=== PATIENT | female | born 1940 | race Caucasian/White ===

== ENCOUNTER 2016-07-06 11:21 | Inpatient (IN) | payer MEDICARE, OTHER, MEDICAID ==
[~2016-07-06] VITALS: Ht 157.5 cm; Wt 90.9 kg
[2016-07-06] VITALS (10 sets, daily range): BP systolic 89–149; BP diastolic 36–99; PULSE 77–96; RESP 13–23; O2SAT 87–100
[~2016-07-06 11:21] MED LIST: ALBU2.5V4 NEB; ALBU8.5H2 INH; AMLO5TAB2 PO; ARFO15VI2 NEB; ASPI-1148 PO; ATOR20TA PO; ATOR20TA65 PO; BUDE0.5A NEB; CHOL40003 PO; FISH400C PO; GABA-502 PO; IPRA0.2S51 NEB; LEVO100T6 PO; LISI-567 PO; OMEG300C3 PO; OMEP20CA11 PO; ONDA4TAB6 PO; OXYC1TAB24 PO; POLY17PO6 PO; PROP40TA5 PO; SUCR1TAB PO; ZOLP5TAB6 PO
--- NOTE | 2016-07-06 11:41 | ED.REPORT ---
HPI-Abd Pain F 40 and Over Date of Service Jul 06, 2016 ED Provider: Rodriguez Wills MD This is a 75 year old female brought to the ED by EMS with a history of COPD and HTN presenting with diarrhea that began 22 hours ago. This is associated with lower abdominal pain with radiation to the back, malaise, chills, nausea, and vomiting. Pt reports 20-30 episodes of persistent diarrhea since onset. Denies fever, headache, hematemesis, or hematochezia. Pt states that this is her 4th presentation with similar symptoms, she visited [facility] with last episode 4 months ago. Nursing Notes Stated Complaint: FEVER Chief Complaint: Female Abdominal Pain Nursing Notes Reviewed: Yes Allergies: Coded Allergies: Penicillins (Verified Allergy, Severe, rash, 04/27/16) ciprofloxacin (Verified Allergy, Severe, Nausea, 04/27/16) sulfamethoxazole (Verified Allergy, Severe, SYSTEMS REQUIREMENTS PLANNER toxicity, 04/28/16) trimethoprim (Verified Allergy, Severe, SYSTEMS REQUIREMENTS PLANNER toxicity, 04/28/16) dexamethasone (Verified Allergy, Intermediate, 04/27/16) insomnia, nightmares, nasuea and visual changes hydrochlorothiazide (Verified Allergy, Intermediate, Rash,Itching,, ) Uncoded Allergies: sulfamethoxazole-trimethoprim (Allergy, Intermediate, Hallucinations, ) Scheduled Amlodipine (Amlodipine) 5 Mg Tablet 5 MG PO DAILY Arformoterol Tartrate (Brovana) 15 Mcg/2 Ml Vial.neb 15 MCG IH BID Aspirin/Acetaminophen/Caffeine (Yxafmwh-Ijvbtnfqhglhl-Pxbk Tab) 250 Mg-250 Mg- 65 Mg Tablet 2 EACH PO Q6H Atorvastatin (Lipitor) 20 Mg Tablet 20 MG PO DAILY Atorvastatin Calcium (Atorvastatin Calcium) 20 Mg Tablet 20 MG PO DAILY Budesonide (Pulmicort) 0.5 Mg/2 Ml Ampul.neb. 0.5 MG HHN BID Cholecalciferol (Vitamin D3) (Vitamin D3) 4,000 Unit Capsule 4,000 UNIT PO DAILY Fish Oil/Borage/Flax/Om3,6,9#1 (Emzbrjpc-Gsvf-Dfgqev Oil Sftgl) 400 Mg Capsule 400 MG PO DAILY Gabapentin (Gabapentin) 300 Mg Capsule 300 MG PO TID Ipratropium [place] (Ipratropium [place] Inhalant Solution) 0.2 Mg/1 Ml Solution 0.2 MG IH QID Levothyroxine (Levothyroxine) 100 Mcg Tablet 100 MCG PO DAILY Lisinopril (Lisinopril) 20 Mg Tablet 20 MG PO DAILY [place]-3 Fatty Acids (Fish Oil) 300 Mg Capsule 300 MG PO DAILY Omeprazole (Omeprazole) 20 Mg Capsule.dr 20 MG PO BID Polyethylene Glycol 3350 (Miralax) 17 Gm Powd.pack 17 GM PO DAILY Propranolol HCl (Propranolol HCl) 40 Mg Tablet 20 MG PO TID Sucralfate (Sucralfate) 1 Gm Tablet 1-4 GM PO TIDWM & HS Scheduled PRN Albuterol HFA (Proair HFA) 8.5 Gm Hfa.aer.ad 1-2 PUFFS INH Q4H PRN PRN For Shortness of Breath Albuterol Neb Soln (Albuterol Neb Soln) 2.5 Mg/3 Ml Vial.neb 2.5 MG INHALATION Q2H PRN PRN For Shortness of Breath Ondansetron (Zofran) 4 Mg Tablet 4 MG PO Q0rkxdk PRN PRN For Nausea Zolpidem (Zolpidem) 5 Mg Tablet 5-10 MG PO HS PRN PRN For Insomnia oxyCODONE-Acetaminophen 5-325 mg (oxyCODONE-Acetaminophen 5-325 mg) 1 Each Tablet 1-2 TAB PO V3pspnd PRN PRN For Pain General Time Seen by MD: 11:29 Chief Complaint Diarrhea moderate Hx Obtained From: Patient Arrived By: Walk-in Sudden in Onset?: Yes Onset Occurred: 21 - 23 hours ago Symptom Duration: Since onset Location: : Abdomen lower Severity: Current: Mild Pertinent Negative: Pt denies other symptoms Recent Healthcare: No recent doctor visit, No recent hospitalization Similar Sx Previous: No Past Medical History Past Medical History Notes: Code Status: Full Code Medication List per Discharge Note dated 04/20/16 from [facility]: Amlodipine 5mg daily Albuterol 2 puffs q 4 hours prn SOB Gabapentin 300mg 2 tabs tid Brovana 1 vial nebulized bid Atorvastatin 20mg q PM Pulmicort nebs bid Vitamin D 4000 international units daily Duloxetine 30mg q PM Fish Oil 1 tab daily Flaxseed Oil 1 tab daily Ipratropium neb solution qid daily Levothyroxine 100mcg daily Omeprazole 20mg bid Zofran 4mg tablet q 8 hours prn nausea, vomiting Oxycodone 5/325, 1 to 2 tablets every 4 hours prn pain Miralax 17 grams in 8oz water daily Propranolol 20mg tid Zolpidem 5 to 10mg nightly prn insomnia Past Medical History Chronic back pain Atrial septal anuerysm 2006 Reports: COPD, Hypertension Past Surgical History back surgeries Smoking History Unknown if Ever Smoker Social History Other Social History: Good social support Ambulatory Status Independent Review of Systems Constitutional: Denies: Chills, Fever Respiratory: Denies: Non-productive cough, Shortness of breath Cardiovascular: Denies: Chest pain GI: Reports: Abdominal pain, Diarrhea, Nausea, Vomiting, Denies: Hematemesis, Hematochezia Female: Denies: Dysuria Complete sys rev & neg: except as marked. Physical Exam Vital Signs Vital Signs (First) Date Time Temp Pulse Resp B/P Pulse Ox O2 Delivery O2 Flow Rate FiO2 07/06/16 11:39 36.6 77 16 89/36 94 Nasal Cannula 07/06/16 12:31 3 - Initial VS: Reviewed Head / Eyes: Atraumatic, Normocephalic, PERRL Neck: Supple, Non-tender, Full range of motion Extremities: Vascular intact, Neuro intact, No swelling, No tenderness Skin: Warm, Dry, No cyanosis Neurologic: Alert, Oriented, Nonfocal Psychiatric: Mood/affect normal, Behavior normal, Normal thought content General/Constitutional: Awake, Alert Respiratory / Chest: Breath sounds NL, Breath sounds = bilat, No respiratory distress, No rales, No rhonchi, No wheezing, No stridor Cardiovascular: Heart rate NL, Regular rhythm, Heart sounds NL, Peripheral circulation NL Abdomen: Soft, No guarding, No rebound Tenderness/Guarding/Rebound: Positive: Tender diffuse Back: Full range of motion, Non-tender, No midline vertebral tend, No paraspinal tenderness ENT: Pharynx NL Mouth: Positive: Mucous membranes dry Interpretation & Diagnostics CT ABD PELVIS IMPRESSION: 1. Right basilar atelectasis associated with convex leftward scoliosis and reduced inspiratory volume. No pneumonia found. 2. Note is made of a dilated renal calyx at the left mid kidney, containing a 7 mm calcification. Episodic calyceal obstruction by this calcification could explain the appearance. An alternative potential cause is the presence of a cyst immediately adjacent to this calcification which therefore would be located either within a non-dilated calyx or the cortex itself.. Dictated by: Jens Guzman M.D. on 07/06/2016 at 14:49 Approved by: Jens Guzman M.D. on 07/06/2016 at 14:49 Lab Results Interpretation Result Diagram: 07/06/16 1257 07/06/16 1257 Test 07/06/16 12:05 07/06/16 12:57 Urine Color Dark yellow (YELLOW) Urine Appearance Hazy (CLEAR,HAZY) Urine pH 5.0 (5.0-8.0) Urine Specific [place] 1.025 (1.003-1.035) Urine Protein Negativemg/dL (NEG,TRACE) Urine Glucose (UA) Negativemg/dL (NEGATIVE) Urine Ketones Tracemg/dL (NEGATIVE) Urine Occult Blood Negative (NEGATIVE) Urine Nitrite Negative (NEGATIVE) Urine Bilirubin Negative (NEGATIVE) Urine Urobilinogen Normalmg/dL (NORMAL) Urine Leukocyte Esterase Negative (NEGATIVE) Urine RBC 0-2/hpf (0-2) Urine WBC 11-50/hpf (0-5) Urine Epithelial Cells Occasional/hpf (NONE-MOD) Urine Crystals Oxalic acid crystals (NONE Urine Bacteria Many/hpf (NONE-FEW) Urine Hyaline Casts None/lpf (NONE) Urine Granular Casts None seen (NONE SEEN) Urine Waxy Casts None seen (NONE SEEN) Urine Red Blood Cell Casts None seen (NONE SEEN) Urine White Blood Cell Casts None seen (NONE SEEN) Urine Mucus None seen (None Seen) Urine Trichomonas None seen (NONE SEEN) Urine Yeast None (NONE SEEN) Urinalysis Comment None Urine Culture Reflexed Indicated Hold Urine Received (Received) White Blood Count 7.3th/mm3 (3.8-10.1) Red Blood Count 3.56mil/mm3 (3.90-5.20) Hemoglobin 10.9g/dL (12.0-15.6) Hematocrit 34.9% (35.0-46.0) Mean Corpuscular Volume 98.0fL (81-100) Mean Corpuscular Hemoglobin 30.6pg (27.0-35.0) Mean Corpuscular Hemoglobin Concent 31.2% (32.0-37.0) Red Cell Distribution Width 13.8% (12.3-15.4) Platelet Count 273bil/L (150-400) Neutrophils (%) (Auto) 73.5% (40-74) Lymphocytes (%) (Auto) 16.3% (14-46) Monocytes (%) (Auto) 8.7% (4-12) Eosinophils (%) (Auto) 0.8% (0-5) Basophils (%) (Auto) 0.6% (0-3) Sodium Level 141mEq/L (134-144) Potassium Level 4.0mEq/L (3.5-5.2) Chloride Level 101mEq/L (97-108) Carbon Dioxide Level 28mmol/L (18-29) Blood Urea Nitrogen 30mg/dL (8-27) Creatinine 1.85mg/dL (0.57-1.00) Estimat Glomerular Filtration Rate 38mL/min (>59) Glucose Level 109mg/dL (60-99) Lactic Acid Level 1.2mmol/L (0.4-2.0) Calcium Level 8.6mg/dL (8.5-10.1) Magnesium Level 2.4mg/dL (1.6-2.6) Total Bilirubin 0.3mg/dL (0.0-1.2) Aspartate Amino Transf (AST/SGOT) 19U/L (0-50) Alanine Aminotransferase (ALT/SGPT) 10U/L (0-32) Alkaline Phosphatase 75U/L (25-165) Total Protein 5.9g/dL (6.4-8.4) Albumin 3.5g/dL (3.4-5.0) Lipase 10U/L (13-60) Hold [place] Top Tube Received (Received) Re-Eval/Medical Decision Med Decision/Clinical Course 75-year-old female history of hypertension, COPD positioning with 20-30 episodes watery diarrhea 1 day. Her maps were in the 40s to 50s on arrival. She was given 2 L normal saline and her maps improved to high 60s. Urine suggestive UTI. Acute kidney injury with creatinine of 1.8 greater than [address] no acute pathology. Patient will be admitted for acute kidney injury, UTI, dehydration. Full code. Re-Evaluation/Progress : Time of Eval: 14:44 Re-Evaluation/Progress Note: Discussed lab results and need for admission. Pt understands and agrees with plan, all questions addressed. Consultation : Referral / Consult Name: Sanchez Tellez MD Consulted With: Hospitalist Call Returned at: 15:41 Traffic Safety Administrator: Accepts admit Counseled Regarding: Diagnosis, Lab results, Need for follow-up, Need for admission Discharge & Departure Primary Impression: UTI (urinary tract infection) Urinary tract infection type: acute cystitis Hematuria presence: without hematuria Qualified Code: N30.00 - Acute cystitis without hematuria Additional Impressions: FARHAT (acute kidney injury) Dehydration Disposition: ADMITTED TO HOSPITAL Discharge Condition All VS Reviewed: Yes Condition: Stable Referrals: Fabian Meek MD (PCP) Scribe Attestation Portions of this note were transcribed by Starr Harris. I, Dr. Wills personally performed the history, physical exam and medical decision-making; I reviewed and confirmed the accuracy of the information in the transcribed note. Signed by: Starr Harris. 07/06/2015, 11:30. Rodriguez Wills MD Jul 06, 2016 11:41 STARR HARRIS Jul 06, 2016 11:43
[2016-07-06] MEDS ORDERED: 0.9% Sodium Chloride 1,000 ML IV ONE (12:34)
[2016-07-06] MEDS ORDERED: Ondansetron 2 mg/mL 2 mL Inj IVPUSH PRN (12:35)
[2016-07-06 12:51] LABS: APPEARANCE,URINE HAZY (CLEAR,HAZY); COLOR,URINE DARK YELLOW (YELLOW); OCCULT BLOOD,URINE NEGATIVE (NEGATIVE)
[2016-07-06 12:52] LABS: UROBILINOGEN,URINE NORMAL (NORMAL)
[2016-07-06 13:10] LABS: BASOPHILS % (AUTO) 0.6 % (0-3); EOSINOPHILS % (AUTO) 0.8 % (0-5); MONOCYTES % (AUTO) 8.7 % (4-12); Mean Corpuscular Hemoglobin 30.6 pg (27.0-35.0); NEUTROPHILS % (AUTO) 73.5 % (40-74); Platelet Count 273 bil/L (150-400)
[2016-07-06 13:42] LABS: Magnesium 2.4 mg/dL (1.6-2.6)
--- NOTE | 2016-07-06 14:51 | DRSVH ---
PROCEDURE: CT ABDOMEN AND PELVIS WITHOUT CONTRAST ([id number]) INDICATIONS: abd pain TECHNIQUE: Noncontrast 5 mm thick sections acquired from the diaphragms to the symphysis. 5 mm coronal and sagi ttal reformats were then performed. For radiation dose reduction, the following was used: automated exposure control, adjustment of mA and/or kV according to patient size. COMPARISON: None. FINDINGS: Image quality: Mildly compromised by absence of oral and intravenous contrast. The patient's renal f unction tests are elevated and intravenous contrast could not be safely administered. ABDOMEN: Lung bases: Lung bases are clear except for mild atelectasis associated with scoliosis and reduced i nspiratory volume, right greater than left. There appears to be a moderately large hiatal hernia beh ind the heart. Heart size is normal. Solid organs: Liver and spleen are normal in size. Gallbladder appears normal. Pancreas is normal in contours. No adrenal nodules. Kidneys are normal in size, without hydronephrosis or nephrolithia sis on the right but there is what appears to be a calculus within a dilated calyx of the left mid ki dney (series 2 image 45 in this calcification measures up to 7 mm in diameter. Peritoneum and bowel: Unenhanced bowel loops demonstrate normal wall thickness and caliber. No free fluid or air. Nodes and vessels: No retroperitoneal or mesenteric adenopathy by size criteria. Aorta and inferior vena cava are normal in caliber except for an infrarenal abdominal aortic aneurysm measuring up to 3 .1 x 3.2 cm in maximal axial dimension. Miscellaneous: No ventral hernias. PELVIS: Genitourinary: Bladder wall thickness is normal. Miscellaneous: No inguinal hernias or adenopathy. Bones: No suspicious bony lesions. No vertebral body compression fractures. IMPRESSION: 1. Right basilar atelectasis associated with convex leftward scoliosis and reduced inspiratory volum e. No pneumonia found. 2. Note is made of a dilated renal calyx at the left mid kidney, containing a 7 mm calcification. E pisodic calyceal obstruction by this calcification could explain the appearance. An alternative pote ntial cause is the presence of a cyst immediately adjacent to this calcification which therefore woul d be located either within a non-dilated calyx or the cortex itself.. Dictated by: Jens Guzman M.D. on 07/06/2016 at 14:49 Approved by: Jens Guzman M.D. on 07/06/2016 at 14:49
[2016-07-06] MEDS ORDERED: cefTRIAXone Inj 1,000 MG in IV Premix 1 EACH IV ONE (15:05)
[2016-07-06] MEDS ORDERED: 0.9% Sodium Chloride 250 ML ONE (15:27)
[2016-07-06] MEDS ORDERED: Alum-Mag Hydrox-Simeth 30 mL Suspension PO PRN (15:45)
--- NOTE | 2016-07-06 16:08 | PCM.HPMED ---
Subjective Date of Service Jul 06, 2016 Primary Provider: Admitting Physician: Primary Care Physician: Fabian Meek MD Attending Physician: Chief Complaint: Diarrhea HISTORY was OBTAINED FROM PATIENT / [facility] NOTES History of present illness 75-year-old female presents with one-day history of recurrent diarrhea 20, associated lower abdominal cramping, preceding retching without vomitus of dinner the night before. This is the 4th since 2016. Associated low blood pressure, dehydration, and decreased mentation/ lightheaded. Pending colonoscopy 07/27/2016, unremarkable colonoscopy 10 years ago. did not take her miralax for baseline chronic constipation. did not take her BP/diuretics. dinner and breakfast were typical, no sick contacts, lives alone. No dysuria. decreased voiding today. She can't see - unknown if blood in stool or blood in urine. sore throat. ongoing acid reflux despite meds. In the ER, 3 L O2, baseline, 2 L saline, blood pressure 88/36, UA negative for leukocyte esterase/nitrate/yeast. rocephine administered, diarrhea w/ abdominal pains and retching have resolved, thirsty ongoing back pain, paresthesia of right hand and foot are new today Review of Systems - none of the following - F/C/sick contact / wt change/ MANCINI / sob / cough / cp / // bleeding/bruising / leg swelling / yeast infections / rash falling hx. FAMILY HX no colon cancer SOCIAL HX former smoker MEDICATIONS Scheduled Amlodipine (Amlodipine) 5 Mg Tablet 5 MG PO DAILY --- off per PCP per patient Arformoterol Tartrate (Brovana) 15 Mcg/2 Ml Vial.neb 15 MCG IH BID Aspirin/Acetaminophen/Caffeine (Rxlkjfq-Jcytrrgunoelu-Doke Tab) 250 Mg-250 Mg- 65 Mg Tablet 2 EACH PO Q6H Atorvastatin (Lipitor) 20 Mg Tablet 20 MG PO DAILY Budesonide (Pulmicort) 0.5 Mg/2 Ml Ampul.neb. 0.5 MG HHN BID Cholecalciferol (Vitamin D3) (Vitamin D3) 4,000 Unit Capsule 4,000 UNIT PO DAILY Fish Oil/Borage/Flax/Om3,6,9#1 (Rqjdwjqe-Wihr-Tvcayh Oil Sftgl) 400 Mg Capsule 400 MG PO DAILY Gabapentin (Gabapentin) 300 Mg Capsule 300 MG PO TID Ipratropium [place] (Ipratropium [place] Inhalant Solution) 0.2 Mg/1 Ml Solution 0.2 MG IH QID Levothyroxine (Levothyroxine) 100 Mcg Tablet 100 MCG PO DAILY Lisinopril (Lisinopril) 20 Mg Tablet 20 MG PO DAILY [place]-3 Fatty Acids (Fish Oil) 300 Mg Capsule 300 MG PO DAILY Omeprazole (Omeprazole) 20 Mg Capsule.dr 20 MG PO BID Polyethylene Glycol 3350 (Miralax) 17 Gm Powd.pack 17 GM PO DAILY Propranolol HCl (Propranolol HCl) 40 Mg Tablet 20 MG PO TID Sucralfate (Sucralfate) 1 Gm Tablet 1-4 GM PO TIDWM & HS Scheduled PRN Albuterol HFA (Proair HFA) 8.5 Gm Hfa.aer.ad 1-2 PUFFS INH Q4H PRN PRN For Shortness of Breath Albuterol Neb Soln (Albuterol Neb Soln) 2.5 Mg/3 Ml Vial.neb 2.5 MG INHALATION Q2H PRN PRN For Shortness of Breath Zolpidem (Zolpidem) 5 Mg Tablet 5-10 MG PO HS PRN PRN For Insomnia oxyCODONE-Acetaminophen 5-325 mg (oxyCODONE-Acetaminophen 5-325 mg) 1 Each Tablet 1-2 TAB PO E4nazvl PRN PRN For Pain lasix 20 / potassium 20 PRN leg swelling/SOB PMHx Left ventricular grade II diastolic dysfunction / Hypertension / DLP / Atrial septal aneurysm 2006, COPD 3L O2 dependent Hypothyroidism chronic back pain/DDD//Arthritis/shoulder operations right hand surgery Cataracts / diminished vision Dysphagia/Hiatal hernia/GERD Recurrent UTI - 04/2016 admission enterobacter Skin and cervical cancer Hysterectomy tremors. Allergies Coded Allergies: Penicillins (Verified Allergy, Severe, rash, 04/27/16) ciprofloxacin (Verified Allergy, Severe, Nausea, 04/27/16) sulfamethoxazole (Verified Allergy, Severe, BASTING MARKER toxicity, 04/28/16) trimethoprim (Verified Allergy, Severe, BASTING MARKER toxicity, 04/28/16) dexamethasone (Verified Allergy, Intermediate, 04/27/16) insomnia, nightmares, nasuea and visual changes hydrochlorothiazide (Verified Allergy, Intermediate, Rash,Itching,, ) Uncoded Allergies: sulfamethoxazole-trimethoprim (Allergy, Intermediate, Hallucinations, ) H Social History Hx Alcohol Use: No Hx Substance Use: No Smoking Status: Former Smoker Exam Vital Signs Vital Sign - Last Date Time Temp Pulse Resp B/P Pulse Ox O2 Delivery O2 Flow Rate FiO2 07/06/16 14:44 89 23 101/44 94 Nasal Cannula 3 07/06/16 11:39 36.6 Lab and Diagnostics Labs Exam on admission 3L O2 NAD A and O x 3 mood affect WNL NC/AT no icterus no injected eyes EOMI PERRL /no oral lesions / hearing intact / / white small plaque on pharynx Supple neck CTAB equal chest rise / no accessory muscle use / speaks in full sentences / no rrw RRR S1 S2 / no mrg / 2+ radial pulses Soft nt nd + BS no hepatosplenomegaly trace bilateral lester edema no cyanosis no ecchymosis of lower extremities knee erythema / no jaundice MAY UA neg for infection markers, epithelials/bacteria present, no yeast Ucx pending, LFT WNL, lipase WNL lactic acid WNL stool cx/c diff pending IMPRESSION: 1. Right basilar atelectasis associated with convex leftward scoliosis and reduced inspiratory volume. No pneumonia found. 2. Note is made of a dilated renal calyx at the left mid kidney, containing a 7 mm calcification. Episodic calyceal obstruction by this calcification could explain the appearance. An alternative potential cause is the presence of a cyst immediately adjacent to this calcification which therefore would be located either within a non-dilated calyx or the cortex itself.. Cardiac Echo05/25/16 Interpretation Summary Left ventricular wall thickness is mildly increased. Left ventricular systolic function is normal. The ejection fraction is estimated to be 60-65%. There are no focal wall motion abnormalities. Assessment of diastolic parameters suggests a pseudonormalization pattern, consistent with elevated filling pressures ( LV grade II diastolic dysfunction). The right ventricle is normal in size and function. The right ventricular systolic pressure is estimated at 36 mmHg assuming a right atrial pressure of 3 mm Hg. The left atrium is moderately dilated. Right atrial size is normal. There is no significant valvular heart disease. The aortic root is normal size. Result Diagram: 07/06/16 1257 07/06/16 1257 Assessment & Plan Active issues and reason for admission 75-year-old female with recurrent diarrhea, causing hypotension due to dehydration and history of present illness new-onset. --unlikely gastroenteritis given recurrence, unlikely SBO w/o CT evidence, contributory narcotics for chronic constipation, continue to hold home miralax -- stool culture pending, C. difficile pending, hx of PPI -- planned colonoscopy 07/27/2016 -- Status post Rocephin in ER - hold on abx until stool culture Hypotension due to fluid loss/diarrhea, no other sources of infection -- IVF AK I, likely prerenal -- IV fluid, monitor for known diastolic dysfunction right hand and foot paresthesia, new --hx of spinal stenosis Thrush, mild --nystatin, low threshold to d/c Chronic issues known prior to admission, present on admission GERD/gastric ulcers. ongoing intermittent symptoms. continue PPI/ Sucralfate. f/ u w/GI COPD 3L O2 dependent, held home medsbrovana, budesonide atrovent. duonebs here. Hypothyroidism, levothyroxine Hypertension/DLP/Left ventricular II diastolic dysfunction. continue statin, hold lisinopril/lasix Tremors, propanolol w/ holding parameter history of chronic back pain/spinal stenosis. morphine if retches, home gabapentin, percocet, insomnia. ambien Diet clear DVT prophylaxis heparin scd ambulate Code full Disposition inpatient Assessment and plan were discussed with patient . Sanchez Tellez MD Jul 06, 2016 16:08
[2016-07-06] MEDS: 0.9% Sodium Chloride 1,000 ML IV SCH (17:00)
[2016-07-06] MEDS ORDERED: Sucralfate 1,000 mg Tablet PO PRN (17:00)
--- NOTE | 2016-07-06 17:20 | NUR ---
Admission Patient arrived on unit via gurney. Patient alert and oriented on arrival. Patient reporting nausea, vomiting, diarrhea, and generalized weakness for a "day or two". Patient has an essential tremor and requires 1:1 feeding. Patient uses 2-3 ltr O2 at home. Patient urine positive for culture. Patient currently on 3 ltr O2. Patient has had diarrhea x 2 since arriving on unit. Patient reporting her legs "give out when she tries to stand up currently" and that at home "she walks around by holding onto furniture and things". Sample sent for C-diff culture.
[2016-07-06] MEDS ORDERED: FUR20 PO (18:07)
[2016-07-06] MEDS ORDERED: POTA20TA16 PO (18:07)
--- NOTE | 2016-07-06 18:30 | NUR ---
med rec completed/ home meds sent to pharmacy Med rec updated with pt's med containers and pt interview. All home meds placed in 2 pharmacy bags and sealed in front of patient, #[id number] and #[id number], home meds sent to pharmacy to hold until family can come take them. Primary RN Estelita Bailey
[2016-07-06] MEDS: Nystatin 100,000 Unit/mL 5 mL Suspension PO SCH ×2 (18:48→20:43)
--- NOTE | 2016-07-06 19:53 | NUR ---
Case Management: IMM explained to patient at 1940--pt unable to sign form stating "I can't see". I noted this on IMM and placed it in the chart, copy given to patient. Michelle Durham RN
[2016-07-06] MEDS: Arformoterol 15 mCg/2 mL Inhalation Solution INHALATION SCH (20:13)
[2016-07-06] MEDS: Albuterol-Ipratropium 3 mL Inhalation Solution NEB SCH (20:13)
[2016-07-06] MEDS: Budesonide 0.5 mg/2 mL Inhalation Solution INHALATION SCH (20:14)
[2016-07-07] VITALS (18 sets, daily range): BP systolic 80–119; BP diastolic 40–71; PULSE 64–87; RESP 12–20; O2SAT 87–96
[2016-07-07] MEDS ORDERED: 0.9% Sodium Chloride 1,000 ML IV ONE ×2 (01:30→05:10)
--- NOTE | 2016-07-07 01:45 | NUR ---
Blood pressure. Patient remains hypotensive at 80/40 taken manually. Provider Gail informed and orders for an additional 500ml bolus was received and start stat.
--- NOTE | 2016-07-07 02:18 | NUR ---
Blood pressure. Notified by [facility] that the patients blood pressure was in the 70 systolic. Auscultated blood pressure was in the 90's. Patient denies complaints, besides feeling weak. Provider Gail notified and orders for 1000ml bolus to be given over 2 hours was received. Addendum: 07/07/16 at 0535 by BLAIR GARCIA RN Patient blood pressure has started to trend into the upper 90's. Patient reports feeling cold and slightly short of breath. lung sounds are clear. IV fluids running at 500ml per hour for 2 hours. Doctors are aware of the patients status and no new order at this time.
[2016-07-07] MEDS ORDERED: 0.9% Sodium Chloride 500 ML IV ONE (02:39)
[2016-07-07] MEDS: 0.9% Sodium Chloride 1,000 ML IV SCH ×2 (03:00→18:17)
[2016-07-07] MEDS: Arformoterol 15 mCg/2 mL Inhalation Solution INHALATION SCH ×2 (05:21→20:10)
[2016-07-07] MEDS: Budesonide 0.5 mg/2 mL Inhalation Solution INHALATION SCH ×2 (05:21→20:11)
[2016-07-07] MEDS: Albuterol-Ipratropium 3 mL Inhalation Solution NEB SCH ×4 (05:21→20:10)
[2016-07-07 05:52] LABS: Mean Corpuscular Hemoglobin 30.2 pg (27.0-35.0); Mean Corpuscular Volume 98.8 fL (81-100)
[2016-07-07 06:23] LABS: Phosphorus 3.4 mg/dL (2.5-4.9)
[2016-07-07] MEDS ORDERED: cefTRIAXone Inj 1,000 MG in IV Premix 1 EACH IV SCH (08:30)
[2016-07-07] MEDS ORDERED: Ciprofloxacin Inj 400 MG in IV Premix 1 EACH IV SCH (08:30)
[2016-07-07] MEDS: Nystatin 100,000 Unit/mL 5 mL Suspension PO SCH ×4 (08:41→20:20)
[2016-07-07] MEDS: Pantoprazole 4 mg/mL 10 mL Inj IVPUSH SCH ×2 (08:41→16:50)
[2016-07-07] MEDS: Heparin 5,000 Unit/mL Inj SUBQ SCH ×2 (08:42→16:52)
[2016-07-07] MEDS: cefTRIAXone Inj 2,000 MG in IV Premix 1 EACH IV SCH (12:07)
[2016-07-07] MEDS: oxyCODONE-Acetamin 5-325 mg Tablet PO PRN ×2 (13:08→19:46)
--- NOTE | 2016-07-07 13:22 | NUR ---
Evaluation completed. Please go to "Notes" then click on "Assessments and Notes" (bottom left corner of screen). Then select appropriate discipline tab on top of screen.
--- NOTE | 2016-07-07 17:24 | NUR ---
Social Work: Initial Assessment D: Per EMR review, pt is a 75 year old female admitted for UTI, FARHAT, Dehydration. Pt is Medicare with [facility] Blue Shield Supplement. PCP is Fabian Meek MD. NOK and DPOA is Sandra Montes, Dtr, . DPOA ppw on file, advanced directives ppw is not. [employer] MAKER requested this from pt, who states her daughter can provide copy. Readmit score is moderate, 4/8. CANVAS [employer] MAKER met with pt at bedside. Sw role explained. See initial assessment. Pt lives in [place], alone. Her daughter lives nearby. Pt uses a FWW at baseline, and owns an electric scooter which she uses when going out into the community. Pt uses 3L 02 at baseline. Pt states she lives in a single story home with 4 steps to enter. CANVAS [employer] MAKER reviewed current PT recommendation for SNF and provided SNF/HH choice list. Pt currently declining SNF recommendation stating "I will not go to one of those places. Absolutely not." Pt states she was previously open with [email or web address] and would like to have a new order placed for PT/OT. CAN[employer] MAKER reviewed risks of going home against recommendation including risk to readmit. She states she understands and does not feel she is a fall risk. Pt states her daughter or granddaughter will transport her home at time of discharge. F2F in folder for MD signature. Referral and access provided to [facility]. A: Pt who is currently declining Home Health recommendation P: Anticipate pt to discharge home via POV and [facility] HH: PT/OT pending acceptance. CAN[employer] MAKER to continue to follow and assist with discharge planning. CLINTON Aguilar Addendum: 07/07/16 at 1732 by LYNETTE CASTELLANO Amended: Links added.
--- NOTE | 2016-07-07 18:34 | NUR ---
Nausea/vomiting/diarrhea Patient reporting an absence of previous symptoms. Patient denies any nausea or diarrhea this shift. Reporting a return of appetite and reporting she is "ravenous". Patient has not had a stool to quiac this shift.
[2016-07-07] MEDS: Ondansetron 2 mg/mL 2 mL Inj IVPUSH PRN ×2 (19:47→20:26)
--- NOTE | 2016-07-07 22:22 | PCM.PNMED ---
Subjective Date of Service Jul 07, 2016 Subjective She is beginning to feel better and would like to tries to have something to eat. She has not had anything the all day. Her nausea has improved and her diarrhea has improved. Exam Vital Signs Vital Sign - Last Date Time Temp Pulse Resp B/P Pulse Ox O2 Delivery O2 Flow Rate FiO2 07/07/16 20:20 Supplement Oxygen 07/07/16 20:11 64 20 95 3.00 07/07/16 19:45 36.8 118/65 Intake and Output 07/06/16 07/06/16 07/07/16 Cumulative From/Thru 15:00 23:00 07:00 07/06/16 11:39 - 07/07/16 06:14 Intake Total 1000 ml 550 ml 2825 ml 4375 ml Output Total 400 ml 400 ml Balance 1000 ml 150 ml 2825 ml 3975 ml Intake Oral 300 ml 300 ml IV Total 1000 ml 250 ml 2825 ml 4075 ml Output Urine Total 400 ml 400 ml # Bowel Movements 2 2 Exam General: The patient appears comfortable and is in no apparent distress. HEENT: Head is atraumatic normocephalic. Eyes: Pupils are equally round and reactive to light and accommodation. Extraocular muscles are intact. Sclera are white anicteric. Subconjunctival mucosa is pink. Ears and nose are unremarkable. Oropharynx: There are no mucosal lesions, there is no thrush, there is no pharyngitis. Neck: Is supple, there are no nodes, or masses, or tenderness. Chest: Is clear to auscultation and percussion. There are no rales, rhonchi, wheezes or rubs. Heart: Rate, rhythm is regular. There is no murmur, rub or gallop. Abdomen: Good bowel sounds are present. Abdomen is soft, nontender, no organomegaly or masses were appreciated. Extremities: Are symmetrical and well perfused. There is no edema, there is no cellulitis, no rash. Neurologic: There are no focal neurological deficits. Cranial nerves II through XII are intact. There are no sensory or motor deficits. Psychiatric: Patients mood is calm and shows no sign of agitation. Genital: Deferred Rectal: Deferred Lab and Diagnostics Result Diagram: 07/07/16 0537 07/07/16 0537 Microbiology ECOLI PCR ENTEROPATHOGENIC Final 07/06/16 Organism 1 ECOLI ENTEROPATHOGENIC EPEC ECOLI EPEC PCR DETECTED TIME CALLED: 1932 DATE CALLED: 07/06/16 FLOOR/DOCTOR: YOAN Raza CALLED BY: MIKAEL ECOLI PCR ENTEROTOXIGENIC Final 07/06/16 Not Detected X-Rays, CTs and MRIs PROCEDURE: CT ABDOMEN AND PELVIS WITHOUT CONTRAST ([id number]) INDICATIONS: abd pain TECHNIQUE: Noncontrast 5 mm thick sections acquired from the diaphragms to the symphysis. 5 mm coronal and sagittal reformats were then performed. For radiation dose reduction, the following was used: automated exposure control, adjustment of mA and/or kV according to patient size. COMPARISON: None. FINDINGS: Image quality: Mildly compromised by absence of oral and intravenous contrast. The patient's renal function tests are elevated and intravenous contrast could not be safely administered. ABDOMEN: Lung bases: Lung bases are clear except for mild atelectasis associated with scoliosis and reduced inspiratory volume, right greater than left. There appears to be a moderately large hiatal hernia behind the heart. Heart size is normal. Solid organs: Liver and spleen are normal in size. Gallbladder appears normal. Pancreas is normal in contours. No adrenal nodules. Kidneys are normal in size, without hydronephrosis or nephrolithiasis on the right but there is what appears to be a calculus within a dilated calyx of the left mid kidney (series 2 image 45 in this calcification measures up to 7 mm in diameter. Peritoneum and bowel: Unenhanced bowel loops demonstrate normal wall thickness and caliber. No free fluid or air. Nodes and vessels: No retroperitoneal or mesenteric adenopathy by size criteria. Aorta and inferior vena cava are normal in caliber except for an infrarenal abdominal aortic aneurysm measuring up to 3.1 x 3.2 cm in maximal axial dimension. Miscellaneous: No ventral hernias. PELVIS: Genitourinary: Bladder wall thickness is normal. Miscellaneous: No inguinal hernias or adenopathy. Bones: No suspicious bony lesions. No vertebral body compression fractures. IMPRESSION: 1. Right basilar atelectasis associated with convex leftward scoliosis and reduced inspiratory volume. No pneumonia found. 2. Note is made of a dilated renal calyx at the left mid kidney, containing a 7 mm calcification. Episodic calyceal obstruction by this calcification could explain the appearance. An alternative potential cause is the presence of a cyst immediately adjacent to this calcification which therefore would be located either within a non-dilated calyx or the cortex itself.. Dictated by: Jens Guzman M.D. on 07/06/2016 at 14:49 Approved by: Jens Guzman M.D. on 07/06/2016 at 14:49 Cardiac Echo Impressions Echocardiogram Report Name: LLUVIA PERKINS LStudy Date: 04/28/2016 Hei ght: 64 in Hospital Exam Location: [facility] ght: 193 lb Gender: Female BSA : 1.9 m2 : 1940 Age: 75 yrs BP: 125/72 mmHg Reason For Study: NEAR SYNCOPE, SYMPTOMAATIC BRADYCARDIA Ordering Physician: HOSPITALIST [facility] Performed By: Lazara Rashid Referring Physician: DR. GARCIA, DR. Cinthya CERNA Interpretation Summary Left ventricular wall thickness is mildly increased. Left ventricular systolic function is normal. The ejection fraction is estimated to be 60-65%. There are no focal wall motion abnormalities. Assessment of diastolic parameters suggests a pseudonormalization pattern, consistent with elevated filling pressures ( LV grade II diastolic dysfunction). The right ventricle is normal in size and function. The right ventricular systolic pressure is estimated at 36 mmHg assuming a right atrial pressure of 3 mm Hg. The left atrium is moderately dilated. Right atrial size is normal. There is no significant valvular heart disease. The aortic root is normal size. Assessment & Plan The patient is a 75-year-old female presents with one-day history of recurrent diarrhea 20 episodes, associated lower abdominal cramping, preceding retching without vomitus of dinner the night before. This is the 4th set of episodes since 2016. Associated low blood pressure, dehydration, and decreased mentation /lightheaded. Patient has a colonoscopy due to old 07/27/[address] Castro at [facility]. The patient had an unremarkable colonoscopy 10 years ago. did not take her miralax for baseline chronic constipation. did not take her BP/diuretics. dinner and breakfast were typical, no sick contacts, lives alone. No dysuria. decreased voiding today. She can't see - unknown if blood in stool or blood in urine. sore throat. ongoing acid reflux despite meds. In the ER, 3 L O2, baseline, 2 L saline, blood pressure 88/36, UA negative for leukocyte esterase/nitrate/yeast. Rocephin administered, diarrhea w/ abdominal pains and retching have resolved, thirsty with ongoing back pain, paresthesia of right hand and foot are new today. Was admitted to the hospital service for further evaluation and treatment. Active issues and reason for admission 75-year-old female with recurrent diarrhea, causing hypotension due to dehydration and history of present illness new-onset. -- Apparent infectious gastroenteritis with enteropathogenic Escherichia coli found on gastrointestinal DNA PCR panel -- Planned colonoscopy 07/27/2016 -- Status post Rocephin in ER - then Cipro ordered possibly for UTI. However, patient is allergic to quinolones. Therefore patient was placed on Rocephin for UTI today and will continue. Hypotension due to fluid loss/diarrhea, no other sources of infection -- IVF AK I, likely prerenal -- IV fluid, monitor for known diastolic dysfunction Right hand and foot paresthesia, new --hx of spinal stenosis -- No complaints of this type today Thrush, mild --nystatin, low threshold to d/c Chronic issues known prior to admission, present on admission -GERD/gastric ulcers. ongoing intermittent symptoms. continue PPI/ Sucralfate. f /u w/GI as scheduled on 07/27/2016 -COPD 3L O2 dependent, held home medsbrovana, budesonide atrovent. duonebs here. Will restart when patient is feeling better or the time of discharge. -Hypothyroidism, continue levothyroxine -Hypertension/DLP/Left ventricular II diastolic dysfunction. continue statin, hold lisinopril/lasix -Tremors, continue propanolol w/ holding parameter -History of chronic back pain/spinal stenosis. morphine if retches, home gabapentin, percocet, -Insomnia. Continue ambien Diet : Advance as tolerated. DVT prophylaxis heparin scd ambulate Code full Disposition: Will depend on patient's recovery. Pain Evaluation: Adequate Pain Control GI Prophylaxis: Proton Pump Inhibitor VTE Prophylaxis: Sub-Q Heparin (Unfractionated) VTE Mechanical Devices: Intermittant Pneumatic CD Resuscitation Status: CPR: Attempt Resuscitation ToddElder MD Jul 07, 2016 22:22
[2016-07-08] VITALS (9 sets, daily range): BP systolic 132–146; BP diastolic 59–79; PULSE 52–70; RESP 16–22; O2SAT 93–99
[2016-07-08] MEDS: Heparin 5,000 Unit/mL Inj SUBQ SCH ×3 (00:14→16:30)
[2016-07-08] MEDS: 0.9% Sodium Chloride 1,000 ML IV SCH ×2 (03:07→09:00)
[2016-07-08] MEDS: oxyCODONE-Acetamin 5-325 mg Tablet PO PRN ×2 (04:30→13:37)
[2016-07-08] MEDS: Ondansetron 2 mg/mL 2 mL Inj IVPUSH PRN (05:31)
[2016-07-08] MEDS: Arformoterol 15 mCg/2 mL Inhalation Solution INHALATION SCH (07:06)
[2016-07-08] MEDS: Albuterol-Ipratropium 3 mL Inhalation Solution NEB SCH ×3 (07:06→15:33)
[2016-07-08] MEDS: Budesonide 0.5 mg/2 mL Inhalation Solution INHALATION SCH (07:06)
[2016-07-08 07:07] LABS: BASOPHILS % (AUTO) 0.7 % (0-3); MONOCYTES % (AUTO) 10.1 % (4-12); Mean Corpuscular Hemoglobin 30.5 pg (27.0-35.0); Mean Corpuscular Volume 100.3 fL (81-100); NEUTROPHILS % (AUTO) 52.2 % (40-74); Platelet Count 195 bil/L (150-400)
[2016-07-08 07:43] LABS: Magnesium 2.1 mg/dL (1.6-2.6); Phosphorus 2.3 mg/dL (2.5-4.9)
[2016-07-08] MEDS: Nystatin 100,000 Unit/mL 5 mL Suspension PO SCH ×2 (08:04→13:37)
[2016-07-08] MEDS: Pantoprazole 4 mg/mL 10 mL Inj IVPUSH SCH ×2 (08:04→16:33)
[2016-07-08] MEDS: cefTRIAXone Inj 2,000 MG in IV Premix 1 EACH IV SCH (08:05)
--- NOTE | 2016-07-08 08:10 | PCM.PNMED ---
Subjective Date of Service Jul 08, 2016 Exam Vital Signs Vital Sign - Last Date Time Temp Pulse Resp B/P Pulse Ox O2 Delivery O2 Flow Rate FiO2 07/08/16 07:06 52 20 98 Nasal Cannula 3.00 07/08/16 04:37 36.6 144/73 Intake and Output 07/07/16 07/07/16 07/08/16 Cumulative From/Thru 15:00 23:00 07:00 07/06/16 11:39 - 07/08/16 06:25 Intake Total 400 ml 438 ml 1200 ml 6413 ml Output Total 750 ml 475 ml 1625 ml Balance -350 ml -37 ml 1200 ml 4788 ml Intake Oral 400 ml 438 ml 1138 ml IV Total 1200 ml 5275 ml Output Urine Total 750 ml 475 ml 1625 ml # Bowel Movements 0 0 2 Lab and Diagnostics Result Diagram: 07/08/16 0655 07/08/16 0655 Microbiology ECOLI PCR ENTEROPATHOGENIC Final 07/06/16-1934 Organism 1 ECOLI ENTEROPATHOGENIC EPEC ECOLI EPEC PCR DETECTED TIME CALLED: 1932 DATE CALLED: 07/06/16 FLOOR/DOCTOR: YOAN Raza CALLED BY: MIKAEL ECOLI PCR ENTEROTOXIGENIC Final 07/06/16-1934 Not Detected X-Rays, CTs and MRIs PROCEDURE: CT ABDOMEN AND PELVIS WITHOUT CONTRAST ([id number]) INDICATIONS: abd pain TECHNIQUE: Noncontrast 5 mm thick sections acquired from the diaphragms to the symphysis. 5 mm coronal and sagittal reformats were then performed. For radiation dose reduction, the following was used: automated exposure control, adjustment of mA and/or kV according to patient size. COMPARISON: None. FINDINGS: Image quality: Mildly compromised by absence of oral and intravenous contrast. The patient's renal function tests are elevated and intravenous contrast could not be safely administered. ABDOMEN: Lung bases: Lung bases are clear except for mild atelectasis associated with scoliosis and reduced inspiratory volume, right greater than left. There appears to be a moderately large hiatal hernia behind the heart. Heart size is normal. Solid organs: Liver and spleen are normal in size. Gallbladder appears normal. Pancreas is normal in contours. No adrenal nodules. Kidneys are normal in size, without hydronephrosis or nephrolithiasis on the right but there is what appears to be a calculus within a dilated calyx of the left mid kidney (series 2 image 45 in this calcification measures up to 7 mm in diameter. Peritoneum and bowel: Unenhanced bowel loops demonstrate normal wall thickness and caliber. No free fluid or air. Nodes and vessels: No retroperitoneal or mesenteric adenopathy by size criteria. Aorta and inferior vena cava are normal in caliber except for an infrarenal abdominal aortic aneurysm measuring up to 3.1 x 3.2 cm in maximal axial dimension. Miscellaneous: No ventral hernias. PELVIS: Genitourinary: Bladder wall thickness is normal. Miscellaneous: No inguinal hernias or adenopathy. Bones: No suspicious bony lesions. No vertebral body compression fractures. IMPRESSION: 1. Right basilar atelectasis associated with convex leftward scoliosis and reduced inspiratory volume. No pneumonia found. 2. Note is made of a dilated renal calyx at the left mid kidney, containing a 7 mm calcification. Episodic calyceal obstruction by this calcification could explain the appearance. An alternative potential cause is the presence of a cyst immediately adjacent to this calcification which therefore would be located either within a non-dilated calyx or the cortex itself.. Dictated by: Jens Guzman M.D. on 07/06/2016 at 14:49 Approved by: Jens Guzman M.D. on 07/06/2016 at 14:49 Cardiac Echo Impressions Echocardiogram Report Name: LLUVIA PERKINS LStudy Date: 04/28/[address] [facility] ght: 64 in Hospital Exam Location: [facility] ght: 193 lb Gender: Female BSA : 1.9 m2 : 1940 Age: 75 yrs BP: 125/72 mmHg Reason For Study: NEAR SYNCOPE, SYMPTOMAATIC BRADYCARDIA Ordering Physician: [facility]PITALIST [facility] Performed By: Lazara Rashid Referring Physician: DR. GARCIA, DR. Cinthya CERNA Interpretation Summary Left ventricular wall thickness is mildly increased. Left ventricular systolic function is normal. The ejection fraction is estimated to be 60-65%. There are no focal wall motion abnormalities. Assessment of diastolic parameters suggests a pseudonormalization pattern, consistent with elevated filling pressures ( LV grade II diastolic dysfunction). The right ventricle is normal in size and function. The right ventricular systolic pressure is estimated at 36 mmHg assuming a right atrial pressure of 3 mm Hg. The left atrium is moderately dilated. Right atrial size is normal. There is no significant valvular heart disease. The aortic root is normal size. Assessment & Plan The patient is a 75-year-old female presents with one-day history of recurrent diarrhea 20 episodes, associated lower abdominal cramping, preceding retching without vomitus of dinner the night before. This is the 4th set of episodes since 2016. Associated low blood pressure, dehydration, and decreased mentation /lightheaded. Patient has a colonoscopy due to old 07/27/[address] Castro at [facility]. The patient had an unremarkable colonoscopy 10 years ago. did not take her miralax for baseline chronic constipation. did not take her BP/diuretics. dinner and breakfast were typical, no sick contacts, lives alone. No dysuria. decreased voiding today. She can't see - unknown if blood in stool or blood in urine. sore throat. ongoing acid reflux despite meds. In the ER, 3 L O2, baseline, 2 L saline, blood pressure 88/36, UA negative for leukocyte esterase/nitrate/yeast. Rocephin administered, diarrhea w/ abdominal pains and retching have resolved, thirsty with ongoing back pain, paresthesia of right hand and foot are new today. Was admitted to the hospital service for further evaluation and treatment. Active issues and reason for admission 75-year-old female with recurrent diarrhea, causing hypotension due to dehydration and history of present illness new-onset. -- Apparent infectious gastroenteritis with enteropathogenic Escherichia coli found on gastrointestinal DNA PCR panel -- Planned colonoscopy 07/27/2016 -- Status post Rocephin in ER - then Cipro ordered possibly for UTI. However, patient is allergic to quinolones. Therefore patient was placed on Rocephin for UTI today and will continue. Hypotension due to fluid loss/diarrhea, no other sources of infection -- IVF AK I, likely prerenal, resolved -- IV fluid, monitor for known diastolic dysfunction Right hand and foot paresthesia, new --hx of spinal stenosis -- No complaints of this type today Thrush, mild --nystatin, low threshold to d/c Chronic issues known prior to admission, present on admission -GERD/gastric ulcers. ongoing intermittent symptoms. continue PPI/ Sucralfate. f /u w/GI as scheduled on 07/27/2016 -COPD 3L O2 dependent, held home medsbrovana, budesonide atrovent. duonebs here. Will restart when patient is feeling better or the time of discharge. -Hypothyroidism, continue levothyroxine -Hypertension/DLP/Left ventricular II diastolic dysfunction. continue statin, hold lisinopril/lasix -Tremors, continue propanolol w/ holding parameter -History of chronic back pain/spinal stenosis. morphine if retches, home gabapentin, percocet, -Insomnia. Continue ambien Diet : Advance as tolerated. DVT prophylaxis heparin scd ambulate Code full Disposition: Will d/c with oral abx if she can eat and diarrhea stop. GI Prophylaxis: Proton Pump Inhibitor VTE Prophylaxis: Sub-Q Heparin (Unfractionated) VTE Mechanical Devices: Intermittant Pneumatic CD Resuscitation Status: CPR: Attempt Resuscitation Jordan Beckett DO Jul 08, 2016 08:10 Ramiro Jung MD Jul 09, 2016 10:41
--- NOTE | 2016-07-08 10:46 | NUR ---
Tele discontinued per resident/hospitalist.
[2016-07-08] MEDS ORDERED: CEFD300C3 PO (14:14)
--- NOTE | 2016-07-08 15:21 | NUR ---
Discharge Patient departed unit via wheelchair accompanied by staff and family. Patient alert and oriented at time of discharge. Patient on 3 ltr 2, nasal canula-per baseline. Patient denied chest discomfort, cough, pain, nausea, and diarrhea prior to discharge. Patient reporting continued back pain and generalized pain-also at baseline. Patient reporting continued shortness of breath with exertion-at baseline. Discharge instructions/medications reviewed with patient/family and IV access removed prior to discharge. All questions addressed. Discharge instructions, patient belongings and prescription in hand. Home medications returned to patient.
--- NOTE | 2016-07-08 16:52 | NUR ---
Social Work: Discharge Data: Pt is on day 2 of hospitalization. EMR reviewed, states he is putting d/c orders in. F2F signed by MS LINOW notified [facility] CHRISTINE. No further d/c planning needs identified at this time. Assessment: Pt who is independent at baseline. Plan: Pt will d/c home via POV today with [facility] CHRISTINE, PT/OT/COMMUNITY SERVICE WORKER.No further d/c planning needs identified at this time. CLINTON Myaers
[2016-07-08] MEDS ORDERED: PROP40TA5 PO (17:14)
[2016-07-08] MEDS ORDERED: PROP20TA5 PO (17:15)
--- NOTE | 2016-07-08 17:27 | PCM.DIMED ---
Kira Beckettuc H DO 07/08/16 1727: Discharge Instructions Date of Service Jul 08, 2016 Dates of Hospitalization Jul 06, 2016 at 16:36 Discharge Diagnosis Discharge Diagnosis Urinary tract infection U have a urinary tract infection It is caused by the bacteria call Escherichia coli An antibiotic call Ceftinir has been prescribed Please take the antibiotics twice a day for 4 days. Cranberry juice helps prevent urinary tract infection He will need to be follow-up for your urinary tract infection. Please call your doctor to make a "hospital follow-up" appointment within 1 week Gastroenteritis, resolved Your diarrhea, cramps, nausea, vomiting was likely caused by an infection within the stomach and intestines A protocol to Escherichia coli enteropathogenic Epec has been identify as the culprit You do not need antibiotics for this however To prevent future gastroenteritis, you can take probiotics This medication can be found [id number] at any pharmacy. Please ask your pharmacy for recommendation of probiotics Vision change Blue color vision likely due to the macular degeneration Please make an appointment and see mercury recoverer urgently for an evaluation. Hypotension, resolved This was likely caused by dehydration because he had diarrhea Because her heart rate is low on this admission. Acute kidney injury, resolved Your kidney was dehydrated. We have given you fluid for this Your kidney function has normalized Right hand and foot paresthesia, stable You are taking gabapentin for this, please discuss with your doctor should your hand and foot worsen. Thrush, mild, resolved Diet Heart Healthy, Diabetic Activity No restrictions Call your provider Fever or Chills, Shortness of breath, Excessive diarrhea Patient Instructions Seek care immediately if: * You are urinating very little or not at all. * You are vomiting. * You have a high fever with shaking chills. * You have side or back pain that gets worse Contact your healthcare provider if: * You have a fever. * You have white or yellow discharge from your vagina. * You do not feel better after 2 days of taking antibiotics. * You have questions or concerns about your condition or care. Self-care: * Urinate when you feel the urge. Do not hold your urine. Urinate as soon as you feel you have to. * Drink liquids as directed. Ask how much liquid to drink each day and which liquids are best for you. You may need to drink more liquids than usual to help flush out the bacteria. Do not drink alcohol, caffeine, and citrus juices. These can irritate your bladder and increase your symptoms. * Apply heat on your abdomen for 20 to 30 minutes every 2 hours for as many days as directed. Heat helps decrease discomfort and pressure in your bladder. Have been provided with a new antibiotics, Cefdinir As with any new medications and there is always a risk of adverse reaction. He spent attention to the instructions below. Steps to take for signs or symptoms of anaphylaxis: * Immediately give 1 shot of epinephrine only into the outer thigh muscle. * Leave the shot in place as directed. Your healthcare provider may recommend you leave it in place for up to 10 seconds before you remove it. This helps make sure all of the epinephrine is delivered. * Call 911 and go to the emergency department, even if the shot improved symptoms. Do not drive yourself. Bring the used epinephrine shot with you Call 911 for any of the following: * You have a skin rash, hives, swelling, or itching. * You have trouble breathing, shortness of breath, wheezing, or coughing. * Your throat tightens or your lips or tongue swell. * You have difficulty swallowing or speaking. * You are dizzy, lightheaded, confused, or feel like you are going to faint. * You have nausea, diarrhea, or abdominal cramps, or you are vomiting. Follow-up Provider: Fabian Meek MD Follow-up with PCP in: 1 week Ramiro Jung MD 07/09/16 1035: Jordan Beckett DO Jul 08, 2016 17:27 Ramiro Jung MD Jul 09, 2016 10:35
[2016-07-08] MEDS ORDERED: NYST1000 PO (17:36)
--- NOTE | 2016-07-09 01:23 | PCM.DC.MED ---
Discharge Summary Date of Service Jul 09, 2016 Dates of Hospitalization Date of Hospital Admission Jul 06, 2016 at 16:36 Date of Discharge: Jul 08, 2016 Providers: Admitting Physician: Sanchez Tellez MD Primary Care Physician: Fabian Garcia MD Attending Physician: Sanchez Tellez MD Diagnosis at Time of Discharge Diagnosis at Time of Discharge Urinary tract infection U have a urinary tract infection It is caused by the bacteria call Escherichia coli An antibiotic call Ceftinir has been prescribed Please take the antibiotics twice a day for 4 days. Cranberry juice helps prevent urinary tract infection He will need to be follow-up for your urinary tract infection. Please call your doctor to make a "hospital follow-up" appointment within 1 week Gastroenteritis, resolved Your diarrhea, cramps, nausea, vomiting was likely caused by an infection within the stomach and intestines A protocol to Escherichia coli enteropathogenic Epec has been identify as the culprit You do not need antibiotics for this however To prevent future gastroenteritis, you can take probiotics This medication can be found [id number] at any pharmacy. Please ask your pharmacy for recommendation of probiotics Vision change Blue color vision likely due to the macular degeneration Please make an appointment and see cargo and container inspector urgently for an evaluation. Hypotension, resolved This was likely caused by dehydration because he had diarrhea Because her heart rate is low on this admission. Acute kidney injury, resolved Your kidney was dehydrated. We have given you fluid for this Your kidney function has normalized Right hand and foot paresthesia, stable You are taking gabapentin for this, please discuss with your doctor should your hand and foot worsen. Thrush, mild, resolved Procedures XRay, CTs & MRIs PROCEDURE: CT ABDOMEN AND PELVIS WITHOUT CONTRAST ([id number]) INDICATIONS: abd pain TECHNIQUE: Noncontrast 5 mm thick sections acquired from the diaphragms to the symphysis. 5 mm coronal and sagittal reformats were then performed. For radiation dose reduction, the following was used: automated exposure control, adjustment of mA and/or kV according to patient size. COMPARISON: None. FINDINGS: Image quality: Mildly compromised by absence of oral and intravenous contrast. The patient's renal function tests are elevated and intravenous contrast could not be safely administered. ABDOMEN: Lung bases: Lung bases are clear except for mild atelectasis associated with scoliosis and reduced inspiratory volume, right greater than left. There appears to be a moderately large hiatal hernia behind the heart. Heart size is normal. Solid organs: Liver and spleen are normal in size. Gallbladder appears normal. Pancreas is normal in contours. No adrenal nodules. Kidneys are normal in size, without hydronephrosis or nephrolithiasis on the right but there is what appears to be a calculus within a dilated calyx of the left mid kidney (series 2 image 45 in this calcification measures up to 7 mm in diameter. Peritoneum and bowel: Unenhanced bowel loops demonstrate normal wall thickness and caliber. No free fluid or air. Nodes and vessels: No retroperitoneal or mesenteric adenopathy by size criteria. Aorta and inferior vena cava are normal in caliber except for an infrarenal abdominal aortic aneurysm measuring up to 3.1 x 3.2 cm in maximal axial dimension. Miscellaneous: No ventral hernias. PELVIS: Genitourinary: Bladder wall thickness is normal. Miscellaneous: No inguinal hernias or adenopathy. Bones: No suspicious bony lesions. No vertebral body compression fractures. IMPRESSION: 1. Right basilar atelectasis associated with convex leftward scoliosis and reduced inspiratory volume. No pneumonia found. 2. Note is made of a dilated renal calyx at the left mid kidney, containing a 7 mm calcification. Episodic calyceal obstruction by this calcification could explain the appearance. An alternative potential cause is the presence of a cyst immediately adjacent to this calcification which therefore would be located either within a non-dilated calyx or the cortex itself.. Dictated by: Jens Guzman M.D. on 07/06/2016 at 14:49 Approved by: Jens Guzman M.D. on 07/06/2016 at 14:49 Cardiac Echo Impression Echocardiogram Report Name: LLUVIA PERKINS LStudy Date: 04/28/2016 [facility] ght: 64 in [place] [facility] [place] 193 [place] Gender: Female BSA : 1.9 m2 : 1940 Age: 75 yrs BP: 125/72 mmHg Reason For Study: NEAR SYNCOPE, SYMPTOMAATIC BRADYCARDIA Ordering Physician: [facility]PITALIST [facility] Performed By: Lazara Rashid Referring Physician: DR. GARCIA, DR. Cinthya CERNA Interpretation Summary Left ventricular wall thickness is mildly increased. Left ventricular systolic function is normal. The ejection fraction is estimated to be 60-65%. There are no focal wall motion abnormalities. Assessment of diastolic parameters suggests a pseudonormalization pattern, consistent with elevated filling pressures ( LV grade II diastolic dysfunction). The right ventricle is normal in size and function. The right ventricular systolic pressure is estimated at 36 mmHg assuming a right atrial pressure of 3 mm Hg. The left atrium is moderately dilated. Right atrial size is normal. There is no significant valvular heart disease. The aortic root is normal size. Hospital Course The patient is a 75-year-old female presents with one-day history of recurrent diarrhea 20 episodes, associated lower abdominal cramping, preceding retching without vomitus of dinner the night before. This is the 4th set of episodes since 2016. Associated low blood pressure, dehydration, and decreased mentation /lightheaded. Patient has a colonoscopy due to old 07/27/[address] Castro at [facility]. The patient had an unremarkable colonoscopy 10 years ago. did not take her miralax for baseline chronic constipation. did not take her BP/diuretics. dinner and breakfast were typical, no sick contacts, lives alone. No dysuria. decreased voiding today. She can't see - unknown if blood in stool or blood in urine. sore throat. ongoing acid reflux despite meds. In the ER, 3 L O2, baseline, 2 L saline, blood pressure 88/36, UA negative for leukocyte esterase/nitrate/yeast. Rocephin administered, diarrhea w/ abdominal pains and retching have resolved. However, patient was positive for urine culture Escherichia coli, thus Rocephin was continued. She was discharged on Ceftinir for 4 days. Urinary tract infection, present on admission, active -- Urine culture grew Escherichia coli -- Discharged with Cefdinir 4 days, pt has allergies to quinolone and penicillin Gastroenteritis, present on admission, resolved -- Apparent infectious gastroenteritis with enteropathogenic Escherichia coli found on gastrointestinal DNA PCR panel -- Planned colonoscopy 07/27/2016 at [facility], mild -- Continue nystatin Vision change, not present on admission, active -- Possible related to history of retinal detachment -- Recommend that patient be seen by cargo and container inspector within the next 3-5 days per evaluation Resolve/chronic problems Hypotension due to fluid loss/diarrhea, no other sources of infection -- Resolved with IVF Acute kidney injury, likely prerenal, resolved -- IV fluid, monitor for known diastolic dysfunction Right hand and foot paresthesia, new --hx of spinal stenosis -- No complaints of this type today -GERD/gastric ulcers. ongoing intermittent symptoms. continue PPI/ Sucralfate. f /u w/GI as scheduled on 07/27/2016 -COPD 3L O2 dependent, held home medsbrovana, budesonide atrovent. duonebs here. Will restart when patient is feeling better or the time of discharge. -Hypothyroidism, continue levothyroxine -Hypertension/DLP/Left ventricular II diastolic dysfunction. continue statin, hold lisinopril/lasix -Tremors, continue propanolol w/ holding parameter -History of chronic back pain/spinal stenosis. morphine if retches, home gabapentin, percocet, -Insomnia. Continue ambien Exam Vital Signs (Last) Date Time Temp Pulse Resp B/P Pulse Ox O2 Delivery O2 Flow Rate FiO2 07/08/16 15:33 62 16 96 Nasal Cannula 3.00 07/08/16 14:51 36.6 146/79 Test 07/06/16 12:05 07/06/16 12:57 07/07/16 05:37 07/08/16 06:55 Urine Color Dark yellow (YELLOW) Urine Appearance Hazy (CLEAR,HAZY) Urine pH 5.0 (5.0-8.0) Urine Specific Dunlap 1.025 (1.003-1.035) Urine Protein Negativemg/dL (NEG,TRACE) Urine Glucose (UA) Negativemg/dL (NEGATIVE) Urine Ketones Tracemg/dL (NEGATIVE) Urine Occult Blood Negative (NEGATIVE) Urine Nitrite Negative (NEGATIVE) Urine Bilirubin Negative (NEGATIVE) Urine Urobilinogen Normalmg/dL (NORMAL) Urine Leukocyte Esterase Negative (NEGATIVE) Urine RBC 0-2/hpf (0-2) Urine WBC 11-50/hpf (0-5) Urine Epithelial Cells Occasional/hpf (NONE-MOD) Urine Crystals Oxalic acid crystals (NONE Urine Bacteria Many/hpf (NONE-FEW) Urine Hyaline Casts None/lpf (NONE) Urine Granular Casts None seen (NONE SEEN) Urine Waxy Casts None seen (NONE SEEN) Urine Red Blood Cell Casts None seen (NONE SEEN) Urine White Blood Cell Casts None seen (NONE SEEN) Urine Mucus None seen (None Seen) Urine Trichomonas None seen (NONE SEEN) Urine Yeast None (NONE SEEN) Urinalysis Comment None Urine Culture Reflexed Indicated Hold Urine Received (Received) Lipase 10U/L (13-60) Hold Hendrickson Top Tube Received (Received) Lactic Acid Level 0.6mmol/L (0.4-2.0) White Blood Count 2.7th/mm3 (3.8-10.1) Red Blood Count 3.02mil/mm3 (3.90-5.20) Hemoglobin 9.2g/dL (12.0-15.6) Hematocrit 30.3% (35.0-46.0) Mean Corpuscular Volume 100.3fL (81-100) Mean Corpuscular Hemoglobin 30.5pg (27.0-35.0) Mean Corpuscular Hemoglobin Concent 30.4% (32.0-37.0) Red Cell Distribution Width 13.4% (12.3-15.4) Platelet Count 195bil/L (150-400) Neutrophils (%) (Auto) 52.2% (40-74) Lymphocytes (%) (Auto) 31.0% (14-46) Monocytes (%) (Auto) 10.1% (4-12) Eosinophils (%) (Auto) 6.0% (0-5) Basophils (%) (Auto) 0.7% (0-3) Sodium Level 141mEq/L (134-144) Potassium Level 3.7mEq/L (3.5-5.2) Chloride Level 107mEq/L (97-108) Carbon Dioxide Level 26mmol/L (18-29) Blood Urea Nitrogen 9mg/dL (8-27) Creatinine 0.70mg/dL (0.57-1.00) Estimat Glomerular Filtration Rate 117mL/min (>59) Glucose Level 94mg/dL (60-99) Calcium Level 8.5mg/dL (8.5-10.1) Phosphorus Level 2.3mg/dL (2.5-4.9) Magnesium Level 2.1mg/dL (1.6-2.6) Total Bilirubin 0.3mg/dL (0.0-1.2) Aspartate Amino Transf (AST/SGOT) 13U/L (0-50) Alanine Aminotransferase (ALT/SGPT) 9U/L (0-32) Alkaline Phosphatase 62U/L (25-165) Total Protein 5.4g/dL (6.4-8.4) Albumin 3.1g/dL (3.4-5.0) Microbiology Results ECOLI PCR ENTEROPATHOGENIC Final 07/06/16-1934 Organism 1 ECOLI ENTEROPATHOGENIC EPEC ECOLI EPEC PCR DETECTED TIME CALLED: 1932 DATE CALLED: 07/06/16 FLOOR/DOCTOR: YOAN Raza CALLED BY: MIKAEL ECOLI PCR ENTEROTOXIGENIC Final 07/06/16-1934 Not Detected Discharge Medications Discharge Medications Albuterol Neb Soln (Albuterol Neb Soln) 2.5 Mg/3 Ml Vial.neb 1 VIAL NEB BID ( Reported) Arformoterol Tartrate (Brovana) 15 Mcg/2 Ml Vial.neb 1 VIAL NEB BID (Reported) Aspirin/Acetaminophen/Caffeine (Ykvlfzk-Oyibhgccxbrcq-Jszd Tab) 250 Mg-250 Mg- 65 Mg Tablet 2 EACH PO BID (Reported) Atorvastatin Calcium (Atorvastatin Calcium) 20 Mg Tablet 20 MG PO DAILY ( Reported) Budesonide (Pulmicort) 0.5 Mg/2 Ml Ampul.neb. 1 VIAL NEB BID (Reported) Cefdinir (Cefdinir) 300 Mg Capsule 300 MG PO BID Prescribed by: TRAVIS BECKETT DO Cholecalciferol (Vitamin D3) (Vitamin D3) 4,000 Unit Capsule 4,000 UNIT PO DAILY (Reported) Gabapentin (Gabapentin) 300 Mg Capsule 900 MG PO TID (Reported) Ipratropium Arley (Ipratropium Arley Inhalant Solution) 0.2 Mg/1 Ml Solution 1 VIAL NEB BID (Reported) Levothyroxine (Levothyroxine) 100 Mcg Tablet 100 MCG PO DAILY (Reported) Lisinopril (Lisinopril) 20 Mg Tablet 20 MG PO DAILY (Reported) Nystatin (Nystatin) 100,000 Unit/1 Ml Oral.susp 500,000 UNIT PO PCHS Prescribed by: TRAVIS BECKETT DO Omeprazole (Omeprazole) 20 Mg Capsule.dr 20 MG PO BID (Reported) Polyethylene Glycol 3350 (Miralax) 17 Gm Powd.pack 17 GM PO DAILY (Reported) Propranolol HCl (Propranolol HCl) 20 Mg Tablet 20 MG PO TID Prescribed by: TRAVIS BECKETT DO Sucralfate (Sucralfate) 1 Gm Tablet 1 GM PO TIDWM (Reported) As needed Albuterol HFA (Proair HFA) 8.5 Gm Hfa.aer.ad 1-2 PUFFS INH Q4H PRN PRN For Shortness of Breath (Reported) Furosemide (Furosemide) 20 Mg Tab 20 MG PO DAILY PRN PRN edema (Reported) Ondansetron (Zofran) 4 Mg Tablet 4 MG PO N5lttov PRN PRN For Nausea (Reported) Potassium Chloride (Potassium Chloride) 20 Meq Tab.er.prt 20 MEQ PO DAILY PRN PRN with lasix (Reported) oxyCODONE-Acetaminophen 5-325 mg (oxyCODONE-Acetaminophen 5-325 mg) 1 Each Tablet 1-2 TAB PO A8xaeas PRN PRN For Pain (Reported) Followup Plan Discharge Diet: Heart Healthy, Diabetic Discharge Activity: No restrictions Patient Instructions Seek care immediately if: * You are urinating very little or not at all. * You are vomiting. * You have a high fever with shaking chills. * You have side or back pain that gets worse Contact your healthcare provider if: * You have a fever. * You have white or yellow discharge from your vagina. * You do not feel better after 2 days of taking antibiotics. * You have questions or concerns about your condition or care. Self-care: * Urinate when you feel the urge. Do not hold your urine. Urinate as soon as you feel you have to. * Drink liquids as directed. Ask how much liquid to drink each day and which liquids are best for you. You may need to drink more liquids than usual to help flush out the bacteria. Do not drink alcohol, caffeine, and citrus juices. These can irritate your bladder and increase your symptoms. * Apply heat on your abdomen for 20 to 30 minutes every 2 hours for as many days as directed. Heat helps decrease discomfort and pressure in your bladder. Have been provided with a new antibiotics, Cefdinir As with any new medications and there is always a risk of adverse reaction. He spent attention to the instructions below. Steps to take for signs or symptoms of anaphylaxis: * Immediately give 1 shot of epinephrine only into the outer thigh muscle. * Leave the shot in place as directed. Your healthcare provider may recommend you leave it in place for up to 10 seconds before you remove it. This helps make sure all of the epinephrine is delivered. * Call 911 and go to the emergency department, even if the shot improved symptoms. Do not drive yourself. Bring the used epinephrine shot with you Call 911 for any of the following: * You have a skin rash, hives, swelling, or itching. * You have trouble breathing, shortness of breath, wheezing, or coughing. * Your throat tightens or your lips or tongue swell. * You have difficulty swallowing or speaking. * You are dizzy, lightheaded, confused, or feel like you are going to faint. * You have nausea, diarrhea, or abdominal cramps, or you are vomiting. Follow-up Provider: Fabian Garcia MD Follow-up with PCP in: 1 week Time spent 40 minutes Attending Statement The patient was seen and examined together with Dr. Travis Beckett on 07/08/2016 and I agree with the history, exam and plan as outlined in the note above. copies to: Fabian Garcia MD, Phuc H DO Jul 09, 2016 01:23 Ramiro Jung MD Jul 09, 2016 10:36
== END 2016-07-08 18:07 | disposition home health service (06) | DRG 372 ==
LOC: EDBD 11:21 → SED 11:21 → OBSVTOIN 16:36 → MPC 16:36
PROVIDERS: ADMIT Urology; ATTEND Urology
DX: A04.4 Other intestinal Escherichia coli infections (principal); N17.8 Other acute kidney failure; N39.0 Urinary tract infection, site not specified; B37.0 Candidal stomatitis; B96.20 Unspecified Escherichia coli [E. coli] as the cause of diseases classified elsewhere; E86.0 Dehydration; G47.00 Insomnia, unspecified; K21.9 Gastro-esophageal reflux disease without esophagitis; J44.9 Chronic obstructive pulmonary disease, unspecified; E03.9 Hypothyroidism, unspecified; I10 Essential (primary) hypertension; R25.1 Tremor, unspecified; R53.1 Weakness; Z79.82 Long term (current) use of aspirin; Z87.891 Personal history of nicotine dependence

== ENCOUNTER 2016-08-07 11:38 | Inpatient (IN) | payer MEDICARE, OTHER, MEDICAID ==
[~2016-08-07] VITALS: Ht 163.8 cm; Wt 90.6 kg
[2016-08-07] VITALS (11 sets, daily range): BP systolic 107–171; BP diastolic 54–75; PULSE 69–114; RESP 16–25; O2SAT 91–100
[~2016-08-07 11:38] MED LIST changes: -AMLO5TAB2 PO; -ATOR20TA PO; +CEFD300C3 PO; -FISH400C PO; +FUR20 PO; +NYST1000 PO; -OMEG300C3 PO; +POTA20TA16 PO; +PROP20TA5 PO; -PROP40TA5 PO; -ZOLP5TAB6 PO
--- NOTE | 2016-08-07 12:29 | ED.REPORT ---
HPI-General Illness Date of Service Aug 07, 2016 ED Provider: Rodriguez Wills MD A 75 year old female with a history of COPD, hypertension, and atrial septal aneurysm in 2006 is brought to the ED via EMS due to difficulty breathing. The pt's family noticed this the night before last when her oxygen line kinked. This was fixed, but her breathing worsened. Per family, she also became confused last night. Her blood pressure was 78/48 at that time, and she was particularly short of breath this morning. The pt admits to congestion, abdominal pain, and chest pain but denies cough or vomiting. The chest pain resolved yesterday. The pt is on 3L of oxygen at all times at home and is a former smoker. She only took her albuterol treatment today without her other medications. Nursing Notes Stated Complaint: WEAKNESS/SHORTNESS OF BREATH Chief Complaint: General Complaint Nursing Notes Reviewed: Yes Allergies: Coded Allergies: Penicillins (Verified Allergy, Severe, rash, 07/06/16) ciprofloxacin (Verified Allergy, Severe, Nausea, 07/06/16) sulfamethoxazole (Verified Allergy, Severe, [employer] PROGRAMMER toxicity, 07/06/16) trimethoprim (Verified Allergy, Severe, [employer] PROGRAMMER toxicity, 07/06/16) dexamethasone (Verified Allergy, Intermediate, 07/06/16) insomnia, nightmares, nasuea and visual changes hydrochlorothiazide (Verified Allergy, Intermediate, Rash,Itching,, ) Uncoded Allergies: sulfamethoxazole-trimethoprim (Allergy, Intermediate, Hallucinations, ) Scheduled Albuterol Neb Soln (Albuterol Neb Soln) 2.5 Mg/3 Ml Vial.neb 1 VIAL NEB BID Arformoterol Tartrate (Brovana) 15 Mcg/2 Ml Vial.neb 1 VIAL NEB BID Aspirin/Acetaminophen/Caffeine (Nccveff-Xglogdmwgptfs-Fgon Tab) 250 Mg-250 Mg- 65 Mg Tablet 2 EACH PO BID Atorvastatin Calcium (Atorvastatin Calcium) 20 Mg Tablet 20 MG PO DAILY Budesonide (Pulmicort) 0.5 Mg/2 Ml Ampul.neb. 1 VIAL NEB BID Cefdinir (Cefdinir) 300 Mg Capsule 300 MG PO BID Gabapentin (Gabapentin) 300 Mg Capsule 900 MG PO TID Ipratropium Irvona (Ipratropium Irvona Inhalant Solution) 0.2 Mg/1 Ml Solution 1 VIAL NEB BID Levothyroxine (Levothyroxine) 100 Mcg Tablet 100 MCG PO DAILY Lisinopril (Lisinopril) 20 Mg Tablet 20 MG PO DAILY Nystatin (Nystatin) 100,000 Unit/1 Ml Oral.susp 500,000 UNIT PO PCHS Omeprazole (Omeprazole) 20 Mg Capsule.dr 20 MG PO BID Polyethylene Glycol 3350 (Miralax) 17 Gm Powd.pack 17 GM PO DAILY Propranolol HCl (Propranolol HCl) 20 Mg Tablet 20 MG PO TID Sucralfate (Sucralfate) 1 Gm Tablet 1 GM PO TIDWM Scheduled PRN Albuterol HFA (Proair HFA) 8.5 Gm Hfa.aer.ad 1-2 PUFFS INH Q4H PRN PRN For Shortness of Breath Furosemide (Furosemide) 20 Mg Tab 20 MG PO DAILY PRN PRN edema Ondansetron (Zofran) 4 Mg Tablet 4 MG PO [id number] PRN PRN For Nausea Potassium Chloride (Potassium Chloride) 20 Meq Tab.er.prt 20 MEQ PO DAILY PRN PRN with lasix oxyCODONE-Acetaminophen 5-325 mg (oxyCODONE-Acetaminophen 5-325 mg) 1 Each Tablet 1-2 TAB PO [id number] PRN PRN For Pain General Time Seen by MD: 12:27 Chief Complaint Other (Shortness of breath) Hx Obtained From: Patient, Daughter, EMS Arrived By: Ambulance Sudden in Onset?: No Onset Occurred: 5 - 8 hours ago Symptom Duration: Since onset Recent Healthcare: Recent doctor visit, Recent hospitalization Similar Sx Previous: Yes Past Medical History Past Medical History Notes: Code Status: Full Code Medication List per Discharge Note dated 04/20/16 from [facility]: Amlodipine 5mg daily Albuterol 2 puffs q 4 hours prn SOB Gabapentin 300mg 2 tabs tid Brovana 1 vial nebulized bid Atorvastatin 20mg q PM Pulmicort nebs bid Vitamin D 4000 international units daily Duloxetine 30mg q PM Fish Oil 1 tab daily Flaxseed Oil 1 tab daily Ipratropium neb solution qid daily Levothyroxine 100mcg daily Omeprazole 20mg bid Zofran 4mg tablet q 8 hours prn nausea, vomiting Oxycodone 5/325, 1 to 2 tablets every 4 hours prn pain Miralax 17 grams in 8oz water daily Propranolol 20mg tid Zolpidem 5 to 10mg nightly prn insomnia Past Medical History Chronic back pain Atrial septal anuerysm 2007 Reports: COPD, Hypertension Past Surgical History back surgeries Smoking History Former Smoker Social History Other Social History: Good social support Ambulatory Status Independent Review of Systems Full Review of Systems Constitutional: Denies: Fever Ears / Nose / Throat: Reports: Nasal congestion Respiratory: Reports: Shortness of breath, Denies: Non-productive cough, Prod cough, clear Cardiovascular: Reports: Chest pain GI: Reports: Abdominal pain, Denies: Nausea, Vomiting Musculoskeletal: Denies: Back pain Skin: Denies Rash Psychiatric: Reports: Confusion Complete sys rev & neg: except as marked. Physical Exam Vital Signs Vital Signs Date Time Temp Pulse Resp B/P Pulse Ox O2 Delivery O2 Flow Rate FiO2 08/07/16 12:51 112 98 Nasal Cannula 3 08/07/16 12:44 112 25 171/66 100 Nasal Cannula 2 08/07/16 12:18 39.4 114 23 154/75 Initial VS: Reviewed General/Constitutional: Awake, Alert Head / Eyes: Atraumatic, Normocephalic, PERRL, EOMI ENT: Atraumatic, Airway patent, Mucous membranes moist Neck: Atraumatic, Supple, Full range of motion Respiratory / Chest: Atraumatic, Breath sounds NL, Breath sounds = bilat, No respiratory distress Cardiovascular: Regular rhythm, Heart sounds NL, No murmurs Heart Rate / Rhythm: Positive: Tachycardia Abdomen: Atraumatic, Soft, Non-tender, No guarding, No rebound Back: Atraumatic, Full range of motion Upper Extremities Upper Extremity / MS: Atraumatic, Full range of motion Lower Extremity / Pelvis / MS: Atraumatic, Full range of motion, No edema Skin: Atraumatic, Color NL, No rash, Warm, Dry Neurologic: Oriented X3, Speech NL, No motor deficits, No sensory deficits Psychiatric: Affect NL, Mood NL Interpretation & Diagnostics Interpretation & Diagnostics: Angiography CT: IMPRESSION: No pulmonary embolism. Right basilar ill-defined consolidation, suggesting pneumonia versus aspiration/atelectasis. Recommend continued short interval CT or radiographic followup to document resolution, and exclude soft tissue mass/neoplasm. Large hiatal hernia as before. Right hilar mildly enlarged lymph nodes which could be reactive although technically nonspecific. Dictated by: Dilip John M.D. on 08/07/2016 at 14:33 Approved by: Dilip John M.D. on 08/07/2016 at 14:40 Lab Results Interpretation Result Diagram: 08/07/16 1200 08/07/16 1200 Test 08/07/16 12:00 08/07/16 12:10 White Blood Count 12.9th/mm3 (3.8-10.1) Red Blood Count 3.45mil/mm3 (3.90-5.20) Hemoglobin 10.8g/dL (12.0-15.6) Hematocrit 33.6% (35.0-46.0) Mean Corpuscular Volume 97.4fL (81-100) Mean Corpuscular Hemoglobin 31.3pg (27.0-35.0) Mean Corpuscular Hemoglobin Concent 32.1% (32.0-37.0) Red Cell Distribution Width 14.0% (12.3-15.4) Platelet Count 263bil/L (150-400) Neutrophils (%) (Auto) 87.5% (40-74) Lymphocytes (%) (Auto) 5.4% (14-46) Monocytes (%) (Auto) 5.9% (4-12) Eosinophils (%) (Auto) 0.8% (0-5) Basophils (%) (Auto) 0.2% (0-3) D-Dimer 1.3mg/L (<0.50) Sodium Level 137mEq/L (134-144) Potassium Level 4.3mEq/L (3.5-5.2) Chloride Level 97mEq/L (97-108) Carbon Dioxide Level 27mmol/L (18-29) Blood Urea Nitrogen 17mg/dL (8-27) Creatinine 0.86mg/dL (0.57-1.00) Estimat Glomerular Filtration Rate 92mL/min (>59) Glucose Level 133mg/dL (60-99) Calcium Level 8.9mg/dL (8.5-10.1) Total Bilirubin 0.5mg/dL (0.0-1.2) Aspartate Amino Transf (AST/SGOT) 17U/L (0-50) Alanine Aminotransferase (ALT/SGPT) 11U/L (0-32) Alkaline Phosphatase 106U/L (25-165) Total Protein 6.4g/dL (6.4-8.4) Albumin 3.8g/dL (3.4-5.0) Urine Color Yellow (YELLOW) Urine Appearance Clear (CLEAR,HAZY) Urine pH 6.0 (5.0-8.0) Urine Specific [place] 1.021 (1.003-1.035) Urine Protein 30mg/dL (NEG,TRACE) Urine Glucose (UA) Negativemg/dL (NEGATIVE) Urine Ketones Negativemg/dL (NEGATIVE) Urine Occult Blood Trace (NEGATIVE) Urine Nitrite Negative (NEGATIVE) Urine Bilirubin Negative (NEGATIVE) Urine Urobilinogen Normalmg/dL (NORMAL) Urine Leukocyte Esterase Negative (NEGATIVE) Urine RBC 0-2/hpf (0-2) Urine WBC 0-5/hpf (0-5) Urine Epithelial Cells Few/hpf (NONE-MOD) Urine Crystals None seen (NONE SEEN) Urine Bacteria None/hpf (NONE-FEW) Urine Hyaline Casts None/lpf (NONE) Urine Granular Casts Occasional (NONE SEEN) Urine Waxy Casts None seen (NONE SEEN) Urine Red Blood Cell Casts None seen (NONE SEEN) Urine White Blood Cell Casts None seen (NONE SEEN) Urine Mucus None seen (None Seen) Urine Trichomonas None seen (NONE SEEN) Urine Yeast None (NONE SEEN) Urinalysis Comment None Urine Culture Reflexed Not indicated ECG Interpretation ECG Interpretation: sinus rhythm with a rate of 90 T wave inversions in V1 flat T waves in V2 and V3 no previous for comparison Time: 16:35 Interpreted by: ED physician X-Ray Chest Interpretation Chest Xray Interpretation: IMPRESSION: Right basilar patchy atelectasis/aspiration otherwise no interval change or acute disease Dictated by: Dilip John M.D. on 08/07/2016 at 13:13 Approved by: Dilip John M.D. on 08/07/2016 at 13:14 Interpretation / Wet Read by: Interpret - Radiologist Re-Eval/Medical Decision Med Decision/Clinical Course 75-year-old female history of COPD, hypertension presenting complaining of cough and shortness of breath for 2 days. Recurring 3 L oxygen which she is on oxygen at home. On arrival she was in moderate respiratory distress which improved with one albuterol treatment. Tachycardic to 90 EKG normal sinus rhythm. D-dimer is 1.3. White blood cell count elevated. Chest x-ray and CT [place] chest show right basilar pneumonia. Suspect aspiration. No PE. Patient be admitted on vancomycin and cefepime to cover aspiration pneumonia in addition to Flagyl. Cultures sent. Patient admitted to telemetry. Source of Hx: Old records Time of Eval: 14:59 Patient Status: Condition improved Re-Evaluation/Progress Note: Pt rechecked, who is stable. She is informed of her radiology results, diagnosis, and the plan for admission. The pt understands and agrees with the plan. All questions are addressed at this time. Consultation : Referral / Consult Name: Octavia Harris MD Consulted With: Hospitalist Call Returned at: 14:53 Biofuels Manager: Agrees with eval, Agrees with plan, Accepts admit Note: Spoke with Dr. Harris, hospitalist, regarding pt's case. Dr. Harris agrees with the evaluation and agrees to admit the pt. Counseled Regarding: Diagnosis, Lab results, Need for admission Discharge & Departure Primary Impression: Aspiration pneumonia Aspiration pneumonia type: unspecified Laterality: unspecified laterality Lung location: unspecified part of lung Qualified Code: J69.0 - Pneumonitis due to inhalation of food and vomit Additional Impression: Healthcare-associated pneumonia Disposition: ADMITTED TO HOSPITAL Discharge Condition All VS Reviewed: Yes Condition: Stable Referrals: Fabian Meek MD (PCP) Fabienne Attestation Portions of this note were transcribed by Luci Szymanski I, Dr. Wills personally performed the history, physical exam and medical decision-making; I reviewed and confirmed the accuracy of the information in the transcribed note. Signed by: Fabienne Odom, 08/07/16 and 14:15 copies to: Fabian Meek MD, Ben M MD Aug 07, 2016 12:29 LUCI SZYMANSKI Aug 07, 2016 13:00 Re-Eval/Medical Decision Source of Hx: Old records Time of Eval: 14:59 Patient Status: Condition improved Re-Evaluation/Progress Note: Pt rechecked, who is stable. She is informed of her radiology results, diagnosis, and the plan for admission. The pt understands and agrees with the plan. All questions are addressed at this time. Consultation : Referral / Consult Name: Octavia Harris MD Consulted With: Hospitalist Call Returned at: 14:53 Biofuels Manager: Agrees with eval, Agrees with plan, Accepts admit Note: Spoke with Dr. Harris, hospitalist, regarding pt's case. Dr. Harris agrees with the evaluation and agrees to admit the pt. Counseled Regarding: Diagnosis, Lab results, Need for admission Discharge & Departure Primary Impression: Aspiration pneumonia Aspiration pneumonia type: unspecified Laterality: unspecified laterality Lung location: unspecified part of lung Qualified Code: J69.0 - Pneumonitis due to inhalation of food and vomit Additional Impression: Healthcare-associated pneumonia Disposition: ADMITTED TO HOSPITAL Discharge Condition All VS Reviewed: Yes Condition: Stable Referrals: Fabian Meek MD (PCP) Fabienne Attestation Portions of this note were transcribed by Luci Szymanski I, Dr. Wills personally performed the history, physical exam and medical decision-making; I reviewed and confirmed the accuracy of the information in the transcribed note. Signed by: Fabienne Odom, 08/07/16 and 14:15 copies to: Fabian Meek MD, Ben M MD Aug 07, 2016 12:29 LUCI SZYMANSKI Aug 07, 2016 13:00
[2016-08-07] MEDS ORDERED: Albuterol-Ipratropium 3 mL Inhalation Solution NEB ONE (12:30)
[2016-08-07 12:34] LABS: APPEARANCE,URINE CLEAR (CLEAR,HAZY); COLOR,URINE YELLOW (YELLOW); OCCULT BLOOD,URINE TRACE (NEGATIVE); UROBILINOGEN,URINE NORMAL (NORMAL)
[2016-08-07] MEDS ORDERED: MethylprednisoLONE Sodium Succinate 62.5 mg/mL 2 mL Inj IVPUSH ONE (12:40)
[2016-08-07 13:05] LABS: BASOPHILS % (AUTO) 0.2 % (0-3); EOSINOPHILS % (AUTO) 0.8 % (0-5); MONOCYTES % (AUTO) 5.9 % (4-12); Mean Corpuscular Hemoglobin 31.3 pg (27.0-35.0); Mean Corpuscular Volume 97.4 fL (81-100); NEUTROPHILS % (AUTO) 87.5 % (40-74); Platelet Count 263 bil/L (150-400)
--- NOTE | 2016-08-07 13:14 | DRSVH ---
PROCEDURE: X-RAY CHEST ONE VIEW, PORTABLE ([id number]) INDICATIONS: FEVER TECHNIQUE: One view of the chest was acquired. COMPARISON: [facility], CR, XR CHEST 1VW (PORTABLE), 04/26/2016, 20:25. FINDINGS: Surgical changes and devices: None. Lungs and pleura: No pleural effusions or pneumothorax. Lungs are clear. Right basilar patchy atel ectasis/aspiration Mediastinum: Mediastinal contours appear normal. Heart size is normal. Bones and chest wall: No suspicious bony lesions. Overlying soft tissues appear unremarkable. IMPRESSION: Right basilar patchy atelectasis/aspiration otherwise no interval change or acute disease Dictated by: Dilip John M.D. on 08/07/2016 at 13:13 Approved by: Dilip John M.D. on 08/07/2016 at 13:14
[2016-08-07] MEDS ORDERED: metroNIDAZOLE Inj 500 MG in IV Premix 1 EACH IV ONE (13:30)
[2016-08-07] MEDS ORDERED: Vancomycin Dose per Pharmacist XX ONE ×2 (13:30→16:05)
[2016-08-07] MEDS ORDERED: Cefepime Inj 2 GM in IV Premix 1 EACH IV ONE (13:30)
[2016-08-07] MEDS ORDERED: Vancomycin Inj 1,750 MG in 0.9% Sodium Chloride 500 ML IV ONE (14:00)
--- NOTE | 2016-08-07 14:42 | DRSVH ---
PROCEDURE: CT ANGIO CHEST PULMONARY EMBOLISM ([id number]) INDICATIONS: dyspnea, elevated ddimer TECHNIQUE: After the administration of intravenous contrast, 2 mm thick sections acquired from the pulmonary api nic to the posterior costophrenic angles. 3-dimensional maximum intensity projection (MIP) coronal a nd sagittal reformats were then acquired through the thorax. For radiation dose reduction, the follo wing was used: automated exposure control, adjustment of mA and/or kV according to patient size. COMPARISON: [facility], CR, XR CHEST 1VW (PORTABLE), 08/07/2016, 12:30. [facility], CT, CT ANGIO CHEST PE, 04/28/2016, 9:54. FINDINGS: Image quality: Excellent. Pulmonary arteries: Pulmonary arteries are normal in size, and demonstrate no intraluminal filling d efects to suggest central pulmonary embolism. Lungs and pleura: Marked elevation of the liver, and right basilar consolidation. Large hiatal hernia is present as before. No pneumothorax. Bilateral upper lobe predominant centrilobular emphysema. Lef t basilar presumed scarring/atelectasis. Mediastinum: Heart size is normal, without pericardial effusion. Possible right hilar lymphadenopath y. Thoracic aorta is normal in caliber and enhancement. Bones and chest wall: No suspicious bony lesions. Ribs and thoracic spine appear intact throughout. No axillary or supraclavicular adenopathy. Abdomen: Partially visualized large left renal cyst. Additional right renal cyst also not entirely vi sualized. IMPRESSION: No pulmonary embolism. Right basilar ill-defined consolidation, suggesting pneumonia versus aspiration/atelectasis. Recommen d continued short interval CT or radiographic followup to document resolution, and exclude soft tissu e mass/neoplasm. Large hiatal hernia as before. Right hilar mildly enlarged lymph nodes which could be reactive although technically nonspecific. Dictated by: Dilip John M.D. on 08/07/2016 at 14:33 Approved by: Dilip John M.D. on 08/07/2016 at 14:40
[2016-08-07] MEDS ORDERED: Alum-Mag Hydrox-Simeth 30 mL Suspension PO PRN (15:00)
[2016-08-07] MEDS ORDERED: Ondansetron 2 mg/mL 2 mL Inj IVPUSH PRN (15:00)
[2016-08-07] MEDS ORDERED: 0.9% Sodium Chloride 1,000 ML IV SCH (16:03)
[2016-08-07] MEDS: predniSONE 20 mg Tablet PO SCH (16:05)
--- NOTE | 2016-08-07 16:33 | PCM.HPMED ---
Subjective Date of Service Aug 07, 2016 Primary Provider: Admitting Physician: Octavia Harris MD Primary Care Physician: Fabian Meek MD Attending Physician: Octavia Harris MD Admit Status: From the Emergency Department, Full Admit, [facility] Telemetry Chief Complaint: Increasing shortness of breath and mild confusion History of Present Illness: This is a 75-year-old female who presents with approximately 1-2 days of increasing head congestion postnasal drainage. Also cough increased and more short of breath. Son notes that she is a little bit slower and more confused since yesterday. Hence they brought her into the emergency room. She was found to have a fever up to 39.4 here she was also found to be tachycardic at 114 brought to be sinus per ER M.D. also respiratory rate was elevated at blood pressure was 154/75. She does use 3 L of nasal cannula at home and her oxygen saturation here was 98%. She did have an elevated d-dimer of 1.3 hence CTA of chest PE protocol was obtained revealed no pulmonary emboli but right basilar ill-defined consolidation suggesting pneumonia versus aspiration/ atelectasis. She also was found to have a large hiatal hernia as noted before. Right hilar mildly enlarged lymph nodes which could be reactive though technically nonspecific. Urinalysis was negative for urinary tract infection. She denies any nausea or vomiting or abdominal pain. Notes alteration in bowel movements. Review of Systems: All other review of systems are reviewed and are negative except for as in history of present illness. Patient denies any chest pain. Allergies Coded Allergies: Penicillins (Verified Allergy, Severe, rash, 07/06/16) ciprofloxacin (Verified Allergy, Severe, Nausea, 07/06/16) sulfamethoxazole (Verified Allergy, Severe, [employer] toxicity, 07/06/16) trimethoprim (Verified Allergy, Severe, [employer]ER toxicity, 07/06/16) dexamethasone (Verified Allergy, Intermediate, 07/06/16) insomnia, nightmares, nasuea and visual changes hydrochlorothiazide (Verified Allergy, Intermediate, Rash,Itching,, ) Uncoded Allergies: sulfamethoxazole-trimethoprim (Allergy, Intermediate, Hallucinations, ) Home Medications Scheduled Albuterol Neb Soln (Albuterol Neb Soln) 2.5 Mg/3 Ml Vial.neb 1 VIAL NEB BID Arformoterol Tartrate (Brovana) 15 Mcg/2 Ml Vial.neb 1 VIAL NEB BID Aspirin/Acetaminophen/Caffeine (Qlecire-Rvrvtxxzhywgr-Erll Tab) 250 Mg-250 Mg- 65 Mg Tablet 2 EACH PO BID Atorvastatin Calcium (Atorvastatin Calcium) 20 Mg Tablet 20 MG PO DAILY Budesonide (Pulmicort) 0.5 Mg/2 Ml Ampul.neb. 1 VIAL NEB BID Cefdinir (Cefdinir) 300 Mg Capsule 300 MG PO BID Cholecalciferol (Vitamin D3) (Vitamin D3) 4,000 Unit Capsule 4,000 UNIT PO DAILY Gabapentin (Gabapentin) 300 Mg Capsule 900 MG PO TID Ipratropium [place] (Ipratropium [place] Inhalant Solution) 0.2 Mg/1 Ml Solution 1 VIAL NEB BID Levothyroxine (Levothyroxine) 100 Mcg Tablet 100 MCG PO DAILY Lisinopril (Lisinopril) 20 Mg Tablet 20 MG PO DAILY Nystatin (Nystatin) 100,000 Unit/1 Ml Oral.susp 500,000 UNIT PO PCHS Omeprazole (Omeprazole) 20 Mg Capsule.dr 20 MG PO BID Polyethylene Glycol 3350 (Miralax) 17 Gm Powd.pack 17 GM PO DAILY Propranolol HCl (Propranolol HCl) 20 Mg Tablet 20 MG PO TID Sucralfate (Sucralfate) 1 Gm Tablet 1 GM PO TIDWM Scheduled PRN Albuterol HFA (Proair HFA) 8.5 Gm Hfa.aer.ad 1-2 PUFFS INH Q4H PRN PRN For Shortness of Breath Furosemide (Furosemide) 20 Mg Tab 20 MG PO DAILY PRN PRN edema Ondansetron (Zofran) 4 Mg Tablet 4 MG PO C9vhnpi PRN PRN For Nausea Potassium Chloride (Potassium Chloride) 20 Meq Tab.er.prt 20 MEQ PO DAILY PRN PRN with lasix oxyCODONE-Acetaminophen 5-325 mg (oxyCODONE-Acetaminophen 5-325 mg) 1 Each Tablet 1-2 TAB PO E2mjjwh PRN PRN For Pain PMH Past Medical History Notes: Code Status: Full Code Past Medical History Chronic back pain Atrial septal anuerysm 2006 Reports: COPD, Hypertension Recent admission for Escherichia coli gastroenteritis in July 06 to the 2016 Past Surgical History back surgeries Family History Patient denies any family history of coronary artery disease pulmonary disease Social History Hx Alcohol Use: No Hx Substance Use: No Smoking Status: Former Smoker Living Arrangement: Alone (family nearby) Exam Vital Signs Vital Sign - Last Date Time Temp Pulse Resp B/P Pulse Ox O2 Delivery O2 Flow Rate FiO2 08/07/16 16:14 37.8 98 16 135/54 91 Simple Mask 3 Exam Constitutional: Elderly woman in mild respiratory distress Head: Normocephalic atraumatic Mouth: Dry mucosa Neck: No bruits auscultated over the carotids bilaterally no adenopathy noted Chest reveals diffuse rales at her right base greater than left base Cor: Tachycardic S1-S2 without murmur Abdomen: Soft nontender bowel sounds present Extremities: Trace bilateral pedal edema Skin: No rashes Psych: Mood and affect are appropriate Neuro alert and oriented 3, motor strength is intact bilaterally Lab and Diagnostics Labs Laboratory Tests 72 Hours Test 08/07/16 12:00 08/07/16 12:10 08/07/16 14:40 White Blood Count 12.9th/mm3 (3.8-10.1) Red Blood Count 3.45mil/mm3 (3.90-5.20) Hemoglobin 10.8g/dL (12.0-15.6) Hematocrit 33.6% (35.0-46.0) Mean Corpuscular Volume 97.4fL (81-100) Mean Corpuscular Hemoglobin 31.3pg (27.0-35.0) Mean Corpuscular Hemoglobin Concent 32.1% (32.0-37.0) Red Cell Distribution Width 14.0% (12.3-15.4) Platelet Count 263bil/L (150-400) Neutrophils (%) (Auto) 87.5% (40-74) Lymphocytes (%) (Auto) 5.4% (14-46) Monocytes (%) (Auto) 5.9% (4-12) Eosinophils (%) (Auto) 0.8% (0-5) Basophils (%) (Auto) 0.2% (0-3) D-Dimer 1.3mg/L (<0.50) Sodium Level 137mEq/L (134-144) Potassium Level 4.3mEq/L (3.5-5.2) Chloride Level 97mEq/L (97-108) Carbon Dioxide Level 27mmol/L (18-29) Blood Urea Nitrogen 17mg/dL (8-27) Creatinine 0.86mg/dL (0.57-1.00) Estimat Glomerular Filtration Rate 92mL/min (>59) Glucose Level 133mg/dL (60-99) Calcium Level 8.9mg/dL (8.5-10.1) Total Bilirubin 0.5mg/dL (0.0-1.2) Aspartate Amino Transf (AST/SGOT) 17U/L (0-50) Alanine Aminotransferase (ALT/SGPT) 11U/L (0-32) Alkaline Phosphatase 106U/L (25-165) Total Protein 6.4g/dL (6.4-8.4) Albumin 3.8g/dL (3.4-5.0) Urine Color Yellow (YELLOW) Urine Appearance Clear (CLEAR,HAZY) Urine pH 6.0 (5.0-8.0) Urine Specific [place] 1.021 (1.003-1.035) Urine Protein 30mg/dL (NEG,TRACE) Urine Glucose (UA) Negativemg/dL (NEGATIVE) Urine Ketones Negativemg/dL (NEGATIVE) Urine Occult Blood Trace (NEGATIVE) Urine Nitrite Negative (NEGATIVE) Urine Bilirubin Negative (NEGATIVE) Urine Urobilinogen Normalmg/dL (NORMAL) Urine Leukocyte Esterase Negative (NEGATIVE) Urine RBC 0-2/hpf (0-2) Urine WBC 0-5/hpf (0-5) Urine Epithelial Cells Few/hpf (NONE-MOD) Urine Crystals None seen (NONE SEEN) Urine Bacteria None/hpf (NONE-FEW) Urine Hyaline Casts None/lpf (NONE) Urine Granular Casts Occasional (NONE SEEN) Urine Waxy Casts None seen (NONE SEEN) Urine Red Blood Cell Casts None seen (NONE SEEN) Urine White Blood Cell Casts None seen (NONE SEEN) Urine Mucus None seen (None Seen) Urine Trichomonas None seen (NONE SEEN) Urine Yeast None (NONE SEEN) Urinalysis Comment None Urine Culture Reflexed Not indicated Lactic Acid Level 1.2mmol/L (0.4-2.0) Result Diagram: 08/07/16 1200 08/07/16 1200 X-Rays, CTs and MRIs PROCEDURE: CT ANGIO CHEST PULMONARY EMBOLISM ([id number]) INDICATIONS: dyspnea, elevated ddimer TECHNIQUE: After the administration of intravenous contrast, 2 mm thick sections acquired from the pulmonary apices to the posterior costophrenic angles. 3-dimensional maximum intensity projection (MIP) coronal and sagittal reformats were then acquired through the thorax. For radiation dose reduction, the following was used: automated exposure control, adjustment of mA and/or kV according to patient size. COMPARISON: [facility], CR, XR CHEST 1VW (PORTABLE), 08/07/2016, 12: 30. [facility], CT, CT ANGIO CHEST PE, 04/28/2016, 9:54. FINDINGS: Image quality: Excellent. Pulmonary arteries: Pulmonary arteries are normal in size, and demonstrate no intraluminal filling defects to suggest central pulmonary embolism. Lungs and pleura: Marked elevation of the liver, and right basilar consolidation. Large hiatal hernia is present as before. No pneumothorax. Bilateral upper lobe predominant centrilobular emphysema. Left basilar presumed scarring/atelectasis. Mediastinum: Heart size is normal, without pericardial effusion. Possible right hilar lymphadenopathy. Thoracic aorta is normal in caliber and enhancement. Bones and chest wall: No suspicious bony lesions. Ribs and thoracic spine appear intact throughout. No axillary or supraclavicular adenopathy. Abdomen: Partially visualized large left renal cyst. Additional right renal cyst also not entirely visualized. IMPRESSION: No pulmonary embolism. Right basilar ill-defined consolidation, suggesting pneumonia versus aspiration/ atelectasis. Recommend continued short interval CT or radiographic followup to document resolution, and exclude soft tissue mass/neoplasm. Large hiatal hernia as before. Right hilar mildly enlarged lymph nodes which could be reactive although technically nonspecific. Dictated by: Dilip John M.D. on 08/07/2016 at 14:33 Approved by: Dilip John M.D. on 08/07/2016 at 14:40 12-lead ECG EKG is pending at the time this dictation Assessment & Plan # Right basilar pneumonia, possible aspiration, acute, present on admission Given recent hospitalization here she technically is healthcare associated pneumonia and will treat with IV cefepime (she does have penicillin allergy), IV vancomycin, IV metronidazole Check pro calcitonin levels Check sputum studies along with PCR viral screen, pneumococcal antigen, Legionella antigen, mycoplasma and chlamydia PCR # COPD exacerbation, acute, present on admission Prednisone 40 mg by mouth daily DuoNeb's 4 times a day Albuterol nebs when necessary O2 supplementation as needed She is chronically on 3 L nasal cannula at home #DVT prophylaxis Placed on subcutaneous Lovenox # CODE STATUS Discussed with patient wishes full code. Resuscitation Status: CPR: Attempt Resuscitation Time spent 60 minutes Octavia Harris MD Aug 07, 2016 16:33
--- NOTE | 2016-08-07 16:48 | PCM.PHAPRO ---
Progress Increasing shortness of breath and mild confusion Patient is an 75 y.o. [place] receiving vancomycin for pneumonia. Concurrent abx include: cefepime and flagyl. WBC count is 12.9 and the patient is febrile. Patient is 86 kg, 61inches tall with a SCr of 0.86 mg/dL-- estimated CrCl of 76mL/min. Based on patient parameters vancomycin will be dosed at 1250mg q12h with a target trough of 15-20 /mL. Trough will be drawn prior to the 4th dose on 08/09 @ 0500. Pharmacy will follow daily and adjust as appropriate. Thank you for the consult in the care of this patient. RTM PharmD Higinio Abraham Aug 07, 2016 16:48
[2016-08-07] MEDS ORDERED: Vancomycin Inj 1,500 MG in 0.9% Sodium Chloride 500 ML IV ONE (18:00)
[2016-08-07] MEDS: Albuterol 2.5 mg/3 mL Inhalation Solution NEB PRN (18:18)
[2016-08-07] MEDS: Sodium Chloride LOK Flush 10 mL Syringe IVFLUSH SCH (18:25)
[2016-08-07] MEDS: 0.9% Sodium Chloride 1,000 ML IV SCH (18:31)
[2016-08-07] MEDS: metroNIDAZOLE Inj 500 MG in IV Premix 1 EACH IV SCH (20:24)
[2016-08-07] MEDS ORDERED: Cefepime Inj 2 GM in IV Premix 1 EACH IV SCH (20:30)
[2016-08-07] MEDS ORDERED: ONDANSETRON 4 MG PO PRN (20:45)
[2016-08-07] MEDS: Albuterol-Ipratropium 3 mL Inhalation Solution NEB SCH (21:09)
[2016-08-07] MEDS: Cefepime 2,000 mg/100 mL D5W Minibag Plus IV SCH ×2 (21:49)
[2016-08-07] MEDS: Nystatin 100,000 Unit/mL 5 mL Suspension PO SCH (21:50)
[2016-08-07] MEDS: oxyCODONE-Acetamin 5-325 mg Tablet PO PRN (21:51)
[2016-08-08] VITALS (10 sets, daily range): BP systolic 102–117; BP diastolic 63–66; PULSE 51–77; RESP 16–20; O2SAT 92–99
[2016-08-08] MEDS: 0.9% Sodium Chloride 1,000 ML IV SCH ×3 (00:03→20:44)
[2016-08-08] MEDS: Sodium Chloride LOK Flush 10 mL Syringe IVFLUSH SCH ×3 (00:30→16:30)
[2016-08-08] MEDS: metroNIDAZOLE Inj 500 MG in IV Premix 1 EACH IV SCH ×4 (02:24→20:34)
[2016-08-08] MEDS: Albuterol-Ipratropium 3 mL Inhalation Solution NEB SCH ×4 (02:42→20:52)
[2016-08-08] MEDS: oxyCODONE-Acetamin 5-325 mg Tablet PO PRN ×5 (02:57→21:59)
[2016-08-08 03:58] LABS: BASOPHILS % (AUTO) 0 % (0-3); EOSINOPHILS % (AUTO) 0 % (0-5); MONOCYTES % (AUTO) 3.9 % (4-12); Mean Corpuscular Hemoglobin 30.4 pg (27.0-35.0); Mean Corpuscular Volume 96.5 fL (81-100); NEUTROPHILS % (AUTO) 91.2 % (40-74); Platelet Count 212 bil/L (150-400)
[2016-08-08] MEDS: Vancomycin Inj 1,250 MG in 0.9% Sodium Chloride 250 ML IV SCH ×2 (06:06→17:45)
--- NOTE | 2016-08-08 06:45 | NUR ---
Pain Pt complains of chest pain due to heavy breathing and whenever coughing. PRN percocet administered. HS meds and IV ABx administered as scheduled. Pt denies n/v or abd discomfort. VSS, and has been afebrile overnight. Hourly rounding done and pt has slept most of the night.
[2016-08-08] MEDS: Sucralfate 1,000 mg Tablet PO SCH ×3 (09:48→17:44)
[2016-08-08] MEDS: Cefepime 2,000 mg/100 mL D5W Minibag Plus IV SCH ×4 (09:49→21:42)
[2016-08-08] MEDS: predniSONE 20 mg Tablet PO SCH (09:50)
[2016-08-08] MEDS: Nystatin 100,000 Unit/mL 5 mL Suspension PO SCH ×4 (09:51→20:34)
[2016-08-08] MEDS: Polyethylene Glycol (PEG) 17 Gm Powder PO SCH (09:51)
[2016-08-08] MEDS: Pantoprazole 20 mg ER24 Tablet PO SCH ×2 (09:53→20:34)
[2016-08-08] MEDS: Albuterol 2.5 mg/3 mL Inhalation Solution NEB PRN (13:14)
[2016-08-08] MEDS ORDERED: Vancomycin Dose per Pharmacist XX SCH (14:55)
[2016-08-08] MEDS ORDERED: Albuterol-Ipratropium 3 mL Inhalation Solution NEB SCH (16:00)
--- NOTE | 2016-08-08 16:27 | NUR ---
Patient current with [facility] per rep Fuentes. Access provided. SW to follow for initial assessment Yue ALONZO
--- NOTE | 2016-08-08 17:16 | PCM.PNMED ---
Subjective Date of Service Aug 08, 2016 Subjective 75-year-old female who presents with approximately 1-2 days of increasing head congestion postnasal drainage. Also cough increased and more short of breath. Overnight patient had no acute events This morning patient is doing better but still feeling short of breath. She is on 3 L home O2 and maintaining oxygen saturation between 92 and 98% on 3 L. She continues to feel short of breath and right-sided rib cage pain from coughing. She has no abdominal pain, headache, dizziness, or swelling in her legs this morning. Exam Vital Signs Vital Sign - Last Date Time Temp Pulse Resp B/P Pulse Ox O2 Delivery O2 Flow Rate FiO2 08/08/16 05:55 36.5 62 16 106/66 92 Nasal Cannula 3.00 Intake and Output 08/07/16 08/07/16 08/08/16 Cumulative From/Thru 15:00 23:00 07:00 08/07/16 12:18 - 08/08/16 06:07 Intake Total 250 ml 995 ml 1245 ml Output Total 500 ml 500 ml Balance -250 ml 995 ml 745 ml Intake Oral 250 ml 250 ml IV Total 995 ml 995 ml Output Urine Total 500 ml 500 ml # Bowel Movements 0 0 Exam General: No acute distress, well-developed, well-nourished, appropriately interactive HEENT: Normocephalic, atraumatic. External ears without defect. Anicteric sclerae, moist conjunctivae, and no lid lag. Oropharynx free of erythema with moist mucosa. Neck: Supple with full range of motion. No jugular venous distension. No lymphadenopathy or thyromegaly. Cardiovascular: Regular rate and rhythm with no murmurs, rubs, or gallops appreciated Pulmonary: Mild diffuse wheezes. Increased respiratory effort with no use of accessory muscles. Abdomen: Bowel tones present. Soft, nontender, nondistended. No hepatosplenomegaly or masses appreciated. Extremities: No clubbing, cyanosis, edema, or lymphadenopathy appreciated. Skin: Normal temperature, turgor, and texture; no rash, ulcers, or subcutaneous nodules appreciated. Neurological: Cranial nerves grossly intact. Normal muscle strength, tone, and bulk. No known gait impairment. Psychiatric: Normal mood and affect. Alert and oriented to person, place, and time. Lab and Diagnostics Result Diagram: 08/08/16 0347 08/08/16346 X-Rays, CTs and MRIs PROCEDURE: CT ANGIO CHEST PULMONARY EMBOLISM ([id number]) INDICATIONS: dyspnea, elevated ddimer TECHNIQUE: After the administration of intravenous contrast, 2 mm thick sections acquired from the pulmonary apices to the posterior costophrenic angles. 3-dimensional maximum intensity projection (MIP) coronal and sagittal reformats were then acquired through the thorax. For radiation dose reduction, the following was used: automated exposure control, adjustment of mA and/or kV according to patient size. COMPARISON: [facility], CR, XR CHEST 1VW (PORTABLE), 08/07/2016, 12: 30. [facility], CT, CT ANGIO CHEST PE, 04/28/2016, 9:54. FINDINGS: Image quality: Excellent. Pulmonary arteries: Pulmonary arteries are normal in size, and demonstrate no intraluminal filling defects to suggest central pulmonary embolism. Lungs and pleura: Marked elevation of the liver, and right basilar consolidation. Large hiatal hernia is present as before. No pneumothorax. Bilateral upper lobe predominant centrilobular emphysema. Left basilar presumed scarring/atelectasis. Mediastinum: Heart size is normal, without pericardial effusion. Possible right hilar lymphadenopathy. Thoracic aorta is normal in caliber and enhancement. Bones and chest wall: No suspicious bony lesions. Ribs and thoracic spine appear intact throughout. No axillary or supraclavicular adenopathy. Abdomen: Partially visualized large left renal cyst. Additional right renal cyst also not entirely visualized. IMPRESSION: No pulmonary embolism. Right basilar ill-defined consolidation, suggesting pneumonia versus aspiration/ atelectasis. Recommend continued short interval CT or radiographic followup to document resolution, and exclude soft tissue mass/neoplasm. Large hiatal hernia as before. Right hilar mildly enlarged lymph nodes which could be reactive although technically nonspecific. Dictated by: Dilip John M.D. on 08/07/2016 at 14:33 Approved by: Dilip John M.D. on 08/07/2016 at 14:40 12-lead ECG Normal sinus rhythm at a rate of 90, no acute ST changes, low voltage Assessment & Plan 75-year-old female with history of COPD, hypertension, and recent hospital admission for Escherichia coli gastroenteritis in June 2016 who presents with approximately 1-2 days of increasing head congestion postnasal drainage. Also increase in cough and shortness of breath. 1. Right basilar pneumonia, possible aspiration, acute, present on admission Given recent hospitalization this is healthcare associated pneumonia IV cefepime (she does have penicillin allergy), IV vancomycin, IV metronidazole procalcitonin levels trending up 0.50 on day of admission, 0.70 the following morning. Pro-calcitonin in the morning sputum culture awaiting sample acquisition PCR viral screen, pneumococcal antigen, Legionella antigen, mycoplasma and chlamydia PCR all negative 2. Possible COPD exacerbation, acute, present on admission Prednisone 40 mg by mouth daily DuoNeb's 4 times a day Albuterol nebs when necessary Home budesonide and arformoterol nebulizers twice a day O2 supplementation as needed 3 L nasal cannula at home chronically 3. Right-sided rib pain, acute, present on admission K pad for heat Home pain medication Oxycodone/acetaminophen when necessary DVT prophylaxis Placed on subcutaneous Lovenox CODE STATUS patient wishes full code. GI Prophylaxis: H2 luz VTE Prophylaxis: Sub-Q Enoxaparin VTE Mechanical Devices: Intermittant Pneumatic CD Resuscitation Status: CPR: Attempt Resuscitation Attending Statement The patient was seen and examined together with Dr. Dunn on 08/08/2016 and I agree with the history, exam and plan as outlined in the note above. Virgen Dunn DO Aug 08, 2016 08:19 Ramiro Jung MD Aug 09, 2016 14:16
[2016-08-08] MEDS ORDERED: Ondansetron 2 mg/mL 2 mL Inj IVPUSH ONE (20:35)
[2016-08-08] MEDS: GABAPENTIN PO SCH ×2 (20:44)
[2016-08-08] MEDS: Arformoterol 15 mCg/2 mL Inhalation Solution NEB SCH (20:52)
[2016-08-08] MEDS: Budesonide 0.5 mg/2 mL Inhalation Solution NEB SCH (20:55)
[2016-08-09] VITALS (9 sets, daily range): BP systolic 100–142; BP diastolic 53–84; PULSE 50–95; RESP 18–21; O2SAT 93–97
[2016-08-09] MEDS: 0.9% Sodium Chloride 1,000 ML IV SCH ×2 (00:03→08:03)
[2016-08-09] MEDS: Sodium Chloride LOK Flush 10 mL Syringe IVFLUSH SCH ×3 (00:30→16:30)
[2016-08-09] MEDS: Albuterol 2.5 mg/3 mL Inhalation Solution NEB PRN ×2 (01:15→05:54)
[2016-08-09] MEDS: oxyCODONE-Acetamin 5-325 mg Tablet PO PRN ×5 (02:16→23:58)
[2016-08-09] MEDS: metroNIDAZOLE Inj 500 MG in IV Premix 1 EACH IV SCH ×3 (02:17→14:35)
[2016-08-09] MEDS ORDERED: Vancomycin Serum Trough XX ONE (05:00)
--- NOTE | 2016-08-09 05:14 | NUR ---
SOB/Congestion Pt complains of feeling unwell. Noted Crackles/Rales upon auscultation, Held pt's IVF and notified MD. No further orders yet. Will continue to monitor.
[2016-08-09] MEDS: Vancomycin Inj 1,250 MG in 0.9% Sodium Chloride 250 ML IV SCH (06:16)
[2016-08-09 07:00] LABS: BASOPHILS % (AUTO) 0 % (0-3); EOSINOPHILS % (AUTO) 0.1 % (0-5); MONOCYTES % (AUTO) 3.8 % (4-12); Mean Corpuscular Volume 97.9 fL (81-100); NEUTROPHILS % (AUTO) 90.9 % (40-74); Platelet Count 256 bil/L (150-400)
[2016-08-09] MEDS: Polyethylene Glycol (PEG) 17 Gm Powder PO SCH (08:30)
[2016-08-09] MEDS: GABAPENTIN PO SCH ×4 (08:33→14:01)
[2016-08-09] MEDS: Nystatin 100,000 Unit/mL 5 mL Suspension PO SCH ×4 (08:34→19:53)
[2016-08-09] MEDS: predniSONE 20 mg Tablet PO SCH (08:34)
[2016-08-09] MEDS: Sucralfate 1,000 mg Tablet PO SCH ×3 (08:34→17:50)
[2016-08-09] MEDS: Pantoprazole 20 mg ER24 Tablet PO SCH ×2 (08:34→19:52)
--- NOTE | 2016-08-09 08:52 | NUR ---
Social Work Initial Assessment: SW met with patient at bedside to discuss discharge plan. Patient is a 75 year old female admitted on 08/07/16 for aspiration pneumonia. Patient payer as Medicare and [facility]. Patient has no residential disability nor [place] benefits. Patient PCP as MD Meek. Patient states living in [place]. Patient states daughter lives within vicinity. Patient states pharmacy of choice as [facility]. [facility] at [facility]. Choice list offered and declined. Patient has no previous SNF history. Patient has a walker, cane, and wheelchair for home use. Patient states being current with [facility]. partnership marketing manager name unknown. SW to follow up with [facility] to determine how many hours patient obtains. Patient states plan as home with continued HHC services, pending clinical course. SW to follow. PLAN: Home with resumption of HHC services via [facility], pending clinical course. Yue ALONZO Addendum: 08/09/16 at 0856 by FADI CASTELLANO Amended: Links added.
[2016-08-09] MEDS: Albuterol-Ipratropium 3 mL Inhalation Solution NEB SCH ×4 (08:54→20:33)
[2016-08-09] MEDS: Budesonide 0.5 mg/2 mL Inhalation Solution NEB SCH ×2 (08:54→20:34)
[2016-08-09] MEDS: Arformoterol 15 mCg/2 mL Inhalation Solution NEB SCH ×2 (08:54→20:33)
[2016-08-09] MEDS: Cefepime 2,000 mg/100 mL D5W Minibag Plus IV SCH ×2 (09:50)
[2016-08-09] MEDS: CAFFEINE PO PRN ×2 (09:55→16:33)
[2016-08-09] MEDS: ASPIRIN PO PRN ×2 (09:55→16:33)
[2016-08-09] MEDS: ACETAMINOPHEN PO PRN ×2 (09:55→16:33)
--- NOTE | 2016-08-09 13:36 | NUR ---
JC completed with patient at bedside
--- NOTE | 2016-08-09 14:11 | PCM.PHAPRO ---
Progress Date of Service: Aug 09, 2016 vancomycin dosing Patient is an 75y.o. Female receiving vancomycin for pneumonia. Concurrent abx include: cefepime and flagyl. WBC count is 10.4 and the patient is afebrile. Patient is 86 kg, 61inches tall with a SCr of 0.84 mg/dL-- estimated CrCl of 74 mL/min. Current dose of 1250 mg q12h produced a trough of 23.3 which is higher than our target range of 15-20. Will lower her subsequent doses to 1000 mg q12h. Trough will be drawn prior to the 4th dose on 08/11 @ 0530. Pharmacy will follow daily and adjust as appropriate. Thank you for the consult in the care of this patient. Carolyn Snow PharmD Aug 09, 2016 14:11
--- NOTE | 2016-08-09 17:42 | PCM.PNMED ---
Subjective Date of Service Aug 09, 2016 Subjective 75-year-old female who presents with approximately 1-2 days of increasing head congestion postnasal drainage. Also cough increased and more short of breath. Overnight patient had no acute events though patient reports having bad dreams. Patient receiving breathing treatment. She feels like she has bronchitis with continued difficulty breathing. Later in the day she is resting comfortably without headache, chest pain, or abdominal pain. Exam Vital Signs Vital Sign - Last Date Time Temp Pulse Resp B/P Pulse Ox O2 Delivery O2 Flow Rate FiO2 08/09/16 05:57 56 18 96 Nasal Cannula 3.00 08/09/16 04:26 36.4 100/53 Intake and Output 08/08/16 08/08/16 08/09/16 Cumulative From/Thru 14:59 22:59 06:59 08/07/16 12:18 - 08/09/16 06:47 Intake Total 200 ml 1996 ml 1443 ml 4884 ml Output Total 900 ml 600 ml 1100 ml 3100 ml Balance -700 ml 1396 ml 343 ml 1784 ml Intake Oral 200 ml 756 ml 418 ml 1624 ml IV Total 1240 ml 1025 ml 3260 ml Output Urine Total 900 ml 600 ml 1100 ml 3100 ml # Bowel Movements 2 0 2 Exam General: No acute distress, well-developed, well-nourished, appropriately interactive receiving breathing treatment HEENT: Normocephalic, atraumatic. External ears without defect. Anicteric sclerae, moist conjunctivae, and no lid lag. Oropharynx free of erythema with moist mucosa. Neck: Supple with full range of motion. No jugular venous distension. No lymphadenopathy or thyromegaly. Cardiovascular: Regular rate and rhythm with no murmurs, rubs, or gallops appreciated Pulmonary: Mild diffuse wheezes and crackles. Decreased lung sounds at bases. Increased respiratory effort with no use of accessory muscles. Abdomen: Bowel tones present. Soft, nontender, nondistended. No hepatosplenomegaly or masses appreciated. Extremities: No clubbing, cyanosis, edema, or lymphadenopathy appreciated. Skin: Normal temperature, turgor, and texture; no rash, ulcers, or subcutaneous nodules appreciated. Neurological: Cranial nerves grossly intact. Normal muscle strength, tone, and bulk. No gait impairment. Psychiatric: Normal mood and affect. Alert and oriented to person, place, and time. Lab and Diagnostics Result Diagram: 08/09/1663808/09/16638 X-Rays, CTs and MRIs PROCEDURE: CT ANGIO CHEST PULMONARY EMBOLISM ([id number]) INDICATIONS: dyspnea, elevated ddimer TECHNIQUE: After the administration of intravenous contrast, 2 mm thick sections acquired from the pulmonary apices to the posterior costophrenic angles. 3-dimensional maximum intensity projection (MIP) coronal and sagittal reformats were then acquired through the thorax. For radiation dose reduction, the following was used: automated exposure control, adjustment of mA and/or kV according to patient size. COMPARISON: [facility], CR, XR CHEST 1VW (PORTABLE), 08/07/2016, 12: 30. [facility], CT, CT ANGIO CHEST PE, 04/28/2016, 9:54. FINDINGS: Image quality: Excellent. Pulmonary arteries: Pulmonary arteries are normal in size, and demonstrate no intraluminal filling defects to suggest central pulmonary embolism. Lungs and pleura: Marked elevation of the liver, and right basilar consolidation. Large hiatal hernia is present as before. No pneumothorax. Bilateral upper lobe predominant centrilobular emphysema. Left basilar presumed scarring/atelectasis. Mediastinum: Heart size is normal, without pericardial effusion. Possible right hilar lymphadenopathy. Thoracic aorta is normal in caliber and enhancement. Bones and chest wall: No suspicious bony lesions. Ribs and thoracic spine appear intact throughout. No axillary or supraclavicular adenopathy. Abdomen: Partially visualized large left renal cyst. Additional right renal cyst also not entirely visualized. IMPRESSION: No pulmonary embolism. Right basilar ill-defined consolidation, suggesting pneumonia versus aspiration/ atelectasis. Recommend continued short interval CT or radiographic followup to document resolution, and exclude soft tissue mass/neoplasm. Large hiatal hernia as before. Right hilar mildly enlarged lymph nodes which could be reactive although technically nonspecific. Dictated by: Dilip John M.D. on 08/07/2016 at 14:33 Approved by: Dilip John M.D. on 08/07/2016 at 14:40 12-lead ECG Normal sinus rhythm at a rate of 90, no acute ST changes, low voltage Assessment & Plan 75-year-old female with history of COPD, hypertension, and recent hospital admission for Escherichia coli gastroenteritis in June 2016 who presents with approximately 1-2 days of increasing head congestion postnasal drainage. Also increase in cough and shortness of breath. 1. Right basilar pneumonia, possible aspiration, acute, present on admission Given recent hospitalization this is healthcare associated pneumonia IV cefepime (she does have penicillin allergy), IV vancomycin, IV metronidazole discontinued Converted to oral Ceftin 500 mg twice a day for a minimum of 5 days and Flagyl 500 mg every 6 hours for 4-7 days procalcitonin 0.52 sputum culture pending PCR viral screen, pneumococcal antigen, Legionella antigen, mycoplasma and chlamydia PCR all negative 2. Possible COPD exacerbation, acute, present on admission Prednisone 40 mg by mouth daily discontinued due to patient having hallucinations of people standing in her room DuoNeb's 4 times a day Albuterol nebs when necessary Home budesonide and arformoterol nebulizers twice a day O2 supplementation as needed 3 L nasal cannula at home chronically 3. Sepsis, present on admission, resolved In the emergency department patient had a white blood cell count of 12.9, a temperature of 39.4, and tachycardia up to 114 beats per minute. Source of infection is likely right basilar pneumonia Blood cultures show no growth after 24 hours Patient treated with IV fluid until it was discontinued this morning. 4. Right-sided rib pain, acute, present on admission K pad for heat Home pain medication Oxycodone/acetaminophen when necessary DVT prophylaxis Placed on subcutaneous Lovenox CODE STATUS patient wishes full code. Pain Evaluation: Adequate Pain Control GI Prophylaxis: H2 luz VTE Prophylaxis: Sub-Q Enoxaparin VTE Mechanical Devices: Intermittant Pneumatic CD Resuscitation Status: CPR: Attempt Resuscitation Attending Statement The patient was seen and examined together with Dr. Dunn on 08/09/2016 and I agree with the history, exam and plan as outlined in the note above. Virgen Dunn DO Aug 09, 2016 08:35 Ramiro Jung MD Aug 10, 2016 12:51
[2016-08-09] MEDS ORDERED: Vancomycin Inj 1,000 MG in IV Premix 1 EACH IV SCH (18:00)
[2016-08-10 00:19] VITALS: PULSE 53; RESP 20; O2SAT 97
[2016-08-10] MEDS: Albuterol 2.5 mg/3 mL Inhalation Solution NEB PRN ×2 (00:19→06:14)
[2016-08-10] MEDS: Sodium Chloride LOK Flush 10 mL Syringe IVFLUSH SCH ×2 (00:30→08:33)
[2016-08-10 05:26] VITALS: BP 100/61; PULSE 66; RESP 20; O2SAT 97
[2016-08-10] MEDS: oxyCODONE-Acetamin 5-325 mg Tablet PO PRN ×3 (05:47→15:10)
[2016-08-10] MEDS: ASPIRIN PO PRN (06:12)
[2016-08-10] MEDS: CAFFEINE PO PRN (06:12)
[2016-08-10] MEDS: ACETAMINOPHEN PO PRN (06:12)
[2016-08-10 06:14] VITALS: PULSE 60; RESP 20; O2SAT 97
--- NOTE | 2016-08-10 06:39 | NUR ---
Confusion Pt woke up 0500 and has been confused. "I'm looking for my " Tried re-orienting the pt to present situation, loc, time. Pt seems to realize that she's still confused. Provide calm re-assurance and re-orientation, Pt verbalized understanding. Denies chest pain, complains of SOB from time to time and would request breathing tx PRN. Denies n/v or abd discomfort.
[2016-08-10 08:30] VITALS: PULSE 50; RESP 20; O2SAT 99
[2016-08-10] MEDS: Albuterol-Ipratropium 3 mL Inhalation Solution NEB SCH ×2 (08:30→13:06)
[2016-08-10] MEDS: Budesonide 0.5 mg/2 mL Inhalation Solution NEB SCH (08:30)
[2016-08-10] MEDS: Polyethylene Glycol (PEG) 17 Gm Powder PO SCH (08:30)
[2016-08-10] MEDS: Arformoterol 15 mCg/2 mL Inhalation Solution NEB SCH (08:30)
[2016-08-10] MEDS: Sucralfate 1,000 mg Tablet PO SCH ×2 (08:46→12:39)
[2016-08-10] MEDS: Nystatin 100,000 Unit/mL 5 mL Suspension PO SCH ×2 (08:50→12:40)
[2016-08-10] MEDS: Pantoprazole 20 mg ER24 Tablet PO SCH (08:51)
[2016-08-10 08:59] VITALS: BP 134/80; PULSE 54
[2016-08-10 09:47] LABS: BASOPHILS % (AUTO) 0.1 % (0-3); EOSINOPHILS % (AUTO) 0.1 % (0-5); Mean Corpuscular Hemoglobin 30.2 pg (27.0-35.0); Mean Corpuscular Volume 99.1 fL (81-100); NEUTROPHILS % (AUTO) 80.3 % (40-74); Platelet Count 341 bil/L (150-400)
[2016-08-10 13:08] VITALS: PULSE 57; RESP 20; O2SAT 96
[2016-08-10] MEDS ORDERED: METR500T PO (13:38)
[2016-08-10] MEDS ORDERED: CEFU250T82 PO (13:38)
--- NOTE | 2016-08-10 13:42 | PCM.DIMED ---
Virgen Dunn DO 08/10/16 1341: Discharge Instructions Date of Service Aug 10, 2016 Dates of Hospitalization Aug 07, 2016 at 15:53 Discharge Diagnosis Discharge Diagnosis 1. Right basilar pneumonia 2. Possible COPD exacerbation 3. Sepsis Medication Instructions Taking her antibiotics both cefuroxime and metronidazole for the next 4 days. Do not consume alcohol while taking the metronidazole as you could become very ill. Take previously prescribed medications as directed Activity Home Health Phyical Therapy ([facility]) Call your provider Fever or Chills, Shortness of breath, Chest pain, Vomitting, Excessive diarrhea , Weakness (unilateral) Patient Instructions Take it easy for the next few days as you are continuing to recover from this pneumonia. Remember to take deep breath often and advance activity as tolerated. Follow-up plan Follow-up with your primary care provider at your scheduled appointment in the next 2 weeks. Follow-up Provider: Fabian Meek MD Follow-up with PCP in: 2 weeks Ramiro Jung MD 08/18/16 1412: Virgen Dunn DO Aug 10, 2016 13:41 Ramiro Jung MD Aug 18, 2016 14:12
--- NOTE | 2016-08-10 14:03 | NUR ---
Social Work: Discharge Data: Pt is on day 3 of hospitalization. EMR reviewed, d/c orders are in. RADIOGRAPHY TECHNICIAN called [facility], spoke with Alfredo Burton [phone], who has access, no need for F2F. No further d/c planning needs at this time. RADIOGRAPHY TECHNICIAN will continue to follow if needs arise. Assessment: Pt who is independent at baseline. Plan: Pt will d/c home via POV today with resume [facility] CHRISTINE. No further d/c planning needs at this time. RADIOGRAPHY TECHNICIAN will continue to follow if needs arise. CLINTON Mayers
--- NOTE | 2016-08-10 15:42 | NUR ---
Discharge Reviewed d/c instructions with pt including care notes and new prescriptions, pt signed and given originals, copies to chart. IV d/c intact, no tele. Pt VS stable at time of d/c. All belongings packed by pt in room. Pt waiting for family member to olive picker. Care continues until pt leaves unit. Addendum: 08/10/16 at 1625 by CATE COOLEY RN pt taken off unit via WC by Student nurse, all belongings including home meds from drawer taken with them. Pt hooked up to portable home O2 device for travel home.
--- NOTE | 2016-08-10 16:15 | NUR ---
SN - Discharge 1615 - Pt grand daughter arrived and pt brought in w/c to vehicle. Pt had all belongings, including a bottle of medications from home. Pt was on home oxygen when transported to vehicle. Pt was provided discharge material, including all teaching and reference material. IV removed and intact. Vital signs were within normal limits.
--- NOTE | 2016-08-10 22:37 | PCM.DC.MED ---
Discharge Summary Date of Service Aug 10, 2016 Dates of Hospitalization Date of Hospital Admission Aug 07, 2016 at 15:53 Date of Discharge: Aug 10, 2016 Providers: Admitting Physician: Octavia Harris MD Primary Care Physician: Fabian Meek MD Attending Physician: Octavia Harris MD Diagnosis at Time of Discharge Diagnosis at Time of Discharge 1. Right basilar pneumonia 2. Possible COPD exacerbation 3. Sepsis Consultations Pharmacy for Vancomycin dosing Procedures XRay, CTs & MRIs PROCEDURE: CT ANGIO CHEST PULMONARY EMBOLISM ([id number]) INDICATIONS: dyspnea, elevated ddimer TECHNIQUE: After the administration of intravenous contrast, 2 mm thick sections acquired from the pulmonary apices to the posterior costophrenic angles. 3-dimensional maximum intensity projection (MIP) coronal and sagittal reformats were then acquired through the thorax. For radiation dose reduction, the following was used: automated exposure control, adjustment of mA and/or kV according to patient size. COMPARISON: [facility], CR, XR CHEST 1VW (PORTABLE), 08/07/2016, 12: 30. [facility], CT, CT ANGIO CHEST PE, 04/28/2016, 9:54. FINDINGS: Image quality: Excellent. Pulmonary arteries: Pulmonary arteries are normal in size, and demonstrate no intraluminal filling defects to suggest central pulmonary embolism. Lungs and pleura: Marked elevation of the liver, and right basilar consolidation. Large hiatal hernia is present as before. No pneumothorax. Bilateral upper lobe predominant centrilobular emphysema. Left basilar presumed scarring/atelectasis. Mediastinum: Heart size is normal, without pericardial effusion. Possible right hilar lymphadenopathy. Thoracic aorta is normal in caliber and enhancement. Bones and chest wall: No suspicious bony lesions. Ribs and thoracic spine appear intact throughout. No axillary or supraclavicular adenopathy. Abdomen: Partially visualized large left renal cyst. Additional right renal cyst also not entirely visualized. IMPRESSION: No pulmonary embolism. Right basilar ill-defined consolidation, suggesting pneumonia versus aspiration/ atelectasis. Recommend continued short interval CT or radiographic followup to document resolution, and exclude soft tissue mass/neoplasm. Large hiatal hernia as before. Right hilar mildly enlarged lymph nodes which could be reactive although technically nonspecific. Dictated by: Dilip John M.D. on 08/07/2016 at 14:33 Approved by: Dilip John M.D. on 08/07/2016 at 14:40 ECG 12 Lead Normal sinus rhythm at a rate of 90, no acute ST changes, low voltage Brief History History of present illness at time of admission by Dr. Harris: This is a 75-year-old female who presents with approximately 1-2 days of increasing head congestion postnasal drainage. Also cough increased and more short of breath. Son notes that she is a little bit slower and more confused since yesterday. Hence they brought her into the emergency room. She was found to have a fever up to 39.4 here she was also found to be tachycardic at 114 brought to be sinus per ER M.D. also respiratory rate was elevated at blood pressure was 154/75. She does use 3 L of nasal cannula at home and her oxygen saturation here was 98%. She did have an elevated d-dimer of 1.3 hence CTA of chest PE protocol was obtained revealed no pulmonary emboli but right basilar ill-defined consolidation suggesting pneumonia versus aspiration/ atelectasis. She also was found to have a large hiatal hernia as noted before. Right hilar mildly enlarged lymph nodes which could be reactive though technically nonspecific. Urinalysis was negative for urinary tract infection. She denies any nausea or vomiting or abdominal pain. Notes alteration in bowel movements. Hospital Course 75-year-old female with history of COPD, hypertension, and recent hospital admission for Escherichia coli gastroenteritis in June 2016 who presents with approximately 1-2 days of increasing head congestion postnasal drainage. Also increase in cough and shortness of breath. 1. Right basilar pneumonia, possible aspiration, acute, present on admission Given recent hospitalization this is healthcare associated pneumonia IV cefepime (she does have penicillin allergy), IV vancomycin, IV metronidazole discontinued after 3 days Converted to oral Ceftin 500 mg twice a day for a minimum of 5 days and Flagyl 500 mg every 6 hours for 7 days though this is not standard treatment the patient is allergic to penicillins and ciprofloxacin. This regimen was discussed with infectious disease expert physician Dr. Ayers. procalcitonin 0.52 scant normal irving on sputum culture PCR viral screen, pneumococcal antigen, Legionella antigen, mycoplasma and chlamydia PCR all negative Swallow evaluation completed without concern for aspiration. Recommendation is for least restrictive diet. 2. Possible COPD exacerbation, acute, present on admission Prednisone 40 mg by mouth daily discontinued due to patient having hallucinations of people standing in her room DuoNeb's 4 times a day Albuterol nebs when necessary Home budesonide and arformoterol nebulizers twice a day O2 supplementation as needed 3 L nasal cannula at home chronically 3. Sepsis, present on admission, resolved In the emergency department patient had a white blood cell count of 12.9, a temperature of 39.4, and tachycardia up to 114 beats per minute. Source of infection is likely right basilar pneumonia Blood cultures show no growth after 24 hours Patient treated with IV fluid for a period of time and then discontinued to prevent fluid overload 4. Right-sided rib pain, acute, present on admission K pad for heat Home pain medication Oxycodone/acetaminophen when necessary DVT prophylaxis Placed on subcutaneous Lovenox Exam Vital Signs (Last) Date Time Temp Pulse Resp B/P Pulse Ox O2 Delivery O2 Flow Rate FiO2 08/10/16 13:08 57 20 96 Nasal Cannula 3.00 08/10/16 08:59 134/80 08/10/16 05:26 36.5 Exam General: No acute distress, well-developed, well-nourished, appropriately interactive receiving breathing treatment HEENT: Normocephalic, atraumatic. External ears without defect. Anicteric sclerae, moist conjunctivae, and no lid lag. Oropharynx free of erythema with moist mucosa. Neck: Supple with full range of motion. No jugular venous distension. No lymphadenopathy or thyromegaly. Cardiovascular: Regular rate and rhythm with no murmurs, rubs, or gallops appreciated Pulmonary: Mild diffuse wheezes and crackles. Decreased lung sounds at bases. Increased respiratory effort with no use of accessory muscles. Abdomen: Bowel tones present. Soft, nontender, nondistended. No hepatosplenomegaly or masses appreciated. Extremities: No clubbing, cyanosis, edema, or lymphadenopathy appreciated. Skin: Normal temperature, turgor, and texture; no rash, ulcers, or subcutaneous nodules appreciated. Neurological: Cranial nerves grossly intact. Normal muscle strength, tone, and bulk. No gait impairment. Psychiatric: Normal mood and affect. Alert and oriented to person, place, and time. Test 08/07/16 12:00 08/07/16 12:10 08/07/16 16:50 08/07/16 20:50 D-Dimer 1.3mg/L (<0.50) Hemoglobin A1c 5.9% (4.8-5.6) Urine Color Yellow (YELLOW) Urine Appearance Clear (CLEAR,HAZY) Urine pH 6.0 (5.0-8.0) Urine Specific [place] 1.021 (1.003-1.035) Urine Protein 30mg/dL (NEG,TRACE) Urine Glucose (UA) Negativemg/dL (NEGATIVE) Urine Ketones Negativemg/dL (NEGATIVE) Urine Occult Blood Trace (NEGATIVE) Urine Nitrite Negative (NEGATIVE) Urine Bilirubin Negative (NEGATIVE) Urine Urobilinogen Normalmg/dL (NORMAL) Urine Leukocyte Esterase Negative (NEGATIVE) Urine RBC 0-2/hpf (0-2) Urine WBC 0-5/hpf (0-5) Urine Epithelial Cells Few/hpf (NONE-MOD) Urine Crystals None seen (NONE SEEN) Urine Bacteria None/hpf (NONE-FEW) Urine Hyaline Casts None/lpf (NONE) Urine Granular Casts Occasional (NONE SEEN) Urine Waxy Casts None seen (NONE SEEN) Urine Red Blood Cell Casts None seen (NONE SEEN) Urine White Blood Cell Casts None seen (NONE SEEN) Urine Mucus None seen (None Seen) Urine Trichomonas None seen (NONE SEEN) Urine Yeast None (NONE SEEN) Urinalysis Comment None Urine Culture Reflexed Not indicated Lactic Acid Level 0.8mmol/L (0.4-2.0) Urine Legionella pneumophilia Ag Negative (Negative) Test 08/08/16 03:47 08/09/16 06:39 08/09/16 17:32 08/09/16 18:25 Troponin T 0.010ug/L (0.0-0.011) Procalcitonin 0.52ng/mL (0.00-0.08) Vancomycin Level Trough 23.3mcg/mL Hold Red Top Tube Received (Received) Hold Urine Received (Received) Test 08/10/16 09:05 White Blood Count 7.8th/mm3 (3.8-10.1) Red Blood Count 3.25mil/mm3 (3.90-5.20) Hemoglobin 9.8g/dL (12.0-15.6) Hematocrit 32.2% (35.0-46.0) Mean Corpuscular Volume 99.1fL (81-100) Mean Corpuscular Hemoglobin 30.2pg (27.0-35.0) Mean Corpuscular Hemoglobin Concent 30.4% (32.0-37.0) Red Cell Distribution Width 13.9% (12.3-15.4) Platelet Count 341bil/L (150-400) Neutrophils (%) (Auto) 80.3% (40-74) Lymphocytes (%) (Auto) 12.0% (14-46) Monocytes (%) (Auto) 7.0% (4-12) Eosinophils (%) (Auto) 0.1% (0-5) Basophils (%) (Auto) 0.1% (0-3) Sodium Level 144mEq/L (134-144) Potassium Level 3.9mEq/L (3.5-5.2) Chloride Level 105mEq/L (97-108) Carbon Dioxide Level 26mmol/L (18-29) Blood Urea Nitrogen 21mg/dL (8-27) Creatinine 0.95mg/dL (0.57-1.00) Estimat Glomerular Filtration Rate 82mL/min (>59) Glucose Level 91mg/dL (60-99) Calcium Level 8.9mg/dL (8.5-10.1) Total Bilirubin 0.2mg/dL (0.0-1.2) Aspartate Amino Transf (AST/SGOT) 14U/L (0-50) Alanine Aminotransferase (ALT/SGPT) 16U/L (0-32) Alkaline Phosphatase 80U/L (25-165) Total Protein 6.1g/dL (6.4-8.4) Albumin 3.4g/dL (3.4-5.0) Discharge Medications Discharge Medications Albuterol Neb Soln (Albuterol Neb Soln) 2.5 Mg/3 Ml Vial.neb 1 VIAL NEB BID ( Reported) Arformoterol Tartrate (Brovana) 15 Mcg/2 Ml Vial.neb 1 VIAL NEB BID (Reported) Aspirin/Acetaminophen/Caffeine (Iygpspd-Xvcwahyurxxij-Djcw Tab) 250 Mg-250 Mg- 65 Mg Tablet 2 EACH PO BID (Reported) Atorvastatin Calcium (Atorvastatin Calcium) 20 Mg Tablet 20 MG PO DAILY ( Reported) Budesonide (Pulmicort) 0.5 Mg/2 Ml Ampul.neb. 1 VIAL NEB BID (Reported) Cefuroxime Axetil (Cefuroxime) 250 Mg Tablet 500 MG PO BID Prescribed by: LISETH MALIK DO Gabapentin (Gabapentin) 300 Mg Capsule 900 MG PO TID (Reported) Ipratropium [place] (Ipratropium [place] Inhalant Solution) 0.2 Mg/1 Ml Solution 1 VIAL NEB BID (Reported) Levothyroxine (Levothyroxine) 100 Mcg Tablet 100 MCG PO DAILY (Reported) Lisinopril (Lisinopril) 20 Mg Tablet 20 MG PO DAILY (Reported) Metronidazole (Flagyl) 500 Mg Tablet 500 MG PO Q6H Prescribed by: LISETH MALIK DO Nystatin (Nystatin) 100,000 Unit/1 Ml Oral.susp 500,000 UNIT PO PCHS Prescribed by: TRAVIS KHANNA DO Omeprazole (Omeprazole) 20 Mg Capsule.dr 20 MG PO BID (Reported) Polyethylene Glycol 3350 (Miralax) 17 Gm Powd.pack 17 GM PO DAILY (Reported) Propranolol HCl (Propranolol HCl) 20 Mg Tablet 20 MG PO TID Prescribed by: TRAVIS KHANNA DO Sucralfate (Sucralfate) 1 Gm Tablet 1 GM PO TIDWM (Reported) As needed Albuterol HFA (Proair HFA) 8.5 Gm Hfa.aer.ad 1-2 PUFFS INH Q4H PRN PRN For Shortness of Breath (Reported) Furosemide (Furosemide) 20 Mg Tab 20 MG PO DAILY PRN PRN edema (Reported) Ondansetron (Zofran) 4 Mg Tablet 4 MG PO [id number] PRN PRN For Nausea (Reported) Potassium Chloride (Potassium Chloride) 20 Meq Tab.er.prt 20 MEQ PO DAILY PRN PRN with lasix (Reported) oxyCODONE-Acetaminophen 5-325 mg (oxyCODONE-Acetaminophen 5-325 mg) 1 Each Tablet 1-2 TAB PO H2vyckt PRN PRN For Pain (Reported) Additional med instructions Taking her antibiotics both cefuroxime and metronidazole for the next 4 days. Do not consume alcohol while taking the metronidazole as you could become very ill. Take previously prescribed medications as directed Followup Plan Disposition: Discharge home, [facility] Follow-up plan Follow-up with your primary care provider at your scheduled appointment in the next 2 weeks. Discharge Diet: Heart Healthy Discharge Activity: Home Health Phyical Therapy ([facility]) Patient Instructions Take it easy for the next few days as you are continuing to recover from this pneumonia. Remember to take deep breath often and advance activity as tolerated. Follow-up Provider: Fabian Meek MD Follow-up with PCP in: 2 weeks Time spent 38 minutes Attending Statement The patient was seen and examined together with Dr. Malik on 08/10/2016 and I agree with the history, exam and plan as outlined in the note above. copies to: Fabian Meek MD, Erika R DO Aug 10, 2016 22:37 Ramiro Jung MD Aug 18, 2016 14:13
[2016-08-11] MEDS ORDERED: Vancomycin Serum Trough XX ONE (05:30)
== END 2016-08-10 16:14 | disposition home health service (06) | DRG 871 ==
LOC: EDUNIT# 11:38 → EDBD 11:38 → SED 11:38 → MPC 15:53
PROVIDERS: ADMIT Specialist; ATTEND Specialist
DX: A41.9 Sepsis, unspecified organism (principal); J69.0 Pneumonitis due to inhalation of food and vomit; J96.21 Acute and chronic respiratory failure with hypoxia; J44.1 Chronic obstructive pulmonary disease with (acute) exacerbation; I10 Essential (primary) hypertension; Z87.891 Personal history of nicotine dependence; Z99.81 Dependence on supplemental oxygen

== ENCOUNTER 2016-09-15 20:15 | Inpatient (IN) | payer MEDICARE, OTHER, MEDICAID ==
[~2016-09-15] VITALS: Ht 163.8 cm; Wt 94.9 kg
[~2016-09-15 20:15] MED LIST changes: -CEFD300C3 PO; +CEFU250T82 PO; -CHOL40003 PO; +METR500T PO
[2016-09-15 20:26] VITALS: BP 96/63; PULSE 89; RESP 16; O2SAT 93
[2016-09-15] MEDS ORDERED: 0.9% Sodium Chloride 0 ML ONE (21:19)
[2016-09-15] MEDS ORDERED: 0.9% Sodium Chloride 1,000 ML IV ONE (22:55)
--- NOTE | 2016-09-15 22:59 | ED.REPORT ---
HPI-General Illness Date of Service Sep 15, 2016 ED Provider: Doc,Ed MD Jeanne Roberts is a 75 year old woman with a PMH of COPD, HTN, chronic waxing waning diarrhea, admit for E.coli gastroenteritis in Jun, then admitted for aspiration pneumonia discharged Jul. She relates that earlier today around 8 am she felt an irresistible urge to defecate such that she did not make it to her bathroom in a 40' trailer, she states that since that time she has had very frequent explosive uncontrollable large volume diarrhea with associated weakness , and abdominal pain. She states that she is currently unable to stand or walk due to her weakness and pain. She states that prior to this episode she was in her usual state of health, and denies fevers/chills, night sweats, n/v, chest pain, or SOB. She was discharged from her last hospitalization 36 days ago with a 7 day script for Cefuroxime and Flagyl. Nursing Notes Stated Complaint: VOMITING,DIARRHEA Chief Complaint: General Complaint Nursing Notes Reviewed: Yes Allergies: Coded Allergies: Penicillins (Verified Allergy, Severe, rash, 07/06/16) ciprofloxacin (Verified Allergy, Severe, Nausea, 07/06/16) sulfamethoxazole (Verified Allergy, Severe, DOUBLE ENDING MACHINE OPERATOR toxicity, 07/06/16) trimethoprim (Verified Allergy, Severe, DOUBLE ENDING MACHINE OPERATOR toxicity, 07/06/16) dexamethasone (Verified Allergy, Intermediate, 07/06/16) insomnia, nightmares, nasuea and visual changes hydrochlorothiazide (Verified Allergy, Intermediate, Rash,Itching,, ) Uncoded Allergies: sulfamethoxazole-trimethoprim (Allergy, Intermediate, Hallucinations, ) Scheduled Albuterol Neb Soln (Albuterol Neb Soln) 2.5 Mg/3 Ml Vial.neb 1 VIAL NEB BID Arformoterol Tartrate (Brovana) 15 Mcg/2 Ml Vial.neb 1 VIAL NEB BID Aspirin/Acetaminophen/Caffeine (Gkznhhf-Vxbcskekrspuy-Zmqb Tab) 250 Mg-250 Mg- 65 Mg Tablet 2 EACH PO BID Atorvastatin Calcium (Atorvastatin Calcium) 20 Mg Tablet 20 MG PO DAILY Budesonide (Pulmicort) 0.5 Mg/2 Ml Ampul.neb. 1 VIAL NEB BID Cefuroxime Axetil (Cefuroxime) 250 Mg Tablet 500 MG PO BID Gabapentin (Gabapentin) 300 Mg Capsule 900 MG PO TID Ipratropium [place] (Ipratropium [place] Inhalant Solution) 0.2 Mg/1 Ml Solution 1 VIAL NEB BID Levothyroxine (Levothyroxine) 100 Mcg Tablet 100 MCG PO DAILY Lisinopril (Lisinopril) 20 Mg Tablet 20 MG PO DAILY Metronidazole (Flagyl) 500 Mg Tablet 500 MG PO Q6H Nystatin (Nystatin) 100,000 Unit/1 Ml Oral.susp 500,000 UNIT PO PCHS Omeprazole (Omeprazole) 20 Mg Capsule.dr 20 MG PO BID Polyethylene Glycol 3350 (Miralax) 17 Gm Powd.pack 17 GM PO DAILY Propranolol HCl (Propranolol HCl) 20 Mg Tablet 20 MG PO TID Sucralfate (Sucralfate) 1 Gm Tablet 1 GM PO TIDWM Scheduled PRN Albuterol HFA (Proair HFA) 8.5 Gm Hfa.aer.ad 1-2 PUFFS INH Q4H PRN PRN For Shortness of Breath Furosemide (Furosemide) 20 Mg Tab 20 MG PO DAILY PRN PRN edema Ondansetron (Zofran) 4 Mg Tablet 4 MG PO [id number] PRN PRN For Nausea Potassium Chloride (Potassium Chloride) 20 Meq Tab.er.prt 20 MEQ PO DAILY PRN PRN with lasix oxyCODONE-Acetaminophen 5-325 mg (oxyCODONE-Acetaminophen 5-325 mg) 1 Each Tablet 1-2 TAB PO [id number] PRN PRN For Pain General Time Seen by MD: 21:30 Chief Complaint Diarrhea Hx Obtained From: Patient Sudden in Onset?: Yes Onset Occurred: 5 - 8 hours ago Location: : Abdomen Severity: Current: Moderate Severity: Maximum: Moderate Recent Healthcare: Recent hospitalization Similar Sx Previous: Yes Past Medical History Past Medical History Notes: Code Status: Full Code Medication List per Discharge Note dated 04/20/16 from [facility]: Amlodipine 5mg daily Albuterol 2 puffs q 4 hours prn SOB Gabapentin 300mg 2 tabs tid Brovana 1 vial nebulized bid Atorvastatin 20mg q PM Pulmicort nebs bid Vitamin D 4000 international units daily Duloxetine 30mg q PM Fish Oil 1 tab daily Flaxseed Oil 1 tab daily Ipratropium neb solution qid daily Levothyroxine 100mcg daily Omeprazole 20mg bid Zofran 4mg tablet q 8 hours prn nausea, vomiting Oxycodone 5/325, 1 to 2 tablets every 4 hours prn pain Miralax 17 grams in 8oz water daily Propranolol 20mg tid Zolpidem 5 to 10mg nightly prn insomnia Past Medical History Chronic back pain Atrial septal anuerysm 2006 COPD HTN Reports: COPD, Hypertension Past Surgical History back surgeries Smoking History Former Smoker Social History Other Social History: Good social support Ambulatory Status Independent Review of Systems Full Review of Systems Constitutional: Reports: Weakness - generalized GI: Reports: Abdominal pain, Diarrhea Complete sys rev & neg: except as marked. Physical Exam Gen: A/O x3 pleasant cooperative woman in moderate acute distress secondary to abdominal pain and diarrhea Neck: Supple, non tender, no thyromegally HEENT: PERRL, EOMI, no scleral icterus, no conjunctival pallor CV: RRR, slight 2/6 systolic ejection murmur Resp: Lungs CTA BL, no wheezing rales or rhonchi Abdomen: soft, acutely tender to palpation in LUQ and LLQ, BS herpactive throughout, no organomegally Extr: No cyanosis clubbing or edema Neuro: CN 2-12 grossly intact, no focal neurologic deficit. Vital Signs Vital Signs Date Time Temp Pulse Resp B/P Pulse Ox O2 Delivery O2 Flow Rate FiO2 09/15/16 23:57 36.3 90 20 95/64 97 Nasal Cannula 2 09/15/16 20:26 36.5 89 16 96/63 93 Room Air Initial VS: Reviewed, Vital signs abnormal (mild hypotension) Interpretation & Diagnostics Lab Results Interpretation Result Diagram: 09/15/164 09/15/164 Test 09/15/16 23:04 White Blood Count 15.5th/mm3 (3.8-10.1) Red Blood Count 3.77mil/mm3 (3.90-5.20) Hemoglobin 11.3g/dL (12.0-15.6) Hematocrit 37.3% (35.0-46.0) Mean Corpuscular Volume 98.9fL (81-100) Mean Corpuscular Hemoglobin 30.0pg (27.0-35.0) Mean Corpuscular Hemoglobin Concent 30.3% (32.0-37.0) Red Cell Distribution Width 13.6% (12.3-15.4) Platelet Count 337bil/L (150-400) Neutrophils (%) (Auto) 86.9% (40-74) Lymphocytes (%) (Auto) 5.2% (14-46) Monocytes (%) (Auto) 7.0% (4-12) Eosinophils (%) (Auto) 0.3% (0-5) Basophils (%) (Auto) 0.3% (0-3) Sodium Level 140mEq/L (134-144) Potassium Level 4.9mEq/L (3.5-5.2) Chloride Level 103mEq/L (97-108) Carbon Dioxide Level 26mmol/L (18-29) Blood Urea Nitrogen 23mg/dL (8-27) Creatinine 1.10mg/dL (0.57-1.00) Estimat Glomerular Filtration Rate 70mL/min (>59) Glucose Level 118mg/dL (60-99) Lactic Acid Level 1.0mmol/L (0.4-2.0) Calcium Level 9.4mg/dL (8.5-10.1) Magnesium Level 2.5mg/dL (1.6-2.6) Total Bilirubin 0.4mg/dL (0.0-1.2) Aspartate Amino Transf (AST/SGOT) 29U/L (0-50) Alanine Aminotransferase (ALT/SGPT) 16U/L (0-32) Alkaline Phosphatase 82U/L (25-165) Total Protein 6.1g/dL (6.4-8.4) Albumin 3.6g/dL (3.4-5.0) Lipase 21U/L (13-60) Lab Results Interpretation: Leukocytosis with neutrophil predominance, elevated Cr at 1.1 with baseline approx 0.8, mild elevation of Blood glucose. X-Ray Abdominal Interpretation Interpretation / Wet Read by: Interpret - Radiologist NL X-Ray Abdomen Findings: No acute disease, Normal gas bowel pattern (mild increased stool), No organomegaly, Normal Psoas shadow, No apppendicolith, Normal soft tissues Re-Eval/Medical Decision Med Decision/Clinical Course Patient with recurrent episodes of chronic diarrhea. She is roughly 30 days removed from prior antibiotic use with Cefuroxime and Flagyl. Leukocytosis with neutrophilic predominance coupled with copious foul smelling diarrhea concerning for C.diff. Full spectrum Stool PCR ordered given history of non C.diff diarrheal illness. abdominal XR not indicative of profound constipation or fecal impaction. Patient given 3 L NS and home dosage of Propranolol and Percocet. Given voluminous diarrhea with concurrent weakness and inability to stand or walk this patient may benefit from admission for further IV hydration and appropriate therapy once stool PCR reveals offending organism. Counseled Regarding: Diagnosis, Need for follow-up, Need for admission Discharge & Departure Primary Impression: Diarrhea Disposition: ADMITTED TO HOSPITAL Discharge Condition All VS Reviewed: Yes Condition: Stable Referrals: Fabian Meek MD (PCP) Attending Statement Seen with Dr. Goode on September 15. Agree with the above copies to: Fabian Meek MD, David E DO Sep 15, 2016 22:59 Renzo Joyner MD Sep 16, 2016 03:42 Waqas Goode DO Sep 15, 2016 22:59
[2016-09-15 23:12] LABS: BASOPHILS % (AUTO) 0.3 % (0-3); EOSINOPHILS % (AUTO) 0.3 % (0-5); Mean Corpuscular Volume 98.9 fL (81-100); NEUTROPHILS % (AUTO) 86.9 % (40-74); Platelet Count 337 bil/L (150-400)
[2016-09-15] MEDS ORDERED: oxyCODONE-Acetamin 5-325 mg Tablet PO ONE (23:20)
[2016-09-15 23:33] LABS: Magnesium 2.5 mg/dL (1.6-2.6)
[2016-09-15 23:57] VITALS: BP 95/64; PULSE 90; RESP 20; O2SAT 97
[2016-09-16] VITALS (16 sets, daily range): BP systolic 76–110; BP diastolic 48–66; PULSE 64–82; RESP 20–24; O2SAT 92–98
[2016-09-16] MEDS ORDERED: 0.9% Sodium Chloride 1,000 ML IV ONE ×3 (00:30→05:50)
[2016-09-16] MEDS ORDERED: HYDROcodone-APAP 5-325 mg Tablet PO PRN (01:30)
[2016-09-16] MEDS ORDERED: Polyethylene Glycol (PEG) 17 Gm Powder PO PRN (01:30)
[2016-09-16] MEDS ORDERED: Alum-Mag Hydrox-Simeth 30 mL Suspension PO PRN (01:30)
--- NOTE | 2016-09-16 02:28 | PCM.HPMED ---
Subjective Date of Service Sep 16, 2016 Primary Provider: Admitting Physician: Brett Casillas MD Primary Care Physician: Fabian Meek MD Attending Physician: Brett Casillas MD Chief Complaint: Diarrhea Vomiting History of Present Illness: Patient is a 75 y.o F with past medical history of COPD, HTN, chronic diarrhea, last admit for related complaints June 2016 ofr E.coli gastroenteritis, July 2016 for aspiration pneumonia discharged on cefuroxime and flagyl which she completed. Patient stated that diarrhea began suddenly earlier today in the morning, and was unable to make it to the bathroom initially, once she did patient stated "I went so much I could not get off of the toilet." Patient described bowel movements as watery, explosive, large quantities, no blood noted in stool, no mucus in stool. Bowel movements associated with diffuse abdominal pain made worse with initial BM but decreased once defecation ceases, vomiting x 4 today without blood, weakness, fatigue, shortness of breath. 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 Patient denies fever, chills, syncope, night sweats, chest pain. In ED patient had several explosive bowel movements and required aggressive fluid hydration 3 L NS. Review of Systems: A comprehensive review of systems was conducted with the patient and found to be negative except as above in the History of Present Illness. Allergies Coded Allergies: Penicillins (Verified Allergy, Severe, rash, 07/06/16) ciprofloxacin (Verified Allergy, Severe, Nausea, 07/06/16) sulfamethoxazole (Verified Allergy, Severe, PAPER COLORER toxicity, 07/06/16) trimethoprim (Verified Allergy, Severe, PAPER COLORER toxicity, 07/06/16) dexamethasone (Verified Allergy, Intermediate, 07/06/16) insomnia, nightmares, nasuea and visual changes hydrochlorothiazide (Verified Allergy, Intermediate, Rash,Itching,, ) Uncoded Allergies: sulfamethoxazole-trimethoprim (Allergy, Intermediate, Hallucinations, ) Home Medications Albuterol Neb Soln (Albuterol Neb Soln) 2.5 Mg/3 Ml Vial.neb 1 VIAL NEB BID Arformoterol Tartrate (Brovana) 15 Mcg/2 Ml Vial.neb 1 VIAL NEB BID Aspirin/Acetaminophen/Caffeine (Zmezhzf-Gaavyonttrtta-Adae Tab) 250 Mg-250 Mg- 65 Mg Tablet 2 EACH PO BID Atorvastatin Calcium (Atorvastatin Calcium) 20 Mg Tablet 20 MG PO DAILY Budesonide (Pulmicort) 0.5 Mg/2 Ml Ampul.neb. 1 VIAL NEB BID Cefuroxime Axetil (Cefuroxime) 250 Mg Tablet 500 MG PO BID Gabapentin (Gabapentin) 300 Mg Capsule 900 MG PO TID Ipratropium [place] (Ipratropium [place] Inhalant Solution) 0.2 Mg/1 Ml Solution 1 VIAL NEB BID Levothyroxine (Levothyroxine) 100 Mcg Tablet 100 MCG PO DAILY Lisinopril (Lisinopril) 20 Mg Tablet 20 MG PO DAILY Metronidazole (Flagyl) 500 Mg Tablet 500 MG PO Q6H Nystatin (Nystatin) 100,000 Unit/1 Ml Oral.susp 500,000 UNIT PO PCHS Omeprazole (Omeprazole) 20 Mg Capsule.dr 20 MG PO BID Polyethylene Glycol 3350 (Miralax) 17 Gm Powd.pack 17 GM PO DAILY Propranolol HCl (Propranolol HCl) 20 Mg Tablet 20 MG PO TID Sucralfate (Sucralfate) 1 Gm Tablet 1 GM PO TIDWM Albuterol HFA (Proair HFA) 8.5 Gm Hfa.aer.ad 1-2 PUFFS INH Q4H PRN PRN For Shortness of Breath Furosemide (Furosemide) 20 Mg Tab 20 MG PO DAILY PRN PRN edema Ondansetron (Zofran) 4 Mg Tablet 4 MG PO H8idphm PRN PRN For Nausea Potassium Chloride (Potassium Chloride) 20 Meq Tab.er.prt 20 MEQ PO DAILY PRN PRN with lasix oxyCODONE-Acetaminophen 5-325 mg (oxyCODONE-Acetaminophen 5-325 mg) 1 Each Tablet 1-2 TAB PO A4wurux PRN PRN For Pain PMH Chronic back pain Atrial septal aneurysm 2006 COPD Hypertension Recent admission for Escherichia coli gastroenteritis in July 06 to the 2016, and July 2016 for aspiration pneumonia Surgical History Back surgery Family History Patient denies any family history of coronary artery disease pulmonary disease Social History Hx Alcohol Use: No Hx Substance Use: No Smoking Status: Former Smoker Exam Vital Signs Vital Sign - Last Date Time Temp Pulse Resp B/P Pulse Ox O2 Delivery O2 Flow Rate FiO2 09/15/16 23:57 36.3 90 20 95/64 97 Nasal Cannula 2 Exam General: No acute distress, well-developed, well-nourished, appropriately interactive HEENT: Normocephalic, atraumatic. External ears without defect. Pupils equal, round, and reactive to light and accommodation. Anicteric sclerae, oral mucosa dry/pink Neck: Supple with full range of motion. No jugular venous distension. No bruits. No lymphadenopathy or thyromegaly. Cardiovascular: Regular rate and rhythm, grade II/IV systolic ejection murmur RSB, No rubs, or gallops appreciated Pulmonary: Clear to auscultation bilaterally with no crackles, wheezes, or rhonchi. Normal respiratory effort with no use of accessory muscles. Abdomen: Bowel tones present. Soft, nontender, nondistended. No hepatosplenomegaly or masses appreciated. Foul smell diarrhea noted on exam Extremities: No clubbing, cyanosis, edema, or lymphadenopathy appreciated. Skin: Normal temperature, poor turgor, and texture; no rash, ulcers, good capillary refill Neurological: Cranial nerves grossly intact. Normal muscle strength, tone, and bulk. Psychiatric: Normal mood and affect. Alert and oriented to person, place, and time. Lab and Diagnostics Result Diagram: 09/15/16230309/15/162303 X-Rays, CTs and MRIs X-Ray Abdominal Interpretation Interpretation / Wet Read by: Interpret - Radiologist NL X-Ray Abdomen Findings: No acute disease, Normal gas bowel pattern (mild increased stool), No organomegaly, Normal Psoas shadow, No apppendicolith, Normal soft tissues CHEST X-RAY IMPRESSION: Right basilar patchy atelectasis/aspiration otherwise no interval change or acute disease Dictated by: Dilip John M.D. on 08/07/2016 at 13:13 Approved by: Dilip John M.D. on 08/07/2016 at 13:14 CTA Chest IMPRESSION: No pulmonary embolism. Right basilar ill-defined consolidation, suggesting pneumonia versus aspiration/ atelectasis. Recommend continued short interval CT or radiographic followup to document resolution, and exclude soft tissue mass/neoplasm. Large hiatal hernia as before. Right hilar mildly enlarged lymph nodes which could be reactive although technically nonspecific. Dictated by: Dilip John M.D. on 08/07/2016 at 14:33 Approved by: Dilip John M.D. on 08/07/2016 at 14:40 Assessment & Plan Patient is a 75 y.o F with past medical history of COPD, HTN, chronic diarrhea, last admit for related complaints June 2016 ofr E.coli gastroenteritis, July 2016 for aspiration pneumonia discharged on cefuroxime and flagyl which she completed. Admitted for treatment of gastroenteritis, severe diarrhea , possible C.Difficile colitis, FARHAT 1. Gastroenteritis, acute - Sever diarrhea present - Recent antibiotic use within 30 days places patient at high risk for C.Diff colitis, also consider other infectious agents bacterial vs viral, - Patient hypotensive on admit to ED Patient required aggressive fluid resuscitation in ED 3 L, WCT 15, LA 1.0 - Continue IVF NS @ 150 L, bolus as needed to maintain BP with map >64 - Place fecal containment system - Start oral Vancomycin 125 mg QID - Stool PCR ordered, pending - Blood cultures ordered, pending - UA ordered, pending - Goal BM less than 6 in 24 hours period - Repeat CBC, CMP in AM 2. Acute Kidney Injury. Present on admission - Baseline Creatine 0.7-.09 - Creatine at admission 1.07 - Continue with fluid resuscitation as above - Continue to monitor - repeat CMP in AM 3. Dehydration - secondary to sever diarrhea - Continue fluids as above #1 - reassess volume status, consider decreasing rate with resolution of diarrhea and improved PO intake Chronic Conditions COPD - PRN DUOneb HTN Hold home mediations until BP stabilized Back pain continue home medications CODE STATUS FULL CODE GI prophylaxis: hold PPI due to potential for worsening C.Diff colitis DVT prophylaxis: Sub Q heparin Patient is admitted under inpatient status with expected length of stay greater than 2 midnights due to severity of presenting symptoms, risk of adverse event, and complexity of treatment plan. Pain Evaluation: Adequate Pain Control VTE Prophylaxis: Sub-Q Heparin (Unfractionated) Resuscitation Status: CPR: Attempt Resuscitation Attending Statement The patient was seen and examined together with Dr. Leslie on 09/16 and I agree with the history, exam and plan as outlined in the note above. NEO LESLIE DO Sep 16, 2016 02:28 Brett Casillas MD Sep 16, 2016 02:49
[2016-09-16] MEDS: 0.9% Sodium Chloride 1,000 ML IV SCH ×4 (02:49→18:04)
[2016-09-16] MEDS: Vancomycin 125 mg Oral Capsule PO SCH ×2 (02:49→08:10)
[2016-09-16] MEDS ORDERED: Potassium Chloride 20 mEq SR Tablet PO PRN (02:50)
[2016-09-16 05:15] LABS: BASOPHILS % (AUTO) 0.2 % (0-3); EOSINOPHILS % (AUTO) 0.2 % (0-5); MONOCYTES % (AUTO) 5.7 % (4-12); Mean Corpuscular Hemoglobin 30.5 pg (27.0-35.0); NEUTROPHILS % (AUTO) 88.5 % (40-74); Platelet Count 298 bil/L (150-400)
--- NOTE | 2016-09-16 05:23 | NUR ---
Admit Pt arrived to [facility] at 0245. Pt stating came to ER due to diarrhea. Pt is alert and oriented X3. Home meds sent to pharmacy. IV fluids infusing. Pt's BP 86/50 upon arrival, notified. Orders for 1L NS bolus. Pt's BP 76/48 after bolus. MD in to see pt. MD awoke pt, pt's BP 86/51. orders for 500mL NS bolus then recheck BP. Bolus infusing. Call light within reach, frequent rounding.
[2016-09-16 08:07] LABS: APPEARANCE,URINE HAZY (CLEAR,HAZY); COLOR,URINE YELLOW (YELLOW)
[2016-09-16 08:08] LABS: OCCULT BLOOD,URINE MODERATE (NEGATIVE); UROBILINOGEN,URINE NORMAL (NORMAL)
[2016-09-16] MEDS: Sucralfate 1,000 mg Tablet PO SCH ×3 (08:09→17:33)
[2016-09-16] MEDS: Nystatin 100,000 Unit/mL 5 mL Suspension PO SCH ×5 (08:09→21:31)
[2016-09-16] MEDS: Heparin 5,000 Unit/mL Inj SUBQ SCH ×2 (08:10→17:33)
--- NOTE | 2016-09-16 08:53 | DRSVH ---
PROCEDURE: X-RAY ABDOMEN, ONE VIEW ([id number]) INDICATIONS: diarrhea eval for constipation TECHNIQUE: One view of the abdomen acquired. COMPARISON: None. FINDINGS: Surgical changes and devices: None. Bowel: Bowel gas pattern is normal. Short air-fluid levels seen on the upright examination and no d ifferential air fluid levels are present. Bowel gas pattern otherwise is normal. Large hiatal herni a is noted. Soft tissues: No suspicious abdominal calcifications. Visualized solid organ contours appear normal in size. Moderate S-shaped scoliosis. Bones: No suspicious bony lesions. IMPRESSION: Nonspecific bowel gas pattern. If patient's symptoms persist, recommend repeat imaging or CT. Dictated by: Frank ZAVALA Interpreted: Amelia Kay MD on 09/16/2016 at 8:51 Transcribed by: SARAH on 09/16/2016 at 8:52 Approved by: Amelia Kay MD, PhD on 09/16/2016 at 17:02
[2016-09-16] MEDS: oxyCODONE-Acetamin 5-325 mg Tablet PO PRN ×2 (10:41→16:21)
--- NOTE | 2016-09-16 11:53 | PCM.PNMED ---
Subjective Date of Service Sep 16, 2016 Subjective Jeanne continues to have rigors and chills this morning. She reports her diarrhea did improve in frequency, but feels like it is picking back up now. She endorses some lightheadedness, especially with exertion. Also endorses abdominal pain. Denies any rashes, MANCINI, increased SOB, or stiff neck. Of note, patient reports she lives in [place] and uses well water for cooking. This well water has not been inspected recently. Exam Vital Signs Vital Sign - Last Date Time Temp Pulse Resp B/P Pulse Ox O2 Delivery O2 Flow Rate FiO2 09/16/16 10:35 37.1 74 20 110/66 95 Nasal Cannula 2.00 Intake and Output 09/15/16 09/15/16 09/16/16 Cumulative From/Thru 15:00 23:00 07:00 09/16/16 02:39 - 09/16/16 03:11 Intake Total 2000 ml 2000 ml Balance 2000 ml 2000 ml Intake IV Total 2000 ml 2000 ml Exam General: Well developed elderly female who appears in moderate pain Cardiovascular: RRR with soft systolic murmur Pulmonary: Clear to auscultation bilaterally with no crackles, wheezes, or rhonchi. Normal respiratory effort with no use of accessory muscles. Abdomen: Tender to palp generally, but mostly at epigastric and LLQ. No guarding , no rand, normoactive BS noted. Extremities: No clubbing, cyanosis, edema, or lymphadenopathy appreciated. Skin: Normal temperature, poor turgor, and texture; no rash Neurological: Cranial nerves grossly intact. Normal muscle strength, tone, and bulk. Psychiatric: Normal mood and affect. Alert and oriented to person, place, and time. IVs and Medications IV Fluids IV NS 200mls/hr Medications Reviewed: Medications were reviewed in detail Lab and Diagnostics Result Diagram: 09/16/162 09/16/162 X-Rays, CTs and MRIs X-Ray Abdominal Interpretation Interpretation / Wet Read by: Interpret - Radiologist NL X-Ray Abdomen Findings: No acute disease, Normal gas bowel pattern (mild increased stool), No organomegaly, Normal Psoas shadow, No apppendicolith, Normal soft tissues CHEST X-RAY IMPRESSION: Right basilar patchy atelectasis/aspiration otherwise no interval change or acute disease Dictated by: Dilip John M.D. on 08/07/2016 at 13:13 Approved by: Dilip John M.D. on 08/07/2016 at 13:14 CTA Chest IMPRESSION: No pulmonary embolism. Right basilar ill-defined consolidation, suggesting pneumonia versus aspiration/ atelectasis. Recommend continued short interval CT or radiographic followup to document resolution, and exclude soft tissue mass/neoplasm. Large hiatal hernia as before. Right hilar mildly enlarged lymph nodes which could be reactive although technically nonspecific. Dictated by: Dilip John M.D. on 08/07/2016 at 14:33 Approved by: Dilip John M.D. on 08/07/2016 at 14:40 Assessment & Plan Patient is a 75 y.o F with past medical history of COPD, HTN, chronic diarrhea who presents for worsening diarrhea and rigors. Hospital day #1 1. ETEC Gastroenteritis, acute - Recent antibiotic use within 30 days places patient at high risk for C.Diff colitis, also consider other infectious agents bacterial vs viral, - Patient hypotensive on admit to ED Patient required aggressive fluid resuscitation in ED 3 L, WCT 15, LA 1.0 - Continue IVF NS @ 200mls/hr - Place fecal containment system prn - Stool PCR returned ETEC , oral Vanco was discontinued - Blood cultures ordered, pending - UA ordered, pending - Will start Rifaximin 200mg TID PO x 3 days to treat since patient is hemodynamically unstable and has numerous abx allergies and recurrent C. diff history. 2. Acute Kidney Injury. Present on admission - Baseline Creatine 0.7-.09 - Creatine at admission 1.07 - Continue with fluid resuscitation as above - Continue to monitor 3. Dehydration, POA Patient's hypotension and dizziness likely due to dehydrated state Tx as #1, continue to monitor. Chronic Conditions COPD -SOB has been stable - PRN DUOneb -Plan to keep sats between 88-92% HTN Has been hypotensive on admission, likely due to dehydration Hold home mediations until BP stabilized Back pain continue home medications CODE STATUS FULL CODE DVT prophylaxis: Sub Q heparin Patient is admitted under inpatient status with expected length of stay greater than 2 midnights due to severity of presenting symptoms, risk of adverse event, and complexity of treatment plan. Pain Evaluation: Adequate Pain Control VTE Prophylaxis: Sub-Q Heparin (Unfractionated) Resuscitation Status: CPR: Attempt Resuscitation Attending Statement The patient was seen and examined together with Dr. Rodriguez on 09/16/2016 and I agree with the history, exam and plan as outlined in the note above. Mode Rodriguez DO Sep 16, 2016 11:53 Ramiro Jung MD Sep 17, 2016 11:20
[2016-09-16] MEDS: Budesonide 0.5 mg/2 mL Inhalation Solution NEB SCH ×2 (12:52→21:26)
[2016-09-16] MEDS: Albuterol-Ipratropium 3 mL Inhalation Solution NEB PRN (12:52)
--- NOTE | 2016-09-16 14:08 | NUR ---
Social Work-initial assessment: Data & Assessment: See initial assessment. EMR Reviewed. Pt is a 75 y/o female who was admitted on 09/16/16 for Severe Diarrhea per H&P. Pt's insurance is [employer] and PCP is Fabian Meek MD. Pt's readmission score is not in yet. SW met with pt to discuss discharge planning, SW role explained and initial assessment complete. Pt is alert and oriented x3. Pt resides at home alone in a mobile where pt remains independent with basic ADLs. Pt uses a 4ww at baseline and does not drive. Pt has had [facility], but no SNF history. Pt has not completed DPOA/ advanced directive and is not interested in information. Pt has no termite technician care or VA benefits. SW attempted to discuss HH services and termite technician care planning, but pt not interested at this time and stated that she is planning to move to [facility] soon. SW will continue to follow patient for discharge planning needs. Pt's family to provide transport home at discharge. SW provided phone number and plan on white board in room. Plan:SW will continue to follow patient for discharge planning needs. Indy Fontanez LMSW, [place] Addendum: 09/16/16 at 1418 by INDY FONTANEZ Amended: Links added.
--- NOTE | 2016-09-16 18:48 | NUR ---
Pain: Patient complained of back pain 7/10 on pain scale. Percocet administered. On reassessment, back pain 5/10 on pain scale.
[2016-09-17] VITALS (8 sets, daily range): BP systolic 101–138; BP diastolic 52–74; PULSE 62–90; RESP 18–20; O2SAT 93–97
[2016-09-17] MEDS: 0.9% Sodium Chloride 1,000 ML IV SCH ×6 (00:14→21:43)
[2016-09-17] MEDS: Heparin 5,000 Unit/mL Inj SUBQ SCH ×3 (00:14→09:13)
[2016-09-17] MEDS: oxyCODONE-Acetamin 5-325 mg Tablet PO PRN ×6 (00:20→21:52)
--- NOTE | 2016-09-17 05:40 | NUR ---
Loose stools Patient has had no loose stools overnight. denies abdominal pain/discomfort. IVF infusing. will continue to monitor.
[2016-09-17] MEDS: Albuterol-Ipratropium 3 mL Inhalation Solution NEB PRN ×4 (06:08→20:37)
[2016-09-17 07:37] LABS: BASOPHILS % (AUTO) 2.3 % (0-3); MONOCYTES % (AUTO) 10.1 % (4-12); Mean Corpuscular Hemoglobin 30.4 pg (27.0-35.0); Mean Corpuscular Volume 98.9 fL (81-100); NEUTROPHILS % (AUTO) 53.3 % (40-74); Platelet Count 192 bil/L (150-400)
[2016-09-17] MEDS: Nystatin 100,000 Unit/mL 5 mL Suspension PO SCH ×5 (08:30→19:13)
[2016-09-17] MEDS: Sucralfate 1,000 mg Tablet PO SCH ×3 (09:09→17:47)
[2016-09-17] MEDS: Budesonide 0.5 mg/2 mL Inhalation Solution NEB SCH ×2 (09:25→20:37)
--- NOTE | 2016-09-17 11:21 | PCM.PNMED ---
Subjective Date of Service Sep 17, 2016 Subjective Overnight, she did not have any fevers. This morning, Jeanne reports that her diarrhea has greatly improved. She is still having some mild nausea and moderate epigastric abdominal pain. She denies any fevers, chest pain, or shortness of breath, although she is still on 2 L of oxygen. She denies any dizziness or lightheadedness this morning Exam Vital Signs Vital Sign - Last Date Time Temp Pulse Resp B/P Pulse Ox O2 Delivery O2 Flow Rate FiO2 09/17/16 09:10 70 20 94 Nasal Cannula 3.00 09/17/16 06:32 36.8 102/52 Intake and Output 09/16/16 09/16/16 09/17/16 Cumulative From/Thru 15:00 23:00 07:00 09/16/16 02:39 - 09/17/16 06:54 Intake Total 2159 ml 1100 ml 3162 ml 8421 ml Output Total 1104 ml 1650 ml 2754 ml Balance 2159 ml -4 ml 1512 ml 5667 ml Intake Oral 1100 ml 400 ml 1500 ml IV Total 2159 ml 2762 ml 6921 ml Output Urine Total 1100 ml 1650 ml 2750 ml Stool Total 4 ml 4 ml # Voids 2 2 Exam General: Well developed elderly female who appears in moderate pain Cardiovascular: RRR with soft systolic murmur Pulmonary: Clear to auscultation bilaterally with no crackles, wheezes, or rhonchi. Normal respiratory effort with no use of accessory muscles. Abdomen: Tender to palp at epigastrium. No guarding, no rand, normoactive BS noted. Extremities: No clubbing, cyanosis, edema, or lymphadenopathy appreciated. Skin: Normal temperature, poor turgor, and texture; no rash Neurological: Cranial nerves grossly intact. Normal muscle strength, tone, and bulk. Psychiatric: Normal mood and affect. Alert and oriented to person, place, and time. IVs and Medications Medications Reviewed: Medications were reviewed in detail Lab and Diagnostics Result Diagram: 09/17/1672309/17/16723 X-Rays, CTs and MRIs X-Ray Abdominal Interpretation Interpretation / Wet Read by: Interpret - Radiologist NL X-Ray Abdomen Findings: No acute disease, Normal gas bowel pattern (mild increased stool), No organomegaly, Normal Psoas shadow, No apppendicolith, Normal soft tissues CHEST X-RAY IMPRESSION: Right basilar patchy atelectasis/aspiration otherwise no interval change or acute disease Dictated by: Dilip John M.D. on 08/07/2016 at 13:13 Approved by: Dilip John M.D. on 08/07/2016 at 13:14 CTA Chest IMPRESSION: No pulmonary embolism. Right basilar ill-defined consolidation, suggesting pneumonia versus aspiration/ atelectasis. Recommend continued short interval CT or radiographic followup to document resolution, and exclude soft tissue mass/neoplasm. Large hiatal hernia as before. Right hilar mildly enlarged lymph nodes which could be reactive although technically nonspecific. Dictated by: Dilip John M.D. on 08/07/2016 at 14:33 Approved by: Dilip John M.D. on 08/07/2016 at 14:40 Assessment & Plan Patient is a 75 y.o F with past medical history of COPD, HTN, chronic diarrhea who presents for worsening diarrhea and rigors. Hospital day #1 1. ETEC Gastroenteritis, acute - Recent antibiotic use within 30 days places patient at high risk for C.Diff colitis, also consider other infectious agents bacterial vs viral, - Patient hypotensive on admit to ED Patient required aggressive fluid resuscitation in ED 3 L, WCT 15, LA 1.0 - Continue IVF NS @ 150mls/hr for today. - Stool PCR returned ETEC , oral Vanco was discontinued - Blood cultures neg x 24hrs - UA grew out MUG - Will start Rifaximin 200mg TID PO x 3 days (09/16) to treat since patient is hemodynamically unstable and has numerous abx allergies and recurrent C. diff history. 2. Acute Kidney Injury. Present on admission - resolved - Creatine at admission 1.07 - Resolved, Cr. 0.76 3. Dehydration, POA Patient's hypotension and dizziness likely due to dehydrated state Tx as #1, continue to monitor. -Continues to be mildly hypotensive. Will encourage increased by mouth intake and continue with IV fluids. His blood pressure improved , will discharge tomorrow Chronic Conditions COPD -SOB has been stable -PRN DUOneb -Plan to keep sats between 88-92% -Continue patient's home nystatin swish and swallow, HTN Has been hypotensive on admission, likely due to dehydration Hold home mediations until BP stabilized Back pain continue home medications CODE STATUS FULL CODE DVT prophylaxis: Sub Q heparin Disposition: Likely discharge tomorrow if clinically improving with stable blood pressure Pain Evaluation: Adequate Pain Control VTE Prophylaxis: Sub-Q Heparin (Unfractionated) Resuscitation Status: CPR: Attempt Resuscitation Attending Statement The patient was seen and examined together with Dr. Rodriguez on 09/17/2016 and I agree with the history, exam and plan as outlined in the note above. Mode Rodriguez DO Sep 17, 2016 11:21 Ramiro Jung MD Sep 18, 2016 11:08
--- NOTE | 2016-09-17 15:42 | NUR ---
Social Work-readiness for discharge: Data:EMR reviewed. Pt is on day 1 of hospitalization for severe diarrhea per H&P. Per MD, pt will likely be ready to discharge home today. SW followed up with pt at bedside to discuss discharge planning, SW role explained. Pt informed SW during her hospitalization pt's son Zaheer has moved pt up to his home in [place] to stay with him and his family. SW had discussed HH with pt, pt has history with [facility]. SW explained that HH does not go past [place], so the area she lives in will not be serviced. Pt is agreeable and states her family will assist at home. [facility] and will call [employer] to update her new information. Per RN notes, pt has been up independent in her room. Pt confirms that her family will provide transport home at discharge. No anticipated discharge needs. SW will continue to follow if needs arise. Assessment:Pt who is independent at baseline. Plan:Pt to discharge home with family when medically stable via POV. No anticipated discharge needs. SW will continue to follow if needs arise. CLINTON Bang
[2016-09-17 18:04] LABS: Unsaturated Iron Binding 223.2 ug/dL
--- NOTE | 2016-09-17 18:13 | NUR ---
Pain Pt reports chronic back pain, takes Percocet at home. 1 tab Percocet Q 4 hrs has kept pain at tolerable level. Pt encouraged to continue to change positions often, such as eating meal up in chair. Call light with in reach, will continue to monitor.
[2016-09-18] VITALS (8 sets, daily range): BP systolic 128–166; BP diastolic 72–91; PULSE 72–89; RESP 20; O2SAT 92–96
[2016-09-18] MEDS: oxyCODONE-Acetamin 5-325 mg Tablet PO PRN ×5 (03:11→20:29)
[2016-09-18] MEDS: 0.9% Sodium Chloride 1,000 ML IV SCH ×3 (03:12→21:20)
[2016-09-18] MEDS: Albuterol-Ipratropium 3 mL Inhalation Solution NEB PRN ×4 (03:43→23:24)
--- NOTE | 2016-09-18 06:43 | NUR ---
Anxiety Patient awoke at 0300 claiming that her arm was cold to touch and "I am swelling everywhere". My legs are swollen, my arm is swollen. assessed patient. no swelling noted. hand was slightly cooler than other hand. but the cooler hand was hanging off the bed and not under her blankets. provided patient with a pillow to prop up the cooler hand. reassured patient that she has no swelling in her arms or legs that was any different from the first time I assessed her at bed time. educated patient that if she was becoming fluid over loaded her lungs would sound crackly. Lungs auscultated clear throughout. 1 hour later checked back in with patient. patient reports improvement overall. will continue to monitor.
[2016-09-18 06:56] LABS: EOSINOPHILS % (AUTO) 4.1 % (0-5); MONOCYTES % (AUTO) 8.2 % (4-12); Mean Corpuscular Hemoglobin 30.3 pg (27.0-35.0); NEUTROPHILS % (AUTO) 59.1 % (40-74); Platelet Count 185 bil/L (150-400)
[2016-09-18] MEDS: Nystatin 100,000 Unit/mL 5 mL Suspension PO SCH ×4 (07:56→20:32)
[2016-09-18] MEDS: Sucralfate 1,000 mg Tablet PO SCH ×3 (08:05→17:01)
--- NOTE | 2016-09-18 08:57 | NUR ---
Verbal consent to sign JC with pt, precautions. CLINTON Bang
[2016-09-18] MEDS: Budesonide 0.5 mg/2 mL Inhalation Solution NEB SCH ×2 (09:31→20:23)
--- NOTE | 2016-09-18 11:11 | PCM.PNMED ---
Subjective Date of Service Sep 18, 2016 Subjective Pt states she is feeling well, but does report feeling somewhat weak. She denies any further diarrhea and states she has not had any bowel movements in the last day. She further denies any abdominal pain, nausea, vomiting, and fever. No other concerns at this time. Exam Vital Signs Vital Sign - Last Date Time Temp Pulse Resp B/P Pulse Ox O2 Delivery O2 Flow Rate FiO2 09/18/16 09:32 72 20 95 Nasal Cannula 3.00 09/18/16 05:34 36.3 128/72 Intake and Output 09/17/16 09/17/16 09/18/16 Cumulative From/Thru 15:00 23:00 07:00 09/16/16 02:39 - 09/18/16 05:35 Intake Total 2970 ml 1852 ml 79115 ml Output Total 1000 ml 1000 ml 4754 ml Balance 1970 ml 852 ml 8489 ml Intake Oral 1436 ml 600 ml 3536 ml IV Total 1534 ml 1252 ml 9707 ml Output Urine Total 1000 ml 1000 ml 4750 ml Stool Total 4 ml # Voids 2 Exam GENERAL: NAD, Pt laying in bed comfortably HEENT: AT/NC, PERRLA, EOMI, Mucus Membranes are moist CARDIAC: RRR; No M/R/G PULM: CTAB; No wheezes or rhonchi bilaterally ABD: Soft, Nontender, Nondistended, Positive bowel sounds in all quadrants, No Hepatosplenomegaly appreciated EXT: No C/C/E; No calf tenderness bilaterally SKIN: Warm, Dry, [place], and Intact NEURO: Alert and oriented x3; Following all commands PSYCH: Normal mood and affect IVs and Medications Medications Reviewed: Medications were reviewed in detail Lab and Diagnostics Result Diagram: 09/18/16 0905 09/18/16 0525 X-Rays, CTs and MRIs X-Ray Abdominal Interpretation Interpretation / Wet Read by: Interpret - Radiologist NL X-Ray Abdomen Findings: No acute disease, Normal gas bowel pattern (mild increased stool), No organomegaly, Normal Psoas shadow, No apppendicolith, Normal soft tissues CHEST X-RAY IMPRESSION: Right basilar patchy atelectasis/aspiration otherwise no interval change or acute disease Dictated by: Dilip John M.D. on 08/07/2016 at 13:13 Approved by: Dilip John M.D. on 08/07/2016 at 13:14 CTA Chest IMPRESSION: No pulmonary embolism. Right basilar ill-defined consolidation, suggesting pneumonia versus aspiration/ atelectasis. Recommend continued short interval CT or radiographic followup to document resolution, and exclude soft tissue mass/neoplasm. Large hiatal hernia as before. Right hilar mildly enlarged lymph nodes which could be reactive although technically nonspecific. Dictated by: Dilip John M.D. on 08/07/2016 at 14:33 Approved by: Dilip John M.D. on 08/07/2016 at 14:40 Assessment & Plan Patient is a 75 y.o F with past medical history of COPD, HTN, chronic diarrhea who presents for worsening diarrhea and rigors. Hospital day #1 1. ETEC Gastroenteritis, acute - Recent antibiotic use within 30 days places patient at high risk for C.Diff colitis, also consider other infectious agents bacterial vs viral, - Patient hypotensive on admit to ED Patient required aggressive fluid resuscitation in ED 3 L, WCT 15, LA 1.0 - Continue IVF NS @ 150mls/hr for today. - Stool PCR returned ETEC , oral Vanco was discontinued - Blood cultures neg x 24hrs - UA grew out MUG - Will start Rifaximin 200mg TID PO x 3 days (09/16) to treat since patient is hemodynamically unstable and has numerous abx allergies and recurrent C. diff history. 2. Acute Blood Loss Anemia - H/H has drifted down since admission - Check H/H q 6 hours x4 - FOBT positive, concern for possible GI bleed 3. GI Bleed - FOBT positive - Pt now is significantly anemic - Continue IV fluids for now - Consult Gastroenterology now 4. Acute Kidney Injury. Present on admission - resolved - Creatine at admission 1.07 - Resolved, Cr. 0.76 5. Dehydration, POA Patient's hypotension and dizziness likely due to dehydrated state Tx as #1, continue to monitor. -Continues to be mildly hypotensive. Will encourage increased by mouth intake and continue with IV fluids. His blood pressure improved , will discharge tomorrow Chronic Conditions COPD -SOB has been stable -PRN DUOneb -Plan to keep sats between 88-92% -Continue patient's home nystatin swish and swallow, HTN Has been hypotensive on admission, likely due to dehydration Hold home mediations until BP stabilized Back pain continue home medications CODE STATUS FULL CODE DVT prophylaxis: Sub Q heparin VTE Prophylaxis: Sub-Q Heparin (Unfractionated) Resuscitation Status: CPR: Attempt Resuscitation Ramiro Jung MD Sep 18, 2016 11:11
--- NOTE | 2016-09-18 13:12 | DRSVH ---
PROCEDURE: CT ABDOMEN AND PELVIS WITH CONTRAST ([id number]) INDICATIONS: r/o diverticulitis. llq pain TECHNIQUE: After the administration of oral and intravenous contrast, 5 mm thick sections acquired from the diap hragms to the symphysis. 5 mm thick coronal and sagittal reformats were performed. For radiation do se reduction, the following was used: automated exposure control, adjustment of mA and/or kV accordi ng to patient size. COMPARISON: [facility], CT, CT ABD PELVIS WO CON, 07/06/2016, 14:21. FINDINGS: Image quality: Excellent. ABDOMEN: Lung bases: Small bilateral pleural effusions are present. Mild right greater than left bibasilar ate lectasis versus pneumonia is present. Heart size is normal. Solid organs: Liver and spleen are normal in size and enhancement. Gallbladder is within normal jiménez its. Biliary system is non-dilated. Pancreas enhances normally. No adrenal nodules. Bilateral stewart al cysts are present. Nonobstructing 5 mm diameter calculus within the left interpolar kidney posteri onesimo. Kidneys are otherwise normal in size and enhancement, without hydronephrosis. Peritoneum and bowel: There is a large hiatal hernia containing the stomach. Stomach and small bowel are within normal limits. Moderate stool within the ascending and transverse colon. A few scattered d escending and sigmoid colonic diverticula are present. There is moderate thickening of the descending and proximal sigmoid colon. Pericolonic fat stranding involves the descending colon. No free fluid o r air. Nodes and vessels: No retroperitoneal or mesenteric adenopathy. Mild aneurysmal dilatation of the in frarenal aorta measuring 32 mm. IVC is within normal limits. Miscellaneous: No ventral hernias. PELVIS: Genitourinary: Bladder wall thickness is normal. Miscellaneous: No inguinal hernias or adenopathy. Bones: No suspicious bony lesions. No vertebral body compression fractures. IMPRESSION: 1. Nonspecific descending colon thickening and surrounding fat stranding, consistent with inflammatio n versus infection versus ischemia. No pericolonic abscess. 2. Large hiatal hernia. 3. Nonobstructing left interpolar renal calculus. 4. Mild aneurysmal dilatation of the infrarenal abdominal aorta. Annual sono surveillance is recommen ded. 5. Small bilateral pleural effusions with bibasilar atelectasis versus pneumonia. 6. Findings discussed with Dr. Butterfield on 09.18.16 at 1310 hrs. Dictated by: Anat Craft M.D. on 09/18/2016 at 13:03 Approved by: Anat Craft M.D. on 09/18/2016 at 13:10
[2016-09-18] MEDS ORDERED: cefTRIAXone Inj 1,000 MG in Dextrose 5% Minibag Plus 50 ML IV SCH (15:40)
[2016-09-18] MEDS ORDERED: PEG/Electrolytes 4,000 mL Solution PO ONE (16:00)
--- NOTE | 2016-09-18 16:34 | NUR ---
Hypertension B/P = 166/91, HR = 82. paged with request regarding resuming Home B/P medications. Pt asymptomatic at this time.Awaiting recommendation from . Addendum: 09/18/16 at 1721 by AZRA LYNN RN Call back from MD, will review home meds and restart if appropriate. Advised pt would like to speak to regarding POC. will come see pt as soon as able.
--- NOTE | 2016-09-18 19:37 | CONS ---
[address] [address] CONSULTATION REPORT PATIENT: LLUVIA PERKINS : 1940 MR#: [id number] ADMIT: 09/16/2016 JOB ID: [id number] DATE OF SERVICE: 09/18/2016 REASON FOR CONSULTATION: Anemia, guaiac positive stools. HISTORY OF PRESENT ILLNESS: A 75-year-old, female, history of COPD, hypertension, chronic back pain, atrial septal aneurysm 2006 presents for consultation for anemia and guaiac positive stools. The patient had been complaining of diarrhea x1 day prior to admission. The patient states that it was explosive, multiple times per day. The patient states that since she has been here at the hospital she has only had one episode of diarrhea and it has improved. The patient during that hospital admission was found to have a hemoglobin on admission of 10.0 which has drifted down to 8.5-7.7, and now repeat was 8.5. The patient has guaiac positive stools. The patient had an EGD and colonoscopy in the past in which she says her colonoscopy was 10 years ago which was normal. I have no records. The patient denies family history of colon cancer, inflammatory bowel disease, or celiac disease. The patient denies rectal bleeding, nausea, vomiting, hematemesis, abdominal pain, unintentional weight loss. PAST MEDICAL HISTORY: As stated above. PAST SURGERIES: As stated above. MEDICATIONS AT HOME: 1. Albuterol. 2. Brovana. 3. Aspirin. 4. Acetaminophen. 5. Atorvastatin. 6. Pulmicort. 7. Cefuroxime. 8. Gabapentin. 9. . 10. Synthroid. 11. Lisinopril. 12. Flagyl. 13. Nystatin. 14. Omeprazole. 15. MiraLAX. 16. Propranolol. 17. Sucralfate. 18. ProAir. 19. Lasix. 20. Zofran. 21. Potassium chloride. 22. Oxycodone/acetaminophen. ALLERGIES: 1. PENICILLIN. 2. CIPRO. 3. SULFAMETHOXAZOLE. 4. TRIAMTERENE. 5. DEXAMETHASONE. 6. HYDROCHLOROTHIAZIDE. SOCIAL HISTORY: No alcohol. No IV drug use. Former smoker. FAMILY HISTORY: Negative for colon cancer, inflammatory bowel disease, or celiac disease. REVIEW OF SYSTEMS: The patient denies headache, blurred vision, nausea, vomiting, chest pain, shortness of breath, abdominal pain, skin rash, joint pain. PHYSICAL EXAMINATION: Vital signs upon presentation: Temperature is 36.3, pulse 72, respiratory rate 20, blood pressure 128/72, satting 95% on 3 L nasal cannula. General: no scars. Eyes anicteric. Neck supple. Lungs: Clear to auscultation bilaterally. Cardiovascular: Regular rhythm and rate. Abdomen: Soft, nondistended, nontender. Normal bowel sounds. Extremities: No cyanosis, clubbing or edema. LABORATORIES: White count of 2.9, hemoglobin 8.5, hematocrit 27, platelet count 185. Sodium 144, potassium 3.9, chloride 112, bicarb 23, BUN 6, creatinine 0.6, glucose 96, calcium 8.7, iron 16, TIBC 239, percent iron saturation 7%. ASSESSMENT/PLAN: This is a 75-year-old, female, with history of chronic obstructive pulmonary disease, hypertension and chronic diarrhea who is admitted here for diarrhea which was positive for Enterotoxigenic Escherichia coli (ETEC) currently on Xifaxan. The patient was found also to have iron-deficiency anemia and a drop of her hemoglobin to 8.5 from admission with guaiac positive stools. We will do an EGD and colonoscopy to rule out possible sources of her anemia, but the patient does not have any overt signs of bleeding. RECOMMENDATIONS: 1. EGD and colonoscopy with anesthesia scheduled for tomorrow on Monday if ct scan abdomen neg for diverticulitis 2. GoLYTELY prep tonight. 3. Clear liquid diet today until when the patient starts her prep and then n.p.o. except for medications. MTDD
[2016-09-18] MEDS: metroNIDAZOLE Inj 500 MG in IV Premix 1 EACH IV SCH (20:30)
[2016-09-18] MEDS ORDERED: Ciprofloxacin Inj 400 MG in IV Premix 1 EACH IV SCH (20:30)
[2016-09-19] MEDS: oxyCODONE-Acetamin 5-325 mg Tablet PO PRN ×3 (02:44→13:16)
[2016-09-19] MEDS: 0.9% Sodium Chloride 1,000 ML IV SCH (04:22)
[2016-09-19 04:54] VITALS: BP 171/89; PULSE 88; RESP 20; O2SAT 94
[2016-09-19] MEDS: Albuterol-Ipratropium 3 mL Inhalation Solution NEB PRN ×2 (05:55→12:12)
[2016-09-19 05:57] VITALS: PULSE 80; RESP 20; O2SAT 97
--- NOTE | 2016-09-19 06:23 | NUR ---
Blood pressure/headache 0500 patient reports headache that is non-stop. BP elevated at 170's-180's systolic MD notified. home blood pressure medications ordered and administered. will continue to monitor.
[2016-09-19 07:48] LABS: BASOPHILS % (AUTO) 1.7 % (0-3); EOSINOPHILS % (AUTO) 4.8 % (0-5); MONOCYTES % (AUTO) 10.3 % (4-12); Mean Corpuscular Hemoglobin 30.3 pg (27.0-35.0); Mean Corpuscular Volume 102.2 fL (81-100); NEUTROPHILS % (AUTO) 65.8 % (40-74); Platelet Count 200 bil/L (150-400)
[2016-09-19] MEDS: Nystatin 100,000 Unit/mL 5 mL Suspension PO SCH ×2 (08:30→12:01)
[2016-09-19 08:42] VITALS: PULSE 91; RESP 20; O2SAT 95
[2016-09-19] MEDS: Budesonide 0.5 mg/2 mL Inhalation Solution NEB SCH (08:42)
--- NOTE | 2016-09-19 08:48 | PCM.PNSURG ---
Subjective Date of Service: Sep 19, 2016 Date of Service: Sep 19, 2016 Visit Information: Subjective: hb stable 8.3. no overt signs gi bleed. CT scan concerning for diverticulitis. on cipro/flagyl. LLQ pain improved. Postop General: No Complaints Objective Vital Sign- Last 8 Hours Date Time Temp Pulse Resp B/P Pulse Ox O2 Delivery O2 Flow Rate FiO2 09/19/16 08:42 91 20 95 Nasal Cannula 2.50 09/19/16 05:57 80 20 97 Nasal Cannula 3.00 09/19/16 04:54 37.2 88 20 171/89 94 Nasal Cannula 2.00 Intake and Output- Last 8 Hour 09/19/16 Cumulative From/Thru 06:59 09/16/16 02:39 - 09/19/16 05:20 Intake Total 1598 ml 24334 ml Output Total 1300 ml 6654 ml Balance 298 ml 18330 ml Intake Oral 600 ml 4636 ml IV Total 998 ml 34013 ml Output Urine Total 1300 ml 6650 ml Stool Total 4 ml # Voids 2 General: Oriented X3 Neck: Supple Lungs: Clear to Auscultation Heart: Exam Unremarkable Abdomen: Benign, Soft, Appropriately tender, Non-distended, Normoactive bowel tones Extremities: Distal Pulses Palpable Result Diagram: 09/19/16 0235 09/19/16 0235 Assessment & Plan Impression This is a 75-year-old, female, with history of chronic obstructive pulmonary disease, hypertension and chronic diarrhea who is admitted here for diarrhea which was positive for Enterotoxigenic Escherichia coli (ETEC) currently on Xifaxan. The patient was found also to have iron-deficiency anemia and a drop of her hemoglobin to 8.5 from admission with guaiac positive stools. ct abdomen pelvis contrast 09/18/16- IMPRESSION: 1. Nonspecific descending colon thickening and surrounding fat stranding, consistent with inflammation versus infection versus ischemia. No pericolonic abscess. 2. Large hiatal hernia. 3. Nonobstructing left interpolar renal calculus. 4. Mild aneurysmal dilatation of the infrarenal abdominal aorta. Annual sono surveillance is recommended. 5. Small bilateral pleural effusions with bibasilar atelectasis versus pneumonia. 6. Findings discussed with Dr. Butterfield on 09.18.16 at 1310 hrs. RECOMMENDATIONS: 1. cont cipro/flagyl x 14 days 2. hold off egd/colon till at least 2months after finishing abx given concern for diverticulitis 3. ok to d/c home today from gi perspective will sign off Problems: VTE Prophylaxis: Sub-Q Heparin (Unfractionated) Resuscitation Status: CPR: Attempt Resuscitation Waqas Butterfield MD Sep 19, 2016 08:48
[2016-09-19] MEDS: metroNIDAZOLE Inj 500 MG in IV Premix 1 EACH IV SCH (09:13)
[2016-09-19] MEDS: Sucralfate 1,000 mg Tablet PO SCH ×2 (09:15→11:53)
[2016-09-19] MEDS: Ondansetron 2 mg/mL 2 mL Inj IVPUSH PRN ×2 (09:16→11:59)
[2016-09-19] MEDS ORDERED: Furosemide 10 mg/mL 2 mL Inj IVPUSH ONE (10:40)
[2016-09-19 12:12] VITALS: PULSE 69; RESP 20; O2SAT 84
--- NOTE | 2016-09-19 13:43 | PCM.DIMED ---
Mode Rodriguez DO 09/19/16 1343: Discharge Instructions Date of Service Sep 19, 2016 Dates of Hospitalization Sep 16, 2016 at 01:50 Discharge Diagnosis Discharge Diagnosis ETEC Gastroenteritis, acute Acute Blood Loss Anemia - stable GI Bleed - stable Diverticulitis- stable Acute Kidney Injury- resolved Dehydration - resolved Chronic Conditions COPD- stable HTN Chronic Back pain Medication Instructions You are being discharged home today. You will still need to continue taking antibiotics for your diverticulitis. Please take the Ciprofloxacin and Flagyl as instructed and finish them all. Please drink at least 2 liters of water daily. Please take the probiotic 1-2 hours after taking the antibiotics. Continue eating small soft meals as tolerated. Use the Zofran as necessary for nausea. Diet Heart Healthy Activity No restrictions Call your provider Fever or Chills, Chest pain, Excessive diarrhea, Weakness (unilateral) Patient Instructions Please follow up with your primary care doctor within 1 week Please follow up with [facility] in 1 month. Follow-up Provider: Fabian Meek MD Follow-up with PCP in: 1 week Provider: Waqas Butterfield MD Follow-up in: 4 weeks Castillo Britt MD 09/19/16 1347: Discharge Instructions Attending's Statement The patient was seen and examined independently and discussed with Dr. Rodriguez on and I agree with the discharge instructions and plan as outlined in the note above. Mode Rodriguez DO Sep 19, 2016 13:43 Castillo Britt MD Sep 19, 2016 13:47
[2016-09-19] MEDS ORDERED: CIPR-231 PO (13:51)
[2016-09-19] MEDS ORDERED: SACC250C PO (13:51)
[2016-09-19] MEDS ORDERED: METR500T PO (13:51)
[2016-09-19] MEDS ORDERED: ONDA4TAB6 PO (13:52)
[2016-09-19 14:00] VITALS: BP 152/83; PULSE 75; RESP 20; O2SAT 94
--- NOTE | 2016-09-19 16:02 | NUR ---
Social Work - Discharge Data: EMR reviewed. Pt is on day 3 of hospitalization for severe diarrhea. Pt is medically stable to discharge today. Per nursing notes pt has been up independent in room. SW met with pt at bedside who confirms she is returning home with family. No needs. Pt's family to provide transport home today. All updated and agreeable to plan. Assessment: Pt who is independent at baseline. Plan: Pt to discharge home via family with no needs. CLINTON Arellano
--- NOTE | 2016-09-19 17:21 | NUR ---
Discharge Pt discharged at 1545. She was given discharge instructions and instructions for follow up care. She confirmed understanding of these instructions. An appointment was made for her with her primary care doctor for follow up. Her prescriptions were electronically faxed to the patient's home pharmacy. She confirmed understanding of these instructions. She was given an oxygen tank to take home with her. She left in possession of all of her belongings. She was brought to the exit by unit staff where her granddaughter would be driving her home.
--- NOTE | 2016-09-19 17:44 | PCM.DC.MED ---
Discharge Summary Date of Service Sep 19, 2016 Dates of Hospitalization Date of Hospital Admission Sep 16, 2016 at 01:50 Date of Discharge: Sep 19, 2016 Providers: Admitting Physician: Brett Casillas MD Primary Care Physician: Fabian Meek MD Attending Physician: Brett Casillas MD Diagnosis at Time of Discharge Diagnosis at Time of Discharge ETEC Gastroenteritis, acute Acute Blood Loss Anemia - stable GI Bleed - stable Diverticulitis- stable Acute Kidney Injury- resolved Dehydration - resolved Chronic Conditions COPD- stable HTN Chronic Back pain Right Hilar Lymph Node and Consolidation - follow up outpatient Consultations GI RECOMMENDATIONS: 1. cont cipro/flagyl x 14 days 2. hold off egd/colon till at least 2months after finishing abx given concern for diverticulitis 3. ok to d/c home today from gi perspective Procedures XRay, CTs & MRIs X-Ray Abdominal Interpretation Interpretation / Wet Read by: Interpret - Radiologist NL X-Ray Abdomen Findings: No acute disease, Normal gas bowel pattern (mild increased stool), No organomegaly, Normal Psoas shadow, No apppendicolith, Normal soft tissues CHEST X-RAY IMPRESSION: Right basilar patchy atelectasis/aspiration otherwise no interval change or acute disease Dictated by: Dilip John M.D. on 08/07/2016 at 13:13 Approved by: Dilip John M.D. on 08/07/2016 at 13:14 CTA Chest IMPRESSION: No pulmonary embolism. Right basilar ill-defined consolidation, suggesting pneumonia versus aspiration/ atelectasis. Recommend continued short interval CT or radiographic followup to document resolution, and exclude soft tissue mass/neoplasm. Large hiatal hernia as before. Right hilar mildly enlarged lymph nodes which could be reactive although technically nonspecific. Dictated by: Dilip John M.D. on 08/07/2016 at 14:33 Approved by: Dilip John M.D. on 08/07/2016 at 14:40 CT abd/pelvis IMPRESSION: 1. Nonspecific descending colon thickening and surrounding fat stranding, consistent with inflammation versus infection versus ischemia. No pericolonic abscess. 2. Large hiatal hernia. 3. Nonobstructing left interpolar renal calculus. 4. Mild aneurysmal dilatation of the infrarenal abdominal aorta. Annual sono surveillance is recommended. 5. Small bilateral pleural effusions with bibasilar atelectasis versus pneumonia. 6. Findings discussed with Dr. Butterfield on 09.18.16 at 1310 hrs. Brief History per H&P Patient is a 75 y.o F with past medical history of COPD, HTN, chronic diarrhea, last admit for related complaints June 2016 ofr E.coli gastroenteritis, July 2016 for aspiration pneumonia discharged on cefuroxime and flagyl which she completed. Patient stated that diarrhea began suddenly earlier today in the morning, and was unable to make it to the bathroom initially, once she did patient stated "I went so much I could not get off of the toilet." Patient described bowel movements as watery, explosive, large quantities, no blood noted in stool, no mucus in stool. Bowel movements associated with diffuse abdominal pain made worse with initial BM but decreased once defecation ceases, vomiting x 4 today without blood, weakness, fatigue, shortness of breath. 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 Patient denies fever, chills, syncope, night sweats, chest pain. In ED patient had several explosive bowel movements and required aggressive fluid hydration 3 L NS. Hospital Course Patient is a 75 y.o F with past medical history of COPD, HTN, chronic diarrhea who presents for worsening diarrhea and rigors. Hospital day #1 1.Acute diverticulitis, acute -CT abd consistent with diverticulitis - Patient was hypotensive on admit to ED Patient required aggressive fluid resuscitation in ED 3 L, WCT 15, LA 1.0 - Continued IVF NS @ 150mls/hr while having diarrhea and poor PO intake - Stool PCR returned ETEC , oral Vanco was discontinued - Blood cultures neg x 24hrs - UA grew out MUG - Treated patient on Rifaximin 200mg TID PO x 3 days (09/16) -discharge on cipro and flagyl for 2 weeks .cipro listed as allegy but tolerated inpatient.remove from allergy list -colonoscopy after 2 months outpatient 2. Acute Blood Loss Anemia with GI Bleed - H/H has drifted down since admission - FOBT positive, concern for possible GI bleed - Likely due to Diverticulitis, H&H trended stable on discharge 3 Acute Kidney Injury. Present on admission - resolved - Creatine at admission 1.07 - Resolved, Cr. 0.76 4. Dehydration, POA Patient's hypotension and dizziness likely due to dehydrated state Tx as #1, continue to monitor. Resolved 5 Right basilar lung consolidation noted on CT chest on admit -Recommend outpatient monitoring. Chronic Conditions COPD -SOB has been stable -PRN DUOneb -Plan to keep sats between 88-92% -Continue patient's home nystatin swish and swallow, HTN Has been hypotensive on admission, likely due to dehydration Resumed home meds on last day Back pain continue home medications Exam Vital Signs (Last) Date Time Temp Pulse Resp B/P Pulse Ox O2 Delivery O2 Flow Rate FiO2 09/19/16 14:00 36.7 75 20 152/83 94 Nasal Cannula 2.00 Exam General: Well developed elderly female who appears in moderate pain Cardiovascular: RRR with soft systolic murmur Pulmonary: Clear to auscultation bilaterally with no crackles, wheezes, or rhonchi. Normal respiratory effort with no use of accessory muscles. Abdomen: Tender to palp at epigastrium. No guarding, no rand, normoactive BS noted. Extremities: No clubbing, cyanosis, edema, or lymphadenopathy appreciated. Skin: Normal temperature, poor turgor, and texture; no rash Neurological: Cranial nerves grossly intact. Normal muscle strength, tone, and bulk. Psychiatric: Normal mood and affect. Alert and oriented to person, place, and time. Test 09/15/16 23:04 09/16/16 03:27 09/16/16 07:33 09/17/16 17:00 Lactic Acid Level 1.0mmol/L (0.4-2.0) Magnesium Level 2.5mg/dL (1.6-2.6) Lipase 21U/L (13-60) Hold Hendrickson Top Tube Received (Received) Urine Color Yellow (YELLOW) Urine Appearance Hazy (CLEAR,HAZY) Urine pH 5.0 (5.0-8.0) Urine Specific [place] 1.010 (1.003-1.035) Urine Protein Negativemg/dL (NEG,TRACE) Urine Glucose (UA) Negativemg/dL (NEGATIVE) Urine Ketones Negativemg/dL (NEGATIVE) Urine Occult Blood Moderate (NEGATIVE) Urine Nitrite Negative (NEGATIVE) Urine Bilirubin Negative (NEGATIVE) Urine Urobilinogen Normalmg/dL (NORMAL) Urine Leukocyte Esterase Small (NEGATIVE) Urine RBC 3-10/hpf (0-2) Urine WBC 11-50/hpf (0-5) Urine Epithelial Cells Occasional/hpf (NONE-MOD) Urine Crystals None seen (NONE SEEN) Urine Bacteria Moderate/hpf (NONE-FEW) Urine Hyaline Casts None/lpf (NONE) Urine Granular Casts None seen (NONE SEEN) Urine Waxy Casts None seen (NONE SEEN) Urine Red Blood Cell Casts None seen (NONE SEEN) Urine White Blood Cell Casts None seen (NONE SEEN) Urine Mucus None seen (None Seen) Urine Trichomonas None seen (NONE SEEN) Urine Yeast None (NONE SEEN) Urinalysis Comment None Urine Culture Reflexed Indicated Reticulocyte Count,Calculated 1.2% (0.6-2.6) Iron Level 16ug/dL (35-150) Total Iron Binding Capacity 239ug/dL (250-450) Percent Iron Saturation 7%sat (15-50) Unsaturated Iron Binding 223.2ug/dL Ferritin 39ng/mL (13-150) Test 09/19/16 02:35 White Blood Count 2.9th/mm3 (3.8-10.1) Red Blood Count 2.74mil/mm3 (3.90-5.20) Hemoglobin 8.3g/dL (12.0-15.6) Hematocrit 28.0% (35.0-46.0) Mean Corpuscular Volume 102.2fL (81-100) Mean Corpuscular Hemoglobin 30.3pg (27.0-35.0) Mean Corpuscular Hemoglobin Concent 29.6% (32.0-37.0) Red Cell Distribution Width 13.7% (12.3-15.4) Platelet Count 200bil/L (150-400) Neutrophils (%) (Auto) 65.8% (40-74) Lymphocytes (%) (Auto) 17.1% (14-46) Monocytes (%) (Auto) 10.3% (4-12) Eosinophils (%) (Auto) 4.8% (0-5) Basophils (%) (Auto) 1.7% (0-3) Sodium Level 142mEq/L (134-144) Potassium Level 4.2mEq/L (3.5-5.2) Chloride Level 109mEq/L (97-108) Carbon Dioxide Level 20mmol/L (18-29) Blood Urea Nitrogen 3mg/dL (8-27) Creatinine 0.58mg/dL (0.57-1.00) Estimat Glomerular Filtration Rate 146mL/min (>59) Glucose Level 91mg/dL (60-99) Calcium Level 8.9mg/dL (8.5-10.1) Total Bilirubin < 0.2mg/dL (0.0-1.2) Aspartate Amino Transf (AST/SGOT) 20U/L (0-50) Alanine Aminotransferase (ALT/SGPT) 9U/L (0-32) Alkaline Phosphatase 60U/L (25-165) Total Protein 5.4g/dL (6.4-8.4) Albumin 2.7g/dL (3.4-5.0) Thyroid Stimulating Hormone (TSH) 4.100uIU/mL (0.450-4.500) Discharge Medications Discharge Medications Albuterol Neb Soln (Albuterol Neb Soln) 2.5 Mg/3 Ml Vial.neb 1 VIAL NEB QID ( Reported) Arformoterol Tartrate (Brovana) 15 Mcg/2 Ml Vial.neb 1 VIAL NEB BID (Reported) Aspirin/Acetaminophen/Caffeine (Vnlgslg-Gcteztdlezpnx-Tbku Tab) 250 Mg-250 Mg- 65 Mg Tablet 2 EACH PO BID (Reported) Atorvastatin Calcium (Atorvastatin Calcium) 20 Mg Tablet 20 MG PO DAILY ( Reported) Budesonide (Pulmicort) 0.5 Mg/2 Ml Ampul.neb. 1 VIAL NEB BID (Reported) Ciprofloxacin (Cipro) 500 Mg Tablet 500 MG PO BID Prescribed by: FLORI RODRIGUEZ DO Gabapentin (Gabapentin) 300 Mg Capsule 900 MG PO TID (Reported) Ipratropium [place] (Ipratropium [place] Inhalant Solution) 0.2 Mg/1 Ml Solution 1 VIAL NEB BID (Reported) Levothyroxine (Levothyroxine) 100 Mcg Tablet 100 MCG PO DAILY (Reported) Lisinopril (Lisinopril) 20 Mg Tablet 20 MG PO DAILY (Reported) Metronidazole (Flagyl) 500 Mg Tablet 500 MG PO BID Prescribed by: FLORI RODRIGUEZ DO Omeprazole (Omeprazole) 20 Mg Capsule.dr 20 MG PO BID (Reported) Polyethylene Glycol 3350 (Miralax) 17 Gm Powd.pack 17 GM PO DAILY (Reported) Propranolol HCl (Propranolol HCl) 20 Mg Tablet 20 MG PO TID Prescribed by: TRAVIS KHANNA DO Saccharomyces Boulardii (Florastor) 250 Mg Capsule 250 MG PO BID Prescribed by: FLORI RODRIGUEZ DO Sucralfate (Sucralfate) 1 Gm Tablet 1 GM PO QID (Reported) As needed Albuterol HFA (Proair HFA) 8.5 Gm Hfa.aer.ad 1-2 PUFFS INH Q4H PRN PRN For Shortness of Breath (Reported) Furosemide (Furosemide) 20 Mg Tab 20 MG PO DAILY PRN PRN edema (Reported) Ondansetron (Zofran) 4 Mg Tablet 4 MG PO Q4H PRN PRN For Nausea Prescribed by: FLORI RODRIGUEZ DO Potassium Chloride (Potassium Chloride) 20 Meq Tab.er.prt 20 MEQ PO DAILY PRN PRN with lasix (Reported) oxyCODONE-Acetaminophen 5-325 mg (oxyCODONE-Acetaminophen 5-325 mg) 1 Each Tablet 1-2 TAB PO [id number] PRN PRN For Pain (Reported) Additional med instructions You are being discharged home today. You will still need to continue taking antibiotics for your diverticulitis. Please take the Ciprofloxacin and Flagyl as instructed and finish them all. Please drink at least 2 liters of water daily. Please take the probiotic 1-2 hours after taking the antibiotics. Continue eating small soft meals as tolerated. Use the Zofran as necessary for nausea. Followup Plan Disposition: Home Discharge Diet: Heart Healthy Discharge Activity: No restrictions Patient Instructions Please follow up with your primary care doctor within 1 week Please follow up with [facility] in 1 month. Follow-up Provider: Fabian Meek MD Follow-up with PCP in: 1 week Provider: Waqas Butterfield MD Follow-up in: 4 weeks Time spent 35 minutes coordinating discharge Attending Statement The patient was seen and examined independently on 09/19/2016and case discussed with Dr. Rodriguez , I agree with the discharge summary as outlined in the note above. copies to: Fabian Meek MD, Hong D DO Sep 19, 2016 17:44 Castillo Britt MD Sep 19, 2016 18:59
== END 2016-09-19 15:45 | disposition home or self-care (01) | DRG 372 ==
LOC: SED 20:15 → MPC 09-16 01:50
PROVIDERS: ADMIT Hospitalist; ATTEND Hospitalist
DX: A04.4 Other intestinal Escherichia coli infections (principal); N17.9 Acute kidney failure, unspecified; K92.2 Gastrointestinal hemorrhage, unspecified; D62 Acute posthemorrhagic anemia; E86.0 Dehydration; J44.9 Chronic obstructive pulmonary disease, unspecified; I10 Essential (primary) hypertension; G89.29 Other chronic pain; K44.9 Diaphragmatic hernia without obstruction or gangrene; Z79.82 Long term (current) use of aspirin; Z79.51 Long term (current) use of inhaled steroids; Z88.0 Allergy status to penicillin

== ENCOUNTER 2016-09-28 19:45 | Inpatient (IN) | payer MEDICARE, OTHER, MEDICAID ==
[~2016-09-28] VITALS: Ht 162.6 cm; Wt 86.8 kg
[~2016-09-28 19:45] MED LIST changes: -CEFU250T82 PO; +CIPR-231 PO; -NYST1000 PO; +SACC250C PO
[2016-09-28 19:49] VITALS: BP 136/70; PULSE 56; RESP 24; O2SAT 94
[2016-09-28 21:05] LABS: BASOPHILS % (AUTO) 1.3 % (0-3); EOSINOPHILS % (AUTO) 2.1 % (0-5); MONOCYTES % (AUTO) 11.1 % (4-12); Mean Corpuscular Hemoglobin 30.3 pg (27.0-35.0); Mean Corpuscular Volume 98.7 fL (81-100); NEUTROPHILS % (AUTO) 46.2 % (40-74); Platelet Count 214 bil/L (150-400)
[2016-09-28] MEDS ORDERED: Ondansetron 2 mg/mL 2 mL Inj IVPUSH ONE (21:15)
[2016-09-28] MEDS ORDERED: 0.9% Sodium Chloride 1,000 ML IV ONE (21:15)
[2016-09-28 21:26] LABS: Magnesium 1.8 mg/dL (1.6-2.6)
[2016-09-28] MEDS ORDERED: KCl 40 mEq/D5W 500 mL 40 MEQ in IV Premix 1 EACH IV ONE (22:00)
--- NOTE | 2016-09-28 22:02 | ED.REPORT ---
HPI-General Illness Date of Service Sep 28, 2016 ED Provider: Sincere Dias MD A 75 year old female with a medical history including COPD and hypertension presents to the ED with multiple medical complaints. Her symptoms include generalized weakness, shortness of breath, productive cough, nausea, vomiting, and diarrhea. The patient denies other symptoms. She was discharged from the hospital on 09/19/16 after a three night stay with multiple conditions including ETEC Gastroenteritis. The patient was given prescriptions for Cipro and Flagyl, which she has been taking with no relief. The patient drinks water frequently. The patient is on 3L home O2. Nursing Notes Stated Complaint: VOMITING, DIARRHEA, TROUBLE BREATHING Chief Complaint: General Complaint Nursing Notes Reviewed: Yes Allergies: Coded Allergies: Penicillins (Verified Allergy, Severe, rash, 07/06/16) sulfamethoxazole (Verified Allergy, Severe, STRAIGHTENER toxicity, 07/06/16) trimethoprim (Verified Allergy, Severe, STRAIGHTENER toxicity, 07/06/16) dexamethasone (Verified Allergy, Intermediate, 07/06/16) insomnia, nightmares, nasuea and visual changes hydrochlorothiazide (Verified Allergy, Intermediate, Rash,Itching,, ) Uncoded Allergies: sulfamethoxazole-trimethoprim (Allergy, Intermediate, Hallucinations, ) Scheduled Albuterol Neb Soln (Albuterol Neb Soln) 2.5 Mg/3 Ml Vial.neb 3 ML NEB QID Arformoterol Tartrate (Brovana) 15 Mcg/2 Ml Vial.neb 15 MCG NEB BID Ascorbic Acid (Vitamin C) 250 Mg Tab.chew 500 MG PO QAM Aspirin/Acetaminophen/Caffeine (Qjyvcoj-Dfergbdzuiqnd-Jxbu Tab) 250 Mg-250 Mg- 65 Mg Tablet 2 EACH PO BID Atorvastatin Calcium (Atorvastatin Calcium) 20 Mg Tablet 20 MG PO HS Budesonide (Pulmicort) 0.5 Mg/2 Ml Ampul.neb. 0.5 MG NEB BID Ciprofloxacin (Cipro) 500 Mg Tablet 500 MG PO BID Ferrous Sulfate (Ferrous Sulfate) 325 Mg Tablet 325 MG PO DAILY Furosemide (Furosemide) 20 Mg Tab 20 MG PO QAM Gabapentin (Gabapentin) 300 Mg Capsule 1,200 MG PO TID Ipratropium [place] (Ipratropium [place] Inhalant Solution) 0.2 Mg/1 Ml Solution 1 VIAL NEB BID Levothyroxine (Levothyroxine) 100 Mcg Tablet 100 MCG PO QAM Lisinopril (Lisinopril) 20 Mg Tablet 20 MG PO QAM Metronidazole (Flagyl) 500 Mg Tablet 500 MG PO BID Omeprazole (Omeprazole) 20 Mg Capsule.dr 20 MG PO BIDWM Polyethylene Glycol 3350 (Miralax) 17 Gm Powd.pack 17 GM PO QAM Potassium Chloride (Potassium Chloride) 20 Meq Tab.er.prt 20 MEQ PO QAM Propranolol HCl (Propranolol HCl) 20 Mg Tablet 20 MG PO TID Saccharomyces Boulardii (Florastor) 250 Mg Capsule 250 MG PO BID Sucralfate (Sucralfate) 1 Gm Tablet 1 GM PO QID Scheduled PRN Albuterol HFA (Proair HFA) 8.5 Gm Hfa.aer.ad 1-2 PUFFS INH Q4H PRN PRN For Shortness of Breath Ondansetron (Zofran) 4 Mg Tablet 4 MG PO Q4H PRN PRN For Nausea oxyCODONE-Acetaminophen 5-325 mg (oxyCODONE-Acetaminophen 5-325 mg) 1 Each Tablet 1-2 TAB PO [id number] PRN PRN For Pain General Time Seen by MD: 20:18 Chief Complaint Multip medical complaints Hx Obtained From: Patient Arrived By: Walk-in Onset Occurred: Onset unknown Symptom Duration: Since onset Severity: Current: No pain currently Severity: Maximum: No pain Pertinent Negative: Relieved by nothing Context Related History: Reports COPD Recent Healthcare: Recent doctor visit, Recent hospitalization Similar Sx Previous: Yes Past Medical History Past Medical History Notes: Code Status: Full Code Medication List per Discharge Note dated 04/20/16 from [facility]: Amlodipine 5mg daily Albuterol 2 puffs q 4 hours prn SOB Gabapentin 300mg 2 tabs tid Brovana 1 vial nebulized bid Atorvastatin 20mg q PM Pulmicort nebs bid Vitamin D 4000 international units daily Duloxetine 30mg q PM Fish Oil 1 tab daily Flaxseed Oil 1 tab daily Ipratropium neb solution qid daily Levothyroxine 100mcg daily Omeprazole 20mg bid Zofran 4mg tablet q 8 hours prn nausea, vomiting Oxycodone 5/325, 1 to 2 tablets every 4 hours prn pain Miralax 17 grams in 8oz water daily Propranolol 20mg tid Zolpidem 5 to 10mg nightly prn insomnia Past Medical History Chronic back pain Atrial septal anuerysm 2006 COPD HTN Reports: COPD, Hypertension Past Surgical History back surgeries Smoking History Former Smoker Social History Other Social History: Good social support Ambulatory Status Independent Review of Systems + productive cough Full Review of Systems Constitutional: Reports: Weakness - generalized, Denies: Fever Respiratory: Reports: Shortness of breath Cardiovascular: Denies: Chest pain GI: Reports: Diarrhea, Nausea, Vomiting Complete sys rev & neg: except as marked. Physical Exam Vital Signs Vital Signs Date Time Temp Pulse Resp B/P Pulse Ox O2 Delivery O2 Flow Rate FiO2 09/28/16 19:49 36.2 56 24 136/70 94 Nasal Cannula 3 Initial VS: Reviewed Skin: Warm, Dry, No cyanosis Neurologic: Alert, Oriented, Nonfocal Psychiatric: Mood/affect normal, Behavior normal, Normal thought content General/Constitutional: Awake, Alert Head / Eyes: Atraumatic, Normocephalic ENT: Airway patent Mouth: Positive: Mucous membranes dry Respiratory / Chest: No respiratory distress Wheezing / Retractions: Positive: Prolonged exp phase, Wheezing moderate Coarse, wet cough Cardiovascular: Heart rate NL, Regular rhythm, Heart sounds NL, No gallop, No murmurs, No rubs, Peripheral circulation NL (Good distal pulses) Abdomen: Soft, Non-tender, No distention Interpretation & Diagnostics URINE DIPSTICK: Bedside Urine Specific [place] * 1.005 Bedside Urine pH * 5 Bedside Urine Leukocyte Esterase * Negative Bedside Urine Nitrite * Negative Bedside Urine Protein * Negative Bedside Urine Glucose * Normal Bedside Urine Ketones * Negative Bedside Urine Urobilinogen * Normal Bedside Urine Bilirubin * Negative Bedside Urine Occult Blood * Negative Urine to Lab * Yes Lab Results Interpretation Result Diagram: 09/28/16205409/28/162054 Test 09/28/16 20:55 09/28/16 21:12 White Blood Count 2.3th/mm3 (3.8-10.1) Red Blood Count 3.14mil/mm3 (3.90-5.20) Hemoglobin 9.5g/dL (12.0-15.6) Hematocrit 31.0% (35.0-46.0) Mean Corpuscular Volume 98.7fL (81-100) Mean Corpuscular Hemoglobin 30.3pg (27.0-35.0) Mean Corpuscular Hemoglobin Concent 30.6% (32.0-37.0) Red Cell Distribution Width 14.1% (12.3-15.4) Platelet Count 214bil/L (150-400) Neutrophils (%) (Auto) 46.2% (40-74) Lymphocytes (%) (Auto) 39.3% (14-46) Monocytes (%) (Auto) 11.1% (4-12) Eosinophils (%) (Auto) 2.1% (0-5) Basophils (%) (Auto) 1.3% (0-3) Sodium Level 140mEq/L (134-144) Potassium Level 2.8mEq/L (3.5-5.2) Chloride Level 94mEq/L (97-108) Carbon Dioxide Level 35mmol/L (18-29) Blood Urea Nitrogen 5mg/dL (8-27) Creatinine 0.80mg/dL (0.57-1.00) Estimat Glomerular Filtration Rate 100mL/min (>59) Glucose Level 105mg/dL (60-99) Calcium Level 9.0mg/dL (8.5-10.1) Magnesium Level 1.8mg/dL (1.6-2.6) Total Bilirubin 0.2mg/dL (0.0-1.2) Aspartate Amino Transf (AST/SGOT) 27U/L (0-50) Alanine Aminotransferase (ALT/SGPT) 16U/L (0-32) Alkaline Phosphatase 60U/L (25-165) Total Protein 6.3g/dL (6.4-8.4) Albumin 3.4g/dL (3.4-5.0) Lipase 14U/L (13-60) Hold Hendrickson Top Tube Received (Received) Hold Urine Received (Received) X-Ray Chest Interpretation Chest Xray Interpretation: Elevation of right hemidiaphragm Chronic emphysematous changes and scarring No obvious focal consolidation View: Portable, 1 view Interpretation / Wet Read by: Wet read ED physician Re-Eval/Medical Decision Med Decision/Clinical Course A 75 year old female with a medical history including COPD and hypertension, really being treated with Cipro/Flagyl for enterotoxigenic Escherichia coli who presents to the ED with multiple medical complaints. Her symptoms include generalized weakness, shortness of breath, productive cough, nausea, vomiting, and diarrhea. The patient denies other symptoms. She was discharged from the hospital on 09/19/16 after a three night stay with multiple conditions including ETEC Gastroenteritis. The patient was given prescriptions for Cipro and Flagyl, which she has been taking with no relief. The patient drinks water frequently and continues to have copious diarrhea and vomiting. Emergency department she appears quite dehydrated with examination as above. Upper studies notable as below: White count 2.3, baseline Hematocrit 31.0, baseline Potassium 2.8, decreased from prior BUN 5 Creatinine .8, stable LFTs normal Bicarb 35 Chest x-ray: Elevation of right hemidiaphragm Chronic emphysematous changes and scarring No obvious focal consolidation 40ml equivalents of IV potassium given in ED is to IV fluid resuscitation. No evidence of acute surgical intra-abdominal process. C. difficile sent. Most of her electrolytes this is consistent with metabolic alkalosis and hypokalemia in the setting of copious vomiting and diarrhea. I am repeating her electrolytes here in the emergency room as well as giving her IV fluids. She also clinically appears to have a COPD exacerbation and I am treating her with DuoNeb's. She will require admission to the hospital for reduction of her electrolytes, treatment of her COPD exacerbation and hypoxia. She was discussed with the medical hospitalist transferred in stable condition. Source of Hx: Old records Time of Eval: 22:19 Patient Status: Condition improved Re-Evaluation/Progress Note: Discussed with patient lab and x-ray results, diagnosis, and plan for admit. Patient agrees with plan for care and all questions were addressed. Consultation : Referral / Consult Name: Jose Juan Desai MD Consulted With: Hospitalist Call Returned at: 22:16 Supervisor Wound: Agrees with eval, Agrees with plan Counseled Regarding: Diagnosis, Lab results, Need for admission Discharge & Departure Primary Impression: Dehydration Additional Impressions: COPD exacerbation Hypokalemia Metabolic alkalosis Vomiting and diarrhea Disposition: ADMITTED TO HOSPITAL Discharge Condition All VS Reviewed: Yes Condition: Improved Referrals: Fabian Meek MD (PCP) [place] Attestation Portions of this note were transcribed by Denae Rodriguez. I, Dr. Dias, personally performed the history, physical exam, and medical decision-making; I reviewed and confirmed the accuracy of the information in the transcribed note. Signed by: Fabienne Hoang, 09/28/2016, 23:47 copies to: Fabian Meek MD, Beck O MD Sep 28, 2016 22:02 DENAE RODRIGUEZ Sep 28, 2016 22:13
[2016-09-28] MEDS ORDERED: ASCO250T7 PO (22:50)
[2016-09-28] MEDS ORDERED: FERR-83 PO (22:50)
[2016-09-28] MEDS ORDERED: Albuterol-Ipratropium 3 mL Inhalation Solution NEB ONE (22:50)
[2016-09-28 23:13] VITALS: RESP 20; O2SAT 91
[2016-09-28] MEDS ORDERED: Ondansetron 2 mg/mL 2 mL Inj IVPUSH PRN (23:25)
[2016-09-28] MEDS ORDERED: Alum-Mag Hydrox-Simeth 30 mL Suspension PO PRN (23:25)
[2016-09-28] MEDS ORDERED: Polyethylene Glycol (PEG) 17 Gm Powder PO PRN (23:25)
--- NOTE | 2016-09-28 23:34 | PCM.HPMED ---
Subjective Date of Service Sep 28, 2016 Primary Provider: Admitting Physician: Jose Juan Desai MD Primary Care Physician: Fabian Meek MD Attending Physician: Jose Juan Desai MD Admit Status: From the Emergency Department Chief Complaint: Diarrhea, vomiting and shortness of breath History of Present Illness: 75 y/o female with past medical history of COPD, HTN, chronic diarrhea, recent admissions on 09/16/16 for gastroenteritis and in July for aspiration pneumonia who presented to the ED complaining of diarrhea, vomiting and worsening shortness of breath for the past few days. She endorses diarrhea off- and-on for the past year prior to which she states that was typically constipated. Now she reports worsening diarrhea and incontinence of stool. Associated symptoms include nausea, vomiting, subjective fever, generalized weakness, fatigue, and diffuse/intermittent abdominal pain. She denies chest pain, dysuria, hematuria, increased urinary frequency, bloody or dark stools and endorses prior diagnosis of C.diff colitis three times before. She was discharged on 09/19/16 after a three night stay with multiple conditions including ETEC gastroenteritis. She was discharged on ciprofloxacin and flagyl and states that she has been taking without any improvement in her symptoms. Of note she reports a 5 day history of URI symptoms including: sinus congestion, productive cough associated with increased dyspnea, orthopnea and bilateral lower extremity swelling. In the ED, vitals temp 36.2, BP 136/70, HR 56, RR 24, SpO2 94% on 3L nasal cannula. AST/ALT 27/16, alk phos 60, calcium 9.0, magnesium 1.8, lipase 14, total bili 0.2, Labs wbc 2.3 (reportedly at baseline), H/H 9.5/31.0 (also at baseline), plt 214, sodium 140, potassium 2.8, chloride 94, bicarb 35, bun 5, creatinine 0.8, serum glucose 105. She was given 40mEq of IV potassium in the ED. CXR without focal consolidation, chronic emphysematous changes and a right hemidiaphragm. Review of Systems: A comprehensive review of systems was conducted with the patient and found to be negative except as above in the History of Present Illness. Allergies Coded Allergies: Penicillins (Verified Allergy, Severe, rash, 07/06/16) sulfamethoxazole (Verified Allergy, Severe, BACKUP ADMINISTRATIVE COORDINATOR toxicity, 07/06/16) trimethoprim (Verified Allergy, Severe, BACKUP ADMINISTRATIVE COORDINATOR toxicity, 07/06/16) dexamethasone (Verified Allergy, Intermediate, 07/06/16) insomnia, nightmares, nasuea and visual changes hydrochlorothiazide (Verified Allergy, Intermediate, Rash,Itching,, ) Uncoded Allergies: sulfamethoxazole-trimethoprim (Allergy, Intermediate, Hallucinations, ) Home Medications Albuterol Neb Soln 2.5 Mg/3 Ml Vial.neb QID Arformoterol Tartrate 15 Mcg/2 Ml Vial.neb 1 VIAL NEB BID Aspirin/Acetaminophen/Caffeine -250 Mg-65 Mg Tablet 2 EACH PO BID Atorvastatin Calcium 20 MG PO DAILY Budesonide 0.5 Mg/2 Ml Ampul.neb. 1 VIAL NEB BID Ciprofloxacin 500 MG PO BID Gabapentin 900 MG PO TID Ipratropium [place] 0.2 Mg/1 Ml Solution 1 VIAL NEB BID Levothyroxine 100 MCG PO DAILY Lisinopril 20 MG PO DAILY Metronidazole 500 MG PO BID Omeprazole 20 MG PO BID Polyethylene Glycol 3350 17 GM PO DAILY Propranolol HCl 20 MG PO TID Saccharomyces Boulardii 250 MG PO BID Sucralfate 1 GM PO QID Scheduled PRN Albuterol HFA (Proair HFA) 8.5 Gm Hfa.aer.ad 1-2 PUFFS INH Q4H PRN For Shortness of Breath Phnatjnuhi46 MG PO DAILY PRN edema Ondansetron 4 MG PO Q4H PRN For Nausea Potassium Chloride 20 MEQ PO DAILY PRN with lasix oxyCODONE-Acetaminophen 5-325 mg 1-2 TAB PO [id number] PRN for Pain PMH COPD Hypertension Hyperlipidemia Hypothyroidism Atrial septal aneurysm, 2007 Chronic back pain Recent admissions for Escherichia coli gastroenteritis in June and August, and July 2016 for aspiration pneumonia Surgical History Back surgery Family History Patient denies any family history of coronary artery disease pulmonary disease Social History Hx Alcohol Use: No Hx Substance Use: No Smoking Status: Former Smoker Exam Vital Signs Vital Sign - Last Date Time Temp Pulse Resp B/P Pulse Ox O2 Delivery O2 Flow Rate FiO2 09/28/16 23:13 20 91 Nasal Cannula 3 09/28/16 19:49 36.2 56 136/70 Exam General: Pale, obese elderly female in no acute distress, appropriately interactive HEENT: Normocephalic, atraumatic. PERRLA, no scleral icterus, pale conjunctivae and dry oral mucosa. Neck: No jugular venous distension. No bruits. No lymphadenopathy or thyromegaly. Cardiovascular: Distant heart sounds, RRR, no murmurs, rubs or gallops heard. Pulmonary: Diminished breath sounds, coarse w/scattered rhonchi and mild expiratory wheezing. Normal respiratory effort with no use of accessory muscles. Abdomen: Soft, obese, nondistended, diffusely tender to palpation more so in RUQ. No rebound or guarding. Bowel tones present. No hepatosplenomegaly or masses appreciated. Extremities: Mild, non-pitting edema to just below the knee, no cyanosis or clubbing. Skin: Cool, cry with decreased turgor; no rash or ulcerations. Neurological: CN II-XII grossly intact without focal motor/sensory deficits. Ambulates with walker/cane at baseline. Psychiatric: Normal mood and affect. Alert and oriented to person, place, and time. Lab and Diagnostics Result Diagram: 09/28/16205409/28/162054 X-Rays, CTs and MRIs Chest x-ray (official read pending at time of admission). Elevation of right hemidiaphragm, chronic interstitial changes consistent with emphysema and no obvious focal consolidation or pleural effusion. Assessment & Plan 75 y/o female with history of COPD, HTN, chronic diarrhea, recent admissions on 09/16/16 for gastroenteritis and in July for aspiration pneumonia who presented to the ED complaining of diarrhea, vomiting and worsening shortness of breath for the past few days. Admitted for evaluation and management of metabolic alkalosis, gastroenteritis and possible COPD exacerbation. 1. Metabolic alkalosis and hypokalemia, present on admission. Active. -Likely secondary to diarrhea, vomiting. -Potassium 2.8 at presentation. -Received 40mEq of IV potassium in ED, IVFs -IVFs: NS w/20mEq potassium at 125mls/hr -Serial BMPs, replace lytes as needed. 2. Gastroenteritis, present on admission. Active. - Hx persistent diarrhea, prior C.diff and recent hospital admission for ETEC colitis, currently on ciprofloxacin/flagyl as outpatient. - RUQ tenderness to palpation on exam, normal liver enzymes, bili, and alk phos. - Abdominal ultrasound ordered - Blood cultures and stool PCR ordered, pending - IVFs as above - Start oral Vancomycin 125 mg QID - Repeat CBC, CMP in AM 3. Dehydration, present on admission. Active. - Secondary to #2 - IVFs as above - Reassess volume status, consider decreasing rate with resolution of diarrhea and improved PO intake 4. Possible COPD exacerbation, present on admission. Active. -Pt reports intolerance to steroids in the past, nightmares/agitation. -Duonebs q4h -Procalcitonin pending -Start Levaquin 750mg daily 5. Chronic lower extremity edema, present on admission. Active. -Pt notes prior Echo done at [facility], denies diagnosis of CHF. -Current med list includes: -Furosemide 20mg PO daily PRN for edema -Potassium Chloride 20mEq PO daily PRN with lasix Other chronic conditions, present on admission. Presumed stable. 1. Hypertension- BP on admission 136/70. Continue home lisinopril, propranolol. 2. Hyperlipidemia- continue home atorvastatin 3. Hypothyroidism- continue home Levothyroxine 4. Back pain- continue home oxycodone-acetaminophen and gabapentin CODE STATUS FULL CODE GI prophylaxis: hold PPI due to potential for worsening C.Diff colitis DVT prophylaxis: Sub Q heparin Disposition: Patient is admitted under inpatient status with expected length of stay greater than 2 midnights due to severity of presenting symptoms, risk of adverse event, and complexity of treatment plan. Pain Evaluation: Adequate Pain Control VTE Prophylaxis Indicated: Meets Criteria for Anticoag Therapy VTE Prophylaxis: Sub-Q Enoxaparin Resuscitation Status: CPR: Attempt Resuscitation Attending Statement The patient was seen and examined together with Dr. Villeda. on 09/29/2016 and I agree with the history, exam and plan as outlined in the note above. Cleo Miranda DO Sep 28, 2016 23:34 Jose Juan Desai MD Sep 29, 2016 05:55 Propranolol HCl 20 MG PO TID Cleo Miranda DO Sep 28, 2016 23:34 Cleo Miranda DO Sep 28, 2016 23:34
[2016-09-28 23:56] VITALS: BP 146/81; PULSE 57; RESP 18; O2SAT 96
[2016-09-29] VITALS (11 sets, daily range): BP systolic 126–151; BP diastolic 74–85; PULSE 56–70; RESP 16–22; O2SAT 92–97
[2016-09-29] MEDS ORDERED: 0.9% NaCl + KCl 20 mEq/L 1,000 ML IV SCH (00:35)
--- NOTE | 2016-09-29 01:40 | NUR ---
Admit Note/ Med Rec pt arrived to room 3022 from the ED at approx 23:42. pt amb from stretcher to standing scale SBA/1 person assist, then to bed. IV infusing K rider from ED, pt denied any discomfort at the IV site, patent upon arrival to the floor. pt on 3L O2, uses that amount at home. personal belongings with pt, placed in cupboard. admission questions completed at bedside per previous admission recall, pt verbalized information up to date. pt reports chronic pain in her back rated at a 5/10, states "It never goes below a 4". pt is A&Ox4. oriented to room and call light, placed within reach. Med Rec completed in ED prior to arriving to [facility]. pt requests family to take medications home in AM 4-6-17.
[2016-09-29 02:39] LABS: APPEARANCE,URINE CLEAR (CLEAR,HAZY); COLOR,URINE YELLOW (YELLOW); OCCULT BLOOD,URINE NEGATIVE (NEGATIVE); PH,URINE 5.5 (5.0-8.0); UROBILINOGEN,URINE NORMAL (NORMAL)
[2016-09-29] MEDS: Albuterol-Ipratropium 3 mL Inhalation Solution NEB SCH ×4 (05:22→16:24)
[2016-09-29 06:00] LABS: BASOPHILS % (AUTO) 0.8 % (0-3); EOSINOPHILS % (AUTO) 2.4 % (0-5); MONOCYTES % (AUTO) 9.4 % (4-12); Mean Corpuscular Hemoglobin 29.6 pg (27.0-35.0); Mean Corpuscular Volume 99.3 fL (81-100); NEUTROPHILS % (AUTO) 45.8 % (40-74); Platelet Count 201 bil/L (150-400)
[2016-09-29] MEDS ORDERED: levoFLOXacin 750 mg Tablet PO SCH (07:30)
[2016-09-29] MEDS: oxyCODONE-Acetamin 5-325 mg Tablet PO PRN ×4 (08:15→22:30)
--- NOTE | 2016-09-29 08:22 | DRSVH ---
PROCEDURE: X-RAY CHEST ONE VIEW, PORTABLE ([id number]) INDICATIONS: cough TECHNIQUE: One view of the chest was acquired. COMPARISON: [facility], CR, XR CHEST 1VW (PORTABLE), 08/07/2016, 12:30[facility] ([facility]), 04/26/2016, 20:25. [facility], CR, CHEST 1VW (CHRISTOPHER BLE), 09/12/2009, 20:07. FINDINGS: Surgical changes and devices: None. Lungs and pleura: No pleural effusions or pneumothorax. No change in right hemidiaphragm elevation w ith right basilar atelectasis versus aspiration versus pneumonia. Mediastinum: No change in probable large hiatal hernia. Mediastinal contours otherwise appear normal . Heart size is normal. Bones and chest wall: No suspicious bony lesions. Overlying soft tissues appear unremarkable. IMPRESSION: No change in right hemidiaphragm elevation with right basilar atelectasis versus aspirati on versus pneumonia. Dictated by: Anat Craft M.D. on 09/29/2016 at 8:20 Approved by: Anat Craft M.D. on 09/29/2016 at 8:21
--- NOTE | 2016-09-29 09:02 | NUR ---
Social Work: Initial Assessment Data: Pt is a 75 y/o female admitted for dehydration COPD exacerbation. Pt's PCP is Dr Meek, pt's insurance is Medicare with [facility]. EMR reviewed. Readmit score not listed. CMS EXPERT met with pt at bedside, role explained. Pt states she lives alone in a home in [place] on her sons property where she uses both a cane or walker regularly. Pt does not drive, has no hx of HH or SNF, no LTC or VA benefits, and is not a caregiver. Pt has AD/DPOA, CMS EXPERT requested copy for hospital. Pt gets home O2 from [facility] [place]. HH does not service to [place]. CMS EXPERT will continue to follow for possible d/c planning needs. Assessment: Pt who is independent at baseline. Plan: Pt will d/c home via POV when medically stable. HH is not an option where she currently lives. CMS EXPERT will continue to follow for possible d/c planning needs. CLINTON Mayers Addendum: 09/29/16 at 0905 by MELONY CASTELLANO Amended: Links added.
[2016-09-29] MEDS: Iron Sucrose Inj 200 MG in 0.9% Sodium Chloride 100 ML IV SCH (11:50)
[2016-09-29] MEDS ORDERED: 0.9% Sodium Chloride 100 ML ONE (12:42)
[2016-09-29 12:56] LABS: TROPONIN T < 0.010 ug/L (0.0-0.011)
--- NOTE | 2016-09-29 13:14 | DRSVH ---
[facility] [address] [place] [address] Echocardiogram Report Name: LLUVIA PERKINS LStudy Date: 09/29/2016 Height: 64 in Hospital Exam Location: [facility] Weight: 191 lb Gender: Female BSA: 1.9 m2 : 1940 Age: 75 yrs BP: 140/74 mmHg Reason For Study: SOB Ordering Physician: HOSPITALIST [facility] Performed By: Lukasz Duke Referring Physician: BRENDA LEON Interpretation Summary Mild concentric left ventricular hypertrophy with ejection fraction 60-65%. Grade I diastolic dysfunction. Moderately dilated left atrium. Mild mitral annular calcification. Mild tricuspid regurgitation. The right ventricular systolic pressure is estimated at 33 mmHg assuming a right atrial pressure of 8 mm Hg. Mildly enlarged ascending aorta. Comparison is made with the echocardiogram of 04/28/16, there has been no significant change. Procedure: A two-dimensional transthoracic echocardiogram with color flow and Doppler was performed. The study quality was technically good. Comparison is made with the echocardiogram of 04/28/16. The patient was in sinus bradycardia with heart rates between 53-60 bpm during the exam. Left Ventricle: The left ventricular cavity is small. There is mild concentric left ventricular hypertrophy. The ejection fraction is estimated to be 60-65%. There are no focal wall motion abnormalities. Assessment of diastolic parameters indicates a relaxation abnormality of the left ventricle, consistent with normal filling pressures. Right Ventricle: The right ventricle is normal in size, thickness and function. Atria: The left atrium is moderately dilated. Right atrial size is normal. The interatrial septum is intact with no evidence for an atrial septal defect. Mitral Valve: The mitral valve leaflets are mildly calcified. There is mild mitral annular calcification. There is trace mitral regurgitation. Aortic Valve: The aortic valve is trileaflet. The aortic valve is slightly calcified. No aortic regurgitation is present. Tricuspid Valve: The tricuspid valve is not well visualized, but is grossly normal. There is mild tricuspid regurgitation. The right ventricular systolic pressure is estimated at 33 mmHg assuming a right atrial pressure of 8 mm Hg. Pulmonic Valve: The pulmonic valve leaflets are thin and pliable; valve motion is normal. There is mild to moderate pulmonic regurgitation. Great Vessels: The aortic root is normal size. The ascending aorta is mildly enlarged. The pulmonary artery is normal size. The IVC is dilated (diameter is greater than 2.1 cm) yet it collapses greater than 50% with a sniff. This suggests a right atrial pressure of 8 mm Hg. Pericardium/ Pleura There is no pericardial effusion. There is no pleural effusion. MMode/2D Measurements & Calculations LVIDd: 3.5 cm RA long axis LVOT diam: 2.0 cm LVIDs: 1.8 cm LA A2 area: 28.4 cm AoV Opening FS: 49.2 % LA A4 area: 25.1 cm RA area EPSS: 0.07 cm LA length (vol) Ao root diam IVSd: 1.2 cm : 11.9 cm LVPWd: 1.0 cm LA vol: 91.7 ml RA vol asc Aorta Diam LA vol index : 30.1 ml RA Ao Arch Diam (Prox : 15.7 mm2 Trans): 3.0 cm IVC diam: 2.4 cm LV jang. diameter/BSA LV sys. diameter/BSA RVD1 (basal) RVD2 (mid): 1.7 cm (cm/m^2): 1.8 (cm/m^2): 0.93 TAPSE: 3.1 cm Doppler Measurements & Calculations Ao V2 max MV E max ravi MV E/A: 1.0 TR max ravi : 161.2 cm/sec : 118.2 cm/sec Med Peak E' Ravi : 252.3 cm/sec Ao max PG MV A max ravi TR max P.5 mmHg : 10.4 mmHg : 116.8 cm/sec E/E' med: 19.7 Ao mean PG Lat Peak E' Ravi LVOT Max Ravi E/E' lat: 23.9 : 139.0 cm/sec E/e' average ILANA(I,D): 2.7 cm sev ratio MV dec time Ao V2 mean LV V1 max PG ILANA indexed to BSA : 0.27 sec : 101.3 cm/sec (cm^2/m^2): 1.4 Ao V2 VTI: 36.4 cm LV V1 VTI ILANA(V,D): 2.6 cm2 : 32.6 cm Electronically signed by: Luis Ackermna on Reading Physician:09/29/2016 01:13 PM
[2016-09-29 14:37] LABS: Unsaturated Iron Binding 192.8 ug/dL
--- NOTE | 2016-09-29 14:54 | NUR ---
Patient on 3L supplemental oxygen, same as home. Patient had increasing SOB and coughing at rest and with exertion this morning. Patient stated, "I feel stuffy in my nose and its hard for me to breath". Nurse assessed patient oxygen saturations being at 95-96% on 3L supplemental oxygen. Nurse informed MD and Loratadine and Tessalon pearls were ordered. Medication has been administered and was effective with easing breathing for patient. Patient had decreased non-productive coughing and patient no longer showed signs of SOB at rest.
--- NOTE | 2016-09-29 14:58 | NUR ---
PCR Stool Patient had PCR stool ordered. Sample was collected and sent to lab. PCR sample came back positive for Enterobacter Echoli. MD informed and patient placed on enteric precautions.
--- NOTE | 2016-09-29 16:08 | ABG ---
DateTimeAnalyzed 16:03:00 -_ pH ____7.448 - 7.350 7.450 pCO2 ___52.7__ -mmHg 35.0 45.0 pO2 ___65.2__ -mmHg 70.0 100 HCO3- ___35.9__ -mmol/L 22.0 26.0 ABE ___10.7__ -mmol/L -2.0 2.0 tHb ____9.6__ -g/dL 12.0 18.0 O2Hb ___91.8__ -% 95.0 COHb ____1.2__ -% 1.5 MetHb ____1.0__ -% 0.4 1.5 sO2 ___93.9__ -% FIO2 ___28.0__ -% Drawn By RC - Date/Time Notified____ 16:08:00 -_ Spontaneous_RR ___20.0__ -b/min Liter_Flow ____2.0__ -L/min Oxygen Device 1 __CANNULA - Notified By RC - Notified Whom __hawkims - B 750 -mmHg tO2 ___12.5__ -Vol% Panda test _Positive -
--- NOTE | 2016-09-29 17:22 | NUR ---
Chest X ray Chest X ray done.
--- NOTE | 2016-09-29 17:50 | DRSVH ---
PROCEDURE: X-RAY CHEST, TWO VIEWS ([id number]) INDICATIONS: dyspnea TECHNIQUE: 2 views of the chest were acquired. COMPARISON: [facility], CR, XR CHEST 1VW (PORTABLE), 09/28/2016, 21:48. [facility], CT, CT ANGIO CHEST PE, 08/07/2016, 13:38. [facility], CR, XR CHEST 1VW (PORTABLE) , 08/07/2016, 12:30. FINDINGS: Surgical changes and devices: None. Lungs and pleura: No pleural effusions or pneumothorax. There is elevation of the right hemidiaphra gm redemonstrated. Linear bibasilar opacities likely represent atelectasis. Mediastinum: Mediastinal contours are unchanged. A large hiatal hernia is redemonstrated. Heart si ze is within normal limits. Bones and chest wall: No suspicious bony abnormalities. Soft tissues appear unremarkable. IMPRESSION: 1. Elevation of the right hemidiaphragm redemonstrated with medial bibasilar opacities likely repres enting atelectasis. 2. Large hiatal hernia redemonstrated. Dictated by: Daniele Harris M.D. on 09/29/2016 at 17:46 Approved by: Daniele Harris M.D. on 09/29/2016 at 17:48
--- NOTE | 2016-09-29 18:26 | NUR ---
Back pain c/o pain 01/02 back pain and patient has history of chronic pain. PRN Oxycodone given as ordered one tablet for pain. continue to monitor back pain.
[2016-09-29] MEDS: guaiFENesin 600 mg ER12 Tablet PO SCH (21:40)
--- NOTE | 2016-09-29 23:18 | PCM.PNMED ---
Subjective Date of Service Sep 29, 2016 Subjective Patient is seen and examined. She has multiple complaints, the event over all of her complaints one by one. She states that though she has not completely recovered from her diarrhea from her prior admission, no longer has the same level of diarrhea. What bothers him more with her shortness of breath. She states that she cannot cough up phlegm. She actually had some chills at home. Exam Vital Signs Vital Sign - Last Date Time Temp Pulse Resp B/P Pulse Ox O2 Delivery O2 Flow Rate FiO2 09/29/16 05:23 56 22 97 Nasal Cannula 2.50 09/29/16 05:16 36.6 140/74 Intake and Output 09/28/16 09/28/16 09/29/16 Cumulative From/Thru 15:00 23:00 07:00 09/28/16 19:49 - 09/29/16 06:08 Intake Total 1000 ml 884 ml 1884 ml Output Total 1400 ml 1400 ml Balance 1000 ml -516 ml 484 ml Intake Oral 400 ml 400 ml IV Total 1000 ml 484 ml 1484 ml Output Urine Total 1400 ml 1400 ml # Bowel Movements 0 0 Exam Gen.: Mild distress, pleasant HEENT: Normocephalic, atraumatic Heart: Regular rate and rhythmfor murmurs Lungs: Diffuse wheezing Abdomen soft nontender, normal bowel sounds Extremities positive edema Neurological no focal deficit psychiatric negative for anxiety IVs and Medications IV Fluids None Medications Reviewed: Medications were reviewed in detail Lab and Diagnostics Result Diagram: 09/29/16 0540 09/28/162054 X-Rays, CTs and MRIs [facility]GED WITH [facility] Diagnostic [place] [address] Patient Name: LLUVIA PERKINS MR#: [id number] Location: [facility] [place] Ordering Phys: Brenda Leon DO Date of Service: 09/29/[address] [address] Echocardiogram Report Name: LLUVIA PERKINS LStudy Date: 09/29/2016 Height: 64 in Hospital Exam Location: [facility] Weight: 191 lb Gender: Female BSA: 1.9 m2 : 1940 Age: 75 yrs BP: 140/74 mmHg Reason For Study: SOB Ordering Physician: HOSPITALIST SV Performed By: Lukasz Duke Referring Physician: BRENDA LEON Interpretation Summary Mild concentric left ventricular hypertrophy with ejection fraction 60-65%. Grade I diastolic dysfunction. Moderately dilated left atrium. Mild mitral annular calcification. Mild tricuspid regurgitation. The right ventricular systolic pressure is estimated at 33 mmHg assuming a right atrial pressure of 8 mm Hg. Mildly enlarged ascending aorta. Comparison is made with the echocardiogram of 04/28/16, there has been no significant change. Procedure: A two-dimensional transthoracic echocardiogram with color flow and Doppler was performed. The study quality was technically good. Comparison is made with the echocardiogram of 04/28/16. The patient was in sinus bradycardia with heart rates between 53-60 bpm during the exam. Left Ventricle: The left ventricular cavity is small. There is mild concentric left ventricular hypertrophy. The ejection fraction is estimated to be 60-65%. There are no focal wall motion abnormalities. Assessment of diastolic parameters indicates a relaxation abnormality of the left ventricle, consistent with normal filling pressures. Right Ventricle: The right ventricle is normal in size, thickness and function. Atria: The left atrium is moderately dilated. Right atrial size is normal. The interatrial septum is intact with no evidence for an atrial septal defect. Mitral Valve: The mitral valve leaflets are mildly calcified. There is mild mitral annular calcification. There is trace mitral regurgitation. Aortic Valve: The aortic valve is trileaflet. The aortic valve is slightly calcified. No aortic regurgitation is present. Tricuspid Valve: The tricuspid valve is not well visualized, but is grossly normal. There is mild tricuspid regurgitation. The right ventricular systolic pressure is estimated at 33 mmHg assuming a right atrial pressure of 8 mm Hg. Pulmonic Valve: The pulmonic valve leaflets are thin and pliable; valve motion is normal. There is mild to moderate pulmonic regurgitation. Great Vessels: The aortic root is normal size. The ascending aorta is mildly enlarged. The pulmonary artery is normal size. The IVC is dilated (diameter is greater than 2.1 cm) yet it collapses greater than 50% with a sniff. This suggests a right atrial pressure of 8 mm Hg. Pericardium/ Pleura There is no pericardial effusion. There is no pleural effusion. MMode/2D Measurements & Calculations LVIDd: 3.5 cm RA long axis LVOT diam: 2.0 cm LVIDs: 1.8 cm LA A2 area: 28.4 cm AoV Opening FS: 49.2 % LA A4 area: 25.1 cm RA area EPSS: 0.07 cm LA length (vol) Ao root diam IVSd: 1.2 cm : 11.9 cm LVPWd: 1.0 cm LA vol: 91.7 ml RA vol asc Aorta Diam LA vol index : 30.1 ml RA Ao Arch Diam (Prox : 15.7 mm2 Trans): 3.0 cm IVC diam: 2.4 cm LV jang. diameter/BSA LV sys. diameter/BSA RVD1 (basal) RVD2 (mid): 1.7 cm (cm/m^2): 1.8 (cm/m^2): 0.93 TAPSE: 3.1 cm Doppler Measurements & Calculations Ao V2 max MV E max ravi MV E/A: 1.0 TR max ravi : 161.2 cm/sec : 118.2 cm/sec Med Peak E' Ravi : 252.3 cm/sec Ao max PG MV A max ravi TR max P.5 mmHg : 10.4 mmHg : 116.8 cm/sec E/E' med: 19.7 Ao mean PG Lat Peak E' Ravi LVOT Max Ravi E/E' lat: 23.9 : 139.0 cm/sec E/e' average ILANA(I,D): 2.7 cm sev ratio MV dec time Ao V2 mean LV V1 max PG ILANA indexed to BSA : 0.27 sec : 101.3 cm/sec (cm^2/m^2): 1.4 Ao V2 VTI: 36.4 cm LV V1 VTI ILANA(V,D): 2.6 cm2 : 32.6 cm Electronically signed by: Luis Ackerman on Reading Physician:09/29/2016 01:13 PM Chest x-ray (official read pending at time of admission). Elevation of right hemidiaphragm, chronic interstitial changes consistent with emphysema and no obvious focal consolidation or pleural effusion. [facility]ED WITH [facility] Diagnostic [place] [address] Patient Name: LLUVIA PERKINS MR#: [id number] Location: [facility] [place] Ordering Phys: Knapp, Samantha Saravia Date of Service: 09/29/16 1142 PROCEDURE: X-RAY CHEST, TWO VIEWS ([id number]) INDICATIONS: dyspnea TECHNIQUE: 2 views of the chest were acquired. COMPARISON: [facility], CR, XR CHEST 1VW (PORTABLE), 09/28/2016, 21: 48. [facility], CT, CT ANGIO CHEST PE, 08/07/2016, 13:38. [facility], CR, XR CHEST 1VW (PORTABLE), 08/07/2016, 12:30. FINDINGS: Surgical changes and devices: None. Lungs and pleura: No pleural effusions or pneumothorax. There is elevation of the right hemidiaphragm redemonstrated. Linear bibasilar opacities likely represent atelectasis. Mediastinum: Mediastinal contours are unchanged. A large hiatal hernia is redemonstrated. Heart size is within normal limits. Bones and chest wall: No suspicious bony abnormalities. Soft tissues appear unremarkable. IMPRESSION: 1. Elevation of the right hemidiaphragm redemonstrated with medial bibasilar opacities likely representing atelectasis. 2. Large hiatal hernia redemonstrated. Dictated by: Daniele Harris M.D. on 09/29/2016 at 17:46 Approved by: Daniele Harris M.D. on 09/29/2016 at 17:48 Assessment & Plan 75 y/o female with history of COPD, HTN, chronic diarrhea, recent admissions on 09/16/16 for gastroenteritis and in July for aspiration pneumonia who presented to the ED complaining of diarrhea, vomiting and worsening shortness of breath for the past few days. Admitted for evaluation and management of metabolic alkalosis, gastroenteritis and possible COPD exacerbation. Acute diagnosis 1. Metabolic alkalosis and hypokalemia, present on admission. Active. -Likely secondary to diarrhea, vomiting. -Potassium 2.8 at presentation. -Received 40mEq of IV potassium in ED, IVFs -IVFs: NS w/20mEq potassium at 125mls/hr -Serial BMPs, replace lytes as needed. 2. Gastroenteritis, present on admission. Active. - Hx persistent diarrhea, prior C.diff and recent hospital admission for ETEC colitis, currently on ciprofloxacin/flagyl as outpatient. - RUQ tenderness to palpation on exam, normal liver enzymes, bili, and alk phos. - Abdominal ultrasound ordered: We do not see an ultrasound ordered, will add 1 if there is a concern - Blood cultures and stool PCR ordered, pending : Negative C. difficile, positive for entered toxic Escherichia coli -Discontinue Vancomycin 125 mg QID, no need for this - Repeat CBC, CMP in AM 3. Dehydration, present on admission. Active. - Secondary to #2 - IVFs as above - Reassess volume status, consider decreasing rate with resolution of diarrhea and improved PO intake 4. Possible COPD exacerbation, present on admission. Active. -Pt reports intolerance to steroids in the past, nightmares/agitation. -Duonebs q4h -Procalcitonin pending -- Discontinued Levaquin 5. Chronic lower extremity edema, present on admission. Active. -Pt notes prior Echo done at [facility], denies diagnosis of CHF. -Current med list includes: -Furosemide 20mg PO daily PRN for edema -Potassium Chloride 20mEq PO daily PRN with lasix -- Echocardiogram is ordered, shows some left atrial dilation grade 1 diastolic function Other chronic conditions, present on admission. Presumed stable. 1. Hypertension- BP on admission 136/70. Continue home lisinopril, propranolol. 2. Hyperlipidemia- continue home atorvastatin 3. Hypothyroidism- continue home Levothyroxine 4. Back pain- continue home oxycodone-acetaminophen and gabapentin CODE STATUS FULL CODE GI prophylaxis: PPI DVT prophylaxis: Sub Q heparin Disposition: Patient is admitted under inpatient status with expected length of stay greater than 2 midnights due to severity of presenting symptoms, risk of adverse event, and complexity of treatment plan. Pain Evaluation: Adequate Pain Control GI Prophylaxis: H2 luz VTE Prophylaxis: Sub-Q Enoxaparin Resuscitation Status: CPR: Attempt Resuscitation (does not want to be intubated or ventilated) Samantha Knapp DO Sep 29, 2016 08:05
[2016-09-30] VITALS (14 sets, daily range): BP systolic 127–151; BP diastolic 71–85; PULSE 57–80; RESP 16–22; O2SAT 88–94
--- NOTE | 2016-09-30 03:19 | NUR ---
Back pain Pt c/o chronic back 01/02 pain. Percocet x1 given and was helpful per pt. care ongoing.
[2016-09-30] MEDS: Albuterol-Ipratropium 3 mL Inhalation Solution NEB SCH ×3 (05:31→13:29)
[2016-09-30 06:22] LABS: Mean Corpuscular Hemoglobin 29.2 pg (27.0-35.0); Mean Corpuscular Volume 99.1 fL (81-100)
[2016-09-30] MEDS: Pantoprazole 20 mg ER24 Tablet PO SCH (08:26)
[2016-09-30] MEDS: guaiFENesin 600 mg ER12 Tablet PO SCH ×2 (08:27→21:03)
[2016-09-30] MEDS: Iron Sucrose Inj 200 MG in 0.9% Sodium Chloride 100 ML IV SCH (08:28)
[2016-09-30] MEDS: oxyCODONE-Acetamin 5-325 mg Tablet PO PRN ×2 (08:41→21:04)
--- NOTE | 2016-09-30 14:53 | PCM.PNMED ---
Subjective Date of Service Sep 30, 2016 Subjective Patient is seen and examined. She states that she had several small stools still yesterday 6 times. She does say she is much better in terms of both her breathing and her diarrhea. Her stool cultures returned positive for etec but no c dif was found. She states that he has been on her COPD medications for a long time. She is able to live with the help of her relatives until the last admission and had a area hit bad. She is able to tolerate diet okay otherwise. Exam Vital Signs Vital Sign - Last Date Time Temp Pulse Resp B/P Pulse Ox O2 Delivery O2 Flow Rate FiO2 09/30/16 13:20 66 20 91 Nasal Cannula 2.00 09/30/16 12:59 37.0 139/79 Intake and Output 09/29/16 09/29/16 09/30/16 Cumulative From/Thru 15:00 23:00 07:00 09/28/16 19:49 - 09/29/16 21:45 Intake Total 510 ml 2394 ml Output Total 450 ml 1850 ml Balance 60 ml 544 ml Intake Oral 400 ml 800 ml IV Total 110 ml 1594 ml Output Urine Total 450 ml 1850 ml # Voids 1 1 # Bowel Movements 3 3 Exam Gen.: No acute distress laying in bed conversing with her granddaughter HEENT normocephalic, atraumatic Heart: Regular rate and rhythm no S3-S4 murmurs Neck negative for JVD trachea is midline Lungs clear to auscultate bilaterally no crackles wheezes Abdomen soft nontender bowel sounds are present Neuro: No focal deficits Psych negative for anxiety IVs and Medications Medications Reviewed: Medications were reviewed in detail Lab and Diagnostics Result Diagram: 09/30/16 0558 09/30/16 0558 X-Rays, CTs and MRIs [facility] Diagnostic Imaging Department [place], [place] [id number] Patient Name: LLUVIA PERKINS MR#: [id number] Location: [facility] [place] Ordering Phys: Brenda Leon DO Date of Service: 09/29/[address] [address] Echocardiogram Report Name: LLUVIA PERKINS LStudy Date: 09/29/2016 Height: 64 in Hospital Exam Location: [facility] Weight: 191 lb Gender: Female BSA: 1.9 m2 : 1940 Age: 75 yrs BP: 140/74 mmHg Reason For Study: SOB Ordering Physician: HOSPITALIST [facility] Performed By: Lukasz Duke Referring Physician: BRENDA LEON Interpretation Summary Mild concentric left ventricular hypertrophy with ejection fraction 60-65%. Grade I diastolic dysfunction. Moderately dilated left atrium. Mild mitral annular calcification. Mild tricuspid regurgitation. The right ventricular systolic pressure is estimated at 33 mmHg assuming a right atrial pressure of 8 mm Hg. Mildly enlarged ascending aorta. Comparison is made with the echocardiogram of 04/28/16, there has been no significant change. Procedure: A two-dimensional transthoracic echocardiogram with color flow and Doppler was performed. The study quality was technically good. Comparison is made with the echocardiogram of 04/28/16. The patient was in sinus bradycardia with heart rates between 53-60 bpm during the exam. Left Ventricle: The left ventricular cavity is small. There is mild concentric left ventricular hypertrophy. The ejection fraction is estimated to be 60-65%. There are no focal wall motion abnormalities. Assessment of diastolic parameters indicates a relaxation abnormality of the left ventricle, consistent with normal filling pressures. Right Ventricle: The right ventricle is normal in size, thickness and function. Atria: The left atrium is moderately dilated. Right atrial size is normal. The interatrial septum is intact with no evidence for an atrial septal defect. Mitral Valve: The mitral valve leaflets are mildly calcified. There is mild mitral annular calcification. There is trace mitral regurgitation. Aortic Valve: The aortic valve is trileaflet. The aortic valve is slightly calcified. No aortic regurgitation is present. Tricuspid Valve: The tricuspid valve is not well visualized, but is grossly normal. There is mild tricuspid regurgitation. The right ventricular systolic pressure is estimated at 33 mmHg assuming a right atrial pressure of 8 mm Hg. Pulmonic Valve: The pulmonic valve leaflets are thin and pliable; valve motion is normal. There is mild to moderate pulmonic regurgitation. Great Vessels: The aortic root is normal size. The ascending aorta is mildly enlarged. The pulmonary artery is normal size. The IVC is dilated (diameter is greater than 2.1 cm) yet it collapses greater than 50% with a sniff. This suggests a right atrial pressure of 8 mm Hg. Pericardium/ Pleura There is no pericardial effusion. There is no pleural effusion. MMode/2D Measurements & Calculations LVIDd: 3.5 cm RA long axis LVOT diam: 2.0 cm LVIDs: 1.8 cm LA A2 area: 28.4 cm AoV Opening FS: 49.2 % LA A4 area: 25.1 cm RA area EPSS: 0.07 cm LA length (vol) Ao root diam IVSd: 1.2 cm : 11.9 cm LVPWd: 1.0 cm LA vol: 91.7 ml RA vol asc Aorta Diam LA vol index : 30.1 ml RA Ao Arch Diam (Prox : 15.7 mm2 Trans): 3.0 cm IVC diam: 2.4 cm LV jang. diameter/BSA LV sys. diameter/BSA RVD1 (basal) RVD2 (mid): 1.7 cm (cm/m^2): 1.8 (cm/m^2): 0.93 TAPSE: 3.1 cm Doppler Measurements & Calculations Ao V2 max MV E max ravi MV E/A: 1.0 TR max ravi : 161.2 cm/sec : 118.2 cm/sec Med Peak E' Ravi : 252.3 cm/sec Ao max PG MV A max ravi TR max P.5 mmHg : 10.4 mmHg : 116.8 cm/sec E/E' med: 19.7 Ao mean PG Lat Peak E' Ravi LVOT Max Ravi E/E' lat: 23.9 : 139.0 cm/sec E/e' average ILANA(I,D): 2.7 cm sev ratio MV dec time Ao V2 mean LV V1 max PG ILANA indexed to BSA : 0.27 sec : 101.3 cm/sec (cm^2/m^2): 1.4 Ao V2 VTI: 36.4 cm LV V1 VTI ILANA(V,D): 2.6 cm2 : 32.6 cm Electronically signed by: Luis Ackerman on Reading Physician:09/29/2016 01:13 PM Chest x-ray (official read pending at time of admission). Elevation of right hemidiaphragm, chronic interstitial changes consistent with emphysema and no obvious focal consolidation or pleural effusion. [facility] Diagnostic Imaging Department [place], [place] [id number] Patient Name: LLUVIA PERKINS MR#: [id number] Location: [facility] [place] Ordering Phys: Samantha Knapp DO Date of Service: 09/29/16 1142 PROCEDURE: X-RAY CHEST, TWO VIEWS ([id number]) INDICATIONS: dyspnea TECHNIQUE: 2 views of the chest were acquired. COMPARISON: [facility], CR, XR CHEST 1VW (PORTABLE), 09/28/2016, 21: 48. [facility], CT, CT ANGIO CHEST PE, 08/07/2016, 13:38. [facility], CR, XR CHEST 1VW (PORTABLE), 08/07/2016, 12:30. FINDINGS: Surgical changes and devices: None. Lungs and pleura: No pleural effusions or pneumothorax. There is elevation of the right hemidiaphragm redemonstrated. Linear bibasilar opacities likely represent atelectasis. Mediastinum: Mediastinal contours are unchanged. A large hiatal hernia is redemonstrated. Heart size is within normal limits. Bones and chest wall: No suspicious bony abnormalities. Soft tissues appear unremarkable. IMPRESSION: 1. Elevation of the right hemidiaphragm redemonstrated with medial bibasilar opacities likely representing atelectasis. 2. Large hiatal hernia redemonstrated. Dictated by: Daniele Harris M.D. on 09/29/2016 at 17:46 Approved by: Daniele Harris M.D. on 09/29/2016 at 17:48 Assessment & Plan 75 y/o female with history of COPD, HTN, chronic diarrhea, recent admissions on 09/16/16 for gastroenteritis and in July for aspiration pneumonia who presented to the ED complaining of diarrhea, vomiting and worsening shortness of breath for the past few days. Admitted for evaluation and management of metabolic alkalosis, gastroenteritis and possible COPD exacerbation. Acute diagnosis 1. Metabolic alkalosis and hypokalemia, present on admission. Active. -Likely secondary to diarrhea, vomiting. -Potassium 2.8 at presentation. -Received 40mEq of IV potassium in ED, IVFs -IVFs: NS w/20mEq potassium at 125mls/hr were also given -Serial BMPs, replace lytes as needed. 2. Gastroenteritis, present on admission. Active. - Hx persistent diarrhea, prior C.diff and recent hospital admission for ETEC colitis, currently on ciprofloxacin/flagyl as outpatient. - Blood cultures and stool PCR ordered, pending : Negative C. difficile, positive for entered toxic Escherichia coli - Repeat CBC, CMP in AM -- Rereview: We started her ciprofloxacin, Flagyl antibiotics again as she was improving on these antibiotics Flagyl will protect her regular C. difficile recurrence -- Plan to complete her 5 day course -- Loperamide PO with loose stools PRN- 3. Dehydration, present on admission. Active. - Secondary to #2 - Reassess volume status, consider decreasing rate with resolution of diarrhea and improved PO intake -- Labs indicate no concern for dehydration at this point, patient is encouraged to drink water -- Hep-Lock IV fluids 4. Possible COPD exacerbation, present on admission. Active. -Pt reports intolerance to steroids in the past, nightmares/agitation. -Duonebs q4h -- Advair instead of home medications Symbicort, Spiriva instead of 5. Chronic lower extremity edema, present on admission. Active. -Pt notes prior Echo done at [facility], denies diagnosis of CHF. -Current med list includes: -Furosemide 20mg PO daily PRN for edema -Potassium Chloride 20mEq PO daily PRN with lasix -- Echocardiogram is ordered, shows some left atrial dilation grade 1 diastolic function Spiriva and DuoNeb Other chronic conditions, present on admission. Presumed stable. 1. Hypertension- BP on admission 136/70. Continue home lisinopril, propranolol. 2. Hyperlipidemia- continue home atorvastatin 3. Hypothyroidism- continue home Levothyroxine 4. Back pain- continue home oxycodone-acetaminophen and gabapentin CODE STATUS FULL CODE GI prophylaxis: PPI DVT prophylaxis: Sub Q heparin Disposition: Patient is admitted under inpatient status with expected length of stay greater than 2 midnights due to severity of presenting symptoms, risk of adverse event, and complexity of treatment plan. GI Prophylaxis: H2 luz VTE Prophylaxis: Sub-Q Enoxaparin Resuscitation Status: CPR: Attempt Resuscitation (does not want to be intubated or ventilated) Samantha Knapp DO Sep 30, 2016 14:53
--- NOTE | 2016-09-30 15:10 | NUR ---
Congestion Patient lungs were tight with wheezes this morning. RT was called and neb treatment administered. Patient was also given morning medications which included guaifenesin and Tessalon pearls. Neb treatment and medications were effective and patient was able to produce a cough and was not tight sounding in lungs.
[2016-09-30] MEDS: Fluticasone-Salmererol 250-50 Inhaler INHALATION SCH ×2 (15:18→21:01)
[2016-09-30] MEDS: Tiotropium 18mcg/Cap 5 Capsule Inhaler Kit INHALATION SCH (15:49)
[2016-09-30] MEDS: Albuterol 1.25 mg/3 mL Inhalation Solution NEB PRN (18:35)
[2016-10-01] VITALS (13 sets, daily range): BP systolic 103–147; BP diastolic 65–83; PULSE 62–72; RESP 2–20; O2SAT 93–95
[2016-10-01] MEDS: Albuterol 1.25 mg/3 mL Inhalation Solution NEB PRN ×4 (01:45→22:03)
[2016-10-01] MEDS: oxyCODONE-Acetamin 5-325 mg Tablet PO PRN ×4 (06:08→18:40)
[2016-10-01 07:07] LABS: Mean Corpuscular Hemoglobin 30.1 pg (27.0-35.0); Mean Corpuscular Volume 99.1 fL (81-100)
[2016-10-01] MEDS: Tiotropium 18mcg/Cap 5 Capsule Inhaler Kit INHALATION SCH (09:00)
[2016-10-01] MEDS: guaiFENesin 600 mg ER12 Tablet PO SCH ×2 (09:00→21:33)
[2016-10-01] MEDS: Iron Sucrose Inj 200 MG in 0.9% Sodium Chloride 100 ML IV SCH (09:00)
[2016-10-01] MEDS: Pantoprazole 20 mg ER24 Tablet PO SCH (09:00)
[2016-10-01] MEDS: Fluticasone-Salmererol 250-50 Inhaler INHALATION SCH ×2 (09:01→21:32)
--- NOTE | 2016-10-01 09:27 | NUR ---
Verbal consent to sign JC due to pt saying she cannot see to sign. CLINTON Arellano
--- NOTE | 2016-10-01 18:40 | NUR ---
pain pt report 6/10 back pain throughout shift that decreased to a 5/10 pain with 5mg percocet, pt request to be woken up for pain medication.
--- NOTE | 2016-10-01 22:09 | PCM.PNMED ---
Subjective Date of Service Oct 01, 2016 Subjective Patient is seen and examined. She is stating she is feeling much better she cannot recall going more than once to the bathroom for a bowel movement today. Her daughter lives present and [id number] because her prior admissions in June which were reviewed with the patient. It appears that patient had the same etec stool PCR results in June, August, September. Patient wants to be discharged on Spiriva and Cmaryn would like know if the insurance will cover Exam Vital Signs Vital Sign - Last Date Time Temp Pulse Resp B/P Pulse Ox O2 Delivery O2 Flow Rate FiO2 10/01/16 05:37 66 10/01/16 04:44 37.1 20 129/72 93 Nasal Cannula 3.00 Intake and Output 09/30/16 09/30/16 10/01/16 Cumulative From/Thru 15:00 23:00 07:00 09/28/16 19:49 - 10/01/16 05:34 Intake Total 400 ml 656 ml 500 ml 3950 ml Output Total 500 ml 400 ml 600 ml 3350 ml Balance -100 ml 256 ml -100 ml 600 ml Intake Oral 400 ml 536 ml 500 ml 2236 ml IV Total 120 ml 1714 ml Output Urine Total 500 ml 400 ml 600 ml 3350 ml # Voids 1 # Bowel Movements 2 1 6 Exam Gen.: No acute distress conversing with her [id number] HEENT: Normocephalic, atraumatic Heart: Regular rate and rhythm no S3-S4 sounds Lungs fine crackles in the left lobar but otherwise clear Abdomen soft, nontender nondistended Extremities positive for trace edema Psych: Negative for anxiety neuro no focal deficits IVs and Medications IV Fluids None Medications Reviewed: Medications were reviewed in detail Lab and Diagnostics Result Diagram: 09/30/1655709/30/1658 X-Rays, CTs and MRIs [facility] Diagnostic [place] [address] Patient Name: LLUVIA PERKINS MR#: [id number] Location: [facility] Ordering Phys: Brenda Leon DO Date of Service: 09/29/16 0143 [facility] [address] [place] [address] Echocardiogram Report Name: LLUVIA PERKINS LStudy Date: 09/29/2016 Height: 64 in Hospital Exam Location: [facility] Weight: 191 lb Gender: Female BSA: 1.9 m2 : 1940 Age: 75 yrs BP: 140/74 mmHg Reason For Study: SOB Ordering Physician: HOSPITALIST [facility] Performed By: Lukasz Duke Referring Physician: BRENDA LEON Interpretation Summary Mild concentric left ventricular hypertrophy with ejection fraction 60-65%. Grade I diastolic dysfunction. Moderately dilated left atrium. Mild mitral annular calcification. Mild tricuspid regurgitation. The right ventricular systolic pressure is estimated at 33 mmHg assuming a right atrial pressure of 8 mm Hg. Mildly enlarged ascending aorta. Comparison is made with the echocardiogram of 04/28/16, there has been no significant change. Procedure: A two-dimensional transthoracic echocardiogram with color flow and Doppler was performed. The study quality was technically good. Comparison is made with the echocardiogram of 04/28/16. The patient was in sinus bradycardia with heart rates between 53-60 bpm during the exam. Left Ventricle: The left ventricular cavity is small. There is mild concentric left ventricular hypertrophy. The ejection fraction is estimated to be 60-65%. There are no focal wall motion abnormalities. Assessment of diastolic parameters indicates a relaxation abnormality of the left ventricle, consistent with normal filling pressures. Right Ventricle: The right ventricle is normal in size, thickness and function. Atria: The left atrium is moderately dilated. Right atrial size is normal. The interatrial septum is intact with no evidence for an atrial septal defect. Mitral Valve: The mitral valve leaflets are mildly calcified. There is mild mitral annular calcification. There is trace mitral regurgitation. Aortic Valve: The aortic valve is trileaflet. The aortic valve is slightly calcified. No aortic regurgitation is present. Tricuspid Valve: The tricuspid valve is not well visualized, but is grossly normal. There is mild tricuspid regurgitation. The right ventricular systolic pressure is estimated at 33 mmHg assuming a right atrial pressure of 8 mm Hg. Pulmonic Valve: The pulmonic valve leaflets are thin and pliable; valve motion is normal. There is mild to moderate pulmonic regurgitation. Great Vessels: The aortic root is normal size. The ascending aorta is mildly enlarged. The pulmonary artery is normal size. The IVC is dilated (diameter is greater than 2.1 cm) yet it collapses greater than 50% with a sniff. This suggests a right atrial pressure of 8 mm Hg. Pericardium/ Pleura There is no pericardial effusion. There is no pleural effusion. MMode/2D Measurements & Calculations LVIDd: 3.5 cm RA long axis LVOT diam: 2.0 cm LVIDs: 1.8 cm LA A2 area: 28.4 cm AoV Opening FS: 49.2 % LA A4 area: 25.1 cm RA area EPSS: 0.07 cm LA length (vol) Ao root diam IVSd: 1.2 cm : 11.9 cm LVPWd: 1.0 cm LA vol: 91.7 ml RA vol asc Aorta Diam LA vol index : 30.1 ml RA Ao Arch Diam (Prox : 15.7 mm2 Trans): 3.0 cm IVC diam: 2.4 cm LV jang. diameter/BSA LV sys. diameter/BSA RVD1 (basal) RVD2 (mid): 1.7 cm (cm/m^2): 1.8 (cm/m^2): 0.93 TAPSE: 3.1 cm Doppler Measurements & Calculations Ao V2 max MV E max ravi MV E/A: 1.0 TR max ravi : 161.2 cm/sec : 118.2 cm/sec Med Peak E' Ravi : 252.3 cm/sec Ao max PG MV A max ravi TR max P.5 mmHg : 10.4 mmHg : 116.8 cm/sec E/E' med: 19.7 Ao mean PG Lat Peak E' Ravi LVOT Max Ravi E/E' lat: 23.9 : 139.0 cm/sec E/e' average ILANA(I,D): 2.7 cm sev ratio MV dec time Ao V2 mean LV V1 max PG ILANA indexed to BSA : 0.27 sec : 101.3 cm/sec (cm^2/m^2): 1.4 Ao V2 VTI: 36.4 cm LV V1 VTI ILANA(V,D): 2.6 cm2 : 32.6 cm Electronically signed by: Luis Ackerman on Reading Physician:09/29/2016 01:13 PM Chest x-ray (official read pending at time of admission). Elevation of right hemidiaphragm, chronic interstitial changes consistent with emphysema and no obvious focal consolidation or pleural effusion. [facility] Diagnostic Imaging Department [place], [place] [id number] Patient Name: LLUVIA PERKINS MR#: [id number] Location: [facility] Ordering Phys: Samantha Knapp DO Date of Service: 09/29/16 1142 PROCEDURE: X-RAY CHEST, TWO VIEWS ([id number]) INDICATIONS: dyspnea TECHNIQUE: 2 views of the chest were acquired. COMPARISON: [facility], CR, XR CHEST 1VW (PORTABLE), 09/28/2016, 21: 48. [facility], CT, CT ANGIO CHEST PE, 08/07/2016, 13:38. [facility], CR, XR CHEST 1VW (PORTABLE), 08/07/2016, 12:30. FINDINGS: Surgical changes and devices: None. Lungs and pleura: No pleural effusions or pneumothorax. There is elevation of the right hemidiaphragm redemonstrated. Linear bibasilar opacities likely represent atelectasis. Mediastinum: Mediastinal contours are unchanged. A large hiatal hernia is redemonstrated. Heart size is within normal limits. Bones and chest wall: No suspicious bony abnormalities. Soft tissues appear unremarkable. IMPRESSION: 1. Elevation of the right hemidiaphragm redemonstrated with medial bibasilar opacities likely representing atelectasis. 2. Large hiatal hernia redemonstrated. Dictated by: Daniele Harris M.D. on 09/29/2016 at 17:46 Approved by: Daniele Harris M.D. on 09/29/2016 at 17:48 Assessment & Plan 75 y/o female with history of COPD, HTN, chronic diarrhea, recent admissions on 09/16/16 for gastroenteritis and in July for aspiration pneumonia who presented to the ED complaining of diarrhea, vomiting and worsening shortness of breath for the past few days. Admitted for evaluation and management of metabolic alkalosis, gastroenteritis and possible COPD exacerbation. Acute diagnosis 1. Hypokalemia, present on admission. Resolved -Likely secondary to diarrhea, vomiting. -Potassium 2.8 at presentation. -Received 40mEq of IV potassium in ED, IVFs -IVFs: NS w/20mEq potassium at 125mls/hr were also given: Maintenance fluids are stopped -Serial BMPs, replace lytes as needed. 2. Gastroenteritis, present on admission. Active. - Hx persistent diarrhea, prior C.diff and recent hospital admission for ETEC colitis, currently on ciprofloxacin/flagyl as outpatient. - Blood cultures and stool PCR ordered, pending : Negative C. difficile, positive for entered toxic Escherichia coli - Repeat CBC, CMP in AM -- Rereview: We started her ciprofloxacin, Flagyl antibiotics again as she was improving on these antibiotics Flagyl will protect her regular C. difficile recurrence -- Plan to complete her 5 day course that is left over from previous admission -- Loperamide PO with loose stools PRN- -- Discussed with Dr. Ayers today whether he wanted any changes to her regimen prior to her follow-up with him on Monday next week. He states as long as her diarrhea is improving he will just see her as outpatient. 3. Dehydration, present on admission. Active. - Secondary to #2 - Reassess volume status, consider decreasing rate with resolution of diarrhea and improved PO intake -- Labs indicate no concern for dehydration at this point, patient is encouraged to drink water -- Hep-Lock IV fluids 4. Possible COPD exacerbation, present on admission. Active. -Pt reports intolerance to steroids in the past, nightmares/agitation. -Duonebs q4h -- Advair instead of home medications Symbicort, Spiriva instead of her meds 5. Chronic lower extremity edema, present on admission. Active. -Pt notes prior Echo done at [facility], denies diagnosis of CHF. -Current med list includes: -Furosemide 20mg PO daily PRN for edema -Potassium Chloride 20mEq PO daily PRN with lasix -- Echocardiogram is ordered, shows some left atrial dilation grade 1 diastolic function Spiriva and DuoNeb Other chronic conditions, present on admission. Presumed stable. 1. Hypertension- BP on admission 136/70. Continue home lisinopril, propranolol. 2. Hyperlipidemia- continue home atorvastatin 3. Hypothyroidism- continue home Levothyroxine 4. Back pain- continue home oxycodone-acetaminophen and gabapentin CODE STATUS FULL CODE GI prophylaxis: PPI DVT prophylaxis: Sub Q heparin Disposition: Patient is admitted under inpatient status with expected length of stay greater than 2 midnights due to severity of presenting symptoms, risk of adverse event, and complexity of treatment plan. GI Prophylaxis: H2 luz VTE Prophylaxis: Sub-Q Enoxaparin Resuscitation Status: CPR: Attempt Resuscitation (does not want to be intubated or ventilated) Samantha Knapp DO Oct 01, 2016 05:52
[2016-10-02] VITALS (12 sets, daily range): BP systolic 114–158; BP diastolic 64–83; PULSE 66–99; RESP 16–22; O2SAT 88–96
[2016-10-02] MEDS: oxyCODONE-Acetamin 5-325 mg Tablet PO PRN ×4 (00:04→23:49)
--- NOTE | 2016-10-02 03:31 | NUR ---
Pre-HS pain med. Pt requested pain med prior to going to bed to "carry me over till the morning"
[2016-10-02 06:39] LABS: Mean Corpuscular Hemoglobin 29.5 pg (27.0-35.0); Mean Corpuscular Volume 99.7 fL (81-100)
[2016-10-02] MEDS: Pantoprazole 20 mg ER24 Tablet PO SCH (07:51)
[2016-10-02] MEDS: Albuterol 1.25 mg/3 mL Inhalation Solution NEB PRN ×2 (07:55→19:50)
[2016-10-02] MEDS: Fluticasone-Salmererol 250-50 Inhaler INHALATION SCH ×2 (09:21→20:26)
[2016-10-02] MEDS: Tiotropium 18mcg/Cap 5 Capsule Inhaler Kit INHALATION SCH (09:22)
[2016-10-02] MEDS: Iron Sucrose Inj 200 MG in 0.9% Sodium Chloride 100 ML IV SCH (09:22)
--- NOTE | 2016-10-02 09:23 | NUR ---
Evaluation completed. Please go to "Notes" then click on "Assessments and Notes" (bottom left corner of screen). Then select appropriate discipline tab on top of screen.
[2016-10-02] MEDS: guaiFENesin 600 mg ER12 Tablet PO SCH ×2 (09:25→20:29)
--- NOTE | 2016-10-02 10:23 | PCM.DIMED ---
Discharge Instructions Date of Service Oct 02, 2016 Dates of Hospitalization Sep 28, 2016 at 22:38 Discharge Diagnosis Discharge Diagnosis COPD, ETEC Diarrhea, hypertension, anemia of choronic disease Test Results [facility] Diagnostic Imaging Department [place], [place] [id number] Patient Name: LLUVIA PERKINS MR#: [id number] Location: [facility] Ordering Phys: Samantha Knapp DO Date of Service: 09/29/16 1142 PROCEDURE: X-RAY CHEST, TWO VIEWS ([id number]) INDICATIONS: dyspnea TECHNIQUE: 2 views of the chest were acquired. COMPARISON: [facility], CR, XR CHEST 1VW (PORTABLE), 09/28/2016, 21: 48. [facility], CT, CT ANGIO CHEST PE, 08/07/2016, 13:38. [facility], CR, XR CHEST 1VW (PORTABLE), 08/07/2016, 12:30. FINDINGS: Surgical changes and devices: None. Lungs and pleura: No pleural effusions or pneumothorax. There is elevation of the right hemidiaphragm redemonstrated. Linear bibasilar opacities likely represent atelectasis. Mediastinum: Mediastinal contours are unchanged. A large hiatal hernia is redemonstrated. Heart size is within normal limits. Bones and chest wall: No suspicious bony abnormalities. Soft tissues appear unremarkable. IMPRESSION: 1. Elevation of the right hemidiaphragm redemonstrated with medial bibasilar opacities likely representing atelectasis. 2. Large hiatal hernia redemonstrated. Dictated by: Daniele Harris M.D. on 09/29/2016 at 17:46 Approved by: Daniele Harris M.D. on 09/29/2016 at 17:48 RUN DATE: 09/29/16 [facility] LIVE PAGE 1 RUN TIME: 1237 Specimen Inquiry PHYSICIAN Name: LLUVIA PERKINS Age/Sex: 75/F Attend Dr: Jose Juan Desai MD Acct: [id number] Unit: [id number] Status: ADM IN Location: [facility] 3022-1 Re09/28/16 Disch: Specimen: [id number] Collected: 09/29/16 Status: KVNG Handy#: [id number] Received: 09/29/16 Source: STOOL Sp Desc : Subm Dr: Cleo Miranda DO Ordered: INDIRA Comments: Collected by Nurse/Unit? Y/N Y Procedure Result Verified Site Microbiology CAMPYLBACTER SP PCR Final 09/29/16 Not Detected C DIFF TOXIN A AND B BY PCR Final 09/29/16 Not Detected PLESIOMONAS SHIGELLOIDES PCR Final 09/29/16 Not Detected SALMONELLA SPECIES PCR Final 09/29/16 Not Detected YERSINA ENTEROCOLITICA PCR Final 09/29/16-1236 Not Detected VIBRIO SPECIES Final 09/29/16-1236 Not Detected VIBRIO CHOLERAE PCR Final 09/29/16 Not Detected ECOLI PCR ENTEROAGGREGATIVE Final 09/29/16 Not Detected ECOLI PCR ENTEROPATHOGENIC Final 09/29/16-1236 Not Detected ECOLI PCR ENTEROTOXIGENIC Final 09/29/16 Organism 1 ECOLI ENTEROTOXIGENIC ETEC ECOLI ETEC PCR DETECTED TIME CALLED: 1234 DATE CALLED: 09/29/16 FLOOR/DOCTOR: YOAN/DAMON Saul CALLED BY: VS CONTINUED ON NEXT PAGE RUN DATE: 09/29/16 [facility] LIVE PAGE 2 RUN TIME: 1236 Specimen Inquiry PHYSICIAN Patient: LLUVIA PERKINS [id number] (Continued) Specimen: [id number] Collected: 09/29/16-1049 Received: 09/29/16-1118 (Continued) Procedure Result Verified Site ECOLI STEC SHIGA TOXIN STX 1 2 Final 09/29/16 Not Detected Microbiology (Continued) ECOLI 0157 PCR Final 09/29/16 Not Detected SHIGELLA SP EIEC PCR Final 09/29/16 Not Detected CRYPTOSPORIDIUM PCR Final 09/29/16 Not Detected CYCLOSPORA CAYETANENISIS PCR Final 09/29/16 Not Detected ENTAMOEBA HISTOLYTICA PCR Final 09/29/16 Not Detected GIARDIA LAMBIA PCR Final 09/29/16 Not Detected ADENOVIRUS PCR F 40 OR 41 Final 09/29/16 Not Detected ASTROVIRUS PCR Final 09/29/16 Not Detected NOROVIRUS GI GI11 Final 09/29/16 Not Detected ROTAVIRUS PCR Final 09/29/16 Not Detected SAPOVIRUS PCR Final 09/29/16 SAPOVIRUS PCR Not Detected Reference Interval Not Detected Results for PCR testing for Stool pathogens must be taken in clinical context when making treatment decisions. Since PCR testing is more sensitive than traditonal technigues, it allows for detection of low levels of pathogens and may be detecting carrier states rather than infections. END OF REPORT Diet Low fat, Low Sodium, Heart Healthy Activity No restrictions Call your provider Fever or Chills, Shortness of breath, Bleeding, Chest pain, Vomitting, Excessive diarrhea, Weakness (unilateral), Other Patient Instructions Follow-up plan F/U with Dr. Terry on 10/05/16 as previously scheduled Please note changes to your COPD meds F/U with PCP in one week. F/U with GI for a colonoscopy in 2-3 weeks, stool guiac positive for blood during this visit, H&H is stable. F/U H&H prior to PCP appointment Samantha Knapp DO Oct 02, 2016 10:23
[2016-10-02] MEDS ORDERED: ADV250INH INHALATION (10:28)
[2016-10-02] MEDS ORDERED: LOPE2CAP PO (10:28)
[2016-10-02] MEDS ORDERED: TIOT18CA3 INHALATION (10:28)
[2016-10-02] MEDS ORDERED: GUAI600T86 PO (10:28)
--- NOTE | 2016-10-02 10:57 | NUR ---
Social Work - Discharge Data: EMR reviewed. Pt is on day 4 of hospitalization for dehydration and COPD exacerbation. Pt lives in [place] and HH does not travel there. Pt's granddaughter to provide transport home at discharge. Assessment: Pt who would benefit from HH. Plan: Pt to discharge home via POV. HH does not travel to [place]. No further needs assessed at this time. CLINTON Arellano Addendum: 10/02/16 at 1521 by CECILY BOOTHE SS Per pt is not discharging today. CLINTON Arellano
[2016-10-02] MEDS ORDERED: IRON100V IV (11:03)
--- NOTE | 2016-10-02 14:40 | NUR ---
Lower extremity tremors/pain Pt reported increased extremity spasms when working with PT this AM. Unable to ambulate due to legs buckling when walking. Pt sts "this has happened before and usually gets better after a bit" Pt stated pain was 7/10 on pain scale, thought pain was contributing to tremors. made aware, pt given additional dose of Propranolol, with no improvement in tremors. MD ordered PO dose of Klonopin, given as ordered. Addendum: 10/02/16 at 1930 by AZRA LYNN RN Pt reassessed at approx 1600, was resting quietly, no apparent signs of discomfrt/distress. This RN attempted to wake the pt. Pt was difficult to rouse. no complains of pain at that time. made aware, came to bedside, to assess, Pt able to stand with assistance from MD and this RN, however continues to be very drowsy. On coming RN made aware.
--- NOTE | 2016-10-02 15:21 | NUR ---
SW met with pt at bedside to follow up re: recommending SNF. SW clarified role of SNF and provided pt with SNF choice list. Pt stated her dtr is on her way in and will assist pt in selecting first and second choice. SW left SNF choice. SW to follow up with pt/dtr tomorrow for SNF choice. CLINTON Arellano
--- NOTE | 2016-10-02 19:43 | ABG ---
DateTimeAnalyzed 19:40:00 -_ pH ____7.399 - 7.350 7.450 pCO2 ___56.7__ -mmHg 35.0 45.0 pO2 ___54.4__ -mmHg 69.0 116 HCO3- ___34.3__ -mmol/L 22.0 26.0 ABE ____8.6__ -mmol/L -2.0 2.0 tHb ____9.6__ -g/dL O2Hb ___86.9__ -% COHb ____1.2__ -% MetHb ____0.8__ -% sO2 ___88.7__ -% FIO2 ___26.0__ -% Drawn By blf - Date/Time Notified____ 19:43:00 -_ Spontaneous_RR ___16.0__ -b/min Liter_Flow ____1.5__ -L/min Oxygen Device 1 __CANNULA - Notified By blf - Notified Whom ___DR. HYLTON\\ - B 755 -mmHg tO2 ___11.8__ -Vol% Panda test _Positive -
[2016-10-02] MEDS ORDERED: Flumazenil 0.1 mg/mL 5 mL Inj IV ONE (19:45)
--- NOTE | 2016-10-02 20:45 | NUR ---
Drowsy assumed care at approx 19:00. pt observed to be drowsy, MD in room with pt at that time. pt received medication earlier that may have contributed, MD ordered ABGs. RT in room to get ABGs, results placed in chart. new order obtained to administer Flumazenil, pt received as ordered. pt tolerated well, pt became more alert and was able to answer all MD's questions appropriately. MD verbalized to not administer Neurontin tonight and to not administer Percocet for tonight- verbalized using PRN Tylenol for pt's pain needs. pt denied having pain at this time. around 20:30 pt ate dinner and took HS medications, pt verbalized "feeling better". call light placed within reach, hourly rounding in effect, bed alarm on for safety. Addendum: 10/03/16 at 0037 by DEREJE GAMEZ RN MD did mention that "we need to treat her pain" prior to leaving the pt's room. pt reported back pain at a 7/10 around 23:45, RN gave PRN Tylenol. pt stated "are you kidding me, this will do nothing for me". RN re-assessed pt's pain 30 and 60min after Tylenol was administered, pt reported no pain relief, pt declined any heat/ice packs for relief. RN gave 1 tab Percocet at that time, RN verified pt A&Ox4, educated the pt on the potential for medication to cause sedation or affect respiratory effort and that a reversal agent may be necessary if adverse effects occurred, pt verbalized understanding. RN re-assessed pt 30min after Percocet given, pt verbalized pain level decreased to 5/10, verbalized she "felt better", pt is A&Ox4 at that time. will continue to monitor.
--- NOTE | 2016-10-02 22:33 | PCM.PNMED ---
Subjective Date of Service Oct 02, 2016 Subjective Patient is seen and examined. Earlier in the day she expressed her that she was making her feel better. She did not have any diarrhea this morning she had one episode of stool yesterday but no diarrhea. Dr. Her was contacted regarding her follow-up and he promises to follow-up with her on Monday as previously scheduled. As patient was preparing to discharge home however she experienced tremors in her legs. She states that she has essential tremor at baseline for which she took propranolol. One additional dose was given without relief of symptoms. Physical therapy has worked with patient and determined that she did not need to have home care assistance with family members helping or alf rehabilitation as patient could not walk much at all prior to this patient apparently had 1 large episode of diarrhea. She now feels her children cannot handle her going home like this. Discharge planning and social work were notified. Discharge planning discussing possible alf options with patient. Exam Vital Signs Vital Sign - Last Date Time Temp Pulse Resp B/P Pulse Ox O2 Delivery O2 Flow Rate FiO2 10/02/16 20:11 37.1 10/02/16 20:00 73 10/02/16 19:56 Nasal Cannula 1.50 10/02/16 19:50 16 88 10/02/16 19:22 119/66 Intake and Output 10/01/16 10/01/16 10/02/16 Cumulative From/Thru 15:00 23:00 07:00 09/28/16 19:49 - 10/02/16 05:23 Intake Total 1040 ml 650 ml 5640 ml Output Total 775 ml 200 ml 4325 ml Balance 265 ml 450 ml 1315 ml Intake Oral 920 ml 650 ml 3806 ml IV Total 120 ml 1834 ml Output Urine Total 775 ml 200 ml 4325 ml # Voids 1 # Bowel Movements 2 8 Exam Gen.: No acute distress HEENT: Normocephalic, atraumatic Heart: Regular rate and rhythm no S3-S4 sounds Lungs: Clear to auscultation no crackles or wheezes Abdomen soft nontender normal bowel sounds MSK: Decreased strength in left upper extremity, states it is chronic. Bilaterally lower extremity strength was equal. Hand news librarian strength is symmetric. Patient was unable to stand up waiting her on weight Extremities: Positive for edema Neuro: No focal deficits, cranial nerves II through XII are intact, gagging is deferred IVs and Medications IV Fluids None Medications Reviewed: Medications were reviewed in detail Lab and Diagnostics Result Diagram: 10/02/1660410/02/16604 X-Rays, CTs and MRIs [facility] Diagnostic [place] [address] Patient Name: LLUVIA PERKINS MR#: [id number] [place] [facility] [place] Phys: Brenda Leon DO Date of Service: 09/29/16 0143 [facility] [address] [place] [address] Echocardiogram Report Name: LLUVIA PERKINS LStudy Date: 09/29/2016 Height: 64 in Hospital Exam Location: [facility] Weight: 191 lb Gender: Female BSA: 1.9 m2 : 1940 Age: 75 yrs BP: 140/74 mmHg Reason For Study: [facility] [place] Ordering Physician: HOSPITALIST [facility] Performed By: Lukasz Duke Referring Physician: BRENDA LEON Interpretation Summary Mild concentric left ventricular hypertrophy with ejection fraction 60-65%. Grade I diastolic dysfunction. Moderately dilated left atrium. Mild mitral annular calcification. Mild tricuspid regurgitation. The right ventricular systolic pressure is estimated at 33 mmHg assuming a right atrial pressure of 8 mm Hg. Mildly enlarged ascending aorta. Comparison is made with the echocardiogram of 04/28/16, there has been no significant change. Procedure: A two-dimensional transthoracic echocardiogram with color flow and Doppler was performed. The study quality was technically good. Comparison is made with the echocardiogram of 04/28/16. The patient was in sinus bradycardia with heart rates between 53-60 bpm during the exam. Left Ventricle: The left ventricular cavity is small. There is mild concentric left ventricular hypertrophy. The ejection fraction is estimated to be 60-65%. There are no focal wall motion abnormalities. Assessment of diastolic parameters indicates a relaxation abnormality of the left ventricle, consistent with normal filling pressures. Right Ventricle: The right ventricle is normal in size, thickness and function. Atria: The left atrium is moderately dilated. Right atrial size is normal. The interatrial septum is intact with no evidence for an atrial septal defect. Mitral Valve: The mitral valve leaflets are mildly calcified. There is mild mitral annular calcification. There is trace mitral regurgitation. Aortic Valve: The aortic valve is trileaflet. The aortic valve is slightly calcified. No aortic regurgitation is present. Tricuspid Valve: The tricuspid valve is not well visualized, but is grossly normal. There is mild tricuspid regurgitation. The right ventricular systolic pressure is estimated at 33 mmHg assuming a right atrial pressure of 8 mm Hg. Pulmonic Valve: The pulmonic valve leaflets are thin and pliable; valve motion is normal. There is mild to moderate pulmonic regurgitation. Great Vessels: The aortic root is normal size. The ascending aorta is mildly enlarged. The pulmonary artery is normal size. The IVC is dilated (diameter is greater than 2.1 cm) yet it collapses greater than 50% with a sniff. This suggests a right atrial pressure of 8 mm Hg. Pericardium/ Pleura There is no pericardial effusion. There is no pleural effusion. MMode/2D Measurements & Calculations LVIDd: 3.5 cm RA long axis LVOT diam: 2.0 cm LVIDs: 1.8 cm LA A2 area: 28.4 cm AoV Opening FS: 49.2 % LA A4 area: 25.1 cm RA area EPSS: 0.07 cm LA length (vol) Ao root diam IVSd: 1.2 cm : 11.9 cm LVPWd: 1.0 cm LA vol: 91.7 ml RA vol asc Aorta Diam LA vol index : 30.1 ml RA Ao Arch Diam (Prox : 15.7 mm2 Trans): 3.0 cm IVC diam: 2.4 cm LV jang. diameter/BSA LV sys. diameter/BSA RVD1 (basal) RVD2 (mid): 1.7 cm (cm/m^2): 1.8 (cm/m^2): 0.93 TAPSE: 3.1 cm Doppler Measurements & Calculations Ao V2 max MV E max raiv MV E/A: 1.0 TR max ravi : 161.2 cm/sec : 118.2 cm/sec Med Peak E' Ravi : 252.3 cm/sec Ao max PG MV A max ravi TR max P.5 mmHg : 10.4 mmHg : 116.8 cm/sec E/E' med: 19.7 Ao mean PG Lat Peak E' Ravi LVOT Max Ravi E/E' lat: 23.9 : 139.0 cm/sec E/e' average ILANA(I,D): 2.7 cm sev ratio MV dec time Ao V2 mean LV V1 max PG ILANA indexed to BSA : 0.27 sec : 101.3 cm/sec (cm^2/m^2): 1.4 Ao V2 VTI: 36.4 cm LV V1 VTI ILANA(V,D): 2.6 cm2 : 32.6 cm Electronically signed by: Luis Ackerman on Reading Physician:09/29/2016 01:13 PM Chest x-ray (official read pending at time of admission). Elevation of right hemidiaphragm, chronic interstitial changes consistent with emphysema and no obvious focal consolidation or pleural effusion. [facility] Diagnostic Imaging Department [place], [place] [id number] Patient Name: LLUVIA PERKINS MR#: [id number] [place] [facility] [place] Ordering Phys: Samantha Knapp DO Date of Service: 09/29/16 1142 PROCEDURE: X-RAY CHEST, TWO VIEWS ([id number]) INDICATIONS: dyspnea TECHNIQUE: 2 views of the chest were acquired. COMPARISON: [facility], CR, XR CHEST 1VW (PORTABLE), 09/28/2016, 21: 48. [facility], CT, CT ANGIO CHEST PE, 08/07/2016, 13:38. [facility], CR, XR CHEST 1VW (PORTABLE), 08/07/2016, 12:30. FINDINGS: Surgical changes and devices: None. Lungs and pleura: No pleural effusions or pneumothorax. There is elevation of the right hemidiaphragm redemonstrated. Linear bibasilar opacities likely represent atelectasis. Mediastinum: Mediastinal contours are unchanged. A large hiatal hernia is redemonstrated. Heart size is within normal limits. Bones and chest wall: No suspicious bony abnormalities. Soft tissues appear unremarkable. IMPRESSION: 1. Elevation of the right hemidiaphragm redemonstrated with medial bibasilar opacities likely representing atelectasis. 2. Large hiatal hernia redemonstrated. Dictated by: Daniele Harris M.D. on 09/29/2016 at 17:46 Approved by: Daniele Harris M.D. on 09/29/2016 at 17:48 Assessment & Plan 75 y/o female with history of COPD, HTN, chronic diarrhea, recent admissions on 09/16/16 for gastroenteritis and in July for aspiration pneumonia who presented to the ED complaining of diarrhea, vomiting and worsening shortness of breath for the past few days. Admitted for evaluation and management of metabolic alkalosis, gastroenteritis and possible COPD exacerbation. Acute diagnosis 1. Hypokalemia, present on admission. Resolved -Likely secondary to diarrhea, vomiting. -Potassium 2.8 at presentation. -Received 40mEq of IV potassium in ED, IVFs -IVFs: NS w/20mEq potassium at 125mls/hr were also given: Maintenance fluids are stopped -Serial BMPs, replace lytes as needed. 2. Gastroenteritis, present on admission. Active. - Hx persistent diarrhea, prior C.diff and recent hospital admission for ETEC colitis, currently on ciprofloxacin/flagyl as outpatient. - Blood cultures and stool PCR ordered, pending : Negative C. difficile, positive for entered toxic Escherichia coli - Repeat CBC, CMP in AM -- Rereview: We started her ciprofloxacin, Flagyl antibiotics again as she was improving on these antibiotics Flagyl will protect her regular C. difficile recurrence -- Plan to complete her 5 day course that is left over from previous admission -- Loperamide PO with loose stools PRN- -- Discussed with Dr. Ayers yesterday whether he wanted any changes to her regimen prior to her follow-up with him on Monday next week. He states as long as her diarrhea is improving he will just see her as outpatient. -- Patient had a large bowel movement this a.m. and was stressed from it. -- Discharge was held to prepare patient better rehabilitation-type setting 3. Dehydration, present on admission. Active. - Secondary to #2 - Reassess volume status, consider decreasing rate with resolution of diarrhea and improved PO intake -- Labs indicate no concern for dehydration at this point, patient is encouraged to drink water -- Hep-Lock IV fluids 4. Possible COPD exacerbation, present on admission. Active. -Pt reports intolerance to steroids in the past, nightmares/agitation. -Duonebs q4h -- Advair instead of home medications Symbicort, Spiriva instead of her meds 5. Chronic lower extremity edema, present on admission. Active. -Pt notes prior Echo done at [facility], denies diagnosis of CHF. -Current med list includes: -Furosemide 20mg PO daily PRN for edema -Potassium Chloride 20mEq PO daily PRN with lasix -- Echocardiogram is ordered, shows some left atrial dilation grade 1 diastolic function Spiriva and DuoNeb 6. Essential tremor: Has worsened today -- Give 1 extra dose of propranolol without relief -- Give her 1 mg of clonazepam for jerking. This made patient very sleepy. ABG were drawn and that after making sure she is at baseline, 0.1 mg flumazenil IV is administered. Patient had a relief of symptoms. Asked the staff before pain meds and gabapentin for tonight. 7. Anemia of chronic disease: Patient has received iron infusions. O other chronic conditions, present on admission. Presumed stable. 1. Hypertension- BP on admission 136/70. Continue home lisinopril, propranolol. 2. Hyperlipidemia- continue home atorvastatin 3. Hypothyroidism- continue home Levothyroxine 4. Back pain- continue home oxycodone-acetaminophen and gabapentin CODE STATUS FULL CODE, however does not want intubation or ventilation Alternate decision-maker: Galen Schwab GI prophylaxis: PPI DVT prophylaxis: Sub Q heparin Disposition: Discharge planning will be discussing with patient her alf options. Patient is very appreciative of this GI Prophylaxis: H2 luz VTE Prophylaxis: Sub-Q Enoxaparin Resuscitation Status: CPR: Attempt Resuscitation (does not want to be intubated or ventilated) Samantha Knapp DO Oct 02, 2016 22:33
[2016-10-03] VITALS (7 sets, daily range): BP systolic 95–119; BP diastolic 60–84; PULSE 61–81; RESP 15–18; O2SAT 93–96
[2016-10-03 06:35] LABS: Mean Corpuscular Hemoglobin 29.7 pg (27.0-35.0); Mean Corpuscular Volume 101.3 fL (81-100)
[2016-10-03] MEDS: Fluticasone-Salmererol 250-50 Inhaler INHALATION SCH (09:38)
[2016-10-03] MEDS: Tiotropium 18mcg/Cap 5 Capsule Inhaler Kit INHALATION SCH (09:38)
[2016-10-03] MEDS: guaiFENesin 600 mg ER12 Tablet PO SCH (09:38)
[2016-10-03] MEDS: Pantoprazole 20 mg ER24 Tablet PO SCH (09:40)
[2016-10-03] MEDS: oxyCODONE-Acetamin 5-325 mg Tablet PO PRN ×2 (09:47→15:40)
--- NOTE | 2016-10-03 10:55 | NUR ---
JC signed @ [id number]
--- NOTE | 2016-10-03 11:04 | NUR ---
Gave access and faxed facesheet to [facility] and [facility] per CLOTHING MANAGER Addendum: 10/03/16 at 1137 by NOE RIBEIRO CM [facility] can accept with Dr.Girotto Annie ALONZO
--- NOTE | 2016-10-03 12:01 | NUR ---
Social Work - Continued Discharge Planning Data: Pt is on day 5 of hospitalization for dehydration COPD exacerbation per H&P. Pt is not medically cleared to discharge and PT reccommends SNF. SW met with pt at bedside to follow up re: SNF choice and pt provided first choice [facility] and second choice [facility]. UR specialist sent referral to [facility] and pt was approved. PASRR sent and PPW in chart. SW will continue to follow for needs. Assessment: Pt who would benefit from SNF Plan: Pt likely to discharge to [facility] SNF when medically stable. SW will continue to follow for needs. CLINTON Arellano
--- NOTE | 2016-10-03 13:43 | PCM.DIMED ---
Discharge Instructions Date of Service Oct 03, 2016 Dates of Hospitalization Sep 28, 2016 at 22:38 Discharge Diagnosis Discharge Diagnosis COPD, ETEC Diarrhea, hypertension, anemia of choronic disease Diet Low fat, Low Sodium, Heart Healthy Activity No restrictions Call your provider Fever or Chills, Shortness of breath, Bleeding, Chest pain, Vomitting, Excessive diarrhea, Weakness (unilateral), Other Patient Instructions Follow-up plan F/U with Dr. Terry on 10/05/16 as previously scheduled Please note changes to your COPD meds F/U with PCP in one week. F/U with GI for a colonoscopy in 2-3 weeks, stool guiac positive for blood during this visit, H&H is stable. F/U H&H prior to PCP appointment Follow-up Provider: Fabian Meek MD Follow-up with PCP in: 2 weeks Elder Brooks MD Oct 03, 2016 13:43
[2016-10-03] MEDS ORDERED: GUAI600T86 PO (14:47)
[2016-10-03] MEDS ORDERED: TIOT18CA3 INHALATION (14:47)
[2016-10-03] MEDS ORDERED: ADV250INH INHALATION (14:47)
[2016-10-03] MEDS ORDERED: LOPE2CAP PO (14:47)
[2016-10-03] MEDS: Albuterol 1.25 mg/3 mL Inhalation Solution NEB PRN (15:01)
--- NOTE | 2016-10-03 16:41 | NUR ---
Discharge Reviewed discharge paperwork, medications, and care notes with pt. IV DCd intact, tele removed, and all belongings with pt. Pt using home O2 during transfer. Taken out of hospital via WC at 1630. Pt has no s/sx of distress, no c/o pain. Granddaughter driving pt home.
--- NOTE | 2016-10-03 16:42 | NUR ---
Social Work - Discharge Data: EMR reviewed. Pt is on day 5 of hospitalization for dehydration and COPD exacerbation. Pt is medically cleared for discharge and is refusing SNF. Pt's granddaughter to provide transport home at discharge. Assessment: Pt who would benefit from SNF. Plan: Pt to discharge home via POV. HH does not travel to [place]. Pt is refusing SNF. No further needs assessed at this time. CLINTON Arellano
--- NOTE | 2016-10-03 21:27 | CONS ---
[address] [address] CONSULTATION REPORT PATIENT: LLUVIA PERKINS : 1940 MR#: [id number] ADMIT: 09/28/2016 JOB ID: [id number] DATE OF SERVICE: 10/03/[address] Brooks for this timely consultation. REASON FOR CONSULTATION: Intermittent severe diarrhea of unknown etiology. HISTORY OF THE PRESENT ILLNESS: The patient is an unfortunate 75-year-old woman with longstanding COPD, as well as chronic and severe back pain for which she requires narcotics. Starting about four months ago though, she started to have episodes of severe diarrhea where she has up to 10 stools per day. Numerous studies have been done to attempt and figure out the etiology of this worsening diarrhea, but so far, we have no definitive answer. Back in June, stool PCR was positive for enteropathogenic E. coli. In August and September of this year stool PCR studies were positive for enterotoxigenic E. coli but despite appropriate treatment for these, there has been no improvement in this relapsing severe diarrhea. The patient was admitted in late August for this nausea, vomiting, diarrhea pattern as well as possible aspiration pneumonia. She was eventually discharged and then came back to the ED and was readmitted on September 28 with what she describes as worsening shortness of breath but in association with continued diarrhea. She reports that her diarrhea is so bad at times that she is incontinent of stool. There is sometimes associated nausea and vomiting as well as fatigue, but she denies fevers, chills, or sweats with this diarrhea. She states interestingly that she has not lost weight despite this several-month history of intermittent and severe diarrhea and she continues to have quite a good appetite. She relates that she has been seen in GI clinic but was told that colonoscopy and other invasive diagnostic procedures would be held until there was some degree of improvement in her symptoms. Notably, the patient states that about two years ago at [facility] in [place], she was diagnosed with C. difficile colitis and treated for that, but that she has not had any positive studies for C. difficile diarrhea that she is aware of since that time. The patient states that a course of Cipro and Flagyl that she was given back in August has had no effect on her diarrhea and likewise another course that was started here in the hospital has no effect whatsoever. PAST MEDICAL HISTORY: 1. COPD, which is oxygen-dependent at home. 2. Intractable back pain for which she takes chronic narcotics. 3. Hypertension. 4. Hyperlipidemia. 5. Hypothyroidism. 6. History of aspiration pneumonia. 7. Severe diarrhea x4 months with occasional episodes of severe diarrhea actually prior to that. 8. History of C. difficile colitis. SOCIAL HISTORY: The patient is a former smoker, having quit five years ago. She does not consume alcohol or use illicit drugs. FAMILY HISTORY: Negative in her 1st degree relatives for tuberculosis. Note that the patient has not traveled outside the [place] at all except for two weeks in [place] some years ago and has never lived abroad. EXPOSURE HISTORY: The patient lives in [place] with her family. She drinks only bottled water and has not had contact with people with diarrhea. REVIEW OF SYSTEMS: Was done. The patient has no headache at this time. 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 She has no sores in the mouth, trouble swallowing or sore throat. She is often short of breath with a choking type sensation which she attributes to her COPD. She has had no significant cough or hemoptysis but rather just severe shortness of breath. She has had periods of nausea and vomiting which usually occur in association with these paroxysmal episodes of severe diarrhea. No abdominal pain. She does have cramps. No pain or burning with urination. The patient notes she has chronic weakness in her lower extremities which she attributes to her very severe and constant back pain. She notes that her ability to walk has been quite limited in recent months due to the severity of her back pain and lower extremity weakness. She has not noticed any new skin rash. She does have diffuse arthritis in her back and to a lesser extent in peripheral joints. Remainder of the review of systems is negative. PHYSICAL EXAMINATION: Reveals a chronically ill-appearing woman who looks somewhat depressed. She is afebrile and has been since her admission five days ago. Current temp 36.9, pulse 80, respiratory rate 18, blood pressure 119/84, saturating 96% on 3 L. Mental status reveals that the patient is clear though as mentioned she does appear depressed with a rather flat affect. Examination of the head: No trauma. No temporal wasting. No significant conjunctival pallor. Oral cavity: No thrush, hairy leukoplakia, pharyngitis. Neck: Without notable JVD or nodes. Lungs: Decreased breath sounds bilaterally without focal rales. Cardiac tones: Regular rate and rhythm without significant murmur. Abdomen: Relatively soft and nontender. No organomegaly or ascites noted. Patient does not have a Ramírez catheter. She does not have suprapubic tenderness. Examination of the lower extremities shows some venous stasis change but no significant edema or cellulitis is noted. Patient has what appears to be clonus in her lower extremities. Her strength is about 4/5, but she states that with prolonged walking or standing her legs spasm and are very weak. Remainder of the physical unremarkable. LABORATORIES: Include white count which was 2300 on admission, now 3500. Her platelet count 284,000. Her hematocrit is 30.7, creatinine 0.62. LFTs are normal. Albumin 3.3. Procalcitonin less than 0.1 which is basically negative. Urinalysis without any white cells. Micro studies on this admission include the stool PCR which was positive for enterotoxigenic E. coli again, as it was last month. Blood cultures are negative. Stool is Hemoccult-positive interestingly x2. Looking back at her prior micro studies she had the enterotoxigenic E. coli also present on September 15 in her stool and enteropathogenic E. coli, July 06. She has had numerous positive urine cultures in the past. IMAGING: On this admission includes two chest x-rays, which show chronic right hemidiaphragm elevation with some atelectasis versus pneumonia and a large hiatal hernia. Back in August, she had an abdominal CT which showed descending colon thickening and fat stranding consistent with infection or ischemia. No abscess was seen. These findings were discussed with Dr. Butterfield at that time. IMPRESSION: This is a complex case of a woman who had Clostridium difficile a couple years ago and more recently has had about four months of off and on very severe diarrhea. We have three stool PCRs none of which have shown Clostridium difficile. One showed enteropathogenic E. coli and two showed enterotoxigenic E. coli. She was evaluated by GI service and it was thought that she might have diverticulitis, but of course, Cipro and Flagyl has not been of any benefit and the diarrhea continues. Note, that it is currently heme-positive. At this point, I see little evidence for inadequately treated infection such as diverticulitis or Clostridium difficile. We have multiple negative PCRs and it would seem that recurrent Clostridium difficile has been almost excluded. Enteropathogenic E. coli and enterotoxigenic E. coli were detected by PCR but it is unclear what this means as we are occasionally finding these using our [employer] PCR methodology without any clear travel or other history to suggest that these are true pathogens. The patient has also failed now an extended course of Cipro without any benefit and one would expect if it was EPEC or ETEC that she would much better by this point. RECOMMENDATIONS: 1. No antibiotics are indicated at this time. 2. I think the patient should undergo colonoscopy and upper endoscopy when possible on an outpatient basis. 3. I plan to put in a call to Dr. Butterfield or his service to see if perhaps this can be scheduled in the near future as I suspect the answer is more likely to be found with diagnostic scopes than with additional microbiologic studies. VENTURA
--- NOTE | 2016-10-04 01:35 | PCM.DC.MED ---
Discharge Summary Date of Service Oct 04, 2016 Dates of Hospitalization Date of Hospital Admission Sep 28, 2016 at 22:38 Date of Discharge: Oct 04, 2016 Providers: Admitting Physician: Jose Juan Desai MD Primary Care Physician: Fabian Meek MD Attending Physician: Jose Juan Desai MD Diagnosis at Time of Discharge Diagnosis at Time of Discharge COPD, ETEC Diarrhea, hypertension, anemia of choronic disease Consultations Dr. Ayers of infectious disease. Procedures XRay, CTs & MRIs [facility] [place] [address] Patient Name: LLUVIA PERKINS MR#: [id number] Location[place] [facility] [place] Ordering Phys: Brenda Miranda DO Date of Service: 09/29/16 0143 [facility] [address] [place] [address] Echocardiogram Report Name: LLUVIA PERKINS LStudy Date: 09/29/2016 Height: 64 in Hospital Exam Location: [facility] Weight: 191 lb Gender: Female BSA: 1.9 m2 : 1940 Age: 75 yrs BP: 140/74 mmHg Reason For Study: [facility] [place] Ordering Physician: HOSPITALIST [facility] Performed By: Lukasz Duke Referring Physician: BRENDA MIRANDA Interpretation Summary Mild concentric left ventricular hypertrophy with ejection fraction 60-65%. Grade I diastolic dysfunction. Moderately dilated left atrium. Mild mitral annular calcification. Mild tricuspid regurgitation. The right ventricular systolic pressure is estimated at 33 mmHg assuming a right atrial pressure of 8 mm Hg. Mildly enlarged ascending aorta. Comparison is made with the echocardiogram of 04/28/16, there has been no significant change. Procedure: A two-dimensional transthoracic echocardiogram with color flow and Doppler was performed. The study quality was technically good. Comparison is made with the echocardiogram of 04/28/16. The patient was in sinus bradycardia with heart rates between 53-60 bpm during the exam. Left Ventricle: The left ventricular cavity is small. There is mild concentric left ventricular hypertrophy. The ejection fraction is estimated to be 60-65%. There are no focal wall motion abnormalities. Assessment of diastolic parameters indicates a relaxation abnormality of the left ventricle, consistent with normal filling pressures. Right Ventricle: The right ventricle is normal in size, thickness and function. Atria: The left atrium is moderately dilated. Right atrial size is normal. The interatrial septum is intact with no evidence for an atrial septal defect. Mitral Valve: The mitral valve leaflets are mildly calcified. There is mild mitral annular calcification. There is trace mitral regurgitation. Aortic Valve: The aortic valve is trileaflet. The aortic valve is slightly calcified. No aortic regurgitation is present. Tricuspid Valve: The tricuspid valve is not well visualized, but is grossly normal. There is mild tricuspid regurgitation. The right ventricular systolic pressure is estimated at 33 mmHg assuming a right atrial pressure of 8 mm Hg. Pulmonic Valve: The pulmonic valve leaflets are thin and pliable; valve motion is normal. There is mild to moderate pulmonic regurgitation. Great Vessels: The aortic root is normal size. The ascending aorta is mildly enlarged. The pulmonary artery is normal size. The IVC is dilated (diameter is greater than 2.1 cm) yet it collapses greater than 50% with a sniff. This suggests a right atrial pressure of 8 mm Hg. Pericardium/ Pleura There is no pericardial effusion. There is no pleural effusion. MMode/2D Measurements & Calculations LVIDd: 3.5 cm RA long axis LVOT diam: 2.0 cm LVIDs: 1.8 cm LA A2 area: 28.4 cm AoV Opening FS: 49.2 % LA A4 area: 25.1 cm RA area EPSS: 0.07 cm LA length (vol) Ao root diam IVSd: 1.2 cm : 11.9 cm LVPWd: 1.0 cm LA vol: 91.7 ml RA vol asc Aorta Diam LA vol index : 30.1 ml RA Ao Arch Diam (Prox : 15.7 mm2 Trans): 3.0 cm IVC diam: 2.4 cm LV jang. diameter/BSA LV sys. diameter/BSA RVD1 (basal) RVD2 (mid): 1.7 cm (cm/m^2): 1.8 (cm/m^2): 0.93 TAPSE: 3.1 cm Doppler Measurements & Calculations Ao V2 max MV E max ravi MV E/A: 1.0 TR max ravi : 161.2 cm/sec : 118.2 cm/sec Med Peak E' Ravi : 252.3 cm/sec Ao max PG MV A max ravi TR max P.5 mmHg : 10.4 mmHg : 116.8 cm/sec E/E' med: 19.7 Ao mean PG Lat Peak E' Ravi LVOT Max Ravi E/E' lat: 23.9 : 139.0 cm/sec E/e' average ILANA(I,D): 2.7 cm sev ratio MV dec time Ao V2 mean LV V1 max PG ILANA indexed to BSA : 0.27 sec : 101.3 cm/sec (cm^2/m^2): 1.4 Ao V2 VTI: 36.4 cm LV V1 VTI ILANA(V,D): 2.6 cm2 : 32.6 cm Electronically signed by: Luis Ackerman on Reading Physician:09/29/2016 01:13 PM Chest x-ray (official read pending at time of admission). Elevation of right hemidiaphragm, chronic interstitial changes consistent with emphysema and no obvious focal consolidation or pleural effusion. [facility] Diagnostic Imaging [place] [address] Patient Name: LLUVIA PERKINS MR#: [id number] Location: [facility] [place] Ordering Phys: Samantha Knapp DO Date of Service: 09/29/16 1142 PROCEDURE: X-RAY CHEST, TWO VIEWS ([id number]) INDICATIONS: dyspnea TECHNIQUE: 2 views of the chest were acquired. COMPARISON: [facility], CR, XR CHEST 1VW (PORTABLE), 09/28/2016, 21: 48. [facility], CT, CT ANGIO CHEST PE, 08/07/2016, 13:38. [facility], CR, XR CHEST 1VW (PORTABLE), 08/07/2016, 12:30. FINDINGS: Surgical changes and devices: None. Lungs and pleura: No pleural effusions or pneumothorax. There is elevation of the right hemidiaphragm redemonstrated. Linear bibasilar opacities likely represent atelectasis. Mediastinum: Mediastinal contours are unchanged. A large hiatal hernia is redemonstrated. Heart size is within normal limits. Bones and chest wall: No suspicious bony abnormalities. Soft tissues appear unremarkable. IMPRESSION: 1. Elevation of the right hemidiaphragm redemonstrated with medial bibasilar opacities likely representing atelectasis. 2. Large hiatal hernia redemonstrated. Dictated by: Daniele Harris M.D. on 09/29/2016 at 17:46 Approved by: Daniele Harris M.D. on 09/29/2016 at 17:48 Cardiac Echo Impression Echocardiogram Report Name: LLUVIA PERKINS LStudy Date: 09/29/2016 Height: 64 in Hospital Exam Location: [facility] Weight: 191 lb Gender: Female BSA: 1.9 m2 : 1940 Age: 75 yrs BP: 140/74 mmHg Reason For Study: [facility] Ordering Physician: HOSPITALIST [facility] Performed By: Lukasz Duke Referring Physician: BRENDA MIRANDA Interpretation Summary Mild concentric left ventricular hypertrophy with ejection fraction 60-65%. Grade I diastolic dysfunction. Moderately dilated left atrium. Mild mitral annular calcification. Mild tricuspid regurgitation. The right ventricular systolic pressure is estimated at 33 mmHg assuming a right atrial pressure of 8 mm Hg. Mildly enlarged ascending aorta. Comparison is made with the echocardiogram of 04/28/16, there has been no significant change. Brief History 75 y/o female with past medical history of COPD, HTN, chronic diarrhea, recent admissions on 09/16/16 for gastroenteritis and in July for aspiration pneumonia who presented to the ED complaining of diarrhea, vomiting and worsening shortness of breath for the past few days. She endorses diarrhea off- and-on for the past year prior to which she states that was typically constipated. Now she reports worsening diarrhea and incontinence of stool. Associated symptoms include nausea, vomiting, subjective fever, generalized weakness, fatigue, and diffuse/intermittent abdominal pain. She denies chest pain, dysuria, hematuria, increased urinary frequency, bloody or dark stools and endorses prior diagnosis of C.diff colitis three times before. She was discharged on 09/19/16 after a three night stay with multiple conditions including ETEC gastroenteritis. She was discharged on ciprofloxacin and flagyl and states that she has been taking without any improvement in her symptoms. Of note she reports a 5 day history of URI symptoms including: sinus congestion, productive cough associated with increased dyspnea, orthopnea and bilateral lower extremity swelling. In the ED, vitals temp 36.2, BP 136/70, HR 56, RR 24, SpO2 94% on 3L nasal cannula. AST/ALT , alk phos 60, calcium 9.0, magnesium 1.8, lipase 14, total bili 0.2, Labs wbc 2.3 (reportedly at baseline), H/H 9.5/31.0 (also at baseline), plt 214, sodium 140, potassium 2.8, chloride 94, bicarb 35, bun 5, creatinine 0.8, serum glucose 105. She was given 40mEq of IV potassium in the ED. CXR without focal consolidation, chronic emphysematous changes and a right hemidiaphragm. She was admitted to the hospital service for further evaluation and treatment. Hospital Course 75 y/o female with history of COPD, HTN, chronic diarrhea, recent admissions on 09/16/16 for gastroenteritis and in July for aspiration pneumonia who presented to the ED complaining of diarrhea, vomiting and worsening shortness of breath for the past few days. Admitted for evaluation and management of metabolic alkalosis, gastroenteritis and possible COPD exacerbation. Acute diagnosis 1. Hypokalemia, present on admission. Resolved -Likely secondary to diarrhea, vomiting. -Potassium 2.8 at presentation. -Received 40mEq of IV potassium in ED, IVFs -IVFs: NS w/20mEq potassium at 125mls/hr were also given: Maintenance fluids are stopped -Serial BMPs, replace lytes as needed. 2. Gastroenteritis, present on admission. Active. - Hx persistent diarrhea, prior C.diff and recent hospital admission for ETEC colitis, currently on ciprofloxacin/flagyl as outpatient. - Blood cultures and stool PCR ordered, pending : Negative C. difficile, positive for entered toxic Escherichia coli - Repeat CBC, CMP in AM -- Rereview: We started her ciprofloxacin, Flagyl antibiotics again as she was improving on these antibiotics Flagyl will protect her regular C. difficile recurrence -- Plan to complete her 5 day course that is left over from previous admission -- Loperamide PO with loose stools PRN- -- Discussed with Dr. Ayers yesterday whether he wanted any changes to her regimen prior to her follow-up with him on Monday next week. He states as long as her diarrhea is improving he will just see her as outpatient. -- Patient had a large bowel movement this a.m. and was stressed from it. -- Discharge was held to prepare patient better rehabilitation-type setting 3. Dehydration, present on admission. Active. - Secondary to #2 - Reassess volume status, consider decreasing rate with resolution of diarrhea and improved PO intake -- Labs indicate no concern for dehydration at this point, patient is encouraged to drink water -- Hep-Lock IV fluids 4. Possible COPD exacerbation, present on admission. Active. -Pt reports intolerance to steroids in the past, nightmares/agitation. -Duonebs q4h -- Advair instead of home medications Symbicort, Spiriva instead of her meds 5. Chronic lower extremity edema, present on admission. Active. -Pt notes prior Echo done at [facility], denies diagnosis of CHF. -Current med list includes: -Furosemide 20mg PO daily PRN for edema -Potassium Chloride 20mEq PO daily PRN with lasix -- Echocardiogram is ordered, shows some left atrial dilation grade 1 diastolic function Spiriva and DuoNeb 6. Essential tremor: Has worsened today -- Give 1 extra dose of propranolol without relief -- Give her 1 mg of clonazepam for jerking. This made patient very sleepy. ABG were drawn and that after making sure she is at baseline, 0.1 mg flumazenil IV is administered. Patient had a relief of symptoms. Asked the staff before pain meds and gabapentin for tonight. 7. Anemia of chronic disease: Patient has received iron infusions. O other chronic conditions, present on admission. Presumed stable. 1. Hypertension- BP on admission 136/70. Continue home lisinopril, propranolol. 2. Hyperlipidemia- continue home atorvastatin 3. Hypothyroidism- continue home Levothyroxine 4. Back pain- continue home oxycodone-acetaminophen and gabapentin CODE STATUS FULL CODE, however does not want intubation or ventilation Alternate decision-maker: Galen Schwab GI prophylaxis: PPI DVT prophylaxis: Sub Q heparin Disposition: Discharge patient home today Exam Vital Signs (Last) Date Time Temp Pulse Resp B/P Pulse Ox O2 Delivery O2 Flow Rate FiO2 10/03/16 15:03 80 18 96 Nasal Cannula 3.00 10/03/16 12:39 36.9 119/84 Exam General: Patient is in no apparent distress. HEENT: Head is atraumatic and normocephalic. Eyes: Pupils are equally round and reactive to light and accommodation. Extraocular muscles are intact. Sclera are white, anicteric. Subconjunctival mucosa is pink. Ears and nose are unremarkable. Oropharynx: There is no mucosal lesions, there is no thrush, there is no pharyngitis. Neck: Is supple, there are no nodes, or masses or tenderness. Chest: Is clear to auscultation and percussion. There are no rales, rhonchi, wheezes or rubs. Heart: Rate, rhythm is regular. There is no murmur, rub or gallop. Abdomen: Good bowel sounds are present. Abdomen is soft, nontender, no organomegaly or masses were appreciated. Extremities: Are symmetrical and well perfused. There is no edema, there is no cellulitis, no rash. Neurologic: There are no focal neurological deficits. Cranial nerves II through XII are intact. There are no sensory or motor deficits. Patient has no tremor. Psychiatric: Patients mood is calm and shows no sign of agitation. Genital: Deferred Rectal: Deferred Test 09/28/16 20:55 09/28/16 21:12 09/28/16 21:45 09/29/16 05:40 Magnesium Level 1.8mg/dL (1.6-2.6) Lipase 14U/L (13-60) Hold [place] Top Tube Received (Received) Hold Urine Received (Received) Urine Color Yellow (YELLOW) Urine Appearance Clear (CLEAR,HAZY) Urine pH 5.5 (5.0-8.0) Urine Specific [place] 1.005 (1.003-1.035) Urine Protein Negativemg/dL (NEG,TRACE) Urine Glucose (UA) Negativemg/dL (NEGATIVE) Urine Ketones Negativemg/dL (NEGATIVE) Urine Occult Blood Negative (NEGATIVE) Urine Nitrite Negative (NEGATIVE) Urine Bilirubin Negative (NEGATIVE) Urine Urobilinogen Normalmg/dL (NORMAL) Urine Leukocyte Esterase Negative (NEGATIVE) Urine RBC 0-2/hpf (0-2) Urine WBC 0-5/hpf (0-5) Urine Epithelial Cells Moderate/hpf (NONE-MOD) Urine Crystals None seen (NONE SEEN) Urine Bacteria None/hpf (NONE-FEW) Urine Hyaline Casts 5/20/lpf (NONE) Urine Granular Casts None seen (NONE SEEN) Urine Waxy Casts None seen (NONE SEEN) Urine Red Blood Cell Casts None seen (NONE SEEN) Urine White Blood Cell Casts None seen (NONE SEEN) Urine Mucus None seen (None Seen) Urine Trichomonas None seen (NONE SEEN) Urine Yeast None (NONE SEEN) Urinalysis Comment None Urine Culture Reflexed Not indicated Neutrophils (%) (Auto) 45.8% (40-74) Lymphocytes (%) (Auto) 41.2% (14-46) Monocytes (%) (Auto) 9.4% (4-12) Eosinophils (%) (Auto) 2.4% (0-5) Basophils (%) (Auto) 0.8% (0-3) Iron Level 24ug/dL (35-150) Total Iron Binding Capacity 217ug/dL (250-450) Percent Iron Saturation 11%sat (15-50) Unsaturated Iron Binding 192.8ug/dL Ferritin 173ng/mL (13-150) Troponin T < 0.010ug/L (0.0-0.011) Pro-B-Type Natriuretic Peptide 295.9pg/mL (0-738) Procalcitonin 0.09ng/mL (0.00-0.08) Test 10/01/16 06:17 10/03/16 05:20 Total Bilirubin 0.2mg/dL (0.0-1.2) Aspartate Amino Transf (AST/SGOT) 29U/L (0-50) Alanine Aminotransferase (ALT/SGPT) 14U/L (0-32) Alkaline Phosphatase 61U/L (25-165) Total Protein 5.9g/dL (6.4-8.4) Albumin 3.3g/dL (3.4-5.0) White Blood Count 3.5th/mm3 (3.8-10.1) Red Blood Count 3.03mil/mm3 (3.90-5.20) Hemoglobin 9.0g/dL (12.0-15.6) Hematocrit 30.7% (35.0-46.0) Mean Corpuscular Volume 101.3fL (81-100) Mean Corpuscular Hemoglobin 29.7pg (27.0-35.0) Mean Corpuscular Hemoglobin Concent 29.3% (32.0-37.0) Red Cell Distribution Width 15.0% (12.3-15.4) Platelet Count 284bil/L (150-400) Sodium Level 145mEq/L (134-144) Potassium Level 4.0mEq/L (3.5-5.2) Chloride Level 104mEq/L (97-108) Carbon Dioxide Level 30mmol/L (18-29) Blood Urea Nitrogen 6mg/dL (8-27) Creatinine 0.62mg/dL (0.57-1.00) Estimat Glomerular Filtration Rate 135mL/min (>59) Glucose Level 105mg/dL (60-99) Calcium Level 8.6mg/dL (8.5-10.1) Discharge Medications Discharge Medications Albuterol Neb Soln (Albuterol Neb Soln) 2.5 Mg/3 Ml Vial.neb 3 ML NEB QID ( Reported) Ascorbic Acid (Vitamin C) 250 Mg Tab.chew 500 MG PO QAM (Reported) Atorvastatin Calcium (Atorvastatin Calcium) 20 Mg Tablet 20 MG PO HS (Reported) Ciprofloxacin (Cipro) 500 Mg Tablet 500 MG PO BID Prescribed by: FLORI LU DO Ferrous Sulfate (Ferrous Sulfate) 325 Mg Tablet 325 MG PO DAILY (Reported) Fluticasone/Salmeterol (Advair 250-50 Diskus) 60 Puff/Inh Disk 1 PUFF INHALATION BID Prescribed by: COLT CASTANEDA MD Furosemide (Furosemide) 20 Mg Tab 20 MG PO QAM (Reported) Gabapentin (Gabapentin) 300 Mg Capsule 1,200 MG PO TID (Reported) Guaifenesin (Guaifenesin ER) 600 Mg Tab.er.12h 600 MG PO Q12 Prescribed by: COLT CASTANEDA MD Levothyroxine (Levothyroxine) 100 Mcg Tablet 100 MCG PO QAM (Reported) Lisinopril (Lisinopril) 20 Mg Tablet 20 MG PO QAM (Reported) Metronidazole (Flagyl) 500 Mg Tablet 500 MG PO BID Prescribed by: FLORI LU DO Omeprazole (Omeprazole) 20 Mg Capsule.dr 20 MG PO BIDWM (Reported) Polyethylene Glycol 3350 (Miralax) 17 Gm Powd.pack 17 GM PO QAM (Reported) Potassium Chloride (Potassium Chloride) 20 Meq Tab.er.prt 20 MEQ PO QAM ( Reported) Propranolol HCl (Propranolol HCl) 20 Mg Tablet 20 MG PO TID Prescribed by: TRAVIS KHANNA DO Saccharomyces Boulardii (Florastor) 250 Mg Capsule 250 MG PO BID Prescribed by: FLORI LU DO Sucralfate (Sucralfate) 1 Gm Tablet 1 GM PO QID (Reported) Tiotropium [place] (Spiriva) 18 Mcg Cap.w.dev 18 MCG INHALATION DAILY Prescribed by: COLT CASTANEDA MD As needed Albuterol HFA (Proair HFA) 8.5 Gm Hfa.aer.ad 1-2 PUFFS INH Q4H PRN PRN For Shortness of Breath (Reported) Loperamide (Loperamide) 2 Mg Capsule 2 MG PO Q6H PRN PRN For Diarrhea or Loose Stool Prescribed by: COLT CASTANEDA MD Ondansetron (Zofran) 4 Mg Tablet 4 MG PO Q4H PRN PRN For Nausea Prescribed by: FLORI LU DO oxyCODONE-Acetaminophen 5-325 mg (oxyCODONE-Acetaminophen 5-325 mg) 1 Each Tablet 1-2 TAB PO L2xkbcp PRN PRN For Pain (Reported) Followup Plan Disposition: Patient is being discharged home. Follow-up plan F/U with Dr. Terry on 10/05/16 as previously scheduled Please note changes to your COPD meds F/U with PCP in one week. F/U with GI for a colonoscopy in 2-3 weeks, stool guiac positive for blood during this visit, H&H is stable. F/U H&H prior to PCP appointment Discharge Diet: Low fat, Low Sodium, Heart Healthy Discharge Activity: No restrictions Follow-up Provider: Fabian Meek MD Follow-up with PCP in: 2 weeks Time spent Time spent on discharging this patient was greater than 35 minutes, over half of which was involved in counseling and coordination of care. Elder Castaneda MD Oct 04, 2016 01:34
== END 2016-10-03 16:26 | disposition home or self-care (01) | DRG 191 ==
LOC: SED 19:45 → MPC 22:38
PROVIDERS: ADMIT Family Medicine; ATTEND Family Medicine
PROC: 4A033B1 Measurement of Arterial Pressure, Peripheral, Percutaneous Approach (ICD-10-PCS; principal; 2016-09-29)
DX: J44.1 Chronic obstructive pulmonary disease with (acute) exacerbation (principal); A04.1 Enterotoxigenic Escherichia coli infection; I10 Essential (primary) hypertension; E87.6 Hypokalemia; E86.0 Dehydration; E78.5 Hyperlipidemia, unspecified; E03.9 Hypothyroidism, unspecified; H54.42 Blindness, left eye, normal vision right eye; G25.0 Essential tremor; G89.29 Other chronic pain; D63.8 Anemia in other chronic diseases classified elsewhere; K52.9 Noninfective gastroenteritis and colitis, unspecified; R60.9 Edema, unspecified; Z79.82 Long term (current) use of aspirin; Z88.0 Allergy status to penicillin; Z87.891 Personal history of nicotine dependence; Z79.51 Long term (current) use of inhaled steroids; Z99.81 Dependence on supplemental oxygen

== ENCOUNTER 2016-12-19 12:11 | Inpatient (IN) | payer MEDICARE, OTHER, MEDICAID ==
[~2016-12-19] VITALS: Ht 162.6 cm; Wt 93.5 kg
[2016-12-19] VITALS (12 sets, daily range): BP systolic 88–128; BP diastolic 50–78; PULSE 97–114; RESP 14–23; O2SAT 81–99
[~2016-12-19 12:11] MED LIST changes: +ADV250INH INHALATION; -ARFO15VI2 NEB; +ASCO250T7 PO; -ASPI-1148 PO; -BUDE0.5A NEB; +FERR-83 PO; +GUAI600T86 PO; +Heparin 25,000 Unit/500 mL 0.45% NS Premix IV ONE; +Heparin 5,000 Unit/mL Inj ONE; -IPRA0.2S51 NEB; +LOPE2CAP PO; +MeTOProlol 1 mg/mL 5 mL Inj ONE; +Nitroglycerin 2% 1 Gm Ointment TOPICAL ONE; +Nitroglycerin 50,000 mcg/250 mL D5W Premix IV ONE; +Ondansetron 2 mg/mL 2 mL Inj ONE; +TIOT18CA3 INHALATION; +Tirofiban 12.5 mg/250 mL NS Premix IV ONE
--- NOTE | 2016-12-19 12:12 | ED.REPORT ---
HPI-Chest Pain 40 and Over Date of Service Dec 19, 2016 ED Provider: Mireille Castillo MD Patient is a 76 year old female with a hx of HTN, COPD, CVA, Atrial septal aneurysm, and cervical cancer who presents to the ED via EMS complaining of L sided abdominal pain onset last night. Associated symptoms include vomiting, weakness resulting in falling 3 times and hitting her head once, and chest pain onset en route. Per medics, she had an O2 sat in to high 80's at home with 3L of oxygen. She denies fever, diarrhea, or any other symptoms. Medics also report that she is seen frequently for chronic nausea, abdominal pain, and weakness. She is not on blood thinners. Patient is a poor historian. Nursing Notes Stated Complaint: STEMI Nursing Notes Reviewed: Yes Allergies: Coded Allergies: Penicillins (Verified Allergy, Severe, rash, 07/06/16) sulfamethoxazole (Verified Allergy, Severe, PARADI TENDER toxicity, 07/06/16) trimethoprim (Verified Allergy, Severe, PARADI TENDER toxicity, 07/06/16) dexamethasone (Verified Allergy, Intermediate, 07/06/16) insomnia, nightmares, nasuea and visual changes hydrochlorothiazide (Verified Allergy, Intermediate, Rash,Itching,, ) Uncoded Allergies: sulfamethoxazole-trimethoprim (Allergy, Intermediate, Hallucinations, ) Scheduled Albuterol Neb Soln (Albuterol Neb Soln) 2.5 Mg/3 Ml Vial.neb 3 ML NEB QID Ascorbic Acid (Vitamin C) 250 Mg Tab.chew 500 MG PO QAM Atorvastatin Calcium (Atorvastatin Calcium) 20 Mg Tablet 20 MG PO HS Ciprofloxacin (Cipro) 500 Mg Tablet 500 MG PO BID Ferrous Sulfate (Ferrous Sulfate) 325 Mg Tablet 325 MG PO DAILY Fluticasone/Salmeterol (Advair 250-50 Diskus) 60 Puff/Inh Disk 1 PUFF INHALATION BID Furosemide (Furosemide) 20 Mg Tab 20 MG PO QAM Gabapentin (Gabapentin) 300 Mg Capsule 1,200 MG PO TID Guaifenesin (Guaifenesin ER) 600 Mg Tab.er.12h 600 MG PO Q12 Levothyroxine (Levothyroxine) 100 Mcg Tablet 100 MCG PO QAM Lisinopril (Lisinopril) 20 Mg Tablet 20 MG PO QAM Metronidazole (Flagyl) 500 Mg Tablet 500 MG PO BID Omeprazole (Omeprazole) 20 Mg Capsule.dr 20 MG PO BIDWM Polyethylene Glycol 3350 (Miralax) 17 Gm Powd.pack 17 GM PO QAM Potassium Chloride (Potassium Chloride) 20 Meq Tab.er.prt 20 MEQ PO QAM Propranolol HCl (Propranolol HCl) 20 Mg Tablet 20 MG PO TID Saccharomyces Boulardii (Florastor) 250 Mg Capsule 250 MG PO BID Sucralfate (Sucralfate) 1 Gm Tablet 1 GM PO QID Tiotropium [place] (Spiriva) 18 Mcg Cap.w.dev 18 MCG INHALATION DAILY Scheduled PRN Albuterol HFA (Proair HFA) 8.5 Gm Hfa.aer.ad 1-2 PUFFS INH Q4H PRN PRN For Shortness of Breath Loperamide (Loperamide) 2 Mg Capsule 2 MG PO Q6H PRN PRN For Diarrhea or Loose Stool Ondansetron (Zofran) 4 Mg Tablet 4 MG PO Q4H PRN PRN For Nausea oxyCODONE-Acetaminophen 5-325 mg (oxyCODONE-Acetaminophen 5-325 mg) 1 Each Tablet 1-2 TAB PO H0iqgqm PRN PRN For Pain General Time Seen by MD: 12:11 Chief Complaint Other (Abdominal pain) Hx Obtained From: Patient, EMS Arrived By: Ambulance Sudden in Onset?: Yes Onset Occurred: Yesterday Symptom Duration: Since onset Risk Factors )( CAD Risk Stratification Hypertension Risk factors reviewed )( TAD Risk Stratification HypertensionNo High intensity wt lifting, No Risk factors reviewed )( PE Risk Stratification No , No , No Previous PE Risk factors reviewed Past Medical History Past Medical History Notes: Code Status: Full Code Medication List per Discharge Note dated 04/20/16 from [facility]: Amlodipine 5mg daily Albuterol 2 puffs q 4 hours prn SOB Gabapentin 300mg 2 tabs tid Brovana 1 vial nebulized bid Atorvastatin 20mg q PM Pulmicort nebs bid Vitamin D 4000 international units daily Duloxetine 30mg q PM Fish Oil 1 tab daily Flaxseed Oil 1 tab daily Ipratropium neb solution qid daily Levothyroxine 100mcg daily Omeprazole 20mg bid Zofran 4mg tablet q 8 hours prn nausea, vomiting Oxycodone 5/325, 1 to 2 tablets every 4 hours prn pain Miralax 17 grams in 8oz water daily Propranolol 20mg tid Zolpidem 5 to 10mg nightly prn insomnia Past Medical History Chronic back pain Atrial septal anuerysm 2006 COPD HTN Skin and cervical cancer Reports: GERD, Stroke Reports: Thyroid disease Past Surgical History back surgeries x2 Shoulder surgery x2 R hand Reports: Hysterectomy Smoking History Former Smoker Social History Other Social History: Good social support, Lives alone Ambulatory Status Independent Review of Systems Review of Systems Note: +multiple falls Constitutional: Reports: Weakness - generalized, Denies: Fever Cardiovascular: Reports: Chest pain GI: Reports: Abdominal pain, Vomiting, Denies: Diarrhea Complete sys rev & neg: except as marked. Physical Exam Initial Vital Signs Vital Signs (First) Date Time Temp Pulse Resp B/P Pulse Ox O2 Delivery O2 Flow Rate FiO2 12/19/16 12:11 36.2 105 23 88/50 98 Room Air 12/19/16 12:21 2 Initial VS: Reviewed Neck: Full range of motion Skin: Warm, Dry Psychiatric: Mood/affect normal, Behavior normal, Normal thought content General/Constitutional: Awake, Well developed Respiratory / Chest: Breath sounds NL, Breath sounds = bilat, No respiratory distress Cardiovascular: No murmurs Poor peripheral perfusion with cold toes Reasonable cap refill occasional irreg heartbeat Abdomen: Soft Tender over LLQ, hyperactive bowel sounds Neurologic: Oriented X3 Speech hard to understand Head / Eyes: Normocephalic Hematoma over L eyebrow Mouth: Positive: Mucous membranes dry Interpretation & Diagnostics Lab Results Interpretation Result Diagram: 12/19/16 1235 12/19/16 1235 Test 12/19/16 12:35 12/19/16 12:46 12/19/16 14:11 White Blood Count 11.0th/mm3 (3.8-10.1) Red Blood Count 4.04mil/mm3 (3.90-5.20) Hemoglobin 12.6g/dL (12.0-15.6) Hematocrit 39.6% (35.0-46.0) Mean Corpuscular Volume 98.0fL (81-100) Mean Corpuscular Hemoglobin 31.2pg (27.0-35.0) Mean Corpuscular Hemoglobin Concent 31.8% (32.0-37.0) Red Cell Distribution Width 13.6% (12.3-15.4) Platelet Count 250bil/L (150-400) Neutrophils (%) (Auto) 73.4% (40-74) Lymphocytes (%) (Auto) 13.5% (14-46) Monocytes (%) (Auto) 12.2% (4-12) Eosinophils (%) (Auto) 0.1% (0-5) Basophils (%) (Auto) 0.4% (0-3) Sodium Level 141mEq/L (134-144) Potassium Level 4.2mEq/L (3.5-5.2) Chloride Level 99mEq/L (97-108) Carbon Dioxide Level 18mmol/L (18-29) Blood Urea Nitrogen 39mg/dL (8-27) Creatinine 1.34mg/dL (0.57-1.00) Estimat Glomerular Filtration Rate 55mL/min (>59) Glucose Level 137mg/dL (60-99) Calcium Level 9.9mg/dL (8.5-10.1) Magnesium Level 2.3mg/dL (1.6-2.6) Total Bilirubin 0.5mg/dL (0.0-1.2) Aspartate Amino Transf (AST/SGOT) 18U/L (0-50) Alanine Aminotransferase (ALT/SGPT) 11U/L (0-32) Alkaline Phosphatase 144U/L (25-165) Troponin T < 0.010ug/L (0.0-0.011) Total Protein 6.6g/dL (6.4-8.4) Albumin 3.7g/dL (3.4-5.0) Procalcitonin 0.08ng/mL (0.00-0.08) Urine Color Yellow (YELLOW) Urine Appearance Clear (CLEAR,HAZY) Urine pH 5.0 (5.0-8.0) Urine Specific [place] 1.015 (1.003-1.035) Urine Protein Negativemg/dL (NEG,TRACE) Urine Glucose (UA) Negativemg/dL (NEGATIVE) Urine Ketones Negativemg/dL (NEGATIVE) Urine Occult Blood Negative (NEGATIVE) Urine Nitrite Negative (NEGATIVE) Urine Bilirubin Negative (NEGATIVE) Urine Urobilinogen Normalmg/dL (NORMAL) Urine Leukocyte Esterase Negative (NEGATIVE) Urine RBC 0-2/hpf (0-2) Urine WBC 0-5/hpf (0-5) Urine Epithelial Cells Occasional/hpf (NONE-MOD) Urine Crystals None seen (NONE SEEN) Urine Bacteria Few/hpf (NONE-FEW) Urine Hyaline Casts 5/20/lpf (NONE) Urine Granular Casts None seen (NONE SEEN) Urine Waxy Casts None seen (NONE SEEN) Urine Red Blood Cell Casts None seen (NONE SEEN) Urine White Blood Cell Casts None seen (NONE SEEN) Urine Mucus None seen (None Seen) Urine Trichomonas None seen (NONE SEEN) Urine Yeast None (NONE SEEN) Urinalysis Comment None Urine Culture Reflexed Not indicated Hold Urine Received (Received) Lactic Acid Level 1.3mmol/L (0.4-2.0) ECG Interpretation ECG Interpretation: sinus tachy with a rate of 104 Incomplete RBBB Similar to 08/07/16 No ischemia Time: 13:26 Interpreted by: ED physician X-Ray Chest Interpretation Chest Xray Interpretation: IMPRESSION: Stable elevation of the right hemidiaphragm causing right basal atelectasis. Large esophageal hiatal hernia. Dictated by: Zack Tan M.D. on 12/19/2016 at 13:00 Approved by: Zack Tan M.D. on 12/19/2016 at 13:02 View: Portable, 1 view Interpretation / Wet Read by: Interpret - Radiologist Discharge & Departure Shift Change Sign-Out Patient Care Transferred: Yes Discussed Complaint(s): Yes Laboratory Evaluation: Back, reviewed by me Imaging Studies: Done, await radiologist Transfer of care Dr. Wills at 1500 Primary Impression: Weakness Additional Impression: Abdominal pain Abdominal location: unspecified location Qualified Code: R10.9 - Unspecified abdominal pain Discharge Condition All VS Reviewed: Yes Condition: Stable Referrals: Fabian Meek MD (PCP) Care Transferred to: Dr. Wills Care Transferred at: 15:00 Scribe Attestation Portions of this note were transcribed by Kimmie Sanabria. I, Dr. Castillo personally performed the history, physical exam and medical decision-making; I reviewed and confirmed the accuracy of the information in the transcribed note. Signed by: Kimmie Sanabria 12/19/16, 1458 Mireille Castillo MD Dec 19, 2016 12:12 KMIMIE SANABRIA Dec 19, 2016 12:34
[2016-12-19 12:40] LABS: BASOPHILS % (AUTO) 0.4 % (0-3); EOSINOPHILS % (AUTO) 0.1 % (0-5); MONOCYTES % (AUTO) 12.2 % (4-12); Mean Corpuscular Hemoglobin 31.2 pg (27.0-35.0); NEUTROPHILS % (AUTO) 73.4 % (40-74); Platelet Count 250 bil/L (150-400)
--- NOTE | 2016-12-19 13:03 | DRSVH ---
PROCEDURE: X-RAY CHEST ONE VIEW, PORTABLE ([id number]) INDICATIONS: CHEST PAIN TECHNIQUE: One view of the chest was acquired. COMPARISON: [facility], CR, XR CHEST 1VW (PORTABLE), 09/28/2016, 21:48. FINDINGS: Surgical changes and devices: None. Lungs and pleura: Elevation of the right hemidiaphragm causing right basilar atelectasis. Mediastinum: Mediastinal contours appear normal. Heart size is normal. Retrocardiac mass containin g gas consistent with a hiatal hernia. Bones and chest wall: No suspicious bony lesions. Overlying soft tissues appear unremarkable. IMPRESSION: Stable elevation of the right hemidiaphragm causing right basal atelectasis. Large esopha geal hiatal hernia. Dictated by: Zack Tan M.D. on 12/19/2016 at 13:00 Approved by: Zack Tan M.D. on 12/19/2016 at 13:02
[2016-12-19 13:15] LABS: Magnesium 2.3 mg/dL (1.6-2.6)
[2016-12-19 13:18] LABS: TROPONIN T < 0.010 ug/L (0.0-0.011)
[2016-12-19] MEDS ORDERED: 0.9% Sodium Chloride 1,000 ML IV ONE (13:50)
[2016-12-19] MEDS ORDERED: cefTRIAXone Inj 2,000 MG in Dextrose 5% Minibag Plus 50 ML IV ONE ×2 (13:50→18:05)
[2016-12-19] MEDS ORDERED: metroNIDAZOLE Inj 500 MG in IV Premix 1 EACH IV ONE ×2 (13:50→18:05)
[2016-12-19 14:53] LABS: APPEARANCE,URINE CLEAR (CLEAR,HAZY); COLOR,URINE YELLOW (YELLOW)
[2016-12-19 14:54] LABS: OCCULT BLOOD,URINE NEGATIVE (NEGATIVE); UROBILINOGEN,URINE NORMAL (NORMAL)
--- NOTE | 2016-12-19 15:05 | DRSVH ---
PROCEDURE: CT ABDOMEN AND PELVIS WITH CONTRAST ([id number]) INDICATIONS: LLQ abdominal pain TECHNIQUE: After the administration of intravenous contrast, 5 mm thick sections acquired from the diaphragm to the symphysis. 5 mm coronal and sagittal reformats were acquired. For radiation dose reduction, the following was used: automated exposure control, adjustment of mA and/or kV according to patient siz e. COMPARISON: CT abdomen and pelvis 09/18/2016, 07/06/2016 FINDINGS: Image quality: Excellent. ABDOMEN: Lung bases: Right lower lobe consolidation with air bronchograms, nonspecific but compatible with asp iration/pneumonia. Associated small pleural effusion. Atelectasis is evident at the left lung base po steromedially, associated with small pleural reaction. Large hiatal hernia again noted. Solid organs: Liver and spleen are normal in size and enhancement. Gallbladder is fluid distended a nd may contain small dependent stones.. Biliary system is mildly dilated including intrahepatic radi cles, no obstructing stone or mass seen.. Pancreas enhances normally. No adrenal nodules. Kidneys demonstrate normal size and enhancement, without hydronephrosis. Bilateral renal cysts and a 5 mm non obstructing calculus in the left kidney again noted. Peritoneum and bowel: Small bowel loops appear normal in caliber as does the ascending colon. The mid to distal transverse colon and the descending colon proximal to an area of wall thickening throughou t the proximal sigmoid colon is suggestive of mild obstruction. There is a mild degree of diverticulo sis in the sigmoid colon raising possibility of diverticulitis although colitis or less likely ischem ic disease could be responsible. Trace free fluid is present in the region. Nodes and vessels: No retroperitoneal or mesenteric adenopathy by size criteria. Atheromatous aorta is mildly aneurysmal as before. Patent inferior vena cava is normal in size. Miscellaneous: No ventral hernias. PELVIS: Genitourinary: Bladder is decompressed around a Ramírez catheter Miscellaneous: No inguinal hernias or adenopathy. Bones: S-shaped thoracolumbar scoliosis with multilevel disc disease and spondylosis. No suspicious bony lesions. No vertebral body compression fractures. IMPRESSION: 1. A mild degree of colonic obstruction is suggested emanating from an area of nonspecific sigmoid in flammation. 2. Mild dilatation of the biliary system is unchanged, correlation with liver function tests suggeste d. 3. Bilateral lower lobe consolidation and pleural reaction, right greater than left. Correlate clinic ally for possible pneumonia. 4. Bilateral renals cysts and left nephrolithiasis is unchanged. 5. 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 6. Ramírez catheter in place. Dictated by: José Miguel Forrest M.D. on 12/19/2016 at 14:52 Approved by: José Miguel Forrest M.D. on 12/19/2016 at 15:03
[2016-12-19] MEDS ORDERED: Azithromycin Inj 500 MG in Dextrose 5% 250 ML IV ONE (16:40)
[2016-12-19] MEDS ORDERED: OXYC1TAB24 PO (17:13)
[2016-12-19] MEDS ORDERED: LISI10TA PO (17:26)
[2016-12-19] MEDS ORDERED: PROP40TA5 PO (17:26)
[2016-12-19] MEDS ORDERED: 0.9% Sodium Chloride 500 ML IV ONE (17:40)
--- NOTE | 2016-12-19 18:40 | DRSVH ---
PROCEDURE: CT BRAIN WITHOUT CONTRAST ([id number]) INDICATIONS: head trauma TECHNIQUE: Noncontrast 4.5 mm thick angled axial sections acquired from the foramen magnum to the vertex, with c oronal reformats. COMPARISON: [facility], CT, BRAIN W/O CONTRAST, 09/12/2009, 20:17. FINDINGS: Image quality: Excellent. CSF spaces: Basal cisterns are patent. No extra-axial fluid collections. The ventricles are symmet nicolasa in size and shape. Brain: No intracranial bleeds or masses. There is cerebral volume loss for age, with resultant vent ricular and sulcal prominence. There are periventricular and deep white matter chronic small vessel ischemic changes. There is intracranial internal carotid artery atherosclerosis. Skull and face: Calvarium and visualized facial bones appear intact, without suspicious lesions. Sinuses: Visualized sinuses and mastoids are clear. IMPRESSION: 1. No acute intracranial process. 2. Moderate atrophy and chronic microvascular ischemic changes. Dictated by: Tammy Corona M.D. on 12/19/2016 at 18:37 Approved by: Tammy Corona M.D. on 12/19/2016 at 18:38
[2016-12-19] MEDS ORDERED: Alum-Mag Hydrox-Simeth 30 mL Suspension PO PRN ×2 (18:50→19:15)
[2016-12-19] MEDS ORDERED: Ondansetron 2 mg/mL 2 mL Inj IVPUSH PRN (18:50)
[2016-12-19] MEDS ORDERED: Heparin 25K Unit/500mL 0.45 NS 25,000 UNIT in IV Premix 1 EACH IV ONE (18:50)
[2016-12-19] MEDS ORDERED: Heparin 5,000 Unit/mL Inj IVPUSH ONE (18:50)
[2016-12-19] MEDS ORDERED: Polyethylene Glycol (PEG) 17 Gm Powder PO PRN (19:15)
[2016-12-19] MEDS ORDERED: Heparin 25K Unit/500mL 0.45 NS 25,000 UNIT in IV Premix 1 EACH IV SCH (20:10)
--- NOTE | 2016-12-19 21:11 | PCM.HPMED ---
Subjective Date of Service Dec 19, 2016 Primary Provider: Admitting Physician: Ирина Tucker DO Primary Care Physician: Fabian Meek MD Attending Physician: Ирина Tucker DO Admit Status: From the Emergency Department Chief Complaint: Patient is a 76yom with MHx significant for COPD, hypothyroidism, chronic diarrhea, and essential tremor with chief complaint of "wobbly legs" History of Present Illness: Patient unreliable historian, consistently changes stories. Per patient, states while standing up from the toilet, felt weak to the knees, and fall, hitting her left side. Patient denies any loss of consciousness, chest pain, lightheadedness, or dizziness preceding or after the event. She then, yelled for help from a next door construction tech, which activated EMS. Patient denies any fevers, chills, night sweats, nor does she have any increasing cough or sputum production. Patient states that she has adequate fluid take, likes to drink water. Though, patient does states significant nausea and vomiting for the past 24 hours. She states vomiting once last night , and once more this morning. Possible, she also admits to vomiting while in bed. A deviation from patient story, her granddaughter Jeanne who lives with the patient states that patient had little to eat yesterday morning, sat outside for about 4-6 hours and enjoying the hot weather. As patient felt weak, she was brought inside where she had a near syncopal episode. Water was given and patient gradually felt better. Patient went to bed without any incident per her granddaughter's knowledge. In the ED, patient reported significant abdominal pain, thus triggering the abdominal pelvis CT with contrast, and then later told everyone that she had significant pleuritic chest pain. Initial vitals were temperature 36.2, HR 105 , respiratory rate 23, BP 88/50, pulse ox 98% on room air. Lab values significant for WBC 11 K and BUN/creatinine 39/1.34, elevated from baseline Cr 0.62. Additionally d-dimer 2.26 significant elevated. Heparin PE protocol initiated, in addition to patient receiving 2 L of fluid plus antibiotics covering possible community-acquired and aspiration pneumonia. It was initially planned for patient to be in the CCU considering her soft blood pressure, however gradually improved with fluids and admitted to PCC for possible PE and FARHAT. Review of Systems: A comprehensive review of systems was conducted with the patient and found to be negative except as above in the History of Present Illness. Allergies Coded Allergies: Penicillins (Verified Allergy, Severe, rash, 07/06/16) sulfamethoxazole (Verified Allergy, Severe, SUBWAY GUARD toxicity, 07/06/16) trimethoprim (Verified Allergy, Severe, SUBWAY GUARD toxicity, 07/06/16) dexamethasone (Verified Allergy, Intermediate, 07/06/16) insomnia, nightmares, nasuea and visual changes hydrochlorothiazide (Verified Allergy, Intermediate, Rash,Itching,, ) ciprofloxacin (Verified Allergy, Unknown, 12/19/16) Uncoded Allergies: sulfamethoxazole-trimethoprim (Allergy, Intermediate, Hallucinations, ) Home Medications Her medical reconciliation nurse Albuterol HFA 2 puffs every 4 hours when necessary albuterol nebulizer 3 mL twice a day Ascorbic acid 500 mg daily Lasix 20 mg by mouth at bedtime Ferrous sulfate 325 mg by mouth every morning Advair 250/50 50 Diskus 1 puff twice a day Furosemide 20 mg daily Gabapentin 900 mg twice a day Level thyroxine 100 MCG daily Lisinopril 10 mg daily Loperamide 2 mg every 6 hours when necessary for diarrhea Omeprazole 20 mg twice a day Ondansetron every 4 hours when necessary for nausea Oxycodone APAP 10/26/2024 3 times a day as needed MiraLAX qd when necessary Propranolol 40 mg by mouth 3 times a day Carafate 1 g 3 times a day Spiriva 18 MCG qd PMH Basal cell carcinoma of eyelid s/p Mohs surgery 2012 COPD History of cervical cancer status post hysterectomy 1981 History of TIA 2006 Patent foraminal [place] 07/18/2013 Hypertension Hypercholesterolemia Hypothyroidism GERD Hiatal hernia Essential tremor Surgical History Mohs surgery 2013 Hysterectomy 1991 Back surgery 2 Cataract surgery bilaterally 2011 Vascular surgery Family History Paternal grandmother with breast cancer Social History Hx Alcohol Use: No Hx Substance Use: No Smoking Status: Former Smoker ([id number]) Living Arrangement: with Family (granddaughter Jeanne, son lives right next door) Exam Vital Signs Vital Sign - Last Date Time Temp Pulse Resp B/P Pulse Ox O2 Delivery O2 Flow Rate FiO2 12/19/16 20:20 37.6 113 19 127/76 81 Nasal Cannula 12/19/16 19:49 2 Exam General: No acute distress, appropriately interactive, mildly confused HEENT: Normocephalic, atraumatic. PERRLA, EOMI, Anicteric sclerae, moist conjunctivae. Neck: No JVD, No bruits. No lymphadenopathy or thyromegaly. Cardiovascular: Tachycardic, regular rhythm with no murmurs, rubs, or gallops appreciated, producible chest pain around his left para sternal area. Pulmonary: b/l air sound with no crackles, wheezes, or rhonchi. no use of accessory muscles. Abdomen: +Bowel sound, Soft, nondistended, tenderness along the right upper and lower quadrant, including the epigastric, no rebound tenderness : Ramírez catheter in place Extremities: No clubbing or cyanosis, no lymphedema, no b/l lower leg edema Skin: Normal temperature,texture; no rash. No visualized skin ulcer. Decreased skin turgor Neurological: CN II-VII grossly intact, moving equally on all 4 extremities, heel to lester test negative, Psychiatric: Normal mood and affect. AOx3 Lab and Diagnostics Labs D-dimer 2.26 Result Diagram: 12/19/16 1235 12/19/16 1235 X-Rays, CTs and MRIs PROCEDURE: CT BRAIN WITHOUT CONTRAST ([id number]) INDICATIONS: head trauma IMPRESSION: 1. No acute intracranial process. 2. Moderate atrophy and chronic microvascular ischemic changes. Dictated by: Tammy Corona M.D. on 12/19/2016 at 18:37 PROCEDURE: CT ABDOMEN AND PELVIS WITH CONTRAST ([id number]) INDICATIONS: LLQ abdominal pain IMPRESSION: 1. A mild degree of colonic obstruction is suggested emanating from an area of nonspecific sigmoid inflammation. 2. Mild dilatation of the biliary system is unchanged, correlation with liver function tests suggested. 3. Bilateral lower lobe consolidation and pleural reaction, right greater than left. Correlate clinically for possible pneumonia. 4. Bilateral renals cysts and left nephrolithiasis is unchanged. 5. 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 6. Ramírez catheter in place. Dictated by: José Miguel Forrest M.D. on 12/19/2016 at 14:52 PROCEDURE: X-RAY CHEST ONE VIEW, PORTABLE ([id number]) IMPRESSION: Stable elevation of the right hemidiaphragm causing right basal atelectasis. Large esophageal hiatal hernia. Dictated by: Zack Tan M.D. on 12/19/2016 at 13:00 Assessment & Plan Patient is a 76yom with MHx significant for COPD, hypothyroidism, chronic diarrhea, and essential tremor had a ground level fall, admitted for possible PE and FARHAT. FARHAT, present admission, active - Likely dehydration, possible rhabdo? - Hydrate with NS 100 cc/hr - Ordered CK - Abstain from nephrotoxic meds Elevated D-dimer, present on admission, active - possible PE as her Wells' score 6 or 16% risk, plus d-dimer 2.2 - Cont heparin drip from ED - Held off CT-angio till at least tomorrow as patient received contrast for CT abd/pelvis today - Hydrate her as above give high risk of contrast induced nephropathy Aspiration pneumonia, present on admission, active - She reportedly had significant vomiting with slight WBC up-tick, and CT-abd showing R>L consolidation at the bases possible pna. Low threshold to start abx given history of COPD - Cont ceftriaxone and metronidazole. - stop abx if procal negative and no signs of infections - Labs blood, MRSA screening, PCR respiratory, Urine antigen strep and legionella ordered Ground level fall, present on admission, stable - likely deconditioning plus dehydration in the setting of essential tremors - Echocardiogram (09/29/2016) mild LV hypertrophy with EF 60-65%. - CT-head unremarkable for any acute pathologies. - Low threshold to rescan in 24hr with any neurological changes - Physical therapy ordered - Acetaminophen and home oxycodone 5/325mg Chronic hypoxemic respiratory failure, present on admission, stable - Nasal cannula titrate to O2 sat of 89-92% Chest pain, present on admission, stable - EKG unremarkable for any acute ischemic changes - Troponin T negative 2 - Likely secondary to trauma Chronic Conditions Hypertension with hypertensive heart - Echo as above - Holding lisinopril 10 mg in the setting of FARHAT Hypothyroidism - TSH ordered GERD - Hiatal hernia demonstrate on CRX - PPI Dyslipidemia - Continue atorvastatin Essential tremors - restart propranolol at 1/2 dose given soft blood pressure Chronic back pain - Restart gabapentin and also oxycodone Patient Status: Patient is admitted under inpatient status with expected length of stay GREATER than 2 midnights due to severity of presenting symptoms, risk of adverse event, and complexity of treatment plan. Resuscitation Status: DNR/DNI:Do Not Resuscitate/Intubate Attending Statement The patient was seen and examined together with house staff on 12/19/2016 and I agree with the history, exam and plan as outlined in the note above. Jordan Beckett DO Dec 19, 2016 21:11 Ирина Tucker DO Dec 20, 2016 04:44
[2016-12-19] MEDS: oxyCODONE-Acetamin 5-325 mg Tablet PO PRN (21:56)
[2016-12-19] MEDS: 0.9% Sodium Chloride 1,000 ML IV SCH (21:57)
[2016-12-19] MEDS: metroNIDAZOLE Inj 1,000 MG in IV Premix 1 EACH IV SCH (21:57)
[2016-12-20] VITALS (12 sets, daily range): BP systolic 92–120; BP diastolic 47–76; PULSE 61–95; RESP 16–22; O2SAT 92–99
[2016-12-20 02:36] LABS: BASOPHILS % (AUTO) 0.4 % (0-3); EOSINOPHILS % (AUTO) 0.3 % (0-5); MONOCYTES % (AUTO) 9.2 % (4-12); Mean Corpuscular Hemoglobin 31.8 pg (27.0-35.0); NEUTROPHILS % (AUTO) 75.2 % (40-74); Platelet Count 208 bil/L (150-400)
[2016-12-20] MEDS: Albuterol-Ipratropium 3 mL Inhalation Solution NEB PRN ×3 (05:49→19:58)
[2016-12-20] MEDS: oxyCODONE-Acetamin 5-325 mg Tablet PO PRN ×3 (05:56→20:51)
--- NOTE | 2016-12-20 07:00 | NUR ---
Admission Pt arrived from ER to PCU # [id number] approx at 2014. Admission assessment and screening completed by the admit RN. Heparin gtt was initiated in ER. PTT supra-therapeutic x 1. Gtt managed per DVT protocol. VSS. No overt complications noted.
[2016-12-20] MEDS ORDERED: cefTRIAXone Inj 1,000 MG in Dextrose 5% Minibag Plus 50 ML IV SCH (08:30)
[2016-12-20] MEDS: 0.9% Sodium Chloride 1,000 ML IV SCH ×3 (09:05→20:12)
[2016-12-20] MEDS: Ondansetron 2 mg/mL 2 mL Inj IVPUSH PRN ×2 (09:34→17:51)
[2016-12-20] MEDS: Pantoprazole 20 mg ER24 Tablet PO SCH (10:28)
[2016-12-20] MEDS: metroNIDAZOLE Inj 1,000 MG in IV Premix 1 EACH IV SCH (10:28)
--- NOTE | 2016-12-20 17:11 | PCM.PNMED ---
Subjective Date of Service Dec 20, 2016 Subjective Patient was admitted last night for possible PE and aspiration pneumonia. No event overnight. Today, patient complains of generalized body ache and left frontal headache due the fall injury. She hit her left eye to the sink. She admits to chronic back pain that requires opioids regularly. She also admits to dyspnea, especially with exertion. She denies any chest pain, cough, nausea, vomiting, fever, or chills. Exam Vital Signs Vital Sign - Last Date Time Temp Pulse Resp B/P Pulse Ox O2 Delivery O2 Flow Rate FiO2 12/20/16 05:50 88 22 92 Nasal Cannula 3.00 12/20/16 02:05 37.2 92/57 112/64 Intake and Output 12/19/16 12/19/16 12/20/16 Cumulative From/Thru 15:00 23:00 07:00 12/19/16 12:11 - 12/20/16 06:36 Intake Total 1700 ml 500 ml 1152 ml 3352 ml Output Total 1000 ml 800 ml 1800 ml Balance 1700 ml -500 ml 352 ml 1552 ml Intake Oral 100 ml 100 ml IV Total 1700 ml 500 ml 1052 ml 3252 ml Output Urine Total 1000 ml 800 ml 1800 ml # Bowel Movements 0 0 Exam General: Lying in bed and in mild discomfort, appropriately interactive. HEENT: Normocephalic, atraumatic. Left periorbital hematoma. PERRLA, EOMI, Anicteric sclerae, moist conjunctivae. Neck: No JVD, No bruits. No lymphadenopathy or thyromegaly. Cardiovascular: Regular rate and rhythm with no murmurs, rubs, or gallops appreciated, producible chest pain around his left para sternal area. Pulmonary: b/l air sound with no crackles, wheezes, or rhonchi. No use of accessory muscles. Abdomen: +Bowel sound, Soft, nondistended, tenderness along the right upper and lower quadrant, including the epigastric, no rebound tenderness Extremities: No clubbing or cyanosis, no lymphedema, trace bilateral lower leg edema Skin: Normal temperature,texture; no rash. No visualized skin ulcer. Decreased skin turgor Neurological: CN II-VII grossly intact, moving equally on all 4 extremities, sensation grossly intact, heel to lester test negative. Psychiatric: Normal mood and affect. AOx3 IVs and Medications Medications Reviewed: Medications were reviewed in detail Lab and Diagnostics Result Diagram: 12/20/1621912/20/16219 X-Rays, CTs and MRIs PROCEDURE: CT BRAIN WITHOUT CONTRAST ([id number]) INDICATIONS: head trauma IMPRESSION: 1. No acute intracranial process. 2. Moderate atrophy and chronic microvascular ischemic changes. Dictated by: Tammy Corona M.D. on 12/19/2016 at 18:37 PROCEDURE: CT ABDOMEN AND PELVIS WITH CONTRAST ([id number]) INDICATIONS: LLQ abdominal pain IMPRESSION: 1. A mild degree of colonic obstruction is suggested emanating from an area of nonspecific sigmoid inflammation. 2. Mild dilatation of the biliary system is unchanged, correlation with liver function tests suggested. 3. Bilateral lower lobe consolidation and pleural reaction, right greater than left. Correlate clinically for possible pneumonia. 4. Bilateral renals cysts and left nephrolithiasis is unchanged. 5. 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 6. Ramírez catheter in place. Dictated by: José Miguel Forrest M.D. on 12/19/2016 at 14:52 PROCEDURE: X-RAY CHEST ONE VIEW, PORTABLE ([id number]) IMPRESSION: Stable elevation of the right hemidiaphragm causing right basal atelectasis. Large esophageal hiatal hernia. Dictated by: Zack Tan M.D. on 12/19/2016 at 13:00 Assessment & Plan Patient is a 76yom with MHx significant for COPD, hypothyroidism, chronic diarrhea, and essential tremor had a ground level fall, admitted for possible PE and FARHAT. # Elevated D-dimer, present on admission, active. - possible PE as her Wells' score 6 or 16% risk, plus d-dimer 2.2. - Continue heparin drip from ED - Check CT-angio today. CT-angio was held off last night as patient received contrast for CT abd/pelvis today - Hydrate her as above given high risk of contrast induced nephropathy # FARHAT, present admission, resolved. - Likely secondary dehydration. - Continue IVF with NS 100 cc/hr give low-normal BP. - Rhabdo is unlikely given negative CK - Avoid nephrotoxic meds # Possible aspiration pneumonia, present on admission. - She reportedly had significant vomiting with slight WBC, and CT-abd showing R> L consolidation at the bases possible pna. Low threshold to start abx given history of COPD. - In retrospect, we do not think the patient has pneumonia. Her Procal is essentially negative, negative Legionella Ag, and patient has no signs of infection. - D/C ceftriaxone and metronidazole. - PCR respiratory negative. # Ground level fall, present on admission, stable - likely deconditioning plus dehydration in the setting of essential tremors - Echocardiogram (09/29/2016) mild LV hypertrophy with EF 60-65%. - CT-head unremarkable for any acute pathologies. - Low threshold to rescan in 24hr with any neurological changes - Follow up with physical therapy for strengthening. - Acetaminophen and home oxycodone 5/325mg PRN. # Chronic hypoxemic respiratory failure, present on admission, stable - Nasal cannula titrate to O2 sat of 89-92% # Chest pain, present on admission, stable - EKG unremarkable for any acute ischemic changes - Troponin T negative 2 - Likely noncardiac and secondary to trauma Chronic Conditions # Hypertension with hypertensive heart - Echo as above - Holding lisinopril 10 mg in the setting of hypotension # Hypothyroidism - TSH is low, but in the setting of acute stress, will hold off on adjusting the Levothyroxine dose. - Patient will need to decrease the Levothyroxine dose to 88mcg at discharge. # GERD - Hiatal hernia demonstrate on CRX - PPI # Dyslipidemia - Continue atorvastatin # Essential tremors - restart propranolol at 1/2 dose given soft blood pressure # Chronic back pain - Restart gabapentin and also oxycodone 5/325 Patient Status: Patient is admitted under inpatient status with expected length of stay GREATER than 2 midnights due to severity of presenting symptoms, risk of adverse event, and complexity of treatment plan. Dispo: likely will be discharged in 2-3 days. Pain Evaluation: Adequate Pain Control GI Prophylaxis: Proton Pump Inhibitor VTE Prophylaxis: Sub-Q Heparin (Unfractionated) VTE Mechanical Devices: Intermittant Pneumatic CD Resuscitation Status: DNR/DNI:Do Not Resuscitate/Intubate Attending Statement Patient seen and examined with house staff. Agree with all attached documentation. Vidal Pinon DO Dec 20, 2016 08:00 Panda Sharpe MD Dec 21, 2016 13:57
--- NOTE | 2016-12-20 17:37 | NUR ---
CT, Desiree, Multidisciplinary Communication 1000 - Discussed her care with Dr. Sharpe, Dr. Amanda, and the rest of the multidisciplinary care team during morning rounds. Notified them that she was complaining of a headache, nausea, and hallucinations of feeling bugs crawling on her skin and hearing a TV playing that wasn't turned on. She said that she has these hallucinations whenever she comes to the hospital. They said to discontinue her Ramírez catheter. 1038 - Microbiology called and said his urinalysis results came back positive (see EMR for results). 1420 - Called Hakeem from Physical Therapy to see if she would be seen today. He said they'd try to make her a priority, but that one of Physical Therapist had to go home early. 1445 - Notified Dr. Amanda that the Ramírez had not been discontinued yet as PT hadn't seen her, she had recently fallen, was very weak, and hadn't been out of bed yet. She said that she would prefer it out and have the pt use the bedpan to reduce infection, but if she really didn't want it out to leave it in. Will check with her. 165 - Gavin from CT called and was given a report 1727 - She left [facility] [address] scan completed. She returned about 1743. Care continues. Addendum: 12/20/16 at 1856 by ALYSA JACOBSEN RN 1809 - Her [id number] called and with the patient's permission she was updated with her condition, care, and plan. 1833 - Spoke to her about the Doctor's orders to discontinue her Ramírez. Informed her that staff would help her with a bedpan for toileting. She wanted to get up out of bed to use the bedside commode. This nurse explained that with her significant weakness, recent fall, and having not been assessed by Physical Therapy that staff are concerned she won't be able to bear her weight if she tries to get up. She said for tonight she would like to keep her Ramírez in until PT sees her in the AM and she can get to a bedside commode. She does not want to use a bedpan. Care continues.
--- NOTE | 2016-12-20 17:56 | DRSVH ---
PROCEDURE: CT ANGIO CHEST PULMONARY EMBOLISM ([id number]) INDICATIONS: Dyspnea, elevated DDimer TECHNIQUE: After the administration of intravenous contrast, 2 mm thick sections acquired from the pulmonary api nic to the posterior costophrenic angles. 3-dimensional maximum intensity projection (MIP) coronal a nd sagittal reformats were then acquired through the thorax. For radiation dose reduction, the follo wing was used: automated exposure control, adjustment of mA and/or kV according to patient size. COMPARISON: [facility], CT, CT ANGIO CHEST PE, 08/07/2016, 13:38. [facility] , CR, XR CHEST 2VW, 09/29/2016, 17:15. FINDINGS: Image quality: Excellent. Pulmonary arteries: Pulmonary arteries are normal in size, and demonstrate no intraluminal filling d efects to suggest central pulmonary embolism. Lungs and pleura: There is mild centrilobular emphysema with an apical predominance. There is a large hiatal hernia predominantly within the right hemithorax. The entire stomach is herniated with a mode rate amount of peritoneal fat herniated is well. There is also elevation of the right hemidiaphragm a nd compressive atelectasis at the right lung base. The extent of right lower lobe collapse is increas ed when compared with the prior chest CT dated 08/07/16. There is a small low-density left pleural eff usion and compressive atelectasis at the left lung base. Mediastinum: Heart size is normal, without pericardial effusion. No mediastinal or hilar adenopathy . Thoracic aorta is normal in caliber and enhancement. Esophagus is normal in caliber, without hiat al hernia. Bones and chest wall: No suspicious bony lesions. Ribs and thoracic spine appear intact throughout. Thyroid gland is unremarkable where visualized. No axillary or supraclavicular adenopathy. Abdomen: Visualized upper abdominal solid organs appear normal in the early arterial phase of enhanc ement. IMPRESSION: 1. No acute pulmonary embolus. 2. Large hiatal hernia with the entire stomach and a moderate amount of peritoneal fat herniated into the right hemithorax. 3. Elevation of the right hemidiaphragm as before. 4. Increased atelectasis or consolidation at the right lung base when compared with the CT of the [facility] from July 2011. Dictated by: Jess Rodriguez M.D. on 12/20/2016 at 17:48 Approved by: Jess Rodriguez M.D. on 12/20/2016 at 17:54
[2016-12-20] MEDS: Sucralfate 1,000 mg Tablet PO SCH (20:51)
[2016-12-20] MEDS ORDERED: Phenol 1.4% 177 mL Spray MUC_MEMBRM PRN (21:05)
[2016-12-20] MEDS: Fluticasone-Salmererol 250-50 Inhaler INHALATION SCH (21:10)
[2016-12-21] VITALS (18 sets, daily range): BP systolic 101–164; BP diastolic 50–82; PULSE 60–88; RESP 16–28; O2SAT 89–99
[2016-12-21] MEDS: Albuterol-Ipratropium 3 mL Inhalation Solution NEB PRN ×6 (00:38→21:16)
[2016-12-21] MEDS: oxyCODONE-Acetamin 5-325 mg Tablet PO PRN ×4 (02:54→20:09)
--- NOTE | 2016-12-21 05:32 | NUR ---
Heparin gtt dc'd, CT negative for PE. Ramírez cath not dc'd at this time, pt wants to keep in per day shift nurse. Pt feels too weak and uncomfortable to use bedpan at this time.
[2016-12-21] MEDS: 0.9% Sodium Chloride 1,000 ML IV SCH ×2 (05:48→18:28)
[2016-12-21] MEDS: Pantoprazole 20 mg ER24 Tablet PO SCH (08:30)
[2016-12-21] MEDS: Sucralfate 1,000 mg Tablet PO SCH ×3 (08:30→20:55)
[2016-12-21] MEDS: Fluticasone-Salmererol 250-50 Inhaler INHALATION SCH ×2 (08:31→20:55)
--- NOTE | 2016-12-21 09:05 | NUR ---
Social Work: Initial Assessment Data: Pt is a 76 y/o female admitted for aspiration pneumonia, chest pain. Pt's PCP is Dr Meek, pt's insurance is Medicare wtih [employer]. EMR reviewed. Readmit score is 6, high. [employer] met with pt at bedside, role explained. Pt states she lives in [place] with her granddaughter and next door to her son. She lives in a single story home where she has O2 through [employer], and uses a walker, cane, or electric scooter. Pt states she does not drive, has no hx of HH or SNF, no LTC or VA benefits, pt is not a caregiver. Pt reports that her granddaughter drives her places as needed and that she has a caregiver about 2 hours per day for assistance mainly with personal care and ADL's. Pt states she will not go to a SNF if told she should. There are no HH companies that services the [place] area. [employer] will continue to follow for possible d/c planning needs. PT ordered, no assessment complete yet. Assessment: Pt with assistance at baseline, walker, O2, electric scooter, cane. Plan: Pt will d/c home via POV with granddaughter when medically stable. Pt states she will not go to a SNF if told she should. There are no HH companies that services the [facility]. [employer] will continue to follow for possible d/c planning needs. PT ordered, no assessment complete yet. CLINTON Mayers Addendum: 12/21/16 at 0909 by MELONY CASTELLANO Amended: Links added.
[2016-12-21] MEDS: Ondansetron 2 mg/mL 2 mL Inj IVPUSH PRN ×2 (09:31→18:33)
[2016-12-21] MEDS: Nystatin 100,000 Unit/Gm 15 Gm Powder TOPICAL SCH ×2 (09:35→20:55)
--- NOTE | 2016-12-21 09:53 | NUR ---
Verbal consent to [facility].
[2016-12-21 10:28] LABS: BASOPHILS % (AUTO) 0.6 % (0-3); EOSINOPHILS % (AUTO) 8.7 % (0-5); MONOCYTES % (AUTO) 8.5 % (4-12); Mean Corpuscular Hemoglobin 31.5 pg (27.0-35.0); NEUTROPHILS % (AUTO) 69.7 % (40-74); Platelet Count 139 bil/L (150-400)
[2016-12-21] MEDS: cefTRIAXone Inj 2,000 MG in Dextrose 5% Minibag Plus 50 ML IV SCH (11:10)
[2016-12-21] MEDS ORDERED: Pantoprazole Inj 80 MG in 0.9% Sodium Chloride 80 ML IV SCH (14:20)
[2016-12-21] MEDS ORDERED: PEG/Electrolytes 4,000 mL Solution PO ONE (16:15)
[2016-12-21] MEDS: Pantoprazole 40 mg ER24 Tablet PO SCH (17:35)
--- NOTE | 2016-12-21 18:24 | PCM.PNMED ---
Subjective Date of Service Dec 21, 2016 Subjective Overnight: CT angio is negative for PE and Heparin gtt was discontinued. Ramírez cath not dc'd at this time, pt wants to keep in per day shift nurse. Pt feels too weak and uncomfortable to use bedpan at this time. Today: patient continues to complain of headache, back pain, and chest pain. She states that these are chronic. She also has intermittent abdominal pain, but no pain today. She also admits to generalized weakness and shortness of breath. Exam Vital Signs Vital Sign - Last Date Time Temp Pulse Resp B/P Pulse Ox O2 Delivery O2 Flow Rate FiO2 12/21/16 17:02 66 20 93 Nasal Cannula 2.00 12/21/16 15:48 36.5 109/69 Intake and Output 12/20/16 12/20/16 12/21/16 Cumulative From/Thru 15:00 23:00 07:00 12/19/16 12:11 - 12/21/16 06:17 Intake Total 2460 ml 1736 ml 7548 ml Output Total 1000 ml 500 ml 3300 ml Balance 1460 ml 1236 ml 4248 ml Intake Oral 918 ml 500 ml 1518 ml IV Total 1542 ml 1236 ml 6030 ml Output Urine Total 1000 ml 500 ml 3300 ml # Bowel Movements 0 0 Exam General: Lying in bed and in mild discomfort, appropriately interactive. HEENT: Normocephalic, atraumatic. Left periorbital hematoma. PERRLA, EOMI, Anicteric sclerae, moist conjunctivae. Neck: No JVD, No lymphadenopathy or thyromegaly. Cardiovascular: Regular rate and rhythm with no murmurs, rubs, or gallops appreciated, producible chest pain around her left para sternal area. Pulmonary: b/l air sound with no crackles, wheezes, or rhonchi. No use of accessory muscles. (exam was done after Neb treatment) Abdomen: +Bowel sound, Soft, nondistended, mild tenderness to palpation in the epigastric but no pain else where, no rebound tenderness Extremities: No clubbing or cyanosis, no lymphedema, trace bilateral lower leg edema. Tender to palpation in both legs, which are chronic per the patient. Skin: Normal temperature,texture; no rash. No visualized skin ulcer. Decreased skin turgor Neurological: CN II-VII grossly intact, moving equally on all 4 extremities, sensation grossly intact, heel to lester test negative. IVs and Medications Medications Reviewed: Medications were reviewed in detail Lab and Diagnostics Result Diagram: 12/21/16 1435 12/21/16 0945 X-Rays, CTs and MRIs PROCEDURE: CT ANGIO CHEST PULMONARY EMBOLISM IMPRESSION: 1. No acute pulmonary embolus. 2. Large hiatal hernia with the entire stomach and a moderate amount of peritoneal fat herniated into the right hemithorax. 3. Elevation of the right hemidiaphragm as before. 4. Increased atelectasis or consolidation at the right lung base when compared with the CT of the chest from July 2011. Dictated by: Jess Rodriguez M.D. on 12/20/2016 at 17:48 PROCEDURE: CT BRAIN WITHOUT CONTRAST ([id number]) INDICATIONS: head trauma IMPRESSION: 1. No acute intracranial process. 2. Moderate atrophy and chronic microvascular ischemic changes. Dictated by: Tammy Corona M.D. on 12/19/2016 at 18:37 PROCEDURE: CT ABDOMEN AND PELVIS WITH CONTRAST ([id number]) INDICATIONS: LLQ abdominal pain IMPRESSION: 1. A mild degree of colonic obstruction is suggested emanating from an area of nonspecific sigmoid inflammation. 2. Mild dilatation of the biliary system is unchanged, correlation with liver function tests suggested. 3. Bilateral lower lobe consolidation and pleural reaction, right greater than left. Correlate clinically for possible pneumonia. 4. Bilateral renals cysts and left nephrolithiasis is unchanged. 5. 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 6. Ramírez catheter in place. Dictated by: José Miguel Forrest M.D. on 12/19/2016 at 14:52 PROCEDURE: X-RAY CHEST ONE VIEW, PORTABLE ([id number]) IMPRESSION: Stable elevation of the right hemidiaphragm causing right basal atelectasis. Large esophageal hiatal hernia. Dictated by: Zack Tan M.D. on 12/19/2016 at 13:00 Assessment & Plan Patient is a 76yo female with MHx significant for COPD, hypothyroidism, chronic diarrhea, and essential tremor had a ground level fall, admitted for possible PE and FARHAT. # Acute normocytic anemia, active. He will. - Possibly due to GI bleed, unclear if it is lower or upper. - H/H has been gradually trending down. Threshold for transfusion is <8. Type and cross with 2 units PRBCs on hold. - Nursing reports black, tarry stool today. Hemoccult pending. - Patient was seen by Dr. Butterfield at the last hospital visit, but no EGD or colonoscopy was done due to concerns of diverticulitis. GI consultation and Dr. Butterfield plans to do both upper and lower endoscopy tomorrow. - Golytely tonight. NPO after midnight. - The hospital is currently out of Protonix drip, thus will give Protonix 40mg BID. - Patient states that her abdominal pain has been intermittent, but no pain currently. - Recent CT abd showed a mild degree of colonic obstruction, which suggested emanating from an area of nonspecific sigmoid inflammation. Diverticulitis cannot be ruled out. # Community acquired pneumonia, present on admission. Improving. - She reportedly had significant vomiting with slight WBC, and CT-abd showing R> L consolidation at the bases possible pna. Low threshold to start abx given history of COPD. - Urine Strep Ag is negative. Her Procal is essentially negative and negative Legionella Ag. - PCR respiratory negative. - Patient received 2 days of ceftriaxone and metronidazole. Will continue with Ceftriaxone at 2g Q24H. - Continue IVF at 100mls/hr. # Elevated D-dimer, present on admission, active. - On admission, her Wells' score 6 or 16% risk, plus d-dimer 2.2. However, PE ruled out by CT angio yesterday. - Heparin drip discontinued. # FARHAT, present admission, resolved. - Likely secondary dehydration. - Continue IVF with NS 100 cc/hr give low-normal BP. - Rhabdo is unlikely given negative CK - Avoid nephrotoxic meds # Ground level fall, present on admission, stable - likely anemia, deconditioning plus dehydration in the setting of essential tremors - Echocardiogram (09/29/2016) mild LV hypertrophy with EF 60-65%. - CT-head unremarkable for any acute pathologies. - PT eval today. - Acetaminophen and home oxycodone 5/325mg Q6H PRN. # Chronic hypoxemic respiratory failure, present on admission, stable - Nasal cannula titrate to O2 sat of 89-92% # Chest pain, present on admission, stable - EKG unremarkable for any acute ischemic changes - Troponin T negative 2 - Likely noncardiac and secondary to trauma Chronic Conditions # Hypertension with hypertensive heart - Echo as above - Holding lisinopril 10 mg in the setting of hypotension # Hypothyroidism - TSH is low, but in the setting of acute stress, will hold off on adjusting the Levothyroxine dose. - Patient will need to decrease the Levothyroxine dose to 88mcg at discharge. # GERD - Hiatal hernia demonstrate on CRX - PPI # Dyslipidemia - Continue atorvastatin # Essential tremors - restart propranolol at 1/2 dose given soft blood pressure # Chronic back pain - Restart gabapentin and also oxycodone 5/325 Patient Status: Patient is admitted under inpatient status with expected length of stay GREATER than 2 midnights due to severity of presenting symptoms, risk of adverse event, and complexity of treatment plan. Dispo: likely will be discharged in 2-3 days. Pain Evaluation: Pain not Controlled GI Prophylaxis: Proton Pump Inhibitor VTE Prophylaxis: Sub-Q Heparin (Unfractionated) VTE Mechanical Devices: Intermittant Pneumatic CD Resuscitation Status: DNR/DNI:Do Not Resuscitate/Intubate Attending Statement Patient was seen and examined with house staff. Agree with all attached documentation. Vidal Pinon DO Dec 21, 2016 18:24 Panda Sharpe MD Dec 22, 2016 15:48
--- NOTE | 2016-12-21 19:10 | NUR ---
Cough/Colonoscopy prep Cardiac: pt denies CP, Tele: SR 60-70. Resp: Pt reports intermittent SOB, SPO2 94% on 1L NC. PRN nebs. Pt reports intermittent cough and that her phlegm is very tenacious. She states that Guiafenisen was effective last admit. GI/: Pt had large dark tarry stool today, notified and chetna sent. Golytely prep started this evening for AM colonoscopy. Pt had some mild nausea early and again late in shift. 4MG IV ondansetron was effective. Neuro: A&Ox3. MAY. Very poor eye sight. family has been asked to find pt's glases and get them from home.
[2016-12-22] VITALS (14 sets, daily range): BP systolic 120–146; BP diastolic 62–88; PULSE 67–89; RESP 16–22; O2SAT 85–98
[2016-12-22] MEDS: oxyCODONE-Acetamin 5-325 mg Tablet PO PRN ×4 (03:08→21:51)
[2016-12-22 04:01] LABS: BASOPHILS % (AUTO) 0.6 % (0-3); EOSINOPHILS % (AUTO) 4.4 % (0-5); Mean Corpuscular Hemoglobin 31.3 pg (27.0-35.0); Mean Corpuscular Volume 100.6 fL (81-100); NEUTROPHILS % (AUTO) 71.6 % (40-74); Platelet Count 197 bil/L (150-400)
[2016-12-22] MEDS: 0.9% Sodium Chloride 1,000 ML IV SCH (04:41)
--- NOTE | 2016-12-22 04:44 | NUR ---
Pt up multiple times through the night with diarrhea. Pt able to drink all of the prep except for 1 glass. Pt continues to have green liquid stool with occasional small hard pieces of stool. Stool is still not clear. Cream applied to buttocks for tenderness.
[2016-12-22] MEDS: Albuterol-Ipratropium 3 mL Inhalation Solution NEB PRN ×3 (06:15→20:44)
--- NOTE | 2016-12-22 06:28 | NUR ---
Bed in pt's room not inflating on one side. Bed exchanged for new one for pt's comfort.
[2016-12-22] MEDS: Fluticasone-Salmererol 250-50 Inhaler INHALATION SCH ×2 (07:19→22:53)
[2016-12-22] MEDS ORDERED: Lactated Ringer's 1,000 ML IV ONE (07:43)
[2016-12-22] MEDS ORDERED: Lactated Ringer's 1,000 ML IV SCH (08:38)
--- NOTE | 2016-12-22 08:39 | PCM.HPANE ---
Patient Data Surgeon Admitting Provider:Panda Sharpe MD Attending Provider:Panda Sharpe MD Primary Care Physician:Fabian Meek MD Other Provider: Reason for Visit Aspiration Pneumonia, Chest Pain Ht/WT & BMI Height (Feet): 5 Height (Inches): 4.00 Weight (Kilograms): 90.300 Body Mass Index 33.00 Allergies Coded Allergies: Penicillins (Verified Allergy, Severe, rash, 07/06/16) sulfamethoxazole (Verified Allergy, Severe, REGISTERED NURSE toxicity, 07/06/16) trimethoprim (Verified Allergy, Severe, REGISTERED NURSE toxicity, 07/06/16) dexamethasone (Verified Allergy, Intermediate, 07/06/16) insomnia, nightmares, nasuea and visual changes hydrochlorothiazide (Verified Allergy, Intermediate, Rash,Itching,, ) ciprofloxacin (Verified Allergy, Unknown, 12/19/16) Uncoded Allergies: sulfamethoxazole-trimethoprim (Allergy, Intermediate, Hallucinations, ) Past Anesthesia History Anesthesia History: Denies:: Abnormal Airway, Anesthesia Reactions, Difficult Intubation, Fam Anesthesia Reaction, Fam Malignant Hypertherm, Malignant Hyperthermia Diabetes History Hx Diabetes?: No MRSA MRSA: No Medications Active Scripts Loperamide 2 Mg Capsule2 Mg PO Q6H PRN For Diarrhea or Loose Stool #20 CAPSULE Prov:Elder Brooks MD 10/03/16 Fluticasone/Salmeterol (Advair 250-50 Diskus)60 Puff/Inh Disk1 Puff INHALATION BID #1 DISKUS Prov:Elder Brooks MD 10/03/16 Tiotropium [place] (Spiriva)18 Mcg Cap.w.dev18 Mcg INHALATION DAILY #30 Prov:Elder Brooks MD 10/03/16 Ondansetron (Zofran)4 Mg Tablet4 Mg PO Q4H PRN For Nausea #30 TABLET Prov:Mode Rodriguez DO 09/19/16 Reported Medications Lisinopril 10 Mg Fqyjnv75 Mg PO QAM 30 Days Ref 0 12/19/16 Propranolol HCl 40 Mg Xsajmm82 Mg PO TID Ref 0 12/19/16 oxyCODONE-Acetaminophen 5-325 mg 1 Each Tablet1 Tab PO Q6H PRN For Pain Ref 0 12/19/16 Ferrous Sulfate 325 Mg Hkldlf828 Mg PO QAM 30 Days Ref 0 09/28/16 Ascorbic Acid (Vitamin C)250 Mg Tab.dmru798 Mg PO QAM #30 TABLET Ref 0 09/28/16 Furosemide 20 Mg Tab20 Mg PO QAM EDEMA 07/06/16 Sucralfate 1 Gm Tablet1 Gm PO TID #120 04/27/16 Atorvastatin Calcium 20 Mg Painoy16 Mg PO HS #90 04/27/16 Albuterol Neb Soln 2.5 Mg/3 Ml Vial.neb3 Ml NEB BID PRN For Shortness of Breath Ref 0 04/27/16 Albuterol HFA (Proair HFA)8.5 Gm Hfa.aer.ad1-2 Puffs INH Q4H PRN For Shortness of Breath #9 04/27/16 Polyethylene Glycol 3350 (Miralax)17 Gm Powd.pack17 Gm PO DAILY PRN For Constipation 04/27/16 Levothyroxine 100 Mcg Hkiafd346 Mcg PO QAM For Thyroid Replacement Ref 0 04/27/16 Omeprazole 20 Mg Capsule.dr20 Mg PO BIDWM Ref 0 04/27/16 Gabapentin 300 Mg Usncwok003 Mg PO BID Ref 0 04/27/16 oxyCODONE-Acetaminophen 5-325 mg 1 Each Tablet1 Tab PO TID Ref 0 04/27/16 Discontinued Reported Medications Potassium Chloride 20 Meq Tab.er.prt20 Meq PO QAM KCL REPLACEMENT W/ LASIX 07/06/16 Lisinopril 20 Mg Fhegoo12 Mg PO QAM 30 Days Ref 0 04/27/16 Discontinued Scripts Guaifenesin (Guaifenesin ER)600 Mg Tab.er.75u100 Mg PO Q12 #1 BOTTLE Prov:Elder Brooks MD 10/03/16 Saccharomyces Boulardii (Florastor)250 Mg Hfewmgx704 Mg PO BID #30 CAPSULE Prov:Mode Rodriguez DO 09/19/16 Metronidazole (Flagyl)500 Mg Dcwwyt041 Mg PO BID #28 TABLET Prov:Mode Rodriguez DO 09/19/16 Ciprofloxacin (Cipro)500 Mg Gkxuuf517 Mg PO BID #28 TABLET Prov:Mode Rodriguez DO 09/19/16 Propranolol HCl 20 Mg Yynzfj11 Mg PO TID #30 TABLET Ref 0 Prov:Jordan Beckett DO 07/08/16 History History of ENT Problems?: Yes HEENT History: Positive for:: Cataracts Dysphagia Denies:: Glaucoma Sinus Problem Denture Type: None Full- Upper Teeth Condition: Within Normal Limits Hx of Heart Problems?: Yes Cardiovascular History: Positive for:: Chest Pain Edema Hypertension Denies:: Cardiac Surgery Congestive Heart Failure Heart Murmur Irregular Heartbeat Pacemaker Thrombophlebitis Hx of Respiratory Problem?: Yes Respiratory History: Positive for:: COPD Dyspnea Emphysema Pneumonia Denies:: Asthma Chest Surgery Hemoptysis Tuberculosis Hx Neurologic Problems?: Yes Neurological History: Positive for:: CVA Denies:: Alzheimer's Disease Dementia Dizziness Headaches Parkinson's Disease Seizures Hx of GI Problems?: Yes Hx of Problems?: Yes Genitourinary History: Positive for:: Urinary Tract Infection Denies:: HX of Hemodialysis Kidney Stones HX of Peritoneal Dialysis: No Female Hx: Denies:: Currently Endometriosis Pelvic Inflammatory Problems with Breasts? Hx Musculoskeletal Problems?: Yes Musculoskeletal History: Positive for:: Back Injury Denies:: Joint Replacement Musculoskeletal Trauma Hx of Psycho/Social Problems?: No Psycho Social History: Denies:: Anxiety Bipolar Disorder Hx Depression Suicide Attempt Hx Surgeries?: Yes (back surgries x2, hysterctomy, shoulder surgeries x2, R hand) Hx Any Other Health Problems?: Yes Other History: Positive for:: Cancer (skin Ca, cervical ) Hospitalization (pneumonia, chest pain, diarrhea) Thyroid Disease History Blood Transfusions: Positive for:: Accept Blood Products? Denies:: Blood Transfuse Reaction Blood Transfusions Hx Diabetes: No Hx Alcohol Use: NoHx Substance Use: No Smoking Status: Former Smoker Have You Smoked inLast 12 mo: No Stop/Bang Treated for Sleep Apnea?: No Do You Have a CPAP Machine?: No S-Snoring: Do You Snore Loudly: No T-Tired: feel tired, fatigued: Yes O-Obsered: Observed not breath: No P-Blood Pressure: treated: Yes B- Body Mass Index > 35 kg/m2: No A- Age over 50: Yes N- Neck Large Circumference: Yes G- Gender Male: No NASH Total Score: 4 NASH Category 2: Yes Risk Assessment Category Category 1A: Patient has history of documented sleep apnea, and HAS NOT received any narcotic, sedative or anesthesia administration during this stay. Category 1B: Patient has history of documented sleep apnea, and HAS received any narcotic , sedative or anesthesia administration during this stay Category 2: Patient has SUSPECTED Obstructive Sleep Apnea, and HAS received any narcotic , sedative or anesthesia administration during this stay. Category 3: Patient has SUSPECTED Obstructive Sleep Apnea and HAS NOT received narcotic, sedative or anesthesia administration during this stay. Category 4: Outpatient in Procedural Areas with known sleep apnea or who screen positive for High Risk via the STOP/BANG questionnaire. Exam Exam Vital Signs Vital Signs Date Time Temp Pulse Resp B/P Pulse Ox O2 Delivery O2 Flow Rate FiO2 12/22/16 07:30 69 22 146/64 94 Nasal Cannula 3 12/22/16 06:15 67 18 92 Nasal Cannula 3.00 12/22/16 04:39 75 12/22/16 04:30 Supplement Oxygen 12/22/16 03:19 36.7 67 18 122/65 95 Nasal Cannula 3.00 12/22/16 02:53 67 12/22/16 02:06 78 General Appearance: Alert, Oriented X3, Cooperative HEENT/AIRWAY: MP 2, Neck Movement (from), Mouth Opening (wnl) Lungs: Clear to Auscultation Heart: Exam Unremarkable Meds/Labs/Diagnostics Admission Meds Current Medications Ceftriaxone Sodium/Dextrose/ Water (Rocephin Inj/ D5W Minibag Plus) 50 ml @ 100 mls/hr Q24H IV Last administered on 12/21/16 11:10; Start 12/21/16 at 09: 00 Pantoprazole (Protonix) 40 mg BIDAC PO Last administered on 12/21/16 17:35; Start 12/21/16 at 16:30 Polyethylene Glycol/ Electrolytes (Colyte) 4,000 ml ONCE ONCE PO Last administered on 12/21/16 17:35; Start 12/21/16 at 16:15; Stop 12/21/16 at 16:19 ; Status DC Labs Test 12/19/16 12:35 12/19/16 12:46 12/19/16 14:11 12/19/16 16:45 Procalcitonin 0.08ng/mL (0.00-0.08) Urine Color Yellow (YELLOW) Urine Appearance Clear (CLEAR,HAZY) Urine pH 5.0 (5.0-8.0) Urine Specific [place] 1.015 (1.003-1.035) Urine Protein Negativemg/dL (NEG,TRACE) Urine Glucose (UA) Negativemg/dL (NEGATIVE) Urine Ketones Negativemg/dL (NEGATIVE) Urine Occult Blood Negative (NEGATIVE) Urine Nitrite Negative (NEGATIVE) Urine Bilirubin Negative (NEGATIVE) Urine Urobilinogen Normalmg/dL (NORMAL) Urine Leukocyte Esterase Negative (NEGATIVE) Urine RBC 0-2/hpf (0-2) Urine WBC 0-5/hpf (0-5) Urine Epithelial Cells Occasional/hpf (NONE-MOD) Urine Crystals None seen (NONE SEEN) Urine Bacteria Few/hpf (NONE-FEW) Urine Hyaline Casts 5/20/lpf (NONE) Urine Granular Casts None seen (NONE SEEN) Urine Waxy Casts None seen (NONE SEEN) Urine Red Blood Cell Casts None seen (NONE SEEN) Urine White Blood Cell Casts None seen (NONE SEEN) Urine Mucus None seen (None Seen) Urine Trichomonas None seen (NONE SEEN) Urine Yeast None (NONE SEEN) Urinalysis Comment None Urine Culture Reflexed Not indicated Urine Legionella pneumophilia Ag Negative (Negative) Lactic Acid Level 1.3mmol/L (0.4-2.0) Total Creatine Kinase 57U/L (21-215) Troponin T < 0.010ug/L (0.0-0.011) Thyroid Stimulating Hormone (TSH) 0.262uIU/mL (0.450-4.500) Test 12/19/16 17:20 12/20/16 06:00 12/20/16 14:22 12/22/16 03:25 D-Dimer 2.26mg/L FEU (<0.50) Hold Urine Received (Received) Activated Partial Thromboplast Time 148.7sec (22.8-33.0) White Blood Count 4.7th/mm3 (3.8-10.1) Red Blood Count 3.16mil/mm3 (3.90-5.20) Hemoglobin 9.9g/dL (12.0-15.6) Hematocrit 31.8% (35.0-46.0) Mean Corpuscular Volume 100.6fL (81-100) Mean Corpuscular Hemoglobin 31.3pg (27.0-35.0) Mean Corpuscular Hemoglobin Concent 31.1% (32.0-37.0) Red Cell Distribution Width 13.2% (12.3-15.4) Platelet Count 197bil/L (150-400) Neutrophils (%) (Auto) 71.6% (40-74) Lymphocytes (%) (Auto) 14.8% (14-46) Monocytes (%) (Auto) 8.0% (4-12) Eosinophils (%) (Auto) 4.4% (0-5) Basophils (%) (Auto) 0.6% (0-3) Sodium Level 143mEq/L (134-144) Potassium Level 3.5mEq/L (3.5-5.2) Chloride Level 106mEq/L (97-108) Carbon Dioxide Level 25mmol/L (18-29) Blood Urea Nitrogen 8mg/dL (8-27) Creatinine 0.57mg/dL (0.57-1.00) Estimat Glomerular Filtration Rate 148mL/min (>59) Glucose Level 90mg/dL (60-99) Calcium Level 8.5mg/dL (8.5-10.1) Magnesium Level 2.0mg/dL (1.6-2.6) Total Bilirubin 0.2mg/dL (0.0-1.2) Aspartate Amino Transf (AST/SGOT) 16U/L (0-50) Alanine Aminotransferase (ALT/SGPT) 10U/L (0-32) Alkaline Phosphatase 92U/L (25-165) Total Protein 5.8g/dL (6.4-8.4) Albumin 3.2g/dL (3.4-5.0) Plan Impression Patient chart reviewed, patient interviewed and anesthestic plan with risks, benefits, and alternatives discussed, and informed consent obtained. ASA Physical Status: ASA2 Mod Systemic Disease Anesthetic Plan: MAC Bene/Risks/Altern/Consents: Yes HP Complete Prior to Induction: Yes Mauricio Bull MD Dec 22, 2016 08:39
[2016-12-22] MEDS ORDERED: Ondansetron 2 mg/mL 2 mL Inj IVPUSH PRN (08:40)
--- NOTE | 2016-12-22 08:48 | PCM.ANEP1 ---
Post Anesthesia PACU Phase 1 Assessment Vital Signs Vital Signs Date Time Temp Pulse Resp B/P Pulse Ox O2 Delivery O2 Flow Rate FiO2 12/22/16 07:30 69 22 146/64 94 Nasal Cannula 3 12/22/16 06:15 67 18 92 Nasal Cannula 3.00 12/22/16 04:39 75 12/22/16 04:30 Supplement Oxygen 12/22/16 03:19 36.7 67 18 122/65 95 Nasal Cannula 3.00 12/22/16 02:53 67 12/22/16 02:06 78 Anesthetic Administered: GA Level of Alertness: Awake, talking MAY's with Equal Strength: Yes Pain: No Nausea or Vomiting: No CV Function & Hydration Stable: Yes Airway Device: Lungs: Clear to Auscultation PACU Phase 2 Assessment Complications: No Follow up Care: No Patient Instructions Provided: N/A Mauricio Bull MD Dec 22, 2016 08:48
--- NOTE | 2016-12-22 09:15 | ENDO ---
[address] [address] ENDOSCOPY PROCEDURE PATIENT: LLUVIA PERKINS : 1940 MR#: [id number] ADMIT: 12/19/2016 JOB ID: [id number] DATE OF SERVICE: 12/22/2016 TYPE OF OPERATION: 1. Esophagogastroduodenoscopy and biopsy. 2. Colonoscopy with biopsy. PREOPERATIVE DIAGNOSIS(ES): 1. Melena. 2. Anemia. POSTOPERATIVE DIAGNOSIS(ES): 1. Normal upper endoscopy, status post biopsy without overt signs of bleeding. 2. Marked edematous mucosa with erythema with ulcerations seen in the rectosigmoid junction suspicious for ischemic colitis status post biopsy. 3. A large 3 cm ulcer clean based, nonbleeding, at 40 cm from the anus status post biopsy. 4. Inflamed small internal hemorrhoids. 5. Severe sigmoid diverticulosis. ANESTHESIA: Monitored anesthesia care. COMPLICATIONS: None. BLOOD LOSS: Minimal. DESCRIPTION OF PROCEDURE: After risks and benefits the patient informed consent was obtained. After anesthesia administered, an upper endoscope was inserted in mouth intubating to the esophagus, stomach, and second portion of duodenum. Mucosa carefully examined. After procedure the scope withdrawn and procedure terminated. Colonoscope was inserted from the rectum to the terminal ileum. Mucosa carefully examined. Prep of the patient was suboptimal. After procedure done the scope was withdrawn and the procedure terminated. FINDINGS: Upon inspection of the esophagus, esophagus was normal without masses, ulcers, or lesions. Z-line located 35 cm from incisors. Upon entering stomach, stomach was normal without masses, ulcers, or lesions. Retroflexion was normal. Duodenal bulb, first and second portion were normal. Biopsies taken at duodenum. Upon inspection of the anus no masses, hemorrhoids, ulcers, fissures that were seen. Throughout the entire examination, there was severe sigmoid diverticulosis. There is also markedly edematous mucosa that was erythematous with ulcer seen at the rectosigmoid junction and also a large ulcer seen 3 cm clean based, nonbleeding, at 40 cm from the anus suspicious for possible ischemic colitis which was biopsied. There were no polyps or masses that were seen. The scope was intubated into the terminal ileum without any overt signs of bleeding. Retroflexion was not performed due to the close proximity of the marked edematous friable mucosa at the rectosigmoid junction. Upon forward view there appeared to be inflamed internal hemorrhoids. IMPRESSIONS: 1. Normal upper endoscopy, status post biopsy. 2. Inflamed internal hemorrhoids, small. 3. A large 3 cm ulcer clean based, nonbleeding, 40 cm from the anus status post biopsy. 4. Marked edematous mucosa with remarked friability erythematous with ulcerations seen in the rectosigmoid junction status post biopsy suspicious for possible ischemic colitis. RECOMMENDATIONS: 1. Await pathology results. 2. Encouraged hydration. 3. The patient to follow up in GI clinic in 2-4 weeks after discharge as an outpatient.
[2016-12-22] MEDS ORDERED: fentaNYL-PF 50 mCg/mL 2 mL Inj ONE (09:29)
[2016-12-22] MEDS ORDERED: Propofol 10,000 mCg/mL 20 mL Inj ONE (09:29)
[2016-12-22] MEDS: cefTRIAXone Inj 2,000 MG in Dextrose 5% Minibag Plus 50 ML IV SCH (10:25)
[2016-12-22] MEDS: Nystatin 100,000 Unit/Gm 15 Gm Powder TOPICAL SCH ×2 (10:26→20:30)
[2016-12-22] MEDS: Pantoprazole 40 mg ER24 Tablet PO SCH ×2 (10:27→15:59)
[2016-12-22] MEDS: Sucralfate 1,000 mg Tablet PO SCH ×3 (10:27→22:54)
--- NOTE | 2016-12-22 10:46 | PCM.CHPMED ---
Subjective Date of Service: Dec 22, 2016 Provider requesting consult: Vidal Pinon DO Primary Physician: Admitting Physician: Panda Sharpe MD Primary Care Physician: Fabian Meek MD Attending Physician: Panda Sharpe MD Admit Status: From the Emergency Department Chief Complaint: Chief Complaint: Weakness, dark stool History of Present Illness: GASTROENTEROLOGY CONSULTATION Patient is a 76-year-old woman with history of chronic obstructive pulmonary disease, hypertension and chronic diarrhea who had weakness and ground-level fall and was brought to the emergency department via EMS. She is a relatively poor historian and therefore much of the history is gleaned from the medical record. She is hospital day 4, black tarry stool was noted by nursing along with normocytic anemia which prompted gastroenterology workup. Patient had bowel prep yesterday in preparation for colonoscopy and EGD which was well tolerated. This morning patient reports feeling sleepy but otherwise improved. The patient had an EGD and colonoscopy in the past in which she says her colonoscopy was 10 years ago which was normal. I have no records. The patient denies fever, chills, rectal bleeding, nausea, vomiting, hematemesis, abdominal pain, unintentional weight loss. Review of Systems: A comprehensive review of systems was conducted with the patient and found to be negative except as above in the History of Present Illness. PMH Past Medical History GERD Hiatal hernia History of TIA 2006 Patent foramen ovale 07/18/2013 Hypertension Hypercholesterolemia Hypothyroidism History of cervical cancer status post hysterectomy 1981 Basal cell carcinoma of eyelid s/p Mohs surgery 2012 COPD Essential tremor Surgical History Back surgery 2 Mohs surgery 2013 Hysterectomy 1991 Cataract surgery bilaterally 2011 Vascular surgery Home Medications Per medical H&P: Albuterol HFA 2 puffs every 4 hours when necessary albuterol nebulizer 3 mL twice a day Ascorbic acid 500 mg daily Lasix 20 mg by mouth at bedtime Ferrous sulfate 325 mg by mouth every morning Advair 250/50 50 Diskus 1 puff twice a day Furosemide 20 mg daily Gabapentin 900 mg twice a day Level thyroxine 100 MCG daily Lisinopril 10 mg daily Loperamide 2 mg every 6 hours when necessary for diarrhea Omeprazole 20 mg twice a day Ondansetron every 4 hours when necessary for nausea Oxycodone APAP 10/26/2024 3 times a day as needed MiraLAX qd when necessary Propranolol 40 mg by mouth 3 times a day Carafate 1 g 3 times a day Spiriva 18 MCG qd Allergies: Coded Allergies: Penicillins (Verified Allergy, Severe, rash, 07/06/16) sulfamethoxazole (Verified Allergy, Severe, [employer] toxicity, 07/06/16) trimethoprim (Verified Allergy, Severe, [employer]ER toxicity, 07/06/16) dexamethasone (Verified Allergy, Intermediate, 07/06/16) insomnia, nightmares, nasuea and visual changes hydrochlorothiazide (Verified Allergy, Intermediate, Rash,Itching,, ) ciprofloxacin (Verified Allergy, Unknown, 12/19/16) Uncoded Allergies: sulfamethoxazole-trimethoprim (Allergy, Intermediate, Hallucinations, ) Family History Family History The patient denies family history of colon cancer, inflammatory bowel disease, or celiac disease. Social History Hx Alcohol Use: NoHx Substance Use: No Smoking Status: Former Smoker Living Arrangement: with Family (granddaughter Jeanne, son lives right next door) Exam Vital Signs Vital Sign - Last Date Time Temp Pulse Resp B/P Pulse Ox O2 Delivery O2 Flow Rate FiO2 12/22/16 10:30 89 22 85 Nasal Cannula 2.00 12/22/16 09:29 36.6 139/71 Intake and Output 12/21/16 12/21/16 12/22/16 Cumulative From/Thru 15:00 23:00 07:00 12/19/16 12:11 - 12/22/16 06:02 Intake Total 2314 ml 3188 ml 06168 ml Output Total 700 ml 2950 ml 6950 ml Balance 1614 ml 238 ml 6100 ml Intake Oral 1300 ml 2000 ml 4818 ml IV Total 1014 ml 1188 ml 8232 ml Output Urine Total 700 ml 4000 ml Stool Total 2950 ml 2950 ml # Bowel Movements 1 1 General: Alert, Oriented X3, Cooperative, No Acute Distress Head: Normal Mouth: Mucous Membr Moist/[place] Neck: Supple Chest & Lungs: Chest Wall Normal, Auscultation (mild crackles in right base laying on R side, otherwise clear) Cardiovascular: Regular Rate/Rhythm Abdomen: Non-tender, Non-distended, No masses, Normoactive bowel tones Extremities: Edema (mild pitting to ankles) Neurological: Grossly Neurologically Intact Lab and Diagnostics Result Diagram: 12/22/16 0325 12/22/16 0325 Additional Diagnostics: TYPE OF OPERATION: 1. Esophagogastroduodenoscopy and biopsy. 2. Colonoscopy with biopsy. PREOPERATIVE DIAGNOSIS(ES): 1. Melena. 2. Anemia. POSTOPERATIVE DIAGNOSIS(ES): 1. Normal upper endoscopy, status post biopsy without overt signs of bleeding. 2. Marked edematous mucosa with erythema with ulcerations seen in the rectosigmoid junction suspicious for ischemic colitis status post biopsy. 3. A large 3 cm ulcer clean based, nonbleeding, at 40 cm from the anus status post biopsy. 4. Inflamed small internal hemorrhoids. 5. Severe sigmoid diverticulosis. IMPRESSIONS: 1. Normal upper endoscopy, status post biopsy. 2. Inflamed internal hemorrhoids, small. 3. A large 3 cm ulcer clean based, nonbleeding, 40 cm from the anus status post biopsy. 4. Marked edematous mucosa with remarked friability erythematous with ulcerations seen in the rectosigmoid junction status post biopsy suspicious for possible ischemic colitis. RECOMMENDATIONS: 1. Await pathology results. 2. Encouraged hydration. 3. The patient to follow up in GI clinic in 2-4 weeks after discharge as an outpatient. Waqas Butterfield MD 12/22/16 0839 Assessment & Plan Assessment This is a 75-year-old, female, with history of chronic obstructive pulmonary disease, hypertension and chronic diarrhea who is admitted here for weakness, acute kidney injury, and aspiration pneumonia status post ground- level fall. Colonoscopy showed area suspicious for ischemic colitis, and 3 cm clean-based nonbleeding ulcer. RECOMMENDATIONS: 1. Aggressive hydration. 2. Await pathology results. 3. The patient to follow up in GI clinic in 2-4 weeks after discharge as an outpatient. From a gastroenterology perspective this patient is okay to discharge home when medically stable. With follow-up in GI clinic for biopsy results. Thank you for this interesting consult. We will sign off at this time. Problems: Pain Evaluation: Adequate Pain Control GI Prophylaxis: Proton Pump Inhibitor VTE Prophylaxis: Sub-Q Heparin (Unfractionated) VTE Mechanical Devices: Intermittant Pneumatic CD Resuscitation Status: DNR/DNI:Do Not Resuscitate/Intubate Virgen Dunn DO Dec 22, 2016 10:46
--- NOTE | 2016-12-22 11:27 | PCM.PNMED ---
Subjective Date of Service Dec 22, 2016 Subjective Jeanne Roberts is a 76 year old woman female with past medical history significant for COPD, hypothyroidism, chronic diarrhea, and essential tremor had a ground level fall. Currently under treatment for S. pneumo pneumonia. Overnight: No acute events. Today: The patient is asking to go home and states that he breathing is nearly back to her usual baseline while at rest however she was not yet feeling strong enough to walk around with physical therapy. She denies any further instance of melena or abdominal pain. The remainder of ROS is negative except as noted above. Exam Vital Signs Vital Sign - Last Date Time Temp Pulse Resp B/P Pulse Ox O2 Delivery O2 Flow Rate FiO2 12/22/16 10:53 Supplement Oxygen 12/22/16 10:30 89 22 85 2.00 12/22/16 09:29 36.6 139/71 Intake and Output 12/21/16 12/21/16 12/22/16 Cumulative From/Thru 15:00 23:00 07:00 12/19/16 12:11 - 12/22/16 06:02 Intake Total 2314 ml 3188 ml 65139 ml Output Total 700 ml 2950 ml 6950 ml Balance 1614 ml 238 ml 6100 ml Intake Oral 1300 ml 2000 ml 4818 ml IV Total 1014 ml 1188 ml 8232 ml Output Urine Total 700 ml 4000 ml Stool Total 2950 ml 2950 ml # Bowel Movements 1 1 Exam General: Lying in bed and in mild discomfort, appropriately interactive. HEENT: Normocephalic, atraumatic. Left periorbital hematoma. PERRLA, EOMI, Anicteric sclerae, moist conjunctivae. Neck: No JVD, No lymphadenopathy or thyromegaly. Cardiovascular: Regular rate and rhythm with no murmurs, rubs, or gallops appreciated, producible chest pain around her left para sternal area. Pulmonary: b/l air sound with no crackles, wheezes, or rhonchi. No use of accessory muscles. Abdomen: +Bowel sound, Soft, nondistended, nontender Extremities: No clubbing or cyanosis, no lymphedema, trace bilateral lower leg edema. Tender to palpation in both legs, which are chronic per the patient. Skin: Normal temperature,texture; no rash. No visualized skin ulcer. Decreased skin turgor Neurological: CN II-VII grossly intact, moving equally on all 4 extremities, sensation grossly intact, heel to lester test negative. IVs and Medications Medications Reviewed: Medications were reviewed in detail Lab and Diagnostics Result Diagram: 12/22/16 0325 12/22/16 032 X-Rays, CTs and MRIs CT ANGIO CHEST PULMONARY EMBOLISM IMPRESSION: 1. No acute pulmonary embolus. 2. Large hiatal hernia with the entire stomach and a moderate amount of peritoneal fat herniated into the right hemithorax. 3. Elevation of the right hemidiaphragm as before. 4. Increased atelectasis or consolidation at the right lung base when compared with the CT of the chest from July 2011. Dictated by: Jess Rodriguez M.D. on 12/20/2016 at 17:48 CT BRAIN WITHOUT CONTRAST IMPRESSION: 1. No acute intracranial process. 2. Moderate atrophy and chronic microvascular ischemic changes. Dictated by: Tammy Cornoa M.D. on 12/19/2016 at 18:37 CT ABDOMEN AND PELVIS WITH CONTRAST IMPRESSION: 1. A mild degree of colonic obstruction is suggested emanating from an area of nonspecific sigmoid inflammation. 2. Mild dilatation of the biliary system is unchanged, correlation with liver function tests suggested. 3. Bilateral lower lobe consolidation and pleural reaction, right greater than left. Correlate clinically for possible pneumonia. 4. Bilateral renals cysts and left nephrolithiasis is unchanged. 5. 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 6. Ramírez catheter in place. Dictated by: José Miguel Forrest M.D. on 12/19/2016 at 14:52 X-RAY CHEST ONE VIEW, PORTABLE IMPRESSION: Stable elevation of the right hemidiaphragm causing right basal atelectasis. Large esophageal hiatal hernia. Dictated by: Zack Tan M.D. on 12/19/2016 at 13:00 Assessment & Plan Jeanne Roberts is a 76 year old woman female with past medical history significant for COPD, hypothyroidism, chronic diarrhea, and essential tremor had a ground level fall. Currently under treatment for S. pneumo pneumonia. Acute normocytic anemia secondary to lower GI bleed secondary to colonic ulcer possibly due to ischemic colitis, active. - H/H stable. Threshold for transfusion is <8. Type and cross with 2 units PRBCs on hold. - Recent CT abd showed a mild degree of colonic obstruction, which suggested emanating from an area of nonspecific sigmoid inflammation. Strep pneumonia community acquired pneumonia, present on admission. - Ceftriaxone at 2g Q24H antibiotic day 4 - Pulmonary toilet, encourage ambulation. Elevated D-dimer, PE ruled out. -Heparin drip D/C'ed FARHAT, present admission, resolved. - Likely secondary dehydration. - Avoid nephrotoxic meds Ground level fall, present on admission, stable - likely anemia, deconditioning plus dehydration in the setting of essential tremors - Echocardiogram (09/29/2016) mild LV hypertrophy with EF 60-65%. - CT-head unremarkable for any acute pathologies. - PT eval today. - Acetaminophen and home oxycodone 5/325mg Q6H PRN. Chronic hypoxemic respiratory failure, present on admission, stable - Nasal cannula titrate to O2 sat of 89-92% Chest pain, present on admission, stable - EKG unremarkable for any acute ischemic changes - Troponin T negative 2 - Likely noncardiac and secondary to trauma Chronic Conditions, present on admission: Hypertension with hypertensive heart - Echo as above - Holding lisinopril 10 mg in the setting of hypotension Hypothyroidism - TSH is low, but in the setting of acute stress, will hold off on adjusting the Levothyroxine dose. - Patient will need to decrease the Levothyroxine dose to 88mcg at discharge. GERD - Hiatal hernia demonstrate on CRX - PPI Dyslipidemia - Continue atorvastatin Essential tremors - restarted propranolol at 1/2 dose given soft blood pressure Chronic back pain - Restarted gabapentin and also oxycodone 5/325 Dispo: Likely discharge in 1-2 days provided patient can ambulate near her baseline. GI Prophylaxis: Proton Pump Inhibitor VTE Prophylaxis: Sub-Q Heparin (Unfractionated) VTE Mechanical Devices: Intermittant Pneumatic CD Resuscitation Status: DNR/DNI:Do Not Resuscitate/Intubate Attending Statement Patient seen and examined with house staff. Agree with DOCUMENTATION. Silvia Amanda DO Dec 22, 2016 11:12 Panda Sharpe MD Dec 22, 2016 15:54
--- NOTE | 2016-12-22 13:22 | NUR ---
NUTRITION ASSESSMENT: ASSESS: Pt is a 76yo F admitted for pneumonia. Pt was also found to have black tarry stool and anemia. Pt had colonoscopy this am which showed colonic ulcer possibly due to ischemic colitis. She is currently on CL diet. PO has been fair at 25-50%. PMHX: COPD, hypothyroid, chronic diarrhea, essential tremor LABS: Reviewed. Alb 3.2 MEDS: Reviewed. GI: BMx1 12/21- colonoscopy prep SKIN: no major issues CURRENT WTS: 90.3kg, BMI 34.2kg/,2, admit wt 88.4kg, IBW: 54.5kg DIET: CL, PO 25-50% EST. NEEDS: BMI Kcals: 1805-1985kcal/day (20-22kcal/kg) Pro: 65-80g/day (1.2-1.5g/kg IBW) NUTRITION DIAGNOSIS: 1.) Inadequate oral intake related to altered gi function as evidence by need for CL diet order NUTRITION INTERVENTION: 1.) Recommend advance diet when medically appropriate 2.) Will add ensure CL on L and D tray while on CL diet MONITOR / EVAL: diet advc, PO, gi, wt, labs, POC, nutrition status. Will continue to monitor per moderate nutrition risk guidelines
[2016-12-22] MEDS: Nystatin 100,000 Unit/mL 5 mL Suspension PO SCH ×3 (15:59→23:04)
--- NOTE | 2016-12-22 17:25 | NUR ---
SOB/Activity Cardiac: pt denies CP, Tele: SR 60-70. Tele DC'd this AM. Resp: Pt reports some mild SOB this afternoon, "I just can't get my breath", Sats remain at a good level despite complaints. SPO2 mid 90s on 2.5L NC. Pt uses 3L O2 at home at baseline. GI/: bowel prep completed this AM, Pt denies n/v, clear liquid diet. Neuro: A&Ox3. MAY. Very poor eye sight. Pt glasses reunited with registration representative. Pt up walking with PT, pt took shower and encouraged to sit in chair for meals.
[2016-12-22] MEDS: guaiFENesin 600 mg ER12 Tablet PO SCH (22:54)
[2016-12-23 03:33] VITALS: BP 110/68; PULSE 61; RESP 16; O2SAT 93
[2016-12-23 05:02] VITALS: PULSE 63; RESP 22; O2SAT 95
[2016-12-23] MEDS: Albuterol-Ipratropium 3 mL Inhalation Solution NEB PRN (05:02)
--- NOTE | 2016-12-23 06:20 | NUR ---
Confusion Pt was confused during the 0400 AM VS, not knowing who staff where and believing they were family members. Pt easily reorientated and alert and orientated x3 for the remainder of the shift.
[2016-12-23 07:29] LABS: BASOPHILS % (AUTO) 1.1 % (0-3); EOSINOPHILS % (AUTO) 6.6 % (0-5); MONOCYTES % (AUTO) 8.5 % (4-12); Mean Corpuscular Hemoglobin 31.3 pg (27.0-35.0); Mean Corpuscular Volume 100.6 fL (81-100); NEUTROPHILS % (AUTO) 65.7 % (40-74); Platelet Count 211 bil/L (150-400)
[2016-12-23 08:35] VITALS: BP 152/72; PULSE 66; RESP 22; O2SAT 94
[2016-12-23] MEDS: Pantoprazole 40 mg ER24 Tablet PO SCH (08:45)
[2016-12-23] MEDS: Sucralfate 1,000 mg Tablet PO SCH (08:45)
[2016-12-23] MEDS: Nystatin 100,000 Unit/mL 5 mL Suspension PO SCH (08:46)
[2016-12-23] MEDS: cefTRIAXone Inj 2,000 MG in Dextrose 5% Minibag Plus 50 ML IV SCH (08:46)
[2016-12-23] MEDS: Nystatin 100,000 Unit/Gm 15 Gm Powder TOPICAL SCH (08:47)
[2016-12-23] MEDS: Fluticasone-Salmererol 250-50 Inhaler INHALATION SCH (08:47)
[2016-12-23] MEDS: oxyCODONE-Acetamin 5-325 mg Tablet PO PRN (08:50)
[2016-12-23] MEDS: guaiFENesin 600 mg ER12 Tablet PO SCH (08:51)
--- NOTE | 2016-12-23 09:38 | PCM.PNSURG ---
Subjective Date of Service: Dec 23, 2016 Date of Service: Dec 23, 2016 Visit Information: Reason for Visit Aspiration Pneumonia, Chest Pain, melena Date of Admission: Dec 19, 2016 at 17:24 Hospital Day #5 Subjective: Patient reports doing well this morning, she is not having abdominal pain. She is experiencing some shortness of breath. She is not having nausea or vomiting, She has not had a bowel movement since her colonoscopy yesterday. She is tolerating oral intake and generally feeling better. Postop General: No Chest Pain, Shortness of Breath Gastrointestinal: Good Appetite, Tolerating Oral Feedings, No N/V Objective Vital Sign- Last 8 Hours Date Time Temp Pulse Resp B/P Pulse Ox O2 Delivery O2 Flow Rate FiO2 12/23/16 05:02 63 22 95 Nasal Cannula 2.00 12/23/16 03:45 Supplement Oxygen 12/23/16 03:33 37.0 61 16 110/68 93 Nasal Cannula 3.00 Intake and Output- Last 8 Hour 12/23/16 Cumulative From/Thru 07:00 12/19/16 12:11 - 12/23/16 06:30 Intake Total 350 ml 04981 ml Output Total 7650 ml Balance 350 ml 6802 ml Intake Oral 350 ml 5705 ml IV Total 8747 ml Output Urine Total 4500 ml Stool Total 2950 ml Urine/Stool Mix 200 ml # Voids 5 10 # Bowel Movements 2 General: Alert, Oriented X3, Cooperative, No Acute Distress Neck: Supple Lungs: Normal Air Movement, Crackles (mild at right base) Heart: Regular Rate/Rhythm Abdomen: Benign, Soft, Non-tender, Non-distended, Normoactive bowel tones Extremities: Warm, Edema Generalized (mild bilateral lower extremeties) Neuro: Grossly Neurologically Intact Catheters: None Result Diagram: 12/22/16 0325 12/23/16 0708 Diagnostics: TYPE OF OPERATION: 1. Esophagogastroduodenoscopy and biopsy. 2. Colonoscopy with biopsy. PREOPERATIVE DIAGNOSIS(ES): 1. Melena. 2. Anemia. POSTOPERATIVE DIAGNOSIS(ES): 1. Normal upper endoscopy, status post biopsy without overt signs of bleeding. 2. Marked edematous mucosa with erythema with ulcerations seen in the rectosigmoid junction suspicious for ischemic colitis status post biopsy. 3. A large 3 cm ulcer clean based, nonbleeding, at 40 cm from the anus status post biopsy. 4. Inflamed small internal hemorrhoids. 5. Severe sigmoid diverticulosis. IMPRESSIONS: 1. Normal upper endoscopy, status post biopsy. 2. Inflamed internal hemorrhoids, small. 3. A large 3 cm ulcer clean based, nonbleeding, 40 cm from the anus status post biopsy. 4. Marked edematous mucosa with remarked friability erythematous with ulcerations seen in the rectosigmoid junction status post biopsy suspicious for possible ischemic colitis. RECOMMENDATIONS: 1. Await pathology results. 2. Encouraged hydration. 3. The patient to follow up in GI clinic in 2-4 weeks after discharge as an outpatient. Waqas Butterfield MD 12/22/16 0839 Assessment & Plan Impression This is a 75-year-old, female, with history of chronic obstructive pulmonary disease, hypertension and chronic diarrhea who is admitted here for weakness, acute kidney injury, and aspiration pneumonia status post ground- level fall. Colonoscopy showed area suspicious for ischemic colitis, and 3 cm clean-based nonbleeding ulcer. She has had no continued signs of bleeding. Problems: Plan RECOMMENDATIONS: 1. The patient to follow up in GI clinic in 2-4 weeks after discharge as an outpatient. 2. Await pathology results. From a gastroenterology perspective this patient is okay to discharge home when medically stable with follow-up in GI clinic for biopsy results. Thank you for this interesting consult. We will sign off at this time. VTE Prophylaxis: Sub-Q Heparin (Unfractionated) Resuscitation Status: DNR/DNI:Do Not Resuscitate/Intubate copies to: Waqas Butterfield MD, Erika R DO Dec 23, 2016 08:01
--- NOTE | 2016-12-23 10:34 | NUR ---
D/C from PT; ambulate w/Nsg Pt has met all PT goals and is discharged from further PT at this time; released to ambulate w/nsg w/FWW 2-3x/day as pt tolerates.
--- NOTE | 2016-12-23 11:23 | PATH ---
SURGICAL PATHOLOGY Attending Physician:Waqas Butterfield MD CASE STATUS: Signed Out PATIENT NAME: LLUVIA PERKINS PID: [id number] : 1940 DATE COLLECTED:12/22/2016 16:37 SPECIMEN: 1: Duodenum, Biopsy 2: Colon, Biopsy 3: Colon, Biopsy CLINICAL HISTORY: MELENA. 1. DUODENUM BX 2. 40 CM COLON ULCER BX 3. RECTAL SIGMOID COLON BX FINAL DIAGNOSIS: 1.DUODENUM BIOPSY: FRAGMENTS OF NORMAL-APPEARING SMALL BOWEL MUCOSA. Normal delicate mucosal villi present. Negative for significant inflammation, dysplasia and malignancy. 2.40 CM COLON ULCER BIOPSY: INFLAMMATORY DEBRIS WITH SMALL FRAGMENTS OF SUPERFICIAL COLON MUCOSA EPITHELIUM, ALL CONSISTENT WITH ULCER. INSUFFICIENT MUCOSAL TISSUE PRESENT FOR EVALUATION OF ULCER ETIOLOGY. 3.RECTOSIGMOID COLON BIOPSY: FRAGMENT OF COLON MUCOSA WITH CHANGES CONSISTENT WITH ISCHEMIC COLITIS (SEE COMMENT). ICD10 K55.1 NOTE: The changes present in part 3 appear to be related to ischemic colitis; however, the possibility of infection should be considered. Clinical correlation is suggested. GROSS DESCRIPTION: The specimen is received in three formalin filled containers labeled with the patient's name. 1). The specimen is sublabeled "duodenum" and consists of 2 portions of tissue which aggregate to 0.3 x 0.3 x 0.2 CM. The specimen is entirely submitted in cassette 1A. 2). The specimen is sublabeled "40 CM colon ulcer" and consists of 3 tiny portions of tissue which aggregate to 0.2 x 0.2 x 0.1 CM. The specimen is entirely submitted in cassette 2A. 3). The specimen is sublabeled "rectal sigmoid colon" and consists of a 0.2 x 0.2 x 0.1 CM portion of tissue which is entirely submitted in cassette 3A. 12/22/2016 DAC MICRO DESCRIPTION: See diagnosis. ICD-9 CODES: CPT CODES: 1: 63556 2: 66805 3: 75626 Electronically Signed Out Renzo Jackson MD [facility] [address], [place] [address] Technical component performed at [facility], [facility] [address], [place], [address]
[2016-12-23 11:33] VITALS: BP 158/87; PULSE 61; RESP 23; O2SAT 95
--- NOTE | 2016-12-23 11:38 | PCM.DIMED ---
Vidal Pinon DO 12/23/16 1131: Discharge Instructions Date of Service Dec 23, 2016 Dates of Hospitalization Dec 19, 2016 at 17:24 Discharge Diagnosis Discharge Diagnosis Acute normocytic anemia secondary to lower GI bleed secondary to colonic ulcer possibly due to ischemic colitis, active. Strep pneumonia community acquired pneumonia, present on admission. Elevated D-dimer, PE ruled out. FARHAT, present admission, resolved. Ground level fall, present on admission, stable Chronic hypoxemic respiratory failure, present on admission, stable Chest pain, present on admission, improved. Hypertension with hypertensive heart , chronic. Hypothyroidism, chronic. GERD, chronic. Dyslipidemia, chronic. Essential tremors, chronic. Chronic back pain Diet Discharge Diet: Heart Healthy Activity Discharge Activity: Limited until seen by PCP Call your provider Call your provider for: Fever or Chills, Shortness of breath, Chest pain, Vomitting, Weakness (unilateral) Patient Instructions Patient Instructions - You were found to have bleeding ulcer in the colon, which caused the anemia and black stool, possibly the weakness. - Dr. Butterfield (GI) took some tissues of the ulcer and should have the report by the time you see him in 2-4 weeks. Please call his office to make an appointment. - You also had pneumonia, which was treated with antibiotics for 5 days. The antibiotic course should be adequate, but if you develop fever, chills, worsening cough, nausea, vomiting, or headache, please go to the ER. - No pulmonary embolism was found. Your shortness of breath could be an exacerbation of the chronic respiratory failure due to the pneumonia. Please continue to use the oxygen at home. - You need to follow up with your primary care doctor in 1 week. You will need to repeat the labs (CBC) to make sure the infection resolved. You will need to talk to Dr. Meek about your thyroid medication. You might need to talk to him about the hiatal hernia as well. - Use a walker to ambulate. You are at high risk for falls so always be very careful with ambulating. Follow-up Provider: Fabian Meek MD Follow-up with PCP in: 1 week Provider: Waqas Butterfield MD Follow-up in: 2 weeks Panda Sharpe MD 12/23/16 1252: Discharge Instructions Attending's Statement Patient was seen and examined with housestaff. Agree with all attached documentation. Vidal Pinon DO Dec 23, 2016 11:31 Panda Sharpe MD Dec 23, 2016 12:52
--- NOTE | 2016-12-23 11:49 | PCM.DC.MED ---
Discharge Summary Date of Service Dec 23, 2016 Dates of Hospitalization Date of Hospital Admission Dec 19, 2016 at 17:24 Date of Discharge: Dec 23, 2016 Providers: Admitting Physician: Panda Sharpe MD Primary Care Physician: Fabian Meek MD Attending Physician: Panda Sharpe MD Diagnosis at Time of Discharge Diagnosis at Time of Discharge Acute normocytic anemia secondary to lower GI bleed secondary to colonic ulcer possibly due to ischemic colitis, active. Strep pneumonia community acquired pneumonia, present on admission. Elevated D-dimer, PE ruled out. FARHAT, present admission, resolved. Ground level fall, present on admission, stable Chronic hypoxemic respiratory failure, present on admission, stable Chest pain, present on admission, improved. Hypertension with hypertensive heart , chronic. Hypothyroidism, chronic. GERD, chronic. Dyslipidemia, chronic. Essential tremors, chronic. Chronic back pain Consultations GI - Dr. Waqas Butterfield. Procedures XRay, CTs & MRIs CT ANGIO CHEST PULMONARY EMBOLISM IMPRESSION: 1. No acute pulmonary embolus. 2. Large hiatal hernia with the entire stomach and a moderate amount of peritoneal fat herniated into the right hemithorax. 3. Elevation of the right hemidiaphragm as before. 4. Increased atelectasis or consolidation at the right lung base when compared with the CT of the chest from July 2011. Dictated by: Jess Rodriguez M.D. on 12/20/2016 at 17:48 CT BRAIN WITHOUT CONTRAST IMPRESSION: 1. No acute intracranial process. 2. Moderate atrophy and chronic microvascular ischemic changes. Dictated by: Tammy Corona M.D. on 12/19/2016 at 18:37 CT ABDOMEN AND PELVIS WITH CONTRAST IMPRESSION: 1. A mild degree of colonic obstruction is suggested emanating from an area of nonspecific sigmoid inflammation. 2. Mild dilatation of the biliary system is unchanged, correlation with liver function tests suggested. 3. Bilateral lower lobe consolidation and pleural reaction, right greater than left. Correlate clinically for possible pneumonia. 4. Bilateral renals cysts and left nephrolithiasis is unchanged. 5. 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 6. Ramírez catheter in place. Dictated by: José Miguel Forrest M.D. on 12/19/2016 at 14:52 X-RAY CHEST ONE VIEW, PORTABLE IMPRESSION: Stable elevation of the right hemidiaphragm causing right basal atelectasis. Large esophageal hiatal hernia. Dictated by: Zack Tan M.D. on 12/19/2016 at 13:00 ECG 12 Lead sinus tachy with a rate of 104 Incomplete RBBB Similar to 08/07/16 No ischemia Invasive Procedures EGD and colonoscopy: MPRESSIONS: 1. Normal upper endoscopy, status post biopsy. 2. Inflamed internal hemorrhoids, small. 3. A large 3 cm ulcer clean based, nonbleeding, 40 cm from the anus status post biopsy. 4. Marked edematous mucosa with remarked friability erythematous with ulcerations seen in the rectosigmoid junction status post biopsy suspicious for possible ischemic colitis. Brief History Per the patient's H&P: "Per patient, states while standing up from the toilet, felt weak to the knees, and fall, hitting her left side. Patient denies any loss of consciousness, chest pain, lightheadedness, or dizziness preceding or after the event. She then, yelled for help from a next door construction management assistant, which activated EMS. Patient denies any fevers, chills, night sweats, nor does she have any increasing cough or sputum production. Patient states that she has adequate fluid take, likes to drink water. Though, patient does states significant nausea and vomiting for the past 24 hours. She states vomiting once last night , and once more this morning. Possible, she also admits to vomiting while in bed. A deviation from patient story, her granddaughter Jeanne who lives with the patient states that patient had little to eat yesterday morning, sat outside for about 4-6 hours and enjoying the hot weather. As patient felt weak, she was brought inside where she had a near syncopal episode. Water was given and patient gradually felt better. Patient went to bed without any incident per her granddaughter's knowledge. In the ED, patient reported significant abdominal pain, thus triggering the abdominal pelvis CT with contrast, and then later told everyone that she had significant pleuritic chest pain. Initial vitals were temperature 36.2, HR 105 , respiratory rate 23, BP 88/50, pulse ox 98% on room air. Lab values significant for WBC 11 K and BUN/creatinine 39/1.34, elevated from baseline Cr 0.62. Additionally d-dimer 2.26 significant elevated. Heparin PE protocol initiated, in addition to patient receiving 2 L of fluid plus antibiotics covering possible community-acquired and aspiration pneumonia. It was initially planned for patient to be in the CCU considering her soft blood pressure, however gradually improved with fluids and admitted to PCC for possible PE and FARHAT." Hospital Course Jeanne Roberts is a 76 year old woman female with past medical history significant for COPD, hypothyroidism, chronic diarrhea, and essential tremor had a ground level fall. Currently under treatment for S. pneumo pneumonia. Acute normocytic anemia secondary to lower GI bleed secondary to colonic ulcer possibly due to ischemic colitis, active. - H/H stable. Threshold for transfusion is <8. Type and cross with 2 units PRBCs on hold. - Recent CT abd showed a mild degree of colonic obstruction, which suggested emanating from an area of nonspecific sigmoid inflammation. - EGD and colonoscopy showed a large 3 cm ulcer clean based, nonbleeding, 40 cm from the anus status post biopsy. There is also marked edematous mucosa with remarked friability erythematous with ulcerations seen in the rectosigmoid junction status post biopsy suspicious for possible ischemic colitis. Strep pneumonia community acquired pneumonia, present on admission. - Ceftriaxone at 2g Q24H antibiotic for 5 days total. Discontinued at discharge. - Pulmonary toilet, encourage ambulation. Elevated D-dimer, PE ruled out. -Heparin drip D/C'ed FARHAT, present admission, resolved. - Likely secondary dehydration. - Avoid nephrotoxic meds Ground level fall, present on admission, stable - likely secondary to anemia, deconditioning plus dehydration in the setting of essential tremors - Echocardiogram (09/29/2016) mild LV hypertrophy with EF 60-65%. - CT-head unremarkable for any acute pathologies. - PT eval today. - Acetaminophen and home oxycodone 5/325mg Q6H PRN. Chronic hypoxemic respiratory failure, present on admission, stable - Nasal cannula titrate to O2 sat of 89-92% Chest pain, present on admission, stable - EKG unremarkable for any acute ischemic changes - Troponin T negative 2 - Likely noncardiac and secondary to trauma Chronic Conditions, present on admission: Hypertension with hypertensive heart - Echo as above - Holding lisinopril 10 mg in the setting of hypotension Hypothyroidism - TSH is low, but in the setting of acute stress, will hold off on adjusting the Levothyroxine dose. - Patient will need to adjust the Levothyroxine dose per PCP. GERD - Hiatal hernia demonstrate on CRX - Continue PPI Dyslipidemia - Continue atorvastatin Essential tremors - restarted propranolol at 1/2 dose given soft blood pressure Chronic back pain - Restarted gabapentin and also oxycodone Exam Vital Signs (Last) Date Time Temp Pulse Resp B/P Pulse Ox O2 Delivery O2 Flow Rate FiO2 12/23/16 10:25 Nasal Cannula 3.00 12/23/16 08:35 37.3 66 22 152/72 94 Exam General: Sitting comfortably in bed and in no discomfort, appropriately interactive. HEENT: Normocephalic, atraumatic. Left periorbital hematoma. PERRLA, EOMI, Anicteric sclerae, moist conjunctivae. Neck: No JVD, No lymphadenopathy or thyromegaly. Cardiovascular: Regular rate and rhythm with no murmurs, rubs, or gallops appreciated, producible chest pain around her left para sternal area. Pulmonary: b/l air sound with mild crackles at the bases but no wheezes or rhonchi. No use of accessory muscles. Abdomen: +Bowel sound, Soft, nondistended, mild tenderness to palpation in the epigastric area, which is chronic per the patient. Extremities: No clubbing or cyanosis, no lymphedema, trace bilateral lower leg edema. Tender to palpation in both legs, which are chronic per the patient. Skin: Normal temperature,texture; no rash. No visualized skin ulcer. Decreased skin turgor Neurological: CN II-VII grossly intact, moving equally on all 4 extremities, sensation grossly intact, heel to lester test negative. Test 12/19/16 12:35 12/19/16 12:46 12/19/16 14:11 12/19/16 16:45 Procalcitonin 0.08ng/mL (0.00-0.08) Urine Color Yellow (YELLOW) Urine Appearance Clear (CLEAR,HAZY) Urine pH 5.0 (5.0-8.0) Urine Specific [place] 1.015 (1.003-1.035) Urine Protein Negativemg/dL (NEG,TRACE) Urine Glucose (UA) Negativemg/dL (NEGATIVE) Urine Ketones Negativemg/dL (NEGATIVE) Urine Occult Blood Negative (NEGATIVE) Urine Nitrite Negative (NEGATIVE) Urine Bilirubin Negative (NEGATIVE) Urine Urobilinogen Normalmg/dL (NORMAL) Urine Leukocyte Esterase Negative (NEGATIVE) Urine RBC 0-2/hpf (0-2) Urine WBC 0-5/hpf (0-5) Urine Epithelial Cells Occasional/hpf (NONE-MOD) Urine Crystals None seen (NONE SEEN) Urine Bacteria Few/hpf (NONE-FEW) Urine Hyaline Casts 5/20/lpf (NONE) Urine Granular Casts None seen (NONE SEEN) Urine Waxy Casts None seen (NONE SEEN) Urine Red Blood Cell Casts None seen (NONE SEEN) Urine White Blood Cell Casts None seen (NONE SEEN) Urine Mucus None seen (None Seen) Urine Trichomonas None seen (NONE SEEN) Urine Yeast None (NONE SEEN) Urinalysis Comment None Urine Culture Reflexed Not indicated Urine Legionella pneumophilia Ag Negative (Negative) Lactic Acid Level 1.3mmol/L (0.4-2.0) Total Creatine Kinase 57U/L (21-215) Troponin T < 0.010ug/L (0.0-0.011) Thyroid Stimulating Hormone (TSH) 0.262uIU/mL (0.450-4.500) Test 12/19/16 17:20 12/20/16 06:00 12/20/16 14:22 12/22/16 03:25 D-Dimer 2.26mg/L FEU (<0.50) Hold Urine Received (Received) Activated Partial Thromboplast Time 148.7sec (22.8-33.0) Magnesium Level 2.0mg/dL (1.6-2.6) Total Bilirubin 0.2mg/dL (0.0-1.2) Aspartate Amino Transf (AST/SGOT) 16U/L (0-50) Alanine Aminotransferase (ALT/SGPT) 10U/L (0-32) Alkaline Phosphatase 92U/L (25-165) Total Protein 5.8g/dL (6.4-8.4) Albumin 3.2g/dL (3.4-5.0) Test 12/23/16 07:08 White Blood Count 3.6th/mm3 (3.8-10.1) Red Blood Count 3.26mil/mm3 (3.90-5.20) Hemoglobin 10.2g/dL (12.0-15.6) Hematocrit 32.8% (35.0-46.0) Mean Corpuscular Volume 100.6fL (81-100) Mean Corpuscular Hemoglobin 31.3pg (27.0-35.0) Mean Corpuscular Hemoglobin Concent 31.1% (32.0-37.0) Red Cell Distribution Width 13.0% (12.3-15.4) Platelet Count 211bil/L (150-400) Neutrophils (%) (Auto) 65.7% (40-74) Lymphocytes (%) (Auto) 17.0% (14-46) Monocytes (%) (Auto) 8.5% (4-12) Eosinophils (%) (Auto) 6.6% (0-5) Basophils (%) (Auto) 1.1% (0-3) Sodium Level 145mEq/L (134-144) Potassium Level 3.5mEq/L (3.5-5.2) Chloride Level 107mEq/L (97-108) Carbon Dioxide Level 27mmol/L (18-29) Blood Urea Nitrogen 4mg/dL (8-27) Creatinine 0.58mg/dL (0.57-1.00) Estimat Glomerular Filtration Rate 145mL/min (>59) Glucose Level 99mg/dL (60-99) Calcium Level 8.7mg/dL (8.5-10.1) Microbiology Results Positive urine Strep antigen. Negative Legionella. Negative Blood culture x 2 days. Negative MRSA screen. Negative viral PCR. Discharge Medications Discharge Medications Ascorbic Acid (Vitamin C) 250 Mg Tab.chew 500 MG PO QAM (Reported) Atorvastatin Calcium (Atorvastatin Calcium) 20 Mg Tablet 20 MG PO HS (Reported) Ferrous Sulfate (Ferrous Sulfate) 325 Mg Tablet 325 MG PO QAM (Reported) Fluticasone/Salmeterol (Advair 250-50 Diskus) 60 Puff/Inh Disk 1 PUFF INHALATION BID Prescribed by: COLT CASTANEDA MD Furosemide (Furosemide) 20 Mg Tab 20 MG PO QAM (Reported) Gabapentin (Gabapentin) 300 Mg Capsule 900 MG PO BID (Reported) Levothyroxine (Levothyroxine) 100 Mcg Tablet 100 MCG PO QAM (Reported) Lisinopril (Lisinopril) 10 Mg Tablet 10 MG PO QAM (Reported) Omeprazole (Omeprazole) 20 Mg Capsule.dr 20 MG PO BIDWM (Reported) Propranolol HCl (Propranolol HCl) 40 Mg Tablet 40 MG PO TID (Reported) Sucralfate (Sucralfate) 1 Gm Tablet 1 GM PO TID (Reported) Tiotropium [place] (Spiriva) 18 Mcg Cap.w.dev 18 MCG INHALATION DAILY Prescribed by: COLT CASTANEDA MD oxyCODONE-Acetaminophen 5-325 mg (oxyCODONE-Acetaminophen 5-325 mg) 1 Each Tablet 1 TAB PO TID (Reported) As needed Albuterol HFA (Proair HFA) 8.5 Gm Hfa.aer.ad 1-2 PUFFS INH Q4H PRN PRN For Shortness of Breath (Reported) Albuterol Neb Soln (Albuterol Neb Soln) 2.5 Mg/3 Ml Vial.neb 3 ML NEB BID PRN PRN For Shortness of Breath (Reported) Loperamide (Loperamide) 2 Mg Capsule 2 MG PO Q6H PRN PRN For Diarrhea or Loose Stool Prescribed by: COLT CASTANEDA MD Ondansetron (Zofran) 4 Mg Tablet 4 MG PO Q4H PRN PRN For Nausea Prescribed by: FLORI LU DO Polyethylene Glycol 3350 (Miralax) 17 Gm Powd.pack 17 GM PO DAILY PRN PRN For Constipation (Reported) oxyCODONE-Acetaminophen 5-325 mg (oxyCODONE-Acetaminophen 5-325 mg) 1 Each Tablet 1 TAB PO Q6H PRN PRN For Pain (Reported) Followup Plan Disposition: Home Discharge Diet: Heart Healthy Discharge Activity: Limited until seen by PCP Patient Instructions - You were found to have bleeding ulcer in the colon, which caused the anemia and black stool, possibly the weakness. - Dr. Butterfield (GI) took some tissues of the ulcer and should have the report by the time you see him in 2-4 weeks. Please call his office to make an appointment. - You also had pneumonia, which was treated with antibiotics for 5 days. The antibiotic course should be adequate, but if you develop fever, chills, worsening cough, nausea, vomiting, or headache, please go to the ER. - No pulmonary embolism was found. Your shortness of breath could be an exacerbation of the chronic respiratory failure due to the pneumonia. Please continue to use the oxygen at home. - You need to follow up with your primary care doctor in 1 week. You will need to repeat the labs (CBC) to make sure the infection resolved. You will need to talk to Dr. Meek about your thyroid medication. You might need to talk to him about the hiatal hernia as well. - Use a walker to ambulate. You are at high risk for falls so always be very careful with ambulating. Follow-up Provider: Fabian Meek MD Follow-up with PCP in: 1 week Provider: Waqas Butterfield MD Follow-up in: 2 weeks Time spent 60 minutes Attending Statement Patient seen and examined with house staff. Agree with all attached documentation. copies to: Fabian Meek MD, Ngochanh H DO Dec 23, 2016 11:48 Panda Sharpe MD Dec 26, 2016 07:47
--- NOTE | 2016-12-23 13:34 | NUR ---
Discharge Patient was discharged home today in stable condition within her limitations of requiring 3L O2 per NC as she uses at home. Patient denied having any pain, chest pain, shortness of breath. Patient was medicated with oxycodone one tablet this morning for chronic hip/back pain this morning and stated good pain relive at discharge. Patient and her granddaughter verbalized understanding of verbal and written discharge home instructions regarding home medications, follow up appointments, activity, home oxygen use and safety, how to make home environment safer to prevent falls, diet and S/S when to call MD or 911. IV was removed intact prior to discharge. Patient ambulated and was able to void well prior to discharge. Patient was accompanied by staff and was transported in a wheelchair to her granddaughter's car. Patient had her home O2 and O2 concentrator for her trip home.
--- NOTE | 2016-12-23 14:37 | NUR ---
Social Work: Discharge D: Pt discussed in am rounds; pt medically stable for discharge. MD knows that the pt has declined SNF and no supportive services will service the pt's geographic location. DIRECTOR WORKFORCE MANAGEMENT met with the patient and granddaughter at bedside to assess for unmet needs and confirm discharge plan. They both state that they agree with discharge and that the pt will be going home to stay with her granddaughter and other family members. They feel confident with the support from family and express no concerns about discharge. A: Pt who lives at home with family. P: Pt to discharge home via POV and no sw needs. CLINTON Aguilar
--- NOTE | 2016-12-23 15:50 | NUR ---
LATE NOTE JC SIGNED AT [id number]
== END 2016-12-23 12:40 | disposition home or self-care (01) | DRG 377 ==
LOC: SED 12:11 → MPC 17:24 → PCC 19:13
PROVIDERS: ADMIT Hospitalist; ATTEND Hospitalist
PROC: 0DB98ZX Excision of Duodenum, Via Natural or Artificial Opening Endoscopic, Diagnostic (ICD-10-PCS; principal; 2016-12-22 08:00)
PROC: 0DBN8ZX Excision of Sigmoid Colon, Via Natural or Artificial Opening Endoscopic, Diagnostic (ICD-10-PCS; 2016-12-22 08:00)
DX: K92.2 Gastrointestinal hemorrhage, unspecified (principal); J13 Pneumonia due to Streptococcus pneumoniae; J96.11 Chronic respiratory failure with hypoxia; N17.9 Acute kidney failure, unspecified; Q21.1 Atrial septal defect; D62 Acute posthemorrhagic anemia; K63.3 Ulcer of intestine; K55.9 Vascular disorder of intestine, unspecified; E86.0 Dehydration; I11.9 Hypertensive heart disease without heart failure; J44.9 Chronic obstructive pulmonary disease, unspecified; J45.909 Unspecified asthma, uncomplicated; D64.9 Anemia, unspecified; Z86.73 Personal history of transient ischemic attack (TIA), and cerebral infarction without residual deficits; Z85.828 Personal history of other malignant neoplasm of skin; Z85.41 Personal history of malignant neoplasm of cervix uteri; Z87.891 Personal history of nicotine dependence; W19.XXXA Unspecified fall, initial encounter; Y93.9 Activity, unspecified; Y92.009 Unspecified place in unspecified non-institutional (private) residence as the place of occurrence of the external cause; E03.9 Hypothyroidism, unspecified; K21.9 Gastro-esophageal reflux disease without esophagitis; E78.5 Hyperlipidemia, unspecified; M54.9 Dorsalgia, unspecified; G25.0 Essential tremor; Z66 Do not resuscitate; R07.9 Chest pain, unspecified

== ENCOUNTER 2016-12-31 23:33 | Inpatient (IN) | payer MEDICARE, OTHER, MEDICAID ==
[~2016-12-31] VITALS: Ht 162.6 cm; Wt 86.1 kg
[~2016-12-31 23:33] MED LIST changes: -CIPR-231 PO; -GUAI600T86 PO; -Heparin 25,000 Unit/500 mL 0.45% NS Premix IV ONE; -Heparin 5,000 Unit/mL Inj ONE; -LISI-567 PO; +LISI10TA PO; -METR500T PO; -MeTOProlol 1 mg/mL 5 mL Inj ONE; -Nitroglycerin 2% 1 Gm Ointment TOPICAL ONE; -Nitroglycerin 50,000 mcg/250 mL D5W Premix IV ONE; -Ondansetron 2 mg/mL 2 mL Inj ONE; -POTA20TA16 PO; -PROP20TA5 PO; +PROP40TA5 PO; -SACC250C PO; -Tirofiban 12.5 mg/250 mL NS Premix IV ONE
[2016-12-31 23:37] VITALS: BP 126/82; PULSE 95; RESP 22; O2SAT 94
--- NOTE | 2016-12-31 23:59 | ED.REPORT ---
HPI-Dyspnea / Wheezing Date of Service Dec 31, 2016 ED Provider: Elder Rojas MD A 76-year-old female with past medical history COPD hypertension atrial septal aneurysm, skin cancer and cervical cancer, presents today with shortness of breath. She has been hospitalized multiple times in the last year, with her most recent hospitalization for pneumonia (admitted 2 weeks ago) in which she stayed for a full week, and was given antibiotics on the hospital however she states that she was not given antibiotics to use as an outpatient. He did follow-up with a primary care provider after this visit. She states that he listened to her lungs and heard some small amount of fluid in the lungs but was not impressed to continue treatment with antibiotics at that time. Over the last 2 days patient states that she has developed progressive shortness of breath and productive cough which is not allowed her to sleep. He states that she has been coughing up clear mucousy phlegm. She also notes that her legs have become more swollen than normal. EMS was called and upon arrival she was noted to have a oxygen saturation of 81%. She is placed on 4 L of oxygen and her oxygenation subsequently improved to the low 90s. Since arrival to hospital her oxygenation has remained in the low 90s on 4 L oxygen. She is typically on 2-3 L of oxygen at home. She received a dose of nebulized albuterol at home, and states that she has been breathing better since that time , however cough persists. She states experiences nausea, shortness of breath, swelling of the legs and feet, low-grade fevers. Denies chest pain, headache, vomiting. She denies any known history of CHF. Nursing Notes Stated Complaint: SHORT OF BREATH Chief Complaint: Respiratory Distress Nursing Notes Reviewed: Yes Allergies: Coded Allergies: Penicillins (Verified Allergy, Severe, rash, 12/31/16) sulfamethoxazole (Verified Allergy, Severe, WEDGER [employer] GLUER toxicity, 12/31/16) trimethoprim (Verified Allergy, Severe, WEDGER [employer] GLUER toxicity, 12/31/16) dexamethasone (Verified Allergy, Intermediate, 12/31/16) insomnia, nightmares, nasuea and visual changes hydrochlorothiazide (Verified Allergy, Intermediate, Rash,Itching,, 12/31/16 ) ciprofloxacin (Verified Allergy, Unknown, 12/31/16) Uncoded Allergies: sulfamethoxazole-trimethoprim (Allergy, Intermediate, Hallucinations, 11/2/ 16) Scheduled Ascorbic Acid (Vitamin C) 250 Mg Tab.chew 500 MG PO QAM Atorvastatin Calcium (Atorvastatin Calcium) 20 Mg Tablet 20 MG PO HS Ferrous Sulfate (Ferrous Sulfate) 325 Mg Tablet 325 MG PO QAM Fluticasone/Salmeterol (Advair 250-50 Diskus) 60 Puff/Inh Disk 1 PUFF INHALATION BID Furosemide (Furosemide) 20 Mg Tab 20 MG PO QAM Gabapentin (Gabapentin) 300 Mg Capsule 900 MG PO BID Levothyroxine (Levothyroxine) 100 Mcg Tablet 100 MCG PO QAM Lisinopril (Lisinopril) 10 Mg Tablet 10 MG PO QAM Omeprazole (Omeprazole) 20 Mg Capsule.dr 20 MG PO BIDWM Propranolol HCl (Propranolol HCl) 40 Mg Tablet 40 MG PO TID Sucralfate (Sucralfate) 1 Gm Tablet 1 GM PO TID Tiotropium [place] (Spiriva) 18 Mcg Cap.w.dev 18 MCG INHALATION DAILY oxyCODONE-Acetaminophen 5-325 mg (oxyCODONE-Acetaminophen 5-325 mg) 1 Each Tablet 1 TAB PO TID Scheduled PRN Albuterol HFA (Proair HFA) 8.5 Gm Hfa.aer.ad 1-2 PUFFS INH Q4H PRN PRN For Shortness of Breath Albuterol Neb Soln (Albuterol Neb Soln) 2.5 Mg/3 Ml Vial.neb 3 ML NEB BID PRN PRN For Shortness of Breath Loperamide (Loperamide) 2 Mg Capsule 2 MG PO Q6H PRN PRN For Diarrhea or Loose Stool Ondansetron (Zofran) 4 Mg Tablet 4 MG PO Q4H PRN PRN For Nausea Polyethylene Glycol 3350 (Miralax) 17 Gm Powd.pack 17 GM PO DAILY PRN PRN For Constipation oxyCODONE-Acetaminophen 5-325 mg (oxyCODONE-Acetaminophen 5-325 mg) 1 Each Tablet 1 TAB PO Q6H PRN PRN For Pain General Time Seen by MD: 23:40 Chief Complaint Cough, Shortness of breath, Wheezing Hx Obtained From: Patient Arrived By: Ambulance Sudden in Onset?: Yes Onset Occurred: 2 days ago Symptom Duration: Since onset Severity: Current: No pain currently Severity: Maximum: No pain Risk Factors CAD Risk Stratification Risk factors reviewed PE Risk Stratification Risk factors reviewed Past Medical History Past Medical History Notes: Code Status: Full Code Medication List per Discharge Note dated 04/20/[address] [place] General: Amlodipine 5mg daily Albuterol 2 puffs q 4 hours prn SOB Gabapentin 300mg 2 tabs tid Brovana 1 vial nebulized bid Atorvastatin 20mg q PM Pulmicort nebs bid Vitamin D 4000 international units daily Duloxetine 30mg q PM Fish Oil 1 tab daily Flaxseed Oil 1 tab daily Ipratropium neb solution qid daily Levothyroxine 100mcg daily Omeprazole 20mg bid Zofran 4mg tablet q 8 hours prn nausea, vomiting Oxycodone 5/325, 1 to 2 tablets every 4 hours prn pain Miralax 17 grams in 8oz water daily Propranolol 20mg tid Zolpidem 5 to 10mg nightly prn insomnia Past Medical History Chronic back pain Atrial septal anuerysm 2007 COPD HTN Skin and cervical cancer Reports: GERD, Stroke Reports: Thyroid disease Past Surgical History back surgeries x2 Shoulder surgery x2 R hand Reports: Hysterectomy Smoking History Former Smoker (quit 5 years ago) Social History Alcohol Use: Denies alcohol use Drug Use: Denies drug use Other Social History: Good social support, Lives alone Ambulatory Status Independent Review of Systems Complete sys rev & neg: except as marked. Physical Exam Initial Vital Signs Vital Signs (First) Date Time Temp Pulse Resp B/P Pulse Ox O2 Delivery O2 Flow Rate FiO2 12/31/16 23:37 37.4 95 22 126/82 94 Nasal Cannula 4 Initial VS: Reviewed, Vital signs abnormal Head / Eyes: Atraumatic, Normocephalic, PERRL ENT: Mucous membranes moist, Conjunctiva normal, No scleral icterus Abdomen / GI: Soft, Non-tender, No guarding, No rebound, No distention Extremities: Vascular intact Skin: Warm, Dry, No cyanosis Neurologic: Alert, Oriented, Nonfocal Psychiatric: Mood/affect normal, Behavior normal, Normal thought content Respiratory / Chest: Atraumatic, Breath sounds = bilat, No respiratory distress , No retractions, No stridor Wheezing / Retractions: Positive: Wheezing expiratory (mild) Rales / Rhonchi: Positive: Rhonchi diffuse Cardiovascular: Heart rate NL, Regular rhythm, Heart sounds NL, No murmurs, No rubs Lower Extremity / Pelvis / MS: Neurologic intact, Vascular intact Right Leg / Calf: Positive: Swelling present... (Mild), Tenderness present... ( Mild), Warmth present, Negative: Ecchymosis present, Erythema present Left Leg / Calf: Positive: Swelling present... (Mild), Tenderness present... ( Mild), Warmth present, Negative: Ecchymosis present, Erythema present Interpretation & Diagnostics Lab Results Interpretation Result Diagram: 01/01/17701/01/178 Test 01/01/17 00:08 White Blood Count 4.4th/mm3 (3.8-10.1) Red Blood Count 3.52mil/mm3 (3.90-5.20) Hemoglobin 11.1g/dL (12.0-15.6) Hematocrit 36.9% (35.0-46.0) Mean Corpuscular Volume 104.8fL (81-100) Mean Corpuscular Hemoglobin 31.5pg (27.0-35.0) Mean Corpuscular Hemoglobin Concent 30.1% (32.0-37.0) Red Cell Distribution Width 13.7% (12.3-15.4) Platelet Count 252bil/L (150-400) Neutrophils (%) (Auto) 71.0% (40-74) Lymphocytes (%) (Auto) 13.8% (14-46) Monocytes (%) (Auto) 11.8% (4-12) Eosinophils (%) (Auto) 2.3% (0-5) Basophils (%) (Auto) 0.9% (0-3) D-Dimer 0.65mg/L FEU (<0.50) Sodium Level 141mEq/L (134-144) Potassium Level 3.8mEq/L (3.5-5.2) Chloride Level 91mEq/L (97-108) Carbon Dioxide Level 39mmol/L (18-29) Blood Urea Nitrogen 13mg/dL (8-27) Creatinine 0.87mg/dL (0.57-1.00) Estimat Glomerular Filtration Rate 91mL/min (>59) Glucose Level 142mg/dL (60-99) Lactic Acid Level 0.6mmol/L (0.4-2.0) Calcium Level 9.4mg/dL (8.5-10.1) Magnesium Level 2.1mg/dL (1.6-2.6) Total Bilirubin 0.2mg/dL (0.0-1.2) Aspartate Amino Transf (AST/SGOT) 20U/L (0-50) Alanine Aminotransferase (ALT/SGPT) 15U/L (0-32) Alkaline Phosphatase 77U/L (25-165) Troponin T 0.010ug/L (0.0-0.011) Pro-B-Type Natriuretic Peptide 316.9pg/mL (0-738) Total Protein 6.8g/dL (6.4-8.4) Albumin 3.9g/dL (3.4-5.0) Procalcitonin 0.08ng/mL (0.00-0.08) Hold Hendrickson Top Tube Received (Received) Lab Results Interpretation: Patient is mildly anemic, according to her medical records she has a small GI bleed which was evaluated last time she was admitted to the hospital. Patient's bicarbonate is high which is most likely results from shortness of breath D-dimer high, for this reason CT was done to rule out PE Other lab findings and insignificant ECG Interpretation Interpreted by: ED physician Normal ECG Interpretation: Normal rate, Normal sinus rhythm, No acute ischemic changes, Normal intervals Rhythm / Conduction: QRS complex - wide, RBBB - incomplete Atrium and Vent Size: Atrial enlargement - L CT Chest Interpretation Conclusion: No evidence of pulmonary embolism or dissection. Moderate atelectasis right lower lobe. I cannot exclude a component of pneumonia. Large hiatal hernia with entire stomach within the chest area and no signs of obstruction. Emphysema. This report was transmitted to the emergency room at 01/01/2017 03:04 a.m. Benjamín Luke M.D. ([facility]) Study type: CT pulm angiogram Interpretation / Wet Read by: Interpret - ED physician, Interpret - Radiologist NL CT Chest Findings: Great vessels normal, Normal mediastinum, No pulmonary embolism, No mass, No pneumothorax Infiltrates / Pneumothorax: Infiltrate R lower lung Re-Eval/Medical Decision Med Decision/Clinical Course 76-year-old recent pneumonia presents now with significant hypoxemia and dyspnea. X-ray shows worsening infiltration of left lingular area as well as right lower lobe infiltration. A dimer is malleolus and a CT confirms patchy lower lobe and lingular pneumonia. No pulmonary embolus is seen. She has multiple allergies limiting choices of antibiotics. At this point with a two week timeframe and a recent hospitalization, must be considered to be healthcare associated pneumonia. Unfortunately, she is allergic to multiple agents. Begun with cefepime and vancomycin as the only immediate alternatives. Admitted now for oxygen support, ongoing antibiotics, and a more prolonged course as an outpatient additionally. Workup shows evidence of mild right lower lobe pneumonia. Due to her age and current health problems is advised that she be admitted to the hospital and treated under care of supervising physician. Counseled Regarding: Diagnosis, Lab results, Need for admission Discharge & Departure Shift Change Sign-Out Response to Therapy: Improved Impression: Primary Impression: Pneumonia Pneumonia type: due to unspecified organism Laterality: right Lung location : lower lobe of lung Qualified Code: J18.1 - Lobar pneumonia, unspecified organism Additional Impressions: Healthcare-associated pneumonia Shortness of breath Disposition: ADMITTED TO HOSPITAL Discharge Condition All VS Reviewed: Yes Condition: Stable Referrals: Fabian Meek MD (PCP) Attending Statement As attending of record for this patient, I conducted an independent history and physical examination, and agree with the resident documentation as above and as amended. Galindo Lombardo DO Dec 31, 2016 23:59 Elder Rojas MD Jan 01, 2017 07:04
[2017-01-01] VITALS (17 sets, daily range): BP systolic 106–152; BP diastolic 58–78; PULSE 61–117; RESP 15–24; O2SAT 88–97
[2017-01-01 00:33] LABS: BASOPHILS % (AUTO) 0.9 % (0-3); EOSINOPHILS % (AUTO) 2.3 % (0-5); MONOCYTES % (AUTO) 11.8 % (4-12); Mean Corpuscular Hemoglobin 31.5 pg (27.0-35.0); Mean Corpuscular Volume 104.8 fL (81-100); Platelet Count 252 bil/L (150-400)
[2017-01-01] MEDS ORDERED: Albuterol 2.5 mg/3 mL Inhalation Solution NEB ONE (00:55)
[2017-01-01] MEDS ORDERED: Albuterol-Ipratropium 3 mL Inhalation Solution NEB ONE (00:55)
[2017-01-01 01:07] LABS: Magnesium 2.1 mg/dL (1.6-2.6); TROPONIN T 0.01 ug/L (0.0-0.011)
[2017-01-01] MEDS ORDERED: Vancomycin Dose per Pharmacist XX ONE (03:50)
[2017-01-01] MEDS ORDERED: Cefepime Inj 2,000 MG in Dextrose 5% Minibag Plus 100 ML IV ONE (03:50)
[2017-01-01] MEDS ORDERED: Vancomycin Inj 1,000 MG in IV Premix 1 EACH IV ONE (04:15)
[2017-01-01] MEDS ORDERED: Alum-Mag Hydrox-Simeth 30 mL Suspension PO PRN (04:55)
[2017-01-01] MEDS ORDERED: Polyethylene Glycol (PEG) 17 Gm Powder PO PRN (04:55)
[2017-01-01] MEDS ORDERED: Ondansetron 2 mg/mL 2 mL Inj IVPUSH PRN (04:55)
--- NOTE | 2017-01-01 05:10 | PCM.HPMED ---
Subjective Date of Service Jan 01, 2017 Primary Provider: Admitting Physician: Ирина Tucker DO Primary Care Physician: Fabian Meek MD Attending Physician: Ирина Tucker DO Admit Status: From the Emergency Department, Full Admit Chief Complaint: Shortness of Breath, Cough History of Present Illness: Patient is a 76 year old female with past medical history of COPD, HTN , and CVA who was recently discharged from here on 12/23 for pneumonia presenting to ED with Shortness of Breath and dry cough that has been present for the past 2 days. Pt awoke from sleep short of breath and called EMS. Pt uses home O2 at 3L, and EMS found patient to have an O2 sat of 80-81% on 3L. Patient has SOB, dry cough, sore throat, and constipation. Denies chest pain, nausea, vomiting, diarrhea, dysuria, and hematuria. Pt has not been taking any antibiotics, and was not sent home with any from the previous visit. In the ED patient was placed on 4L O2 and responded well with an increase in O2 sat to 96%. One dose of Vancomycin 1g IV given in ED and an albuterol breathing treatment with mild relief. Patient still has sensation of SOB with persistent cough. Patient admitted to medicine team for shortness of breath, hypoxia, and likely HCAP. Review of Systems: ROS negative unless otherwise noted above. Allergies Coded Allergies: Penicillins (Verified Allergy, Severe, rash, 12/31/16) sulfamethoxazole (Verified Allergy, Severe, TOPOGRAPH[employer] DRAFTER toxicity, 12/31/16) trimethoprim (Verified Allergy, Severe, TOPOGRAPHICAL DRAFTER toxicity, 12/31/16) dexamethasone (Verified Allergy, Intermediate, 12/31/16) insomnia, nightmares, nasuea and visual changes hydrochlorothiazide (Verified Allergy, Intermediate, Rash,Itching,, 12/31/16 ) ciprofloxacin (Verified Allergy, Unknown, 12/31/16) Uncoded Allergies: sulfamethoxazole-trimethoprim (Allergy, Intermediate, Hallucinations, ) Home Medications Discharge Medications from 12/23 Ascorbic Acid (Vitamin C) 250 Mg Tab.chew 500 MG PO QAM Atorvastatin Calcium (Atorvastatin Calcium) 20 Mg Tablet 20 MG PO HS Ferrous Sulfate (Ferrous Sulfate) 325 Mg Tablet 325 MG PO QAM Fluticasone/Salmeterol (Advair 250-50 Diskus) 60 Puff/Inh Disk 1 PUFF INHALATION BID Prescribed by: COLT CASTANEDA MD Furosemide (Furosemide) 20 Mg Tab 20 MG PO QAM Gabapentin (Gabapentin) 300 Mg Capsule 900 MG PO BID Levothyroxine (Levothyroxine) 100 Mcg Tablet 100 MCG PO QAM Lisinopril (Lisinopril) 10 Mg Tablet 10 MG PO QAM Omeprazole (Omeprazole) 20 Mg Capsule.dr 20 MG PO BIDWM Propranolol HCl (Propranolol HCl) 40 Mg Tablet 40 MG PO TID Sucralfate (Sucralfate) 1 Gm Tablet 1 GM PO TID Tiotropium [place] (Spiriva) 18 Mcg Cap.w.dev 18 MCG INHALATION DAILY Prescribed by: COLT CASTANEDA MD oxyCODONE-Acetaminophen 5-325 mg (oxyCODONE-Acetaminophen 5-325 mg) 1 Each Tablet 1 TAB PO TID PMH COPD with home O2 at 3L, stomach ulcers, HTN, CVA Surgical History Denies any h/o surgeries. Social History Hx Alcohol Use: No Hx Substance Use: No Smoking Status: Former Smoker (quit 5 years ago with a 10 pack year history) Exam Vital Signs Vital Sign - Last Date Time Temp Pulse Resp B/P Pulse Ox O2 Delivery O2 Flow Rate FiO2 01/01/17 04:57 82 20 118/68 93 Nasal Cannula 2 12/31/16 23:37 37.4 Exam Patient is a 76 year old female who is conversive and cooperative, but easily short of breath with conversation HEENT: Dry mucous membranes, EOMI NECK: Supple, nontender CARDIOVASCULAR: tachycardia, no murmurs, trace edema in bilateral lower extremities LUNGS: diffuse wheezing with coarse rhonchi throughout ABDOMEN: Soft Nontender MUSCULOSKELETAL: moves all four extremities appropriately NEURO: No focal deficits PSYCH appropriate mood and affect Lab and Diagnostics Labs Lactic Acid: 0.6 D-Dimer 0.65 Result Diagram: 01/01/17701/01/177 12-lead ECG Sinus rhythm, no signs of acute coronary event Assessment & Plan Patient is a 76 year old female with past medical history of COPD, HTN , and CVA who was recently discharged from here on 12/23 for pneumonia presenting to ED with Shortness of Breath and dry cough that has been present for the past 2 days. Patient admitted to medicine team for shortness of breath, hypoxia, and likely HCAP. Hospital Day 1 1. Acute on Chronic Respiratory Failure, present on admission, active Likely caused by HCAP vs COPD Exacerbation, vs diastolic HF exacerbation - Patient on 4L O2, baseline reported at 3L - Vancomycin given in ED. Pharmacy to dose further regiment - Cefepime 2gm IV Q8H will be added, Penicillin allergy reported as rash - Pending micro studies, consider ID consultation pending results, considering patients antibiotic allergies. - Levaquin will not be used secondary to ciprofloxacin allergy - Albuterol breathing treatments PRN - Obtain strep urine antigen - Obtain Legionella antigen - Obtain PCR - MRSA screen dated 12/19/16 was noted negative - Repeat Procalcitonin for noon today. - last echo done in September 29 showing grade one diastolic failure w/ EF 60-65 %, repeat echo with limited study. Patient does not have elevated WBC, procalcitonin is within normal limits, no significant increase in BNP, on CXR, patient has massive elevation of Right Hemidiaphragm and a large esophageal hernia. 2. Cough chronicity unknown, present on admission, active Possibly secondary to Lisinopril reaction vs COPD vs Acid reflux (likely due to large esophageal hernia), possible pneumonia (strep pneumoniae present on discharge) - Benzonatate PRN 3. Elevated D-Dimer, chronic - November 2016 - 2.26 - Most recent CT chest showed no evidence of PE, repeat CT performed in ED with results pending 4. H/o Hypertension chronic, presumed stable - Continue home dose of Lisinopril 10mg PO daily 5. H/o GERD chronic - Pantoprazole 20mg Daily PO - Consider increasing Omeprazole from 20mg BID to 40mg BID Maintenance: -PRN antiemetics, antacid, and pain - Diet regular -Anticoagulation with 5,000 U Heparin - Patient DNR/DNI Patient admitted to inpatient service with expected stay >2midnights due to medical complexity and risk for adverse events. Pain Evaluation: Adequate Pain Control GI Prophylaxis: H2 luz VTE Prophylaxis: Sub-Q Heparin (Unfractionated) Resuscitation Status: DNR/DNI:Do Not Resuscitate/Intubate Attending Statement The patient was seen and examined together with house staff on 01/01/2017 and I agree with the history, exam and plan as outlined in the note above. Marcelino Wilkinson DO Jan 01, 2017 05:10 Ирина Tucker DO Jan 01, 2017 06:36
--- NOTE | 2017-01-01 06:08 | NUR ---
Admit PT arrived in room with all belongings, alert and oriented and cooperative. Moved from stretcher to bed with help of staff. Pt complained of painful cough.
[2017-01-01] MEDS: Albuterol 2.5 mg/3 mL Inhalation Solution NEB PRN ×2 (06:37→23:44)
[2017-01-01] MEDS: Pantoprazole 20 mg ER24 Tablet PO SCH (07:46)
[2017-01-01] MEDS: Heparin 5,000 Unit/mL Inj SUBQ SCH ×2 (07:47→16:11)
[2017-01-01] MEDS ORDERED: oxyCODONE-Acetamin 5-325 mg Tablet PO PRN (08:35)
--- NOTE | 2017-01-01 08:47 | PCM.PNMED ---
Subjective Date of Service Jan 01, 2017 Subjective Lots of neck and back pain which is chronic for her but currently worse because not receiving her oxycodone in the hospital. Still feels quite short of breath although slightly improved from admission. Is quite adamant that she cannot tolerate prednisone. Feels like there is some congestion in her chest which she is unable to cough up. Exam Vital Signs Vital Sign - Last Date Time Temp Pulse Resp B/P Pulse Ox O2 Delivery O2 Flow Rate FiO2 01/01/17 08:31 96 01/01/17 06:38 24 88 Nasal Cannula 4.00 01/01/17 05:43 36.7 126/74 Exam General: Alert and oriented, appears uncomfortable due to pain Heart: Regular Lungs: Moderately prolonged expiratory phase with anterior expiratory wheeze, able to speak in full sentences Abdomen: Soft, non-tender Extremities: No pedal edema IVs and Medications Medications Reviewed: Medications were reviewed in detail Lab and Diagnostics Result Diagram: 01/01/17701/01/177 12-lead ECG Sinus rhythm, no signs of acute coronary event Assessment & Plan Patient is a 76 year old female with past medical history of COPD, HTN , and CVA who was recently discharged from here on 12/23 for pneumonia presenting to ED with Shortness of Breath and dry cough that has been present for the past 2 days. Patient admitted to medicine team for shortness of breath, hypoxia, and likely HCAP. 1. Acute on Chronic Respiratory Failure, present on admission, active Likely caused by HCAP vs COPD Exacerbation, vs diastolic HF exacerbation - Patient on 4L O2, baseline reported at 3L - Vancomycin given in ED. Pharmacy to dose further regiment - Cefepime 2gm IV Q8H will be added, Penicillin allergy reported as rash - Pending micro studies, consider ID consultation pending results, considering patients antibiotic allergies. - Levaquin will not be used secondary to ciprofloxacin allergy - Duoneb QID and q 2 hr Albuterol breathing treatments PRN - strep urine antigen pending - Legionella antigen pending - Obtain PCR - blood cult x 2 pending - MRSA screen dated 12/19/16 was noted negative - Repeat Procalcitonin for noon today. - last echo done in September 29 showing grade one diastolic failure w/ EF 60-65 %, repeat echo with limited study. Patient does not have elevated WBC, procalcitonin is within normal limits, no significant increase in BNP, on CXR, patient has massive elevation of Right Hemidiaphragm and a large esophageal hernia. Addendum: reports now available for imaging. Atelectasis on CXR. CT shows: Persistent atelectasis in the right lung base, decreased from the prior study. A component of consolidation inferiorly is again noted, with associated pneumonia not excluded. Bronchial wall thickening in the right lower and middle lobes with associated luminal narrowing. So she may have some persistent pneumonia but not sure it qualifies as a HCAP since present at time of last admission. Depending on above results and her clinical course may want to change antibiotics (discontinue the Vancomycin) 2. Cough chronicity unknown, present on admission, active Possibly secondary to Lisinopril reaction vs COPD vs Acid reflux (likely due to large esophageal hernia), possible pneumonia (strep pneumoniae present on discharge) - Benzonatate PRN 3. Elevated D-Dimer, chronic - November 2016 - 2.26 - Most recent CT chest showed no evidence of PE, repeat CT performed in ED with results pending 4. H/o Hypertension chronic, presumed stable - Continue home dose of Lisinopril 10mg PO daily 5. H/o GERD chronic - Pantoprazole 20mg Daily PO - Consider increasing Omeprazole from 20mg BID to 40mg BID 6. Chronic neck and back pain - continue Gabapentin - continue Percocet prn Maintenance: -PRN antiemetics, antacid, and pain - Diet regular -Anticoagulation with 5,000 U Heparin - Patient DNR/DNI Patient admitted to inpatient service with expected stay >2midnights due to medical complexity and risk for adverse events. GI Prophylaxis: H2 luz VTE Prophylaxis: Sub-Q Heparin (Unfractionated) Resuscitation Status: DNR/DNI:Do Not Resuscitate/Intubate Sarah Cantu MD Jan 01, 2017 08:47
[2017-01-01] MEDS: Ascorbic Acid 500 mg Tablet PO SCH (09:18)
--- NOTE | 2017-01-01 09:30 | DRSVH ---
PROCEDURE: CT ANGIO CHEST PULMONARY EMBOLISM ([id number]) INDICATIONS: Shortness of breath and cough. TECHNIQUE: After the administration of intravenous contrast, 2 mm thick sections acquired from the pulmonary api nic to the posterior costophrenic angles. 3-dimensional maximum intensity projection (MIP) coronal a nd sagittal reformats were then acquired through the thorax. For radiation dose reduction, the follo wing was used: automated exposure control, adjustment of mA and/or kV according to patient size. COMPARISON: [facility], CT, CT ANGIO CHEST PE, 12/20/2016, 17:27. FINDINGS: Image quality: Excellent. Pulmonary arteries: Pulmonary arteries are normal in size, and demonstrate no intraluminal filling d efects to suggest central pulmonary embolism. Lungs and pleura: There is elevation of the right hemidiaphragm redemonstrated. There is atelectasi s redemonstrated within the right lower lobe and inferior right middle lobe with consolidation inferi onesimo. A component of pneumonia cannot be excluded. However, the findings are decreased compared to the prior study. There is associated bronchial wall thickening within the right middle and lower lob es with associated luminal narrowing. No pleural effusions or pneumothorax. Mediastinum: Heart size is normal, without pericardial effusion. There are a few mildly large right hilar lymph nodes. No mediastinal adenopathy. There is rightward shift of the mediastinum secondar y to right lung volume loss. Thoracic aorta is normal in caliber and enhancement. There is a large hiatal hernia redemonstrated containing the entirety of the stomach. No evidence of associated obstr uction. Bones and chest wall: No suspicious bony lesions. Ribs and thoracic spine appear intact throughout. No axillary or supraclavicular adenopathy. Abdomen: Visualized upper abdomen demonstrates 2 small hypodensities in the left hepatic lobe likely representing cysts. A large exophytic cyst is also partially visualized extending from the left kid jason. IMPRESSION: 1. No evidence of pulmonary embolism. 2. Large hiatal hernia redemonstrated containing the entirety of the stomach without associated obst ruction. Elevation of the right hemidiaphragm is also again noted. 3. Persistent atelectasis in the right lung base, decreased from the prior study. A component of co nsolidation inferiorly is again noted, with associated pneumonia not excluded. 4. Bronchial wall thickening in the right lower and middle lobes with associated luminal narrowing. 5. Enlarged right hilar lymph nodes are nonspecific and may be reactive. Dictated by: Daniele Harris M.D. on 01/01/2017 at 9:05 Approved by: Daniele Harris M.D. on 01/01/2017 at 9:22
--- NOTE | 2017-01-01 10:11 | DRSVH ---
PROCEDURE: X-RAY CHEST, TWO VIEWS ([id number]) INDICATIONS: SOB, poss fluid overload TECHNIQUE: 2 views of the chest were acquired. COMPARISON: [facility], CR, XR CHEST 2VW, 09/29/2016, 17:15. [facility], CT, CT ANGIO CHEST PE, 01/01/2017, 2:43. FINDINGS: Surgical changes and devices: None. Lungs and pleura: No pleural effusions or pneumothorax. No definite radiographic evidence of pulmon mauricio edema. There are linear opacities consistent with atelectasis in the lung bases. Elevation of t he right hemidiaphragm is again noted. Mediastinum: There is a large hiatal hernia redemonstrated. Heart size is normal. Bones and chest wall: No suspicious bony abnormalities. Soft tissues appear unremarkable. IMPRESSION: 1. Bibasilar atelectasis without definite radiographic evidence of pulmonary edema. Dictated by: Daniele Harris M.D. on 01/01/2017 at 10:02 Approved by: Daniele Harris M.D. on 01/01/2017 at 10:03
[2017-01-01] MEDS ORDERED: 0.9% Sodium Chloride 250 ML ONE (10:16)
[2017-01-01] MEDS: Fluticasone-Salmererol 250-50 Inhaler INHALATION SCH ×2 (10:19→20:59)
[2017-01-01] MEDS: Cefepime Inj 2,000 MG in Dextrose 5% Minibag Plus 100 ML IV SCH ×2 (10:20→17:34)
[2017-01-01] MEDS ORDERED: Albuterol-Ipratropium 3 mL Inhalation Solution NEB SCH (11:00)
[2017-01-01] MEDS: Albuterol-Ipratropium 3 mL Inhalation Solution NEB SCH ×3 (11:03→19:44)
[2017-01-01] MEDS: Sucralfate 1,000 mg Tablet PO SCH ×2 (14:06→20:56)
[2017-01-01] MEDS: oxyCODONE-Acetamin 5-325 mg Tablet PO PRN ×3 (14:06→23:04)
--- NOTE | 2017-01-01 18:02 | NUR ---
Respiratory Reports improvement this shift. Coughing reduced over shift. O2 in place. Still reporting inability to lie flat.
[2017-01-02] VITALS (9 sets, daily range): BP systolic 96–165; BP diastolic 56–105; PULSE 67–85; RESP 16–20; O2SAT 89–97
[2017-01-02] MEDS: Heparin 5,000 Unit/mL Inj SUBQ SCH ×3 (00:24→16:21)
[2017-01-02] MEDS: Cefepime Inj 2,000 MG in Dextrose 5% Minibag Plus 100 ML IV SCH ×2 (02:07→11:05)
[2017-01-02] MEDS: oxyCODONE-Acetamin 5-325 mg Tablet PO PRN ×4 (03:13→20:49)
[2017-01-02] MEDS: Albuterol-Ipratropium 3 mL Inhalation Solution NEB SCH ×4 (07:36→20:52)
[2017-01-02] MEDS: Fluticasone-Salmererol 250-50 Inhaler INHALATION SCH ×2 (08:00→20:37)
[2017-01-02] MEDS: Pantoprazole 20 mg ER24 Tablet PO SCH (08:01)
[2017-01-02] MEDS: Sucralfate 1,000 mg Tablet PO SCH ×3 (08:01→20:37)
[2017-01-02] MEDS: Ascorbic Acid 500 mg Tablet PO SCH (08:01)
--- NOTE | 2017-01-02 09:26 | NUR ---
Social Work-initial assessment: Data:See initial assessment. P is a 76 y/o female who was admitted on 01/01/17 for pneumonia per H&P. Pt's insurance is [facility] [employer] and PCP is Fabian Meek MD. EMR Reviewed. Pt's readmission score is 5-high risk. DAV met with pt at bedside, SW role explained. Pt is alert and oriented x3. Pt resides at home with family in [place] where she remains independent with basic ADLS. Pt uses a fww or cane at baseline and does not drive. Pt has no HH or SNF history. Pt has no offshoring manager care insurance or VA benefits. SW discussed DPOA/advanced directive, pt confirms she has completed this, SW encouraged a copy to be brought in. Pt confirms she has Medicaid insurance also and her CM is Leighann Adkins. Pt requests SW call Leighann due to today being deadline for caregiver. DAV placed a call to Leighann and spoke with her. Leighann confirms that pt's granddaughter is working on getting caregiver certification to be pt's caregiver. Leighann states there is no deadline today and that everything is fine, DAV updated pt. Pt uses home O2 at baseline. DAV provided pt with discharge planning checklist and encouraged pt to call with any questions. Pt confirms her family will provide transport home. DAV placed phone number and plan on white board in room. SW will continue to follow. Assessment:Pt who has assistance from family at home. Plan:Pt to likely discharge home when medically stable via POV. Pt's family assists with care and granddaughter working on becoming LORRI caregiver. Pt's CM is Leighann Adkins, updated clinicals have been faxed. DAV will continue to follow. CLINTON Bang Addendum: 01/02/17 at 1011 by MINDY CASTELLANO Amended: Links added.
--- NOTE | 2017-01-02 11:16 | NUR ---
Social Work-multidisciplinary note: SW updated in morning rounds that pt will be in the hospital another day or two. SW has completed assessment. DAV will continue to follow. CLINTON Bang
[2017-01-02 11:58] LABS: Mean Corpuscular Hemoglobin 31.3 pg (27.0-35.0); Mean Corpuscular Volume 105.3 fL (81-100)
[2017-01-02 12:04] LABS: APPEARANCE,URINE HAZY (CLEAR,HAZY); COLOR,URINE STRAW (YELLOW)
[2017-01-02 12:05] LABS: OCCULT BLOOD,URINE NEGATIVE (NEGATIVE); UROBILINOGEN,URINE NORMAL (NORMAL)
--- NOTE | 2017-01-02 15:22 | NUR ---
Evaluation completed. Please go to "Notes" then click on "Assessments and Notes" (bottom left corner of screen). Then select appropriate discipline tab on top of screen.
--- NOTE | 2017-01-02 16:51 | PCM.PNMED ---
Subjective Date of Service Jan 02, 2017 Subjective says overall feeling better. Denies any other new issues/complaints. Exam Vital Signs Vital Sign - Last Date Time Temp Pulse Resp B/P Pulse Ox O2 Delivery O2 Flow Rate FiO2 01/02/17 15:49 85 20 97 Nasal Cannula 3.00 01/02/17 13:10 36.6 145/83 Intake and Output 01/01/17 01/01/17 01/02/17 Cumulative From/Thru 15:00 23:00 07:00 12/31/16 23:37 - 01/02/17 06:06 Intake Total 1430 ml 696 ml 2126 ml Output Total 200 ml 100 ml 300 ml Balance 1230 ml 596 ml 1826 ml Intake Oral 1300 ml 468 ml 1768 ml IV Total 130 ml 228 ml 358 ml Output Urine Total 200 ml 100 ml 300 ml # Voids 4 1 5 # Bowel Movements 0 0 General: Alert, Cooperative, No Acute Distress Head: Normal Eyes: Scleral Anicteric Nose: Mucous Membr Moist/[place] Mouth: Mucous Membr Moist/[place] Neck: Supple Chest & Lungs: Chest Wall Normal, Clear to auscultation & percussion Cardiovascular: Regular Rate/Rhythm Pulses: NL carotid, radial, femoral, DP, PT Abdomen: Non-tender, Non-distended, Normoactive bowel tones, Soft Extremities: No cyanosis/clubbing/edma bilat Neurological: Grossly Neurologically Intact, Normal Speech IVs and Medications Medications Reviewed: Medications were reviewed in detail Lab and Diagnostics Result Diagram: 01/02/17 1136 01/02/17 1136 12-lead ECG Sinus rhythm, no signs of acute coronary event Assessment & Plan 76 year old female with past medical history of COPD, HTN, and CVA who was recently discharged from hospital on 12/23 for pneumonia presenting to ED with Shortness of Breath and dry cough that has been present for the 2 days. # Acute on Chronic Respiratory Failure, present on admission, active - Due to acute COPD exacerbation as result of acute Parainfluenza 3 infection - Stop Abx - Continue with neb treatment # Elevated D-Dimer, chronic - CTA on 01/01 negative for PE # Large hiatal hernia. present on admission - Further followup and management as outpatient # History of Hypertension chronic, stable - Continue home dose of Lisinopril 10mg PO daily # H/o GERD chronic - Pantoprazole 20mg Daily PO # Chronic neck and back pain - continue Gabapentin - continue Percocet prn Dispo: Likely home in am GI Prophylaxis: H2 luz VTE Prophylaxis: Sub-Q Heparin (Unfractionated) Resuscitation Status: DNR/DNI:Do Not Resuscitate/Intubate Torey Dawkins Jan 02, 2017 16:51 Possibly secondary to Lisinopril reaction vs COPD vs Acid reflux (likely due to large esophageal hernia), possible pneumonia (strep pneumoniae present on discharge) - Benzonatate PRN 3. Elevated D-Dimer, chronic - November 2016 - 2.26 - Most recent CT chest showed no evidence of PE, repeat CT performed in ED with results pending 4. H/o Hypertension chronic, presumed stable - Continue home dose of Lisinopril 10mg PO daily 5. H/o GERD chronic - Pantoprazole 20mg Daily PO - Consider increasing Omeprazole from 20mg BID to 40mg BID 6. Chronic neck and back pain - continue Gabapentin - continue Percocet prn Maintenance: -PRN antiemetics, antacid, and pain - Diet regular -Anticoagulation with 5,000 U Heparin - Patient DNR/DNI Patient admitted to inpatient service with expected stay >2midnights due to medical complexity and risk for adverse events. GI Prophylaxis: H2 luz VTE Prophylaxis: Sub-Q Heparin (Unfractionated) Resuscitation Status: DNR/DNI:Do Not Resuscitate/Intubate Torey Dawkins Jan 02, 2017 16:51
--- NOTE | 2017-01-02 16:57 | DRSVH ---
[facility] [address] [place] [address] Echocardiogram Report Name: LLUVIA PERKINS LStudy Date: 01/02/2017 Height: 64 in Hospital Exam Location: [facility] Weight: 190 lb Gender: Female BSA: 1.9 m2 : 1940 Age: 76 yrs BP: 96/56 mm Hg Reason For Study: SOB Ordering Physician: Jason Miller Performed By: Lukasz Duke Referring Physician: JEFFERSON BLAKE Interpretation Summary Left ventricular wall thickness is mildly increased. The ejection fraction is estimated to be 60-65%. Left ventricular wall motion is normal. There has been no significant change since the previous study. The right ventricle is normal in size and function. Right ventricular systolic pressure is estimated to be 33 mmHg plus the clinically estimated CVP which cannot be estimated on this exam. Procedure: A two-dimensional transthoracic echocardiogram with color flow and Doppler was performed in limited views only. The study quality was technically adequate. Comparison is made with the echocardiogram of 09/29/16. The patient was in normal sinus rhythm during the exam. Left Ventricle: The left ventricle is normal in size. Left ventricular wall thickness is mildly increased. The ejection fraction is estimated to be 60- 65%. There has been no significant change since the previous study. Left ventricular wall motion is normal. Right Ventricle: The right ventricle is normal in size and function. Mitral Valve: The mitral valve leaflets appear mildly thickened, but open well. There is moderate mitral annular calcification. There is no mitral regurgitation noted. Tricuspid Valve: There is trace tricuspid regurgitation. Right ventricular systolic pressure is estimated to be 33 mmHg plus the clinically estimated CVP which cannot be estimated on this exam. Pericardium/ Pleura There is no pericardial effusion. Doppler Measurements & Calculations TR max holli: 288.0 cm/sec TR max P.2 mmHg Reading Physician:BALDO
[2017-01-03] VITALS (7 sets, daily range): BP systolic 131–164; BP diastolic 86–100; PULSE 58–74; RESP 18–20; O2SAT 87–99
[2017-01-03] MEDS: Heparin 5,000 Unit/mL Inj SUBQ SCH ×2 (00:56→09:08)
[2017-01-03] MEDS: oxyCODONE-Acetamin 5-325 mg Tablet PO PRN ×2 (04:50→09:25)
[2017-01-03] MEDS: Albuterol 2.5 mg/3 mL Inhalation Solution NEB PRN (05:08)
--- NOTE | 2017-01-03 05:41 | NUR ---
Anxiety Pt insomnia, very anxious,agitated, feeling "panic attack", reassure pt, provide ice water and comfort, stay with pt,charge nurse Kusum Luke informed, Dr. Tucker notified,Melatonin ordered and administered, pt awake and having NEB tx right now,appears calm down at this time. Pt c/o tremor worsening around 0130 due to she think she missed a dose of Propanolol (which Propanolol TID doses appears all have been given per documentation) and she requests it. Dr. Tucker notified, MD unable to write the order due to bradycardia HR 50s, pt explained.
[2017-01-03] MEDS: Albuterol-Ipratropium 3 mL Inhalation Solution NEB SCH ×2 (07:32→11:48)
[2017-01-03] MEDS: Sucralfate 1,000 mg Tablet PO SCH (09:05)
[2017-01-03] MEDS: Ascorbic Acid 500 mg Tablet PO SCH (09:06)
[2017-01-03] MEDS: Pantoprazole 20 mg ER24 Tablet PO SCH (09:08)
[2017-01-03] MEDS: Fluticasone-Salmererol 250-50 Inhaler INHALATION SCH (09:12)
--- NOTE | 2017-01-03 10:00 | NUR ---
Social Work-readiness for discharge/multidisciplinary rounds: Data:EMR Reviewed. Pt is on day 2 of hospitalization for pneumonia per H&P. Pt is likely medically stable later today or tomorrow. Pt resides home with family in [place]. Pt is in the process of getting LORRI caregiving with her granddaughter being her caregiver. Pt is on home O2. Pt's family to provide transport home at discharge. No anticipated discharge needs. SW will continue to follow if needs arise. Assessment:Pt who has family support. Plan:Pt to discharge home when medically stable via POV. No anticipated discharge needs. SW will continue to follow if needs arise. CLINTON Bang
--- NOTE | 2017-01-03 10:28 | PCM.DIMED ---
Discharge Instructions Date of Service Jan 03, 2017 Dates of Hospitalization Jan 01, 2017 at 04:30 Discharge Diagnosis Discharge Diagnosis # Acute on Chronic Respiratory Failure, present on admission. Improved. # Acute COPD exacerbation as result of acute Parainfluenza 3 infection # Elevated D-Dimer, pulmonary embolism ruled out with a negative CTA of chest on 01/01/17 # Large hiatal hernia. Present on admission - Further followup and management recommended as outpatient # History of Hypertension chronic, stable # Chronic GERD. Stable. # Chronic neck and back pain Diet Discharge Diet: Low fat, Low Sodium, Heart Healthy Activity Discharge Activity: No restrictions Call your provider Call your provider for: Fever or Chills, Shortness of breath, Chest pain, Excessive diarrhea Patient Instructions Patient Instructions Seek immediate medical attention if any new or worsening signs or symptoms occur. Follow-up plan 1. Followup with primary care provider in 3-7 days Follow-up Provider: Fabian Meek MD, Masoud Jan 03, 2017 10:28
[2017-01-03] MEDS ORDERED: BENZ-12 PO (11:20)
--- NOTE | 2017-01-03 12:05 | NUR ---
Social Work-discharge: Data:EMR reviewed. Pt is on day 2 of hospitalization for pneumonia per H&P. Pt is medically stable for discharge. Pt's granddaughter to provide transport home. SW confirmed home no needs. Pt's granddaughter working on becoming pt's caregiver. Pt has Home o2 at baseline. No discharge needs identified. All updated and agreeable to plan. Assessment:Pt who is independent at baseline. Plan:Pt to discharge home today via POV. No discharge needs identified. All updated and agreeable to plan. CLINTON Bang
--- NOTE | 2017-01-03 13:31 | NUR ---
Discharge Patient departed unit via wheelchair, accompanied by staff and family. Patient alert and oriented. Patient departed on 3 Ltr O2 via personal portable unit. Patient on 3 Ltr home O2 at baseline. Patient reporting continued feelings of shortness of breath at rest/with activity. Lung sounds diminished throughout/clear to auscultation. O2 sats 95-97 %. Patient anxious about her ability to breath and maintain comfort during her trip home. Discharge instructions/medications reviewed with patient and daughter, prior to discharge. All questions addressed. Patient belongings, discharge instructions and prescription in hand.
--- NOTE | 2017-01-03 15:05 | PCM.DC.MED ---
Discharge Summary Date of Service Jan 03, 2017 Dates of Hospitalization Date of Hospital Admission Jan 01, 2017 at 04:30 Date of Discharge: Jan 03, 2017 Providers: Admitting Physician: Ирина Tucker DO Primary Care Physician: Fabian Meek MD Attending Physician: Torey Dean Diagnosis at Time of Discharge Diagnosis at Time of Discharge # Acute on Chronic Respiratory Failure, present on admission. Improved. # Acute COPD exacerbation as result of acute Parainfluenza 3 infection # Elevated D-Dimer, pulmonary embolism ruled out with a negative CTA of chest on 01/01/17 # Large hiatal hernia. Present on admission - Further followup and management recommended as outpatient # History of Hypertension chronic, stable # Chronic GERD. Stable. # Chronic neck and back pain Procedures XRay, CTs & MRIs Date of Service: 12/31/16 7463 PROCEDURE: X-RAY CHEST, TWO VIEWS ([id number]) IMPRESSION: 1. Bibasilar atelectasis without definite radiographic evidence of pulmonary edema. Dictated by: Daniele Harris M.D. on 01/01/2017 at 10:02 Approved by: Daniele Harris M.D. on 01/01/2017 at 10:03 Date of Service: 01/01/17 0157 PROCEDURE: CT ANGIO CHEST PULMONARY EMBOLISM ([id number]) IMPRESSION: 1. No evidence of pulmonary embolism. 2. Large hiatal hernia redemonstrated containing the entirety of the stomach without associated obstruction. Elevation of the right hemidiaphragm is also again noted. 3. Persistent atelectasis in the right lung base, decreased from the prior study. A component of consolidation inferiorly is again noted, with associated pneumonia not excluded. 4. Bronchial wall thickening in the right lower and middle lobes with associated luminal narrowing. 5. Enlarged right hilar lymph nodes are nonspecific and may be reactive. Dictated by: Daniele Harris M.D. on 01/01/2017 at 9:05 Approved by: Daniele Harris M.D. on 01/01/2017 at 9:22 Brief History As noted in H&P by Dr. Henriquez: Patient is a 76 year old female with past medical history of COPD, HTN , and CVA who was recently discharged from here on 12/23 for pneumonia presenting to ED with Shortness of Breath and dry cough that has been present for the past 2 days. Pt awoke from sleep short of breath and called EMS. Pt uses home O2 at 3L, and EMS found patient to have an O2 sat of 80-81% on 3L. Patient has SOB, dry cough, sore throat, and constipation. Denies chest pain, nausea, vomiting, diarrhea, dysuria, and hematuria. Pt has not been taking any antibiotics, and was not sent home with any from the previous visit. In the ED patient was placed on 4L O2 and responded well with an increase in O2 sat to 96%. One dose of Vancomycin 1g IV given in ED and an albuterol breathing treatment with mild relief. Patient still has sensation of SOB with persistent cough. Patient admitted to medicine team for shortness of breath, hypoxia, and likely HCAP. Hospital Course # Acute on Chronic Respiratory Failure, present on admission. Improving - Due to acute COPD exacerbation as result of acute Parainfluenza 3 infection - Stopped Abx - Continued with neb treatment # Elevated D-Dimer, chronic - CTA on 01/01 negative for PE # Large hiatal hernia. present on admission - Further followup and management as outpatient # History of Hypertension chronic, stable - Continued home dose of Lisinopril 10mg PO daily # H/o GERD chronic - Pantoprazole 20mg Daily PO # Chronic neck and back pain - continued Gabapentin - continued Percocet prn by day of d/c patient reports that breathing is back to baseline and requests being discharged home Exam Vital Signs (Last) Date Time Temp Pulse Resp B/P Pulse Ox O2 Delivery O2 Flow Rate FiO2 01/03/17 12:20 Supplement Oxygen 01/03/17 11:49 63 20 99 3.00 01/03/17 05:32 36.7 164/100 Test 01/01/17 00:08 01/01/17 12:00 01/01/17 12:45 01/02/17 11:14 Neutrophils (%) (Auto) 71.0% (40-74) Lymphocytes (%) (Auto) 13.8% (14-46) Monocytes (%) (Auto) 11.8% (4-12) Eosinophils (%) (Auto) 2.3% (0-5) Basophils (%) (Auto) 0.9% (0-3) D-Dimer 0.65mg/L FEU (<0.50) Lactic Acid Level 0.6mmol/L (0.4-2.0) Magnesium Level 2.1mg/dL (1.6-2.6) Total Bilirubin 0.2mg/dL (0.0-1.2) Aspartate Amino Transf (AST/SGOT) 20U/L (0-50) Alanine Aminotransferase (ALT/SGPT) 15U/L (0-32) Alkaline Phosphatase 77U/L (25-165) Troponin T 0.010ug/L (0.0-0.011) Pro-B-Type Natriuretic Peptide 316.9pg/mL (0-738) Total Protein 6.8g/dL (6.4-8.4) Albumin 3.9g/dL (3.4-5.0) Hold [place] Top Tube Received (Received) Procalcitonin 0.07ng/mL (0.00-0.08) Urine Legionella pneumophilia Ag Negative (Negative) Urine Color Straw (YELLOW) Urine Appearance Hazy (CLEAR,HAZY) Urine pH 7.0 (5.0-8.0) Urine Specific [place] 1.005 (1.003-1.035) Urine Protein Negativemg/dL (NEG,TRACE) Urine Glucose (UA) Negativemg/dL (NEGATIVE) Urine Ketones Negativemg/dL (NEGATIVE) Urine Occult Blood Negative (NEGATIVE) Urine Nitrite Negative (NEGATIVE) Urine Bilirubin Negative (NEGATIVE) Urine Urobilinogen Normalmg/dL (NORMAL) Urine Leukocyte Esterase Negative (NEGATIVE) Urine RBC 0-2/hpf (0-2) Urine WBC 0-5/hpf (0-5) Urine Epithelial Cells Occasional/hpf (NONE-MOD) Urine Crystals None seen (NONE SEEN) Urine Bacteria Moderate/hpf (NONE-FEW) Urine Hyaline Casts None/lpf (NONE) Urine Granular Casts None seen (NONE SEEN) Urine Waxy Casts None seen (NONE SEEN) Urine Red Blood Cell Casts None seen (NONE SEEN) Urine White Blood Cell Casts None seen (NONE SEEN) Urine Mucus None seen (None Seen) Urine Trichomonas None seen (NONE SEEN) Urine Yeast None (NONE SEEN) Urinalysis Comment None Urine Culture Reflexed Indicated Test 01/02/17 11:36 White Blood Count 2.6th/mm3 (3.8-10.1) Red Blood Count 3.23mil/mm3 (3.90-5.20) Hemoglobin 10.1g/dL (12.0-15.6) Hematocrit 34.0% (35.0-46.0) Mean Corpuscular Volume 105.3fL (81-100) Mean Corpuscular Hemoglobin 31.3pg (27.0-35.0) Mean Corpuscular Hemoglobin Concent 29.7% (32.0-37.0) Red Cell Distribution Width 13.8% (12.3-15.4) Platelet Count 213bil/L (150-400) Sodium Level 141mEq/L (134-144) Potassium Level 4.1mEq/L (3.5-5.2) Chloride Level 94mEq/L (97-108) Carbon Dioxide Level 39mmol/L (18-29) Blood Urea Nitrogen 9mg/dL (8-27) Creatinine 0.70mg/dL (0.57-1.00) Estimat Glomerular Filtration Rate 117mL/min (>59) Glucose Level 110mg/dL (60-99) Calcium Level 9.0mg/dL (8.5-10.1) Discharge Medications Discharge Medications Ascorbic Acid (Vitamin C) 250 Mg Tab.chew 500 MG PO QAM (Reported) Atorvastatin Calcium (Atorvastatin Calcium) 20 Mg Tablet 20 MG PO HS (Reported) Ferrous Sulfate (Ferrous Sulfate) 325 Mg Tablet 325 MG PO QAM (Reported) Fluticasone/Salmeterol (Advair 250-50 Diskus) 60 Puff/Inh Disk 1 PUFF INHALATION BID Prescribed by: COLT CASTANEDA MD Furosemide (Furosemide) 20 Mg Tab 20 MG PO QAM (Reported) Gabapentin (Gabapentin) 300 Mg Capsule 900 MG PO BID (Reported) Levothyroxine (Levothyroxine) 100 Mcg Tablet 100 MCG PO QAM (Reported) Lisinopril (Lisinopril) 10 Mg Tablet 10 MG PO QAM (Reported) Omeprazole (Omeprazole) 20 Mg Capsule.dr 20 MG PO BIDWM (Reported) Propranolol HCl (Propranolol HCl) 40 Mg Tablet 40 MG PO TID (Reported) Sucralfate (Sucralfate) 1 Gm Tablet 1 GM PO TID (Reported) Tiotropium [place] (Spiriva) 18 Mcg Cap.w.dev 18 MCG INHALATION DAILY Prescribed by: COLT CASTANEDA MD oxyCODONE-Acetaminophen 5-325 mg (oxyCODONE-Acetaminophen 5-325 mg) 1 Each Tablet 1 TAB PO TID (Reported) As needed Albuterol HFA (Proair HFA) 8.5 Gm Hfa.aer.ad 1-2 PUFFS INH Q4H PRN PRN For Shortness of Breath (Reported) Albuterol Neb Soln (Albuterol Neb Soln) 2.5 Mg/3 Ml Vial.neb 3 ML NEB BID PRN PRN For Shortness of Breath (Reported) Benzonatate (Tessalon Perle) 100 Mg Capsule 100-200 MG PO TID PRN PRN For Cough Prescribed by: TOREY DEAN MD Loperamide (Loperamide) 2 Mg Capsule 2 MG PO Q6H PRN PRN For Diarrhea or Loose Stool Prescribed by: COLT CASTANEDA MD Polyethylene Glycol 3350 (Miralax) 17 Gm Powd.pack 17 GM PO DAILY PRN PRN For Constipation (Reported) oxyCODONE-Acetaminophen 5-325 mg (oxyCODONE-Acetaminophen 5-325 mg) 1 Each Tablet 1 TAB PO Q6H PRN PRN For Pain (Reported) Followup Plan Disposition: Home Follow-up plan 1. Followup with primary care provider in 3-7 days Discharge Diet: Low fat, Low Sodium, Heart Healthy Discharge Activity: No restrictions Patient Instructions Seek immediate medical attention if any new or worsening signs or symptoms occur. Follow-up Provider: Fabian Meek MD Time spent 30 min copies to: Fabian Meek MD, Masoud Jan 03, 2017 15:05
== END 2017-01-03 13:29 | disposition home or self-care (01) | DRG 190 ==
LOC: SED 23:33 → MPC 01-01 04:30
PROVIDERS: ADMIT Internal Medicine; ATTEND Internal Medicine
DX: J44.0 Chronic obstructive pulmonary disease with (acute) lower respiratory infection (principal); J96.20 Acute and chronic respiratory failure, unspecified whether with hypoxia or hypercapnia; J12.2 Parainfluenza virus pneumonia; Z87.01 Personal history of pneumonia (recurrent); I10 Essential (primary) hypertension; Y95 Nosocomial condition; Z66 Do not resuscitate; G89.29 Other chronic pain; M54.2 Cervicalgia; M54.9 Dorsalgia, unspecified; K21.9 Gastro-esophageal reflux disease without esophagitis; K44.9 Diaphragmatic hernia without obstruction or gangrene; Z87.891 Personal history of nicotine dependence

== ENCOUNTER 2017-02-24 16:44 | Inpatient (IN) | payer MEDICARE, OTHER, MEDICAID ==
[~2017-02-24] VITALS: Ht 165.1 cm; Wt 96.9 kg
[~2017-02-24 16:44] MED LIST changes: +BENZ-12 PO; -ONDA4TAB6 PO
[2017-02-24] MEDS ORDERED: Norepineph 8,000 mCg/250 mL NS 8,000 MCG in IV Premix 1 EACH IV SCH (20:45)
[2017-02-24] MEDS ORDERED: oxyCODONE-Acetamin 5-325 mg Tablet PO ONE (20:55)
[2017-02-24 21:00] VITALS: BP 128/57; PULSE 68; RESP 18; O2SAT 96
[2017-02-24] MEDS: Norepineph 8,000 mCg/250 mL NS 8,000 MCG in IV Premix 1 EACH IV SCH (21:04)
[2017-02-24] MEDS ORDERED: Norepineph 8,000 mCg/250 mL NS 8,000 MCG in IV Premix 1 EACH IV PRN (21:07)
[2017-02-24] MEDS: 0.9% Sodium Chloride 1,000 ML IV SCH (21:07)
[2017-02-24 23:15] LABS: BASOPHILS % (AUTO) 0.4 % (0-3); EOSINOPHILS % (AUTO) 0.6 % (0-5); MONOCYTES % (AUTO) 6.2 % (4-12); Mean Corpuscular Hemoglobin 31.5 pg (27.0-35.0); Mean Corpuscular Volume 101.6 fL (81-100); NEUTROPHILS % (AUTO) 79.4 % (40-74); Platelet Count 234 bil/L (150-400)
--- NOTE | 2017-02-24 23:42 | PCM.HPMED ---
Subjective Date of Service Feb 24, 2017 Primary Provider: Admitting Physician: Panda Sharpe MD Primary Care Physician: Fabian Meek MD Attending Physician: Panda Sharpe MD Admit Status: Direct Admit (from [facility] [place]) Chief Complaint: Sepsis, fall History of Present Illness: Jeanne Roberts is a 76-year-old female with a past medical history significant for severe COPD on 3 L of oxygen at baseline, hypertension, hyperlipidemia, GERD , previous CVA who called EMS earlier today for shortness of breath. She awoke short of breath and called EMS who found the patient to have an O2 sat of 80-81 % on her normal 3 L of oxygen. She reports a dry cough, sore throat has been present for 2 days. When aroused, she states that she fell but is unable to provide any details at this time. Upon arrival to [facility] emergency department, she was placed on 4 L with an increase in saturation to 96%. She was given 1 g of vancomycin IV and 2 g ceftrixaone and an albuterol breathing treatment but still felt short of breath. She was admitted to the hospital for hypoxia likely secondary to possible pneumonia and promptly requested transfer to [facility] for further treatment. The patient was hypotensive in the 70's upon arrival and was placed in the ICU for presumed septic shock. IV access was difficult and at the patient's consent , a central line was placed into the right IJ. She was aggressively hydrated with NS at 200ml/hr and on a Levophed drip currently at 1 mcg and is maintaining pressures in the 110's. She arouses to her name but is otherwise unable to comment on why she is here. The above history is a combination of records review, [facility] emergency department report, with minimal input by the patient has she is sedated at this time. Of note, the patient has been admitted to this facility multiple times for pneumonia, aspiration pneumonia, and UTIs - most recently a pneumonia in December 2016. Review of Systems: Comprehensive review of systems was conducted with the patient and found to be negative except as noted above in HPI. Allergies Coded Allergies: Penicillins (Verified Allergy, Severe, rash, 02/25/17) trimethoprim (Verified Allergy, Severe, ELECTRONIC PREPRESS OPERATOR toxicity, 02/25/17) dexamethasone (Verified Allergy, Intermediate, 02/25/17) insomnia, nightmares, nasuea and visual changes hydrochlorothiazide (Verified Allergy, Intermediate, Rash,Itching,, 02/25/17 ) ciprofloxacin (Verified Allergy, Unknown, 02/25/17) sulfamethoxazole (Verified Adverse Reaction, Severe, ELECTRONIC PREPRESS OPERATOR toxicity/ Hallucinations, 02/25/17) Home Medications Albuterol sulfate 2.5 mg/3 mL nebulizer solution Atorvastatin 20 mg at night Ferrous sulfate 325 mg 3 times weekly Advair inhaler 1 puff twice a day Furosemide 20 mg daily Gabapentin 1200 mg 3 times daily Levothyroxine 100 MCG daily Lisinopril 10 mg daily Omeprazole 20 mg twice daily Oxycodone 5-325 mg 1-2 tablets every 4 hours as needed for pain Potassium chloride 20 mEq daily Propranolol 20 mg 3 times daily Spiriva one capsule daily Zolpidem 10 mg at night Duloxetine 30 mg at night PMH COPD on 3 L home O2 Hypothyroidism GERD Essential tremor Hiatal hernia Hypertension Hyperlipidemia Insomnia Iron deficiency anemia Cervical disc disease on chronic pain management Basal cell carcinoma Vision loss due to retinal branch occlusion, left eye PFO Surgical History L4-5 decompression surgery Bilateral shoulder surgery Right Carpal tunnel release Hysterectomy Family History Grandmother with breast cancer Social History Hx Alcohol Use: No Hx Substance Use: No Smoking Status: Former Smoker ([id number]) Exam Vital Signs Temp 37.3 Pulse 68 Respiratory rate 18 Blood pressure 128/75 Pulse oximetry 96% on 3 L O2 Exam General: Elderly female, arousable to voice but quite sedated in no acute distress HEENT: Normocephalic, atraumatic. External ears without defect. Pupils equal, round, and reactive to light and accommodation. Oropharynx free of erythema and cobble stoning with dry mucosa. Neck: Supple with full range of motion. Mild JVD without thyromegaly. There is a right IJ present. Cardiovascular: Regular rate and rhythm with no murmurs, rubs, or gallops appreciated Pulmonary: Coarse throughout both lungs with poor inspiratory effort due to sedation with no crackles, wheezes, or rhonchi. Normal respiratory effort with no use of accessory muscles. Abdomen: Bowel tones present. Soft, nontender, nondistended. No hepatosplenomegaly or masses appreciated. Extremities: No clubbing, cyanosis, edema appreciated. Skin: Normal temperature and texture, decreased turgor; no rash, ulcers appreciated. Neurological: Cranial to assess due to patient sedation. Psychiatric: Unable to assess due to patient sedation. Lab and Diagnostics Result Diagram: 02/24/17 2300 Microbiology UA with culture, pending Blood cultures pending X-Rays, CTs and MRIs Chest x-ray 02/24/2017 done at [facility] [place] Findings: Large hiatal hernia. Increased airspace disease in the right medial lung base causes obscuration of the hemidiaphragm. Patchy density in the left lung base is also slightly increased. Heart size unchanged. No pulmonary edema. No pleural effusion. No pneumothorax. No displaced rib fractures. Impression: Increasing bibasilar densities, probably atelectasis By Dr. Aixa Candelario, 02/24/17 2:[address] 02/24/2017 done at [facility] [place] Findings: No acute intracranial processes. Mild sphenoid sinusitis. Assessment & Plan Jeanne Roberts is a 76-year-old female with a past medical history significant for severe COPD on 3 L of oxygen at baseline, hypertension, hyperlipidemia, GERD , previous CVA who called EMS earlier today for shortness of breath 2 days in duration. Shock, present on admission. Acute. Ongoing. - possibly Septic shock from pneumonia and vitals at [facility] [place]; she received antibiotics prior to transfer here - Severely hypotensive on admission requiring central line placement and pressor therapy to maintain pressures/MAPs - Norepi drip at 1 mcg currently - Blood cultures pending - UA/culture pending - Cefepime, Azithromycin, Vanc at this time to cover HAP/CAP; refine/stop when cultures/PCR return or labs indicate no infection Pneumonia, present on admission. Acute. Ongoing. - possibility of both CAP (aspiration as well) and HAP - Lactic Acid 0.8; WBC 10 - Procalitonin 2; repeat at noon today - Respiratory PCR panel ordered - MRSA swab ordered Urine legionella, pneumococcus pending - Blood cultures pending - Antibiotics as above to cover both etiologies; consider adding aminoglycoside/ Aztreonam if she does not improve to cover HCAP fully (note absence of cipro/ levo from HCAP regimen due to allergy) Acute COPD exacerbation, present on admission. Ongoing. - Pt here 1 month ago for parainfluenza virus pneumonia and presented similarly - Sputum CX ordered - Respiratory PCR panel ordered - Continue oxygen; maintain sats between 88-92% - Continue duo nebs 4 times daily while awake - Continue home inhaler regimen - Azithromycin added for atypical CAP coverage as well as anti-inflammatory lung properties Chronic hypoxic respiratory failure on 3 L of oxygen at baseline, present on admission. - Likely secondary to COPD - Continue medication regimen as above under COPD exacerbation Hypertension, present on admission. Chronic. - Hold lisinopril 10 mg daily until pressures stabilize Hyperlipidemia, present admission. Chronic. - Continue atorvastatin 20 mg at night GERD, present on admission. Chronic. - Continue omeprazole 20 mg twice daily Hypothyroidism, present admission. Chronic. - Continue levothyroxine 100 mcg daily Essential tremor, present on admission. Chronic. - Hold propranolol 20 mg 3 times daily until pressures stabilize Chronic back pain, present on admission. Chronic. - Continue home oxycodone 5/325 1 to 2 tablets every 4 as needed - Patient has pain contract with Dr. Meek Depression, present on admission. Chronic. - Continue duloxetine 30 mg at night Insomnia, present on admission. Chronic. - Continue Ambien 10 mg at night PRN Medications - Acetaminophen as needed for mild pain/fever/headache - Bowel regimen as needed - Antiemetic as needed CODE STATUS: Patient was admitted as full code but record review shows DNR/DNI at last admission - day team to clarify once patient mentation improves Patient status: Patient is admitted under to the ICU under inpatient status with expected length of stay greater than 2 midnights due to severity of presenting symptoms, risk of adverse event, and complexity of treatment plan. GI Prophylaxis: Proton Pump Inhibitor VTE Prophylaxis: Sub-Q Heparin (Unfractionated) VTE Mechanical Devices: Intermittant Pneumatic CD Resuscitation Status: CPR: Attempt Resuscitation Time spent 50 minutes critical care time spend Attending Statement The patient was seen and examined together with Dr. Moctezmua on 02/24 and I agree with the history, exam and plan as outlined in the note above. copies to: Fabian Meek MD, Jeffery S DO Feb 24, 2017 23:42 Brett Casillas MD Feb 25, 2017 04:47
[2017-02-25] VITALS (9 sets, daily range): BP systolic 95–129; BP diastolic 40–63; PULSE 70–99; RESP 15–22; O2SAT 90–100
[2017-02-25] LABS: Magnesium 1.9 mg/dL (1.6-2.6); Phosphorus 3.2 mg/dL (2.5-4.9)
[2017-02-25] MEDS: Heparin 5,000 Unit/mL Inj SUBQ SCH ×3 (00:59→16:26)
[2017-02-25 01:01] LABS: APPEARANCE,URINE CLEAR (CLEAR,HAZY); COLOR,URINE YELLOW (YELLOW); OCCULT BLOOD,URINE NEGATIVE (NEGATIVE); PH,URINE 5.5 (5.0-8.0); UROBILINOGEN,URINE NORMAL (NORMAL)
[2017-02-25] MEDS ORDERED: _Albuterol 2.5 mg/3 mL Neb NEB PRN (01:25)
--- NOTE | 2017-02-25 02:51 | PCM.PROC ---
Procedure Note Date of Service: Feb 24, 2017 Pre Procedure Diagnosis: Dehydration, hypotension, secondary to septic shock due to PNA Post Procedure Diagnosis: Dehydration, hypotension, secondary to septic shock due to PNA Procedure: Right internal jugular central venous access placement with ultrasound guidance Provider and Museum Preparator: Resident: Wei Moctezuma DO PGY-1 Resident: Makayla Moon DO PGY-3 Attending: Brett Casillas MD Indication for Procedure: Need for urgent central venous access for fluid resuscitation and infusion of vasopressors; septic shock secondary to PNA Findings: Not applicable Procedural Analgesia: Ativan 0.5mg IV push Percocet 5-325 1 tab po Procedure Details: Written and verbal consent was obtained from patient prior to administration of sedatives and initiation of procedure. A time-out was completed verifying correct patient, procedure, site, positioning , and special equipment. The patient was placed in a dependent position appropriate for central line placement based on the vein to be cannulated. The patient was lying in trendelenberg with head turned 45 degrees away from insertion site. The right side of the neck was chosen as the dome of the right lung and pleura is lower, and there is a straight line to the atrium and large thoracic duct is not endangered. The patients RIGHT neck was prepped and draped in sterile fashion, with chlorhexidine sponges and allowed to dry. All persons involved were shielded with hairnets, facemasks, and sterile gowns. The triangle formed by the clavicle and the two heads of the sternocleidomastoid muscle were identified. 1% Lidocaine was used to anesthetize the surrounding skin area and subcutaneous tissues. A triple lumen catheter was introduced into the RIGHT internal jugular vein using the Seldinger technique and under ultrasound guidance. The catheter was threaded smoothly over the guide wire and appropriate blood return was obtained. Each lumen of the catheter was evacuated of air and flushed with sterile saline. The catheter was secured in place to the skin with sterile bio-occlusive dressing. Attending and residents were present for the entire procedure. Placement was verified with XR. Estimated Blood Loss: 5cc The patient tolerated the procedure well and there were no complications. Specimen: Not applicable Attending Statement The patient was seen and examined together with Dr. Moon on 02/24 and I agree with the history, exam and plan as outlined in the note above. Makayla Moon DO Feb 25, 2017 02:51 Brett Casillas MD Feb 25, 2017 04:45
[2017-02-25] MEDS: oxyCODONE-Acetamin 5-325 mg Tablet PO PRN ×5 (03:38→21:58)
[2017-02-25 03:48] LABS: BASOPHILS % (AUTO) 0.4 % (0-3); EOSINOPHILS % (AUTO) 1.2 % (0-5); Mean Corpuscular Hemoglobin 31.5 pg (27.0-35.0); Mean Corpuscular Volume 101.9 fL (81-100); NEUTROPHILS % (AUTO) 78.8 % (40-74); Platelet Count 223 bil/L (150-400)
[2017-02-25 04:08] LABS: INR 0.98 ratio
[2017-02-25] MEDS ORDERED: Vancomycin Inj 1,750 MG in 0.9% Sodium Chloride 500 ML IV ONE (04:20)
[2017-02-25 04:26] LABS: Magnesium 1.9 mg/dL (1.6-2.6); Phosphorus 2.8 mg/dL (2.5-4.9)
[2017-02-25] MEDS: Cefepime Inj 2,000 MG in Dextrose 5% Minibag Plus 100 ML IV SCH ×3 (04:47→21:03)
--- NOTE | 2017-02-25 05:08 | PCM.CONPHA ---
Subjective Date of Service: Feb 25, 2017 Sepsis, fall Reason for Pharmacy Consult: Vancomycin Dosing Objective Vital Signs Date Time Temp Pulse Resp B/P Pulse Ox O2 Delivery O2 Flow Rate FiO2 02/25/17 00:00 37.2 71 18 129/49 99 Nasal Cannula 2.00 02/24/17 21:00 37.3 68 18 128/57 96 Nasal Cannula 3.00 Weight (Kilograms): 89.900 Height (Feet): 5 Height (Inches): 5.00 Test 02/24/17 21:07 02/24/17 23:00 02/25/17 03:33 Urine Color Yellow (YELLOW) Urine Appearance Clear (CLEAR,HAZY) Urine pH 5.5 (5.0-8.0) Urine Specific [place] 1.020 (1.003-1.035) Urine Protein Tracemg/dL (NEG,TRACE) Urine Glucose (UA) Negativemg/dL (NEGATIVE) Urine Ketones Negativemg/dL (NEGATIVE) Urine Occult Blood Negative (NEGATIVE) Urine Nitrite Negative (NEGATIVE) Urine Bilirubin Negative (NEGATIVE) Urine Urobilinogen Normalmg/dL (NORMAL) Urine Leukocyte Esterase Negative (NEGATIVE) Urine RBC 0-2/hpf (0-2) Urine WBC 6-10/hpf (0-5) Urine Epithelial Cells Occasional/hpf (NONE-MOD) Urine Crystals None seen (NONE SEEN) Urine Bacteria Few/hpf (NONE-FEW) Urine Hyaline Casts Occasional/lpf (NONE) Urine Granular Casts Occasional (NONE SEEN) Urine Waxy Casts None seen (NONE SEEN) Urine Red Blood Cell Casts None seen (NONE SEEN) Urine White Blood Cell Casts None seen (NONE SEEN) Urine Mucus Present (None Seen) Urine Trichomonas None seen (NONE SEEN) Urine Yeast None (NONE SEEN) Urinalysis Comment None Urine Culture Reflexed Indicated Prealbumin 17mg/dL (20-40) Lipase 7U/L (13-60) White Blood Count 9.3th/mm3 (3.8-10.1) Red Blood Count 3.08mil/mm3 (3.90-5.20) Hemoglobin 9.7g/dL (12.0-15.6) Hematocrit 31.4% (35.0-46.0) Mean Corpuscular Volume 101.9fL (81-100) Mean Corpuscular Hemoglobin 31.5pg (27.0-35.0) Mean Corpuscular Hemoglobin Concent 30.9% (32.0-37.0) Red Cell Distribution Width 12.9% (12.3-15.4) Platelet Count 223bil/L (150-400) Neutrophils (%) (Auto) 78.8% (40-74) Lymphocytes (%) (Auto) 12.4% (14-46) Monocytes (%) (Auto) 7.0% (4-12) Eosinophils (%) (Auto) 1.2% (0-5) Basophils (%) (Auto) 0.4% (0-3) Prothrombin Time 10.5sec (8.1-12.5) Prothromb Time International Ratio 0.98ratio Sodium Level 144mEq/L (134-144) Potassium Level 3.9mEq/L (3.5-5.2) Chloride Level 107mEq/L (97-108) Carbon Dioxide Level 26mmol/L (18-29) Blood Urea Nitrogen 15mg/dL (8-27) Creatinine 0.74mg/dL (0.57-1.00) Estimat Glomerular Filtration Rate 110mL/min (>59) Glucose Level 135mg/dL (60-99) Lactic Acid Level 0.7mmol/L (0.4-2.0) Calcium Level 8.4mg/dL (8.5-10.1) Phosphorus Level 2.8mg/dL (2.5-4.9) Magnesium Level 1.9mg/dL (1.6-2.6) Total Bilirubin 0.3mg/dL (0.0-1.2) Aspartate Amino Transf (AST/SGOT) 17U/L (0-50) Alanine Aminotransferase (ALT/SGPT) 14U/L (0-32) Alkaline Phosphatase 101U/L (25-165) Total Protein 5.7g/dL (6.4-8.4) Albumin 3.0g/dL (3.4-5.0) Procalcitonin 1.60ng/mL (0.00-0.08) Assessment/Plan Assessment/Plan VANCOMYCIN MANAGEMENT A\ 76 YO F ADMITTED FOR PNEUMONIA/SEPSIS SCR=0.88 CRAL=61 WBC=9.3 LACT=0.8 PROCAL=2.01 AFEBRILE GOAL VANCOMYCIN TROUGH =15-20 PT LISTED ALLERGIES: PENICILLIN - RASH, CIPRO - UNKNOWN BACTRIM - PROPERTY MANAGEMENT ASSISTANT TOXICITY ALSO RECEIVING AZITHROMYCIN AND CEFEPIME P\ WILL LOAD WITH VANCOMYCIN 1750MG IV X1 FOLLOWED BY VANCOMYCIN 1000MG IV Q12H STARTING AT 1800 02/25. WILL MONITOR SERUM CREATININE DAILY X3 DAYS AND GET A VANCOMYCIN TORUGH BEFORE THE 4TH DOSE 02/26 1730. Azeem Giordano [facility] Feb 25, 2017 05:08
[2017-02-25] MEDS: 0.9% Sodium Chloride 1,000 ML IV SCH ×3 (05:15→21:05)
--- NOTE | 2017-02-25 05:24 | NUR ---
Admit note, pressors Vs as noted. Admitted to CCU 2015 from [facility] at 2013. Single peripheral iv to right AC occluded. Blood pressures 70s systolic with levophed off. Unable to obtain further iv access after 4 attempts. Piv repaired and levophed restarted and titrated to keep MAP >65. IVf NS at 200lm/h x1l then 125/h. CVL placed per Dr Moctezuma after premedicating with Percocet and 0.5mg ativan iv. Sats on 3l /nc mid 90s. This am complains of general back discomforts treated with Percocet x2 with relief. Ramírez cath in place with adequate uop.
[2017-02-25] MEDS: Norepineph 8,000 mCg/250 mL NS 8,000 MCG in IV Premix 1 EACH IV SCH ×2 (06:48→14:05)
[2017-02-25] MEDS: Azithromycin Inj 500 MG in Dextrose 5% w/Vial Mate 250 ML IV SCH (08:29)
[2017-02-25] MEDS ORDERED: Vancomycin Dose per Pharmacist XX SCH (08:30)
[2017-02-25] MEDS: Pantoprazole 20 mg ER24 Tablet PO SCH ×2 (08:35→17:33)
[2017-02-25] MEDS: Tiotropium 18mcg/Cap 5 Capsule Inhaler Kit INHALATION SCH (08:36)
[2017-02-25] MEDS: Fluticasone-Salmererol 250-50 Inhaler INHALATION SCH ×2 (08:36→21:03)
--- NOTE | 2017-02-25 09:00 | DRSVH ---
PROCEDURE: X-RAY CHEST ONE VIEW, PORTABLE ([id number]) INDICATIONS: CENTRAL LINE PLACEMENT TECHNIQUE: One view of the chest was acquired. COMPARISON: [facility], CR, XR CHEST 1VW (PORTABLE), 12/19/2016, 12:39. [facility], CR, XR CHEST 2VW, 01/01/2017, 0:12. FINDINGS: Surgical changes and devices: Right central venous catheter is in place with distal tip overlying the distal SVC/right atrial junction. Lungs and pleura: Lungs demonstrate appearance of mild increased pulmonary vascularity. There is pers istent elevation of the right hemidiaphragm. Mediastinum: Prominent retrocardiac opacity is present which appears to be senior customer service representative of hiatal h ernia, identified on prior exams. Heart size is normal. Bones and chest wall: No suspicious bony lesions. Overlying soft tissues appear unremarkable. IMPRESSION: Central line placement as above. Dictated by: Tammy Corona M.D. on 02/25/2017 at 8:57 Approved by: Tammy Corona M.D. on 02/25/2017 at 8:58
[2017-02-25] MEDS ORDERED: Sodium Chloride LOK Flush 10 mL Syringe IVFLUSH PRN ×2 (12:20)
[2017-02-25] MEDS ORDERED: Codeine-APAP 30-300 mg Tablet PO PRN (13:15)
--- NOTE | 2017-02-25 13:23 | PCM.PNMED ---
Subjective Date of Service Feb 25, 2017 Subjective Subjective: Patient states that she is feeling weak today, states that she is very frustrated with her current situation and having to return to the hospital so often. We discussed the possibility of talking with palliative care, she states that this is a conversation she would be interested in having. Events Overnight: No acute events overnight. ROS: Denies fever/chills, nausea/vomiting, headache, weakness, abdominal pain, chest pain, shortness of breath, increased swelling in hands or feet. Exam Vital Signs Vital Sign - Last Date Time Temp Pulse Resp B/P Pulse Ox O2 Delivery O2 Flow Rate FiO2 02/25/17 11:53 36.9 93 22 112/48 96 Nasal Cannula 2.00 Intake and Output 02/24/17 02/24/17 02/25/17 Cumulative From/Thru 15:00 23:00 07:00 02/24/17 20:51 - 02/25/17 06:00 Intake Total 2175 ml 2175 ml Output Total 900 ml 900 ml Balance 1275 ml 1275 ml Intake IV Total 2175 ml 2175 ml Output Urine Total 900 ml 900 ml Exam General: No acute distress, well-developed, well-nourished Head: Normocephalic, atraumatic. External ears without defect. Eyes: Pupils equal, round, and reactive to light and accommodation. Anicteric sclerae, moist conjunctivae. Neck: Normal range of motion, no lymphadenopathy noted Cardiovascular: Regular rate and rhythm with no murmurs, rubs, or gallops appreciated Pulmonary: Prominent rales in the lower lung blue, no wheezes, or rhonchi. Normal respiratory effort with no use of accessory muscles. Abdomen: Bowel tones present. Soft, nontender, nondistended. Extremities: No clubbing, cyanosis, edema Skin: Normal temperature, turgor, and texture; no rash, ulcers, or subcutaneous nodules appreciated. Neurological: Cranial nerves grossly intact. Reflexes, coordination, and sensory function within normal limits. Normal muscle strength, tone, and bulk. Psychiatric: Depressed mood and affect. Alert and oriented to person, place, and time IVs and Medications IV Fluids 2100 mL normal saline delivered with IV medications. Medications Reviewed: Medications were reviewed in detail Lab and Diagnostics Result Diagram: 02/25/17 0333 02/25/17 0945 Microbiology UA with culture, pending Blood cultures pending X-Rays, CTs and MRIs Chest x-ray 02/24/2017 [place] [facility] Findings: Large hiatal hernia. Increased airspace disease in the right medial lung base causes obscuration of the hemidiaphragm. Patchy density in the left lung base is also slightly increased. Heart size unchanged. No pulmonary edema. No pleural effusion. No pneumothorax. No displaced rib fractures. Impression: Increasing bibasilar densities, probably atelectasis By Dr. Aixa Candelario, 02/24/17 2:[address] 02/24/2017 done at [facility] Findings: No acute intracranial processes. Mild sphenoid sinusitis. Assessment & Plan Jeanne Roberts is a 76-year-old female with a past medical history significant for severe COPD on 3 L of oxygen at baseline, hypertension, hyperlipidemia, GERD , previous CVA who called EMS earlier today for shortness of breath 2 days in duration. Shock, present on admission. Acute. Active - possibly Septic shock from pneumonia and vitals at [facility] she received antibiotics prior to transfer here - Severely hypotensive on admission requiring central line placement and pressor therapy to maintain pressures/MAPs - Continue Norepi drip - Blood cultures pending - UA/culture pending - Cefepime, Azithromycin, Vanc at this time to cover HAP/CAP; refine/stop when cultures/PCR return or labs indicate no infection - Percussive tone decreased from admission Possible pneumonia, present on admission. Acute. Active - possibility of both CAP (aspiration as well) and HAP - No elevations in Lactic Acid - Procalitonin trending down - Respiratory PCR negative - MRSA negative - Urine legionella, pneumococcus negative - Blood cultures pending - Antibiotics as above to cover both etiologies; consider adding aminoglycoside/Aztreonam if she does not improve to cover HCAP fully (note absence of cipro/levo from HCAP regimen due to allergy) Acute COPD exacerbation, present on admission. Ongoing. - Pt here 1 month ago for parainfluenza virus pneumonia and presented similarly - Sputum CX ordered - Respiratory PCR negative - Continue oxygen; maintain sats between 88-92% - Continue duo nebs twice a day, Q4 PRN - Continue home inhaler regimen - Azithromycin added for atypical CAP coverage as well as anti-inflammatory lung properties Chronic hypoxic respiratory failure on 3 L of oxygen at baseline, present on admission. - Secondary to COPD - Continue medication regimen as above under COPD exacerbation Hypertension, present on admission. Chronic. - Hold lisinopril 10 mg daily until pressures stabilize Hyperlipidemia, present admission. Chronic. - Continue atorvastatin 20 mg at night GERD, present on admission. Chronic. - Continue omeprazole 20 mg twice daily Hypothyroidism, present admission. Chronic. - Continue levothyroxine 100 mcg daily Essential tremor, present on admission. Chronic. - Hold propranolol 20 mg 3 times daily until pressures stabilize Chronic back pain, present on admission. Chronic. - Continue home oxycodone 5/325 1 to 2 tablets every 4 as needed - Patient has pain contract with Dr. Meek Depression, present on admission. Chronic. - Continue duloxetine 30 mg at night Insomnia, present on admission. Chronic. - Continue Ambien 10 mg at night PRN Medications - Acetaminophen as needed for mild pain/fever/headache - Bowel regimen as needed - Antiemetic as needed CODE STATUS: DNR/DNI Disposition: Patient will likely require 3-5 days of inpatient management prior to discharge home. Pain Evaluation: Adequate Pain Control GI Prophylaxis: Proton Pump Inhibitor VTE Prophylaxis: Sub-Q Heparin (Unfractionated) VTE Mechanical Devices: Intermittant Pneumatic CD Resuscitation Status: CPR: Attempt Resuscitation Attending Statement The patient was seen and examined together with Dr. Lombardo on 02/25/2017 and I agree with the history, exam and plan as outlined in the note above. . Galindo Lombardo DO Feb 25, 2017 13:23 Trell Rodriguez MD Feb 25, 2017 15:06
[2017-02-25] MEDS: Albuterol 2.5 mg/3 mL Inhalation Solution NEB PRN (13:40)
[2017-02-25] MEDS: Ondansetron 2 mg/mL 2 mL Inj IVPUSH PRN ×2 (14:50→21:39)
--- NOTE | 2017-02-25 16:50 | NUR ---
Cardiac/respiratory/pain SR per electronic device monitor. MAP trending in 60-65. Levophed infusing at 0.18mcg/kg/min. Oriented x 3. Patient denying chest discomfort at this time. Ramírez to DD with 1150cc out this shift. NS continued at 125cc/hr. IV antibiotics infused at scheduled. Afebrile. Headache and generalized pain controlled with PRN tylenol and percocet.Oxygen saturation maintained 88-92% on 1L per NC. Denies SOA. Infrequent, dry cough. Suboptimal intake, meals refused when offered. Pt tolerating water and bites of applesauce. Will continue to monitor.
[2017-02-25] MEDS: Vancomycin 1 Gm/200 mL NS Premix IV SCH (17:34)
[2017-02-25] MEDS: Albuterol 2.5 mg/3 mL Inhalation Solution NEB SCH (20:59)
[2017-02-25] MEDS: guaiFENesin 600 mg ER12 Tablet PO SCH (21:03)
[2017-02-26] VITALS (10 sets, daily range): BP systolic 107–124; BP diastolic 45–67; PULSE 83–107; RESP 15–26; O2SAT 88–96
[2017-02-26] MEDS: oxyCODONE-Acetamin 5-325 mg Tablet PO PRN ×5 (02:37→22:27)
[2017-02-26] MEDS: Heparin 5,000 Unit/mL Inj SUBQ SCH ×4 (02:37→23:58)
[2017-02-26] MEDS: Ondansetron 2 mg/mL 2 mL Inj IVPUSH PRN ×4 (02:42→20:12)
[2017-02-26] MEDS: Albuterol 2.5 mg/3 mL Inhalation Solution NEB PRN (04:02)
[2017-02-26] MEDS: Cefepime Inj 2,000 MG in Dextrose 5% Minibag Plus 100 ML IV SCH ×3 (04:07→20:15)
[2017-02-26 04:24] LABS: BASOPHILS % (AUTO) 0.6 % (0-3); EOSINOPHILS % (AUTO) 1.3 % (0-5); MONOCYTES % (AUTO) 6.2 % (4-12); Mean Corpuscular Hemoglobin 31.8 pg (27.0-35.0); Mean Corpuscular Volume 103.1 fL (81-100); NEUTROPHILS % (AUTO) 84.8 % (40-74); Platelet Count 203 bil/L (150-400)
[2017-02-26 04:51] LABS: Magnesium 1.8 mg/dL (1.6-2.6)
--- NOTE | 2017-02-26 05:41 | NUR ---
Cardiac, respiratory, pain VS as noted. Tele sinus rhythm /tach with hr 90s to 100s. Levophed gtt weaned to keep MAP >65, currently 0.12mcg/kg/min. Sats on 1l/nc high 80s to 90s. Short of breath twice at rest with increased fio2 per pt request to 3l. Resolved after nebs then returned to 1l. Percocet given x2 for complaints of back and head pain with improvement. Zofran given x2 for nausea without emesis.
[2017-02-26 05:44] LABS: Phosphorus 2.6 mg/dL (2.5-4.9)
[2017-02-26] MEDS: guaiFENesin 600 mg ER12 Tablet PO SCH ×2 (07:42→20:57)
[2017-02-26] MEDS: 0.9% Sodium Chloride 1,000 ML IV SCH ×3 (07:42→23:59)
[2017-02-26] MEDS: Vancomycin 1 Gm/200 mL NS Premix IV SCH (07:42)
[2017-02-26] MEDS: Pantoprazole 20 mg ER24 Tablet PO SCH ×2 (07:42→16:31)
[2017-02-26] MEDS: Tiotropium 18mcg/Cap 5 Capsule Inhaler Kit INHALATION SCH (07:44)
[2017-02-26] MEDS: Fluticasone-Salmererol 250-50 Inhaler INHALATION SCH ×2 (07:44→21:00)
[2017-02-26] MEDS: Azithromycin Inj 500 MG in Dextrose 5% w/Vial Mate 250 ML IV SCH (07:45)
--- NOTE | 2017-02-26 12:11 | DRSVH ---
PROCEDURE: X-RAY CHEST ONE VIEW, PORTABLE ([id number]) INDICATIONS: pneumonia TECHNIQUE: One view of the chest was acquired. COMPARISON: [facility], CR, XR CHEST 1VW (PORTABLE), 02/24/2017, 22:15. FINDINGS: Surgical changes and devices: Right internal jugular catheter is unchanged in position with the tip i n the superior vena cava. Lungs and pleura: There is persistent elevation of the right hemidiaphragm with small bilateral pleu ral effusions. There are medial right basilar opacities consistent with consolidation or atelectasis . There is slightly decreased but persistent pulmonary edema. Mediastinum: Mediastinal contours appear prominent likely due to rotation. Heart size is normal. Bones and chest wall: No suspicious bony lesions. Overlying soft tissues appear unremarkable. IMPRESSION: 1. Persistent medial right basilar opacities likely representing consolidation given patient's histo ry of pneumonia. 2. Small bilateral pleural effusions and mild pulmonary edema. Dictated by: Daniele Harris M.D. on 02/26/2017 at 12:08 Approved by: Daniele Harris M.D. on 02/26/2017 at 12:09
[2017-02-26] MEDS: Albuterol 2.5 mg/3 mL Inhalation Solution NEB SCH ×2 (14:04→21:09)
[2017-02-26] MEDS ORDERED: Magnesium Sulf 2 Gm/50mL Water 2 GM in IV Premix 1 EACH IV ONE (14:25)
--- NOTE | 2017-02-26 16:18 | NUR ---
Social Work- Initial Assessment/Multidisciplinary Rounds Data: See Initial Assessment and Advance Directive intervention for additional information. Pt is a 76 year old female admitted for pneumonia, sepsis, septic shock per H&P. Pt's insurance is [facility], [facility] [employer] [facility], and [facility]. PCP is Fabian Meek MD. Pt's readmit risk score is 6/8, high risk. Pt is a readmit, last admitted in December and d/c home on 01/03 with no d/c needs. Pt's NOK and d/c planning electrical tryout person is son Zaheer Roberts, . Pt discussed in multidisciplinary rounds. Pt to receive Palliative consult on Monday for goals of care. Pt has expressed frustration about her chronic readmissions. Pt remains CCU status. No SW needs identified in rounds at this time, no SW orders received. SW met with pt at bedside regarding d/c plan, SW role explained. Pt alert and oriented x3. Pt's capacity for self-care assessed. Pt resides in [place] in an RV alone with her son and DIL next door. Pt's RV has three stairs to enter. Pt uses a cane or walker at baseline. Pt also has a bath bench, grab bars, electric scooter, at home. Pt does not drive. Pt has history of [facility]ST[facility] RN PT, no SNF history. Pt has no LTC or VA benefits. Pt has Advance Directive in hard chart. Pt has LORRI SARITA Adkins, H&P faxed. Pt reports that a family employee checks in on her multiple times each day and manages pt's medications. Pt's son cooks for her. Pt has home O2 though [employer], 3 L O2 at baseline. Pt anticipated to d/c home with her son to transport via POV. SW provided d/c planning checklist and wrote phone number and plan on whiteboard. SW will continue to follow for d/c planning needs. Assessment: Pt who is not independent with ADLs and self-care given the need for a caregiver and assistance from son. Plan: Pt anticipated to d/c home with her son to transport via POV. No SW needs identified at this time, no orders received. Pt may benefit from a PT evaluation during this admission. SW will continue to follow for d/c planning needs. CLINTON Pettit Addendum: 02/26/17 at 1624 by SWAPNA CASTELLANO Amended: Links added.
--- NOTE | 2017-02-26 16:42 | NUR ---
Cardiac/pulmonary/pain SR per helper marble finisher. Levophed gtt turned off briefly, unable to maintain MAP of 60 or > without vasopressor support. Levophed gtt restarted at 0.02mcg/kg/min and MAP returned to mid 60s. NS infusing at 125cc/hr. Alert and oriented x 3. Lungs diminished. Dry, nonproductive cough. Acapella and ISP encouraged hourly. SOA reported with exertion, denies at rest. Pg continues to have "waves of nausea" and sub-optimal intake. Tolerating water, broth and small bites. Will continue to monitor.
[2017-02-26] MEDS ORDERED: Vancomycin Serum Trough XX ONE (17:30)
--- NOTE | 2017-02-26 20:28 | PCM.PNMED ---
Subjective Date of Service Feb 26, 2017 Subjective Overnight: Patient continued on norepinephrine drip currently being weaned overnight. No acute events otherwise noted Today: Patient states that she is currently still having chills, cough, shortness of breath. The patient states that she is feeling only slightly improved from day prior. The patient denies chest pain, nausea or abdominal issues including constipation or diarrhea at this time. Exam Vital Signs Vital Sign - Last Date Time Temp Pulse Resp B/P Pulse Ox O2 Delivery O2 Flow Rate FiO2 02/26/17 04:09 101 22 94 Nasal Cannula 2.00 02/26/17 04:00 36.8 124/67 Intake and Output 02/25/17 02/25/17 02/26/17 Cumulative From/Thru 15:00 23:00 07:00 02/24/17 20:51 - 02/26/17 05:40 Intake Total 2694 ml 2224 ml 7093 ml Output Total 1150 ml 850 ml 2900 ml Balance 1544 ml 1374 ml 4193 ml Intake Oral 500 ml 500 ml IV Total 2194 ml 2224 ml 6593 ml Output Urine Total 1150 ml 850 ml 2900 ml Exam General: Elderly female appearing ill in mild general distress, well-developed, well-nourished Head: Normocephalic, atraumatic. External ears without defect. Eyes: Pupils equal, round, and reactive to light and accommodation. Anicteric sclerae, moist conjunctivae. Neck: Normal range of motion, no lymphadenopathy noted, right IJ in place Cardiovascular: Regular rate and rhythm with no murmurs, rubs, or gallops appreciated Pulmonary: Prominent rales in the lower lung blue bilaterally, no wheezes, or rhonchi. Normal respiratory effort with no use of accessory muscles. Abdomen: Bowel tones present. Soft, nontender, nondistended. Extremities: No clubbing, cyanosis, edema Skin: Normal temperature, turgor, and texture; no rash, ulcers, or subcutaneous nodules appreciated. Neurological: Cranial nerves grossly intact. Reflexes, coordination, and sensory function within normal limits. Normal muscle strength, tone, and bulk. Psychiatric: Depressed mood and affect. Alert and oriented to person, place, and time Lab and Diagnostics Result Diagram: 02/26/17 0400 02/26/17 0400 Microbiology UA with culture, pending Blood cultures pending X-Rays, CTs and MRIs Chest x-ray 02/24/2017 done at [facility] Findings: Large hiatal hernia. Increased airspace disease in the right medial lung base causes obscuration of the hemidiaphragm. Patchy density in the left lung base is also slightly increased. Heart size unchanged. No pulmonary edema. No pleural effusion. No pneumothorax. No displaced rib fractures. Impression: Increasing bibasilar densities, probably atelectasis By Dr. Aixa Candelario, 02/24/17 2:[address] 02/24/2017 done at [facility] Findings: No acute intracranial processes. Mild sphenoid sinusitis. Assessment & Plan Jeanne Roberts is a 76-year-old female with a past medical history significant for severe COPD on 3 L of oxygen at baseline, hypertension, hyperlipidemia, GERD , previous CVA who called EMS earlier today for shortness of breath 2 days in duration. Shock, present on admission. Acute. Active - possibly Septic shock from pneumonia and vitals at [facility]; she received antibiotics prior to transfer here - Severely hypotensive on admission requiring central line placement and pressor therapy to maintain pressures/MAPs - Continue Norepi drip - Blood cultures pending - UA/culture pending - Cefepime, Azithromycin - Vancomycin discontinued given MRSA negative on nasal swab - Percussive tone decreased from admission Acute community-acquired Pneumonia, present on admission. Acute. Active - possibility of HCAP, currently improving without anaerobic coverage making aspiration less likely - No elevations in Lactic Acid, Respiratory PCR negative, MRSA nasal swab negative, both Urine legionella urine antigen and strep pneumococcal urine antigen negative - Procalitonin and WBCs trending down consistent with clinical improvement on antibiotics - Blood cultures pending - Antibiotics as above to cover both etiologies; Acute COPD exacerbation, present on admission. Ongoing. - Pt here 1 month ago for parainfluenza virus pneumonia and presented similarly - Sputum CX ordered - Respiratory PCR negative - Continue oxygen; maintain sats between 88-92% - Continue duo nebs twice a day, Q4 PRN - Continue home inhaler regimen - Azithromycin added for atypical CAP coverage as well as anti-inflammatory lung properties Chronic hypoxic respiratory failure on 3 L of oxygen at baseline, present on admission. - Secondary to COPD - Continue medication regimen as above under COPD exacerbation Hypertension, present on admission. Chronic. - Hold lisinopril 10 mg daily until pressures stabilize Hyperlipidemia, present admission. Chronic. - Continue atorvastatin 20 mg at night GERD, present on admission. Chronic. - Continue omeprazole 20 mg twice daily Hypothyroidism, present admission. Chronic. - Continue levothyroxine 100 mcg daily Essential tremor, present on admission. Chronic. - Hold propranolol 20 mg 3 times daily until pressures stabilize Chronic back pain, present on admission. Chronic. - Continue home oxycodone 5/325 1 to 2 tablets every 4 as needed - Patient has pain contract with Dr. Meek Depression, present on admission. Chronic. - Continue duloxetine 30 mg at night Insomnia, present on admission. Chronic. - Continue Ambien 10 mg at night PRN Medications - Acetaminophen as needed for mild pain/fever/headache - Bowel regimen as needed - Antiemetic as needed CODE STATUS: DNR/DNI Disposition: Patient will likely require 3-5 days of inpatient management prior to discharge home. GI Prophylaxis: Proton Pump Inhibitor VTE Prophylaxis: Sub-Q Heparin (Unfractionated) VTE Mechanical Devices: Intermittant Pneumatic CD Resuscitation Status: CPR: Attempt Resuscitation Attending Statement The patient was seen and examined together with Dr. Potts on 02/26/2017 and I agree with the history, exam and plan as outlined in the note above. . Luc Potts DO Feb 26, 2017 07:37 Trell Rodriguez MD Feb 27, 2017 13:54
[2017-02-26] MEDS: Norepineph 8,000 mCg/250 mL NS 8,000 MCG in IV Premix 1 EACH IV SCH (20:55)
[2017-02-27] VITALS (15 sets, daily range): BP systolic 101–145; BP diastolic 49–83; PULSE 72–95; RESP 15–28; O2SAT 89–96
[2017-02-27] MEDS: Albuterol 2.5 mg/3 mL Inhalation Solution NEB SCH ×2 (02:17→07:56)
[2017-02-27] MEDS: oxyCODONE-Acetamin 5-325 mg Tablet PO PRN ×3 (02:50→20:20)
--- NOTE | 2017-02-27 02:52 | NUR ---
respiratory pt answers orientation questions appropriately, appears somewhat anxious intermittently during the night, pt noted to have mild hallucinations during the night, pt also has difficult time seeing, pt received hs meds/percocet for back pain and melatonin to help pt sleep, pt sob when anxious, hob up, nebs given per rt, ls= base crackles, norepi weaned off and ivf decreased to 75ml/hr, voiding well per f/c, o2 increased from 1..5 liters to 2 liters per nc, sats =88-92% per goal, on 1.5 liters sats in upper 80's to 90%, on two liters sats =92%, pt states she feels more comfortable on two liters, enc cdb, am cxr ordered, zofran given times one for nausea, no emesis, pt tolerated po intake and applesauce, no choking noted, right ij intact, plan: monitor bp/respiratory status, Addendum: 02/27/17 at 0622 by WILSON CASAREZ RN paged this am with increase in crackles bilaterally, am cxr done, order received to d/c ivf,
[2017-02-27] MEDS: Cefepime Inj 2,000 MG in Dextrose 5% Minibag Plus 100 ML IV SCH ×3 (04:30→20:17)
[2017-02-27 04:32] LABS: BASOPHILS % (AUTO) 0.2 % (0-3); EOSINOPHILS % (AUTO) 1.2 % (0-5); MONOCYTES % (AUTO) 7.4 % (4-12); Mean Corpuscular Hemoglobin 32.2 pg (27.0-35.0); Mean Corpuscular Volume 101.6 fL (81-100); NEUTROPHILS % (AUTO) 79.7 % (40-74); Platelet Count 166 bil/L (150-400)
[2017-02-27] MEDS: Heparin 5,000 Unit/mL Inj SUBQ SCH ×3 (08:36→23:21)
[2017-02-27] MEDS: guaiFENesin 600 mg ER12 Tablet PO SCH ×2 (08:37→20:20)
[2017-02-27] MEDS: Tiotropium 18mcg/Cap 5 Capsule Inhaler Kit INHALATION SCH (08:37)
[2017-02-27] MEDS: Fluticasone-Salmererol 250-50 Inhaler INHALATION SCH ×2 (08:37→20:18)
--- NOTE | 2017-02-27 08:37 | DRSVH ---
PROCEDURE: X-RAY CHEST ONE VIEW, PORTABLE ([id number]) INDICATIONS: SHORT OF BREATH TECHNIQUE: One view of the chest was acquired. COMPARISON: [facility], CR, XR CHEST 2VW, 01/01/2017, 0:12. [facility], CT, CT ANGIO CHEST PE, 01/01/2017, 2:43. [facility], CR, XR CHEST 1VW (PORTABLE), 02/26/2017, 10:59. FINDINGS: Surgical changes and devices: Right internal jugular catheter appears stable in position. Lungs and pleura: There is elevation of the right hemidiaphragm redemonstrated with persistent small bilateral pleural effusions. There are medial bibasilar opacities redemonstrated consistent with at electasis or consolidation. There is pulmonary edema which appears similar to slightly increased fro m the prior study. Mediastinum: Mediastinal contours appear unchanged. A large hiatal hernia is redemonstrated. Heart size is mildly enlarged. Bones and chest wall: No suspicious bony lesions. Overlying soft tissues appear unremarkable. IMPRESSION: 1. Persistent small pleural effusions and pulmonary edema suggesting congestive heart failure. 2. Medial basilar opacities compatible with atelectasis or consolidation. Dictated by: Daniele Harris M.D. on 02/27/2017 at 8:33 Approved by: Daniele Harris M.D. on 02/27/2017 at 8:35
[2017-02-27] MEDS: Pantoprazole 20 mg ER24 Tablet PO SCH ×2 (08:38→16:27)
[2017-02-27] MEDS: Ondansetron 2 mg/mL 2 mL Inj IVPUSH PRN (09:32)
[2017-02-27] MEDS: Albuterol 2.5 mg/3 mL Inhalation Solution NEB PRN ×4 (12:33→21:46)
--- NOTE | 2017-02-27 15:19 | PCM.PNMED ---
Subjective Date of Service Feb 27, 2017 Subjective Subjective: Patient states that she is feeling slightly better today, however she would like to know what the cause of her frequent stays in the hospital are related to. Events Overnight: No acute events overnight. ROS: Shortness of breath , Denies fever/chills, nausea/vomiting, headache, weakness, abdominal pain, chest pain, increased swelling in hands or feet. Exam Vital Signs Vital Sign - Last Date Time Temp Pulse Resp B/P Pulse Ox O2 Delivery O2 Flow Rate FiO2 02/27/17 12:33 80 22 90 Nasal Cannula 3.00 02/27/17 11:55 36.9 101/83 Intake and Output 02/26/17 02/26/17 02/27/17 Cumulative From/Thru 15:00 23:00 07:00 02/24/17 20:51 - 02/27/17 06:16 Intake Total 2738 ml 2084 ml 43589 ml Output Total 650 ml 800 ml 4350 ml Balance 2088 ml 1284 ml 7565 ml Intake Oral 750 ml 480 ml 1730 ml IV Total 1988 ml 1604 ml 17274 ml Output Urine Total 650 ml 800 ml 4350 ml # Bowel Movements 0 0 Exam General: No acute distress, well-developed, well-nourished Head: Normocephalic, atraumatic. External ears without defect. Eyes: Pupils equal, round, and reactive to light and accommodation. Anicteric sclerae, moist conjunctivae. Neck: Normal range of motion, no lymphadenopathy noted Cardiovascular: Regular rate and rhythm with no murmurs, rubs, or gallops appreciated Pulmonary: Prominent rales in the lower lung blue improved from previous, no wheezes, or rhonchi. Normal respiratory effort with no use of accessory muscles. Abdomen: Bowel tones present. Soft, nontender, nondistended. Extremities: No clubbing, cyanosis, edema Skin: Normal temperature, turgor, and texture; no rash, ulcers, or subcutaneous nodules appreciated. Neurological: Cranial nerves grossly intact. Reflexes, coordination, and sensory function within normal limits. Normal muscle strength, tone, and bulk. Psychiatric: Depressed mood and affect. Alert and oriented to person, place, and time IVs and Medications IV Fluids 1800 mL normal saline delivered with IV medications. Medications Reviewed: Medications were reviewed in detail Medications High-risk medications include: Oxycodone Lab and Diagnostics Result Diagram: 02/27/170 02/27/17419 Microbiology UA with culture, pending Blood cultures pending X-Rays, CTs and MRIs Chest x-ray 02/24/2017 done at [facility] Findings: Large hiatal hernia. Increased airspace disease in the right medial lung base causes obscuration of the hemidiaphragm. Patchy density in the left lung base is also slightly increased. Heart size unchanged. No pulmonary edema. No pleural effusion. No pneumothorax. No displaced rib fractures. Impression: Increasing bibasilar densities, probably atelectasis By Dr. Aixa Candelario, 02/24/17 2:[address] 02/24/2017 done at [facility] Findings: No acute intracranial processes. Mild sphenoid sinusitis. Assessment & Plan Jeanne Roberts is a 76-year-old female with a past medical history significant for severe COPD on 3 L of oxygen at baseline, hypertension, hyperlipidemia, GERD , previous CVA who called EMS earlier today for shortness of breath 2 days in duration. Of note: Patient is extremely aware of having to return to the hospital often for treatments, we discussed the possibility of consulting palliative care, she states that this would be an intervention which she is currently interested in. Attempt palliative care consult on 02/28. Shock, present on admission. Acute. Stable - possibly Septic shock from pneumonia and vitals at [facility]; she received antibiotics prior to transfer here - Severely hypotensive on admission initially requiring central line placement and pressor therapy to maintain pressures/MAPs - Norepi drip discontinued on 02/26, pressures currently low but stable - Blood cultures negative - UA/culture negative - Continue Cefepime, Azithromycin - Vancomycin discontinued given MRSA negative on nasal swab - Percussive tone decreased from admission Acute community-acquired Pneumonia, present on admission. Acute. Resolving - possibility of HCAP, currently improving without anaerobic coverage making aspiration less likely - No elevations in Lactic Acid, Respiratory PCR negative, MRSA nasal swab negative, both Urine legionella urine antigen and strep pneumococcal urine antigen negative - Procalitonin and WBCs trending down consistent with clinical improvement on antibiotics - Blood cultures negative - Sputum cultures negative - Antibiotics as above to cover both etiologies; Chronic hypoxic respiratory failure on 3 L of oxygen at baseline, present on admission. Possibly secondary to acute COPD exacerbation vs pneumonia process Patient currently saturating well at baseline oxygen use - Sputum CX negative - Respiratory PCR negative - Continue oxygen; maintain sats between 88-92%, - Continue duo nebs twice a day, Q4 PRN - Continue home inhaler regimen - Azithromycin added for atypical CAP coverage as well as anti-inflammatory lung properties Hypertension, present on admission. Chronic. - Hold lisinopril 10 mg daily until pressures stabilize Hyperlipidemia, present on admission. Chronic. - Continue atorvastatin 20 mg at night GERD, present on admission. Chronic. - Continue omeprazole 20 mg twice daily Hypothyroidism, present admission. Chronic. - Continue levothyroxine 100 mcg daily Essential tremor, present on admission. Chronic. - Continue propranolol at 10 mg 3 times daily, continue to watch pressures closely, hold if SBP less than 100 Chronic back pain, present on admission. Chronic. - Continue home oxycodone 5/325 1 to 2 tablets every 4 as needed - Patient has pain contract with Dr. Meek Depression, present on admission. Chronic. - Continue duloxetine 30 mg at night Insomnia, present on admission. Chronic. - Continue Ambien 10 mg at night PRN Medications - Acetaminophen as needed for mild pain/fever/headache - Bowel regimen as needed - Antiemetic as needed CODE STATUS: DNR/DNI Disposition: Patient will likely require 1-3 days of inpatient management prior to discharge home. GI Prophylaxis: Proton Pump Inhibitor VTE Prophylaxis: Sub-Q Heparin (Unfractionated) VTE Mechanical Devices: Intermittant Pneumatic CD Resuscitation Status: CPR: Attempt Resuscitation Attending Statement The patient was seen and examined together with Dr. Lombardo on 02/27/17 and I have added additional information to the note above. Galindo Lombardo DO Feb 27, 2017 15:19 iTffanie Barker DO Mar 04, 2017 12:39
--- NOTE | 2017-02-27 15:59 | DRSVH ---
[facility] [address] [place] [address] Echocardiogram Report Name: LLUVIA PERKINS LStudy Date: 02/27/2017 Height: 65 in Hospital Exam Location: [facility] Weight: 219 lb Gender: Female BSA: 2.1 m2 : 1940 Age: 76 yrs BP: 118/58 mmHg Reason For Study: Congestive Heart Failure Ordering Physician: Performed By: Lukasz Duke Referring Physician: MOLINA LOZANO Interpretation Summary The left ventricle is normal in size. The ejection fraction is estimated to be 55-60%. There has been no significant change in LV EF since the previous study. There is mid inferior wall and proximal mid posteriolateral wall hypokinesis (New). The right ventricle is mildly dilated. The right ventricular systolic function is normal. There is mild to moderate tricuspid regurgitation. The right ventricular systolic pressure is estimated at 47 mmHg assuming a right atrial pressure of 15 mm Hg. Compared to the prior echo exam, there has been an increase in TR severity. Compared to the prior echo exam, there has been an increase in the severity of pulmonary hypertension. Procedure: A two-dimensional transthoracic echocardiogram with color flow and Doppler was performed. The study quality was technically adequate. Comparison is made with the echocardiogram of 01/02/17. The patient was in normal sinus rhythm during the exam. Left Ventricle: The left ventricle is normal in size. There is normal left ventricular wall thickness. The ejection fraction is estimated to be 55-60%. There has been no significant change since the previous study. There is mid inferior wall hypokinesis. There is proximal mid posteriolateral wall hypokinesis. This is best appreciated in the apical views. E/A ratio is reversed with abnormal E/E' ratio. Right Ventricle: The right ventricle is mildly dilated. The right ventricle appears to be hypertrophied. The right ventricular systolic function is normal. Atria: Both atria are normal in size. The interatrial septum is intact with no evidence for an atrial septal defect. Mitral Valve: The mitral valve leaflets appear mildly thickened, but open well. There is moderate mitral annular calcification. The mitral valve chordae are thickened and/or calcified. No significant mitral valve stenosis. There is trace mitral regurgitation. Aortic Valve: The aortic valve is trileaflet. The aortic valve opens well. There is no aortic valve stenosis. No aortic regurgitation is present. Tricuspid Valve: Tricuspid leaflets are thickened. There is mild to moderate tricuspid regurgitation. The right ventricular systolic pressure is estimated at 47 mmHg assuming a right atrial pressure of 15 mm Hg. Compared to the prior echo exam, there has been an increase in TR severity. Compared to the prior echo exam, there has been an increase in the severity of pulmonary hypertension. Pulmonic Valve: The pulmonic valve is not well visualized. Great Vessels: The aortic root is normal size. The ascending aorta is mildly enlarged. The pulmonary artery is normal size. The IVC is dilated (diameter is greater than 2.1 cm) and it collapses less than 50% with a sniff. This suggests a high right atrial pressure of 15 mm Hg. Pericardium/ Pleura There is a trivial pericardial effusion noted. There is an anterior echo-free space consistent with a fat pad. There are no echocardiographic indications of cardiac tamponade. There is no pleural effusion. MMode/2D Measurements & Calculations LVIDd: 4.6 cm RA long axis LVOT diam LVIDs: 3.1 cm LA A2 area: 17.7 cm FS: 31.7 % LA A4 area: 23.1 cm RA area AoV Opening EPSS: 0.33 cm LA length (vol): 6.1 cm IVSd: 0.93 cm LA vol: 57.2 ml : 13.3 cm Ao root diam LVPWd: 0.82 cm LA vol index RA vol : 39.7 ml asc Aorta : 27.8 ml/m2 RA Diam: 3.4 cm : 19.3 mm2 LV jang. diameter/BSA LV sys. diameter/BSA RVD1 (basal) TAPSE: 2.7 cm (cm/m^2): 2.2 (cm/m^2): 1.5 Doppler Measurements & Calculations Ao V2 max: 161.7 cm/sec MV E max ravi MV E/A: 0.96 TR max ravi Ao max P.5 mmHg : 130.9 cm/sec : 284.6 cm/sec Ao mean P.6 mmHg MV A max ravi TR max PG LVOT Max Ravi : 136.4 cm/sec : 32.4 mmHg : 131.5 cm/sec MVA(VTI): 2.1 cm2 PA V2 max ILANA(I,D): 2.4 cm : 86.2 cm/sec sev ratio: 0.80 PA mean PG : 1.6 mmHg MV V2 mean: 106.3 cm/secAo V2 mean LV V1 max PG PA V2 mean MV mean P.8 mmHg : 112.3 cm/sec : 60.2 cm/sec MV V2 VTI: 38.6 cm Ao V2 VTI: 33.8 cm LV V1 VTI PA pr(Accel) MV dec time: 0.24 sec ILANA(V,D): 2.4 cm2 : 26.9 cm : 46.3 mmHg ILANA indexed to BSA (cm^2/m^2): 1.1 Reading Physician:BALDO
[2017-02-27] MEDS: Butalbital-Acet-Caffeine Tablet PO PRN (16:24)
[2017-02-27] MEDS: Polyethylene Glycol (PEG) 17 Gm Powder PO PRN (17:52)
--- NOTE | 2017-02-27 18:09 | NUR ---
Respiratory/Headache Cardiac: Pt denies CP, Tele: SR 70-80 Resp: Pt reports SOB intermittently. PRN and Scheduled nebs given this shift with some relief. SPO2 94% on 2.5L NC. GI/: Pt denies n/v. No BM since 02/24, discussed bowel meds, pt interested in mirilax. Mirilax ordered and given. Neuro: A&Ox3, pt has episodes of confusion and moments where she hallucinates, but she reorients quickly. Pt gets anxious with sOB.
[2017-02-27] MEDS: Norepineph 8,000 mCg/250 mL NS 8,000 MCG in IV Premix 1 EACH IV SCH (20:55)
[2017-02-28] VITALS (13 sets, daily range): BP systolic 98–130; BP diastolic 46–75; PULSE 74–97; RESP 16–29; O2SAT 90–100
[2017-02-28] MEDS: oxyCODONE-Acetamin 5-325 mg Tablet PO PRN ×2 (00:54→08:49)
[2017-02-28] MEDS: Butalbital-Acet-Caffeine Tablet PO PRN (00:59)
[2017-02-28] MEDS: Albuterol 2.5 mg/3 mL Inhalation Solution NEB PRN ×2 (01:46→17:39)
--- NOTE | 2017-02-28 03:15 | ABG ---
DateTimeAnalyzed 03:08:00 -_ pH ____7.254 - 7.350 7.450 pCO2 ___59.0__ -mmHg 35.0 45.0 pO2 ___62.0__ -mmHg 69.0 116 HCO3- ___25.2__ -mmol/L 22.0 26.0 ABE ___-1.8__ -mmol/L -2.0 2.0 tHb ____9.3__ -g/dL 12.0 18.0 O2Hb ___88.3__ -% COHb ____1.0__ -% 0.0 1.5 MetHb ____0.7__ -% 0.4 1.5 sO2 ___89.8__ -% FIO2 ___40.0__ -% Drawn By MD - Date/Time Notified____ 03:14:00 -_ Liter_Flow ____6.0__ -L/min Oxygen Device 1 __CANNULA - Notified By MD - Notified Whom RN K.SWAN - B 755 -mmHg tO2 ___11.6__ -Vol% Panda test _Positive -
[2017-02-28] MEDS: Cefepime Inj 2,000 MG in Dextrose 5% Minibag Plus 100 ML IV SCH (03:38)
[2017-02-28 04:02] LABS: BASOPHILS % (AUTO) 0.6 % (0-3); EOSINOPHILS % (AUTO) 2.1 % (0-5); MONOCYTES % (AUTO) 10.9 % (4-12); Mean Corpuscular Hemoglobin 31.5 pg (27.0-35.0); Mean Corpuscular Volume 102.5 fL (81-100); NEUTROPHILS % (AUTO) 73.9 % (40-74); Platelet Count 190 bil/L (150-400)
--- NOTE | 2017-02-28 05:09 | ABG ---
DateTimeAnalyzed 05:02:00 -_ pH ____7.299 - 7.350 7.450 pCO2 ___54.4__ -mmHg 35.0 45.0 pO2 ___71.7__ -mmHg 69.0 116 HCO3- ___25.9__ -mmol/L 22.0 26.0 ABE ___-0.3__ -mmol/L -2.0 2.0 tHb ____8.5__ -g/dL 12.0 18.0 O2Hb ___92.6__ -% COHb ____1.1__ -% 0.0 1.5 MetHb ____0.5__ -% 0.4 1.5 sO2 ___94.1__ -% FIO2 ___40.0__ -% Pressure_Support ____7.0__ -cmH2O PEEP ____5.0__ -cmH2O Set_RR ___12.0__ -b/min Vt __400.0__ -L Drawn By MD - Date/Time Notified____ 05:08:00 -_ Spontaneous_RR ___20.0__ -b/min Oxygen Device 1 ____BIPAP - Notified By MD - Notified Whom RN K.SWAN - B 754 -mmHg tO2 ___11.1__ -Vol% Panda test N/A -
--- NOTE | 2017-02-28 06:22 | NUR ---
Confusion, bipap Patient having increasing hallucinations as night progresses, increasing agitation and impulsive behavior. [place] alarm placed. MD notified and ABG requested. Following ABG orders received for bipap. Patient agreeable with wearing bipap initially, ABG improves after one hour. Patient wears the bipap a total of 2.5 hours and then refuses to wear it. Education provided but patient states "I don't care" and pulls the mask off and won't allow me to replace it. MD updated. Addendum: 02/28/17 at 0706 by AMADOR HILL RN MD in to talk with patient. Tells her it is okay for her to be off bipap and on NC. Clarifies code status. SpO2 88-92% on 6L NC.
[2017-02-28] MEDS: Albuterol 2.5 mg/3 mL Inhalation Solution NEB SCH ×2 (08:30→12:28)
[2017-02-28] MEDS: Pantoprazole 20 mg ER24 Tablet PO SCH ×2 (08:48→18:02)
[2017-02-28] MEDS: Heparin 5,000 Unit/mL Inj SUBQ SCH (08:49)
[2017-02-28] MEDS: guaiFENesin 600 mg ER12 Tablet PO SCH ×2 (08:50→21:04)
[2017-02-28] MEDS: Tiotropium 18mcg/Cap 5 Capsule Inhaler Kit INHALATION SCH (08:51)
[2017-02-28] MEDS: Fluticasone-Salmererol 250-50 Inhaler INHALATION SCH ×2 (08:51→21:07)
--- NOTE | 2017-02-28 10:47 | NUR ---
Palliative care note D/A: Palliative care has kindly received a referral from Dr. Bowden, dated 02/28/17 for assistance with goals of care. Pt is noted to be a 76 yof, admitted with a history of COPD ( 3L O2), HTN, hyperlipidemia, GERD and prior CVA, as well as depression. Pt is noted to live in a trailer on her son's property in [place]. She has been unable to receive home health services there as there are no home health companies that service this area. Pt is noted to have Medicare, [employer] and [employer] as insurance. She currently is on LORRI and previous chart notes indicate that her grand daughter is her LORRI provider and also provides transport. Pt does have O2 provided at home via [employer]. Pt appears to be expressing concern about the number of recent hospitalization as well as not having an understanding as to potential cause. Pt son is Zaheer Roberts and he can be reached at [phone]. Pt grand daughter is Jeanne Roberts and she can be reached at [phone] or [phone]. P: Palliative care to follow. Jessi PETERSONSW, [facility] Addendum: 02/28/17 at 1130 by MINDY NATHAN PC note amendment D/A: Dr. Mckeon has seen pt who is desirous of a hospice info visit. Dr. Mckeon has also written order for hospice services. Met with pt who is on high flow O2.Provided her with "Hospice Services" choice sheet. Discussed with her that [facility] is the only agency that serves [facility]. Had called Skey at [facility] to confirm that they serve [place]. Pt is agreeable to setting up [facility] info visit. She notes that she wishes to also discuss further with her son prior to meeting with [facility]. Have told her that this worker will work to set up meeting on 03/01/17 and will inform her of the time later today when known. This worker also writes this on pt white board. Pt somewhat non oriented. Having some difficulty staying awake and if not fully alert, will try to put water on a table that is not present. When asked about her LORRI CG (grand dtr) pt notes that she is moving to [place] to begin school, within a few days. she does not have another LORRI CG lined up. Phone call to [facility] intake line and have left msg requesting info mtg for pt on 03/01/17. Phone call to Kesha vernon and inform her of above. Will alert both HANDICAPPED TEACHER and pt of visit time when known. P: Palliative care to follow. Jessi DA SILVA CCM Addendum: 02/28/17 at 1253 by MINDY NATHAN PC note amendment Phone call from Cornelia at [facility]. Have arranged for [facility] to provide info visit on 03/01/[address] Mckeon aware and will discuss with family. Son Zaheer is said to be arriving later this afternoon. Msg left for Kesha vernon. Jessi DA SILVA CCM Addendum: 02/28/17 at 1349 by MINDY NATHAN PC note amendment D/A: Dr. Mckeon has met with pt and son Zaheer. Zaheer indicates that they have not talked about eol but he is aware of pt prognosis. He is in agreement with [facility] info visit on 03/01/17 at 1100. He also notes that pt is needing much care at home. He pays for one of his employees to come to the house during the day and then grand daughter assists thru the night. He is very doubtful that pt will be able to be managed at home, even with the assistance of [facility]. Dr. Mckeon has discussed above with saulo Washburn. P: Palliative care to follow. Jessi DA SILVA [facility]
[2017-02-28] MEDS ORDERED: Haloperidol 2 mg/mL 5 mL Oral Conc Liquid PO PRN (11:00)
[2017-02-28] MEDS ORDERED: fentaNYL-PF 50 mCg/mL 2 mL Inj IVPUSH PRN (11:00)
--- NOTE | 2017-02-28 11:23 | PCM.CONPAL ---
Date of Service Feb 28, 2017 Date of Hospital Admission: Feb 24, 2017 at 20:15 Date of Palliative Consult: Feb 28, 2017 Requesting Provider: Luc Potts DO Reason Palliative Care Consult: Goals of Care Discussion, Hospice Referral & Discussion Hospital Unit @time of consult: Progressive Care Palliative Care Recommendation Summary of palliative recommendations: Implementing comfort care. Consulting Hospice for info visit. Continue azithromycin for potential symptom prevention, stopping Cefepime, as her white count is normal, and PCR and cultures have been negative. Discontinuing meds that are unlikely to support comfort/symptom management. -Symptom management (Pain/other) Shortness of Breath -Begin morphine oral solution, 5- 20 mg Q2 PRN -Fentanyl IV push, 25-50 mcg Q2 PRN Pain -Continue home percocet for back pain -DPOA/Advanced Directives/POLST DNR,DNI Anticipate updating POLST upon discharge to be consistent with plans. -Family/emotional support Excellent family support. Palliative will continue to support in coming days. Mail Reader visit offered, but patient was not interested. Additional Medical Diagnoses with primary management by Hospitalist team include : Pneumonia COPD Hypertension Gerd Hypothroidism Back Pain Depression Problems: End of Life Preferences DNR/DNI/limited interventions, progressing towards comfort/hospice Goals of Care Patient expresses wish that she be comfortable rather than in pain or struggling for breath, and would prefer to go home. Disposition TBD Resuscitation Status Resuscitation Status: DNR/DNI:Do Not Resuscitate/Intubate . Advanced Care Planning Address: Comfort care Pain: Mild Symptom management: Anxiety, Agitation, Dyspnea, Pain, Delirium Pt History History of Present Illness Jeanne Roberts is a 76-year-old female with a past medical history significant for severe COPD on 3 L of oxygen at baseline, hypertension, hyperlipidemia, GERD , previous CVA who called EMS for shortness of breath. Upon arrival to [facility] emergency department, she was placed on 4 L with an increase in saturation to 96%. She was given 1 g of vancomycin IV and 2 g ceftrixaone and an albuterol breathing treatment but still felt short of breath. She was admitted to the hospital for hypoxia likely secondary to possible pneumonia and promptly requested transfer to [facility] for further treatment. The patient was hypotensive in the 70's upon arrival and was placed in the ICU for presumed septic shock. Of note, the patient has been admitted to this facility multiple times for pneumonia, aspiration pneumonia, and UTIs - most recently a pneumonia in December 2016. Palliative medicine was consulted by Dr. Potts to talk about goals of care. Prior to visiting patient, records from recent admissions were reviewed, and her bedside nurse and hospitalist were spoken to about her current status. When we visited, Jeanne was on bipap, which she wanted taken off so she could talk with us. She was lucid and clearly decisional. Upon speaking with her, she stated that she is tired of coming into the hospital, and is very much interested in comfort as a priority rather than prolonging treatment of her chronic medical problems. We spoke about what palliative care and hospice could offer her, and she would prefer this. She say that her son and granddaughter are on the same page with her about this, though asked that we not speak with them until she has had a chance to fill them in on this decision. On speaking to her son, Zaheer later in the day, he says that she has never discussed end of life care with him. Zaheer says that he is currently paying his manager practice to take care of mom during the day, and the granddaughter and he help her at night. She apparently can not do much of anything for herself, and continues to smoke/vape at home. Son feels that though she has never wanted to live in a skilled nursing, returning to the house is no longer feasible, and that she will need placement along with her hospice care. Past Medical History Significant PMH Noted: COPD, HTN, hyperlipidemia, CVA Social History Social Support: Granddaughter, Jeanne is her LORRI caregiver. Spiritual Support Spiritual Support Patient is not roman catholic, and declined model set artist visit. Responsive Patient Symptoms Shortness of Breath: Moderate Medications Current Medications: Current Medications Ferrous Sulfate 325 mg MoWeFr PO Last administered on 02/27/17t 12:15; Admin Dose 325 MG; Start 02/27/17 at 12:00; Stop 02/28/17 at 11:09; Status DC Ferrous Sulfate 325 mg WEEKLY PO; Start 03/01/17 at 08:30; Stop 03/01/17 at 08:30 ; Status DC Ferrous Sulfate 325 mg WEEKLY PO; Start 03/03/17 at 08:30; Stop 03/03/17 at 08:30 ; Status DC Azithromycin 500 mg DAILY PO Last administered on 02/28/17 08:49; Admin Dose 500 MG; Start 02/27/17 at 08:30 Melatonin 5 mg HS PRN PO Last administered on 02/27/17 20:25; Admin Dose 5 MG; Start 02/26/17 at 23:00 Acetaminophen/ Butalbital/ Caffeine 1 tab Q4H PRN PO Last administered on 00:59; Admin Dose 1 TAB; Start 02/27/17 at 09:00 Propranolol HCl 10 mg TID PO Last administered on 02/28/17 08:51; Admin Dose 10 MG; Start 02/27/17 at 14:30; Stop 02/28/17 at 10:09; Status DC Polyethylene Glycol 17 gm TID PRN PO Last administered on 02/27/17 17:52; Admin Dose 17 GM; Start 02/27/17 at 16:45 Propranolol HCl 20 mg TID PO; Start 02/28/17 at 14:30 Morphine Sulfate 5-20 mg SL/ PO Q2hr prn Q2 PRN SL/PO; Start 02/28/17 at 11:00; Status UNV Haloperidol Lactate .5-2 mg PO/ SL PRN Q2 PRN PO; Start 02/28/17 at 11:00; Status UNV Fentanyl Citrate 25-50 mcg IV prn Q2 PRN IVPUSH; Start 02/28/17 at 11:00; Status UNV Scheduled Ascorbic Acid (Vitamin C) 250 Mg Tab.chew 500 MG PO QAM Atorvastatin Calcium (Atorvastatin Calcium) 20 Mg Tablet 20 MG PO HS Ferrous Sulfate (Ferrous Sulfate) 325 Mg Tablet 325 MG PO QAM Fluticasone/Salmeterol (Advair 250-50 Diskus) 60 Puff/Inh Disk 1 PUFF INHALATION BID Furosemide (Furosemide) 20 Mg Tab 20 MG PO QAM Gabapentin (Gabapentin) 300 Mg Capsule 900 MG PO BID Levothyroxine (Levothyroxine) 100 Mcg Tablet 100 MCG PO QAM Lisinopril (Lisinopril) 10 Mg Tablet 10 MG PO QAM Omeprazole (Omeprazole) 20 Mg Capsule.dr 20 MG PO BIDWM Propranolol HCl (Propranolol HCl) 40 Mg Tablet 40 MG PO TID Sucralfate (Sucralfate) 1 Gm Tablet 1 GM PO TID Tiotropium [place] (Spiriva) 18 Mcg Cap.w.dev 18 MCG INHALATION DAILY oxyCODONE-Acetaminophen 5-325 mg (oxyCODONE-Acetaminophen 5-325 mg) 1 Each Tablet 1 TAB PO TID Scheduled PRN Albuterol HFA (Proair HFA) 8.5 Gm Hfa.aer.ad 1-2 PUFFS INH Q4H PRN PRN For Shortness of Breath Albuterol Neb Soln (Albuterol Neb Soln) 2.5 Mg/3 Ml Vial.neb 3 ML NEB BID PRN PRN For Shortness of Breath Benzonatate (Tessalon Perle) 100 Mg Capsule 100-200 MG PO TID PRN PRN For Cough Loperamide (Loperamide) 2 Mg Capsule 2 MG PO Q6H PRN PRN For Diarrhea or Loose Stool Polyethylene Glycol 3350 (Miralax) 17 Gm Powd.pack 17 GM PO DAILY PRN PRN For Constipation oxyCODONE-Acetaminophen 5-325 mg (oxyCODONE-Acetaminophen 5-325 mg) 1 Each Tablet 1 TAB PO Q6H PRN PRN For Pain Objective Findings Exam Vital Sign - Last Date Time Temp Pulse Resp B/P Pulse Ox O2 Delivery O2 Flow Rate FiO2 02/28/17 08:59 76 02/28/17 08:10 CPAP/BIPAP 02/28/17 08:10 37.0 20 106/46 98 40 02/28/17 01:46 6.00 Intake and Output 02/27/17 02/27/17 02/28/17 Cumulative From/Thru 15:00 23:00 07:00 02/24/17 20:51 - 02/28/17 06:01 Intake Total 201 ml 439 ml 74073 ml Output Total 1200 ml 5550 ml Balance 201 ml -761 ml 7005 ml Intake Oral 200 ml 1930 ml IV Total 201 ml 239 ml 41850 ml Output Urine Total 1200 ml 5550 ml # Bowel Movements 0 General: Alert/Oriented x3, Mild distress HEENT: Atraumatic Heart: Exam Unremarkable Lungs: Other (Tolerating short intervals without the bipap) Neuro: Exam Intact Lab/Diagnostics Lab and Imaging results reviewed in detail in EMR. Time spent Total time 90 minutes; >50% face to face with patient and family, providing counselling regarding plans and recommendations, and in care coordination with her medical teams. I also spent an additional 45 minutes counseling for advanced care planning with the patient and her family. Attending Statement The patient was seen and examined together with Dr. Cummings on 02/28/2017 and I agree with the history, exam and plan as outlined in the note above. Akira Cummings DO Feb 28, 2017 11:23 Waqas Mckeon MD Feb 28, 2017 14:13
[2017-02-28] MEDS: Morphine 20 mg/mL Oral Syringe SL/PO PRN ×3 (12:26→21:12)
--- NOTE | 2017-02-28 14:11 | NUR ---
Social Work: Continued Discharge Planning/Multidisciplinary Rounds D: Pt discussed in multidisciplinary rounds; the patient is not medically stable for discharge. Provider has placed a palliative care consult to address code status and goals of care. Per palliative care provider, the patient and family are agreeable to a hospice informational visit which has been arranged for 11:00am tomorrow. Provider indicates pt will likely require placement as family cannot manage the patient at home. PROSTHETICS LAB TECHNICIAN will await formal orders to speak with family about SNF placement. A: Pt who is lives at home, alone in an in [place]. Family is LORRI caregiver. P: Evolving; PROSTHETICS LAB TECHNICIAN to follow up after hospice info visit to determine if consents were signed and await discharge planning orders to coordinate for possible placement. CLINTON Aguilar
--- NOTE | 2017-02-28 15:41 | PCM.PNMED ---
Subjective Date of Service Feb 28, 2017 Subjective Subjective: Patient states that she is tired of being in and out of the hospital , and reiterates her desire to initiate comfort status measures. Events Overnight: Patient became acutely confused overnight, ABG showed acute hypercapnia, patient placed on BiPAP which allowed her to sleep better, however upon waking she refused this treatment. ROS: Denies fever/chills, nausea/vomiting, headache, weakness, abdominal pain, chest pain, shortness of breath, increased swelling in hands or feet. Exam Vital Signs Vital Sign - Last Date Time Temp Pulse Resp B/P Pulse Ox O2 Delivery O2 Flow Rate FiO2 02/28/17 12:29 87 23 97 Nasal Cannula 5.00 02/28/17 12:17 36.6 124/75 02/28/17 08:10 40 Intake and Output 02/27/17 02/27/17 02/28/17 Cumulative From/Thru 15:00 23:00 07:00 02/24/17 20:51 - 02/28/17 06:01 Intake Total 201 ml 439 ml 24138 ml Output Total 1200 ml 5550 ml Balance 201 ml -761 ml 7005 ml Intake Oral 200 ml 1930 ml IV Total 201 ml 239 ml 58917 ml Output Urine Total 1200 ml 5550 ml # Bowel Movements 0 Exam General: No acute distress, well-developed, well-nourished Head: Normocephalic, atraumatic. External ears without defect. Eyes: Pupils equal, round, and reactive to light and accommodation. Anicteric sclerae, moist conjunctivae. Neck: Normal range of motion, no lymphadenopathy noted Cardiovascular: Regular rate and rhythm with no murmurs, rubs, or gallops appreciated Pulmonary: Prominent rales in the lower lung blue improved from previous, no wheezes, or rhonchi. Normal respiratory effort with no use of accessory muscles. Abdomen: Bowel tones present. Soft, nontender, nondistended. Extremities: No clubbing, cyanosis, edema Skin: Normal temperature, turgor, and texture; no rash, ulcers, or subcutaneous nodules appreciated. Neurological: Cranial nerves grossly intact. Reflexes, coordination, and sensory function within normal limits. Normal muscle strength, tone, and bulk. Psychiatric: Depressed mood and affect. Alert and oriented to person, place, and time IVs and Medications IV Fluids 240 mL normal saline delivered with IV medications. Medications Reviewed: Medications were reviewed in detail Medications High-risk medications include: Percocet Morphine Lab and Diagnostics Result Diagram: 02/28/17 0350 02/28/17 0350 Microbiology UA with culture, pending Blood cultures pending X-Rays, CTs and MRIs Chest x-ray 02/24/2017 done at [facility] Findings: Large hiatal hernia. Increased airspace disease in the right medial lung base causes obscuration of the hemidiaphragm. Patchy density in the left lung base is also slightly increased. Heart size unchanged. No pulmonary edema. No pleural effusion. No pneumothorax. No displaced rib fractures. Impression: Increasing bibasilar densities, probably atelectasis By Dr. Aixa Candelario, 02/24/17 2:[address] 02/24/2017 done at [facility] Findings: No acute intracranial processes. Mild sphenoid sinusitis. Assessment & Plan Jeanne Roberts is a 76-year-old female with a past medical history significant for severe COPD on 3 L of oxygen at baseline, hypertension, hyperlipidemia, GERD , previous CVA who called EMS earlier today for shortness of breath 2 days in duration. Of note: Patient is extremely aware of having to return to the hospital often for treatments, palliative care consulted and comfort care measures initiated Shock, present on admission. Acute. Stable - possibly Septic shock from pneumonia and vitals at [facility]; she received antibiotics prior to transfer here - Severely hypotensive on admission initially requiring central line placement and pressor therapy to maintain pressures/MAPs - Norepi drip discontinued on 02/26, pressures currently low but stable - Blood cultures negative - UA/culture negative - Continue Azithromycin, cefepime discontinued Acute community-acquired Pneumonia, present on admission. Acute. Resolving - possibility of HCAP, currently improving without anaerobic coverage making aspiration less likely - No elevations in Lactic Acid, Respiratory PCR negative, MRSA nasal swab negative, both Urine legionella urine antigen and strep pneumococcal urine antigen negative - Procalitonin and WBCs trending down consistent with clinical improvement on antibiotics - Blood cultures negative - Sputum cultures negative - Due to comfort measures, Morphine initiated for shortness of breath Chronic hypoxic and hypercarbic respiratory failure on 3 L of oxygen at baseline , present on admission, active Possibly secondary to acute COPD exacerbation vs pneumonia process - Sputum CX negative - Respiratory PCR negative - Continue oxygen; maintain sats between 88-92%, - Continue duo nebs twice a day, Q4 PRN - Continue home inhaler regimen - Azithromycin added for atypical CAP coverage as well as anti-inflammatory lung properties Hypertension, present on admission. Chronic. - Hold lisinopril 10 mg daily until pressures stabilize Hyperlipidemia, present admission. Chronic. - Atorvastatin discontinued due to comfort measures GERD, present on admission. Chronic. - Continue omeprazole 20 mg twice daily Hypothyroidism, present on admission. Chronic. - Continue levothyroxine 100 mcg daily Essential tremor, present on admission. Chronic. - Continue propranolol at 20 mg 3 times daily, continue to watch pressures closely, hold if SBP less than 100 Chronic back pain, present on admission. Chronic. - Continue home oxycodone 5/325 1 to 2 tablets every 4 as needed - Morphine initiated for breakthrough pain Depression, present on admission. Chronic. - Continue duloxetine 30 mg at night Insomnia, present on admission. Chronic. - Continue Ambien 10 mg at night PRN Medications - Acetaminophen as needed for mild pain/fever/headache - Bowel regimen as needed - Antiemetic as needed CODE STATUS: DNR/DNI Disposition: Patient will likely require discharge to group home facility on hospice care. GI Prophylaxis: Proton Pump Inhibitor VTE Prophylaxis: Sub-Q Heparin (Unfractionated) VTE Mechanical Devices: Intermittant Pneumatic CD Resuscitation Status: DNR/DNI:Do Not Resuscitate/Intubate Attending Statement The patient was seen and examined together with Dr. Lombardo on 02/28/17 and I have added additional information to the note above. Galindo Lombardo DO Feb 28, 2017 15:41 Tiffanie Barker DO Mar 04, 2017 12:42
--- NOTE | 2017-02-28 16:43 | CONS ---
[address] [address] CONSULTATION REPORT PATIENT: LLUVIA PERKINS : 1940 MR#: [id number] ADMIT: 02/24/2017 JOB ID: [id number] DATE OF SERVICE: 02/28/2017 PROBLEM LIST: 1. Pneumonia. 2. Acute on chronic hypoxemic hypercarbic respiratory failure. 3. COPD. REQUESTING PHYSICIAN: Luc Potts DO. REASON FOR CONSULTATION: Ventilatory failure. HISTORY OF PRESENT ILLNESS: The patient is a 76-year-old, female who suffers from rather severe COPD, chronically on supplemental oxygen and taking a number of medications, many of whom she cannot recall at the present time. She states that she developed increasing shortness of breath, cough, some phlegm, possibly fever, chills and sweats. Diffuse myalgias. The patient was hypertensive and admitted to ICU for presumed septic shock. Treated with saline and pressors. Over 24 hours, the patient's condition improved. Decided that she would not want to be intubated. This has been a decision apparently made in the past. She states that she has discussed hiatal hernia with her doctor, but at that point, either months ago or years ago, she decided against surgery and indicated that they were quite leery about surgery. She is sure now that they would not undertake the procedure. Showed some improvement. However, currently requiring BiPAP in order to be comfortable from a respiratory standpoint. Not bringing up much phlegm at this point. The patient knows of her hiatal hernia. States that her right lung does not work very well at all. Admitted a number of times for pneumonia. REVIEW OF SYSTEMS: The patient had some problems with confusion at times though difficult to understand with the BiPAP mask in place. At times, I think she carries on a somewhat appropriate conversation; at other times seems confused. Got upset when I leaned forward and touched the bed rail in order to hear better with an explanation that I was unable to understand. Was somewhat tractable after that. MEDICATION LIST: The patient did not particularly know her medications. Chart indicates she takes nebulized albuterol, atorvastatin, ferrous sulfate, Advair, furosemide, gabapentin, levothyroxine, lisinopril, omeprazole, oxycodone, KCl, propranolol for tremor, Spiriva, zolpidem and duloxetine. PAST MEDICAL HISTORY: Includes hypothyroidism, GERD, tremor, hiatal hernia, hypertension, hyperlipidemia. SMOKING HISTORY: Patient was a heavy smoker in the past. Chart indicates she has [id number] history. ALLERGIES: Include: 1. PENICILLIN. 2. CIPROFLOXACIN. 3. DEXAMETHASONE. 4. HYDROCHLOROTHIAZIDE. 5. SULFAMETHOXAZOLE AND TRIMETHOPRIM. OBJECTIVE: Blood pressure 126/75, off pressors. O2 sat on BiPAP 12/5 with an FiO2 of 0.4 is 96%. Pulse 75. General appearance: Well-developed, well-nourished female lying in bed. Mostly lying at about 45-degree angle with right lower lung down. This is her position of choice. Eyes: Conjunctivae are pink. Nose and throat could not be examined due to the presence of BiPAP mask. Neck is supple. Chest: Fair breath sounds on the left. Relatively clear with maybe a slight end-expiratory wheeze in the left anterior lung field in its lower aspect. Essentially absent breath sounds on the right. Heart: Heart tones normal. Abdomen soft. Some bowel tones present. Extremities: No pretibial edema. Skin: No rash. LABORATORY DATA: Shows a white count of 5100 with normal differential. Hemoglobin stable at 8.7. Platelet count rising at 190,000. Lytes are normal. BUN 7, creatinine 0.5. Calcium is 8.7. Total bilirubin 0.3 with normal transaminases. Total protein 5.9 with albumin 3. Procalcitonin 0.3 and decreasing, with the highest value being 2.01 ng/mL on February 24, 2017. Blood cultures negative. Nasopharyngeal swab for respiratory viral panel is negative with none of the organisms on the panel being identified. Urine for Streptococcus pneumoniae antigen is negative. Urine for Legionella antigen is negative. Chest x-ray on admission shows an opacification of the lower half, two-thirds of the right lung. Unchanged from previous films. There is retrocardiac opacity in addition. Arterial blood gases on BiPAP of 12/5, tidal volume delivered about 400, spontaneous respiratory rate of 20, shows a pO2 of 71, a pCO2 of 54, pH is 7.29. Previous arterial blood gases of September 29, 2016, when the patient was admitted for gastroenteritis and dehydration showed a pO2 of 65, pCO2 of 52, pH 7.44. ASSESSMENT: Although pneumonia may have been present, I think her major problem is complete lack of function of the right lung due to the compression of pleural space due to the intra-abdominal contents. At least stomach is present. It looks like with the atelectasis, liver has moved up as well. Actually ventilatory status is about the same compared to previous studies of August 29, 2016. Current gases are notable for the decrease in bicarbonate and development of acidemia. Albeit she was being treated for gastroenteritis, probably hypovolemia at that time, and likely had a superimposed metabolic alkalemia at that time, now with a complicated acid-base problem related to respiratory acidosis, probably metabolic compensation with subsequent development of a metabolic acidemia. Currently she is comfortable on the BiPAP. I do not think there is much we can do as I think her major problem is related to her mechanical problem with the right thoracic cavity. Notes indicate that Palliative Care has been consulted and that the current plan is for implementation of current comfort care employing oral morphine and IV fentanyl both on a p.r.n. basis. We discussed the DO NOT INTUBATE decision with the patient. She is adamant with regard to that understanding the implications. Currently doing reasonably well with current BiPAP settings. Would continue same. I do not think we need to follow the gases particularly closely at this point as she is not a candidate for intubation. One would only intubate her under any circumstances for worsening mental status, which does not appear to be present at this point, though she does seem somewhat confused at times but this would be counter to her wishes for nonintubation. Discussing it with her, she would like to see if something could be done, and therefore, I think that we can continue the BiPAP without considering this to be encroaching on her DNI code status. Therefore would continue with the current regimen of medications. Will see how things fall out. Hopefully, reversing the process, though I think in the long run, the patient's prognosis is extremely poor. PLAN: 1. Continue current regimen of medications. 2. I think we can continue BiPAP in the face of a DNI order. Thank you so much, Dr. Potts, for asking us to see this most engaging individual. Will follow her respiratory status along with you, though somewhat from afar.
[2017-03-01] VITALS (14 sets, daily range): BP systolic 102–140; BP diastolic 50–96; PULSE 69–89; RESP 13–25; O2SAT 89–98
--- NOTE | 2017-03-01 05:30 | NUR ---
BIPAP/Appetite Pt wore her BIPAP mask for the majority of the night. Pt cooperative with wearing NC while upright, awake, to take break from BIPAP. Pt has poor appetite for nutritious food. Pt did eat her cake with vanilla ice cream. Pt's pain treated well with APAP and Liquid Oxycodone 10mg PO.
[2017-03-01] MEDS: Pantoprazole 20 mg ER24 Tablet PO SCH ×2 (08:25→17:17)
[2017-03-01] MEDS: guaiFENesin 600 mg ER12 Tablet PO SCH ×2 (08:25→20:10)
[2017-03-01] MEDS: Tiotropium 18mcg/Cap 5 Capsule Inhaler Kit INHALATION SCH (08:25)
[2017-03-01] MEDS: Fluticasone-Salmererol 250-50 Inhaler INHALATION SCH ×2 (08:25→20:10)
[2017-03-01] MEDS: oxyCODONE-Acetamin 5-325 mg Tablet PO PRN ×4 (08:29→21:00)
[2017-03-01] MEDS: Morphine 20 mg/mL Oral Syringe SL/PO PRN ×2 (09:04→21:38)
--- NOTE | 2017-03-01 10:01 | PCM.PNMED ---
Subjective Date of Service Mar 01, 2017 Subjective Subjective: Patient states that she is feeling relatively well today, she continues to have episodes of minor hallucinations. Hospice was discussed with the patient yesterday which she readily accepted. Discussed with the patient possible placement at [facility] facility prior to transfer to hospice care. Events Overnight: No acute events overnight. ROS: Denies fever/chills, nausea/vomiting, headache, weakness, abdominal pain, chest pain, shortness of breath, increased swelling in hands or feet. Exam Vital Signs Vital Sign - Last Date Time Temp Pulse Resp B/P Pulse Ox O2 Delivery O2 Flow Rate FiO2 03/01/17 08:45 Supplement Oxygen CPAP/BIPAP 03/01/17 07:45 36.5 69 19 115/96 96 40 02/28/17 12:29 5.00 Intake and Output 02/28/17 02/28/17 03/01/17 Cumulative From/Thru 15:00 23:00 07:00 02/24/17 20:51 - 03/01/17 06:58 Intake Total 625 ml 320 ml 02395 ml Output Total 1000 ml 600 ml 7150 ml Balance -375 ml -280 ml 6350 ml Intake Oral 250 ml 200 ml 2380 ml IV Total 375 ml 120 ml 61791 ml Output Urine Total 1000 ml 600 ml 7150 ml # Bowel Movements 1 1 Exam General: No acute distress, well-developed, well-nourished Head: Normocephalic, atraumatic. External ears without defect. Eyes: Pupils equal, round, and reactive to light and accommodation. Anicteric sclerae, moist conjunctivae. Neck: Normal range of motion, no lymphadenopathy noted Cardiovascular: Regular rate and rhythm with no murmurs, rubs, or gallops appreciated Pulmonary: Prominent rales in the lower lung blue improved from previous, no wheezes, or rhonchi. Normal respiratory effort with no use of accessory muscles. Abdomen: Bowel tones present. Soft, nontender, nondistended. Extremities: No clubbing, cyanosis, edema Skin: Normal temperature, turgor, and texture; no rash, ulcers, or subcutaneous nodules appreciated. Neurological: Cranial nerves grossly intact. Reflexes, coordination, and sensory function within normal limits. Normal muscle strength, tone, and bulk. Psychiatric: Depressed mood and affect. Alert and oriented to person, place, and time IVs and Medications IV Fluids 120 mL normal saline delivered with IV medications. Medications Reviewed: Medications were reviewed in detail Medications High-risk medications include: Percocet Lab and Diagnostics Result Diagram: 02/28/17 0350 02/28/17 0350 Microbiology UA with culture, pending Blood cultures pending X-Rays, CTs and MRIs Chest x-ray 02/24/2017 done at [facility] Findings: Large hiatal hernia. Increased airspace disease in the right medial lung base causes obscuration of the hemidiaphragm. Patchy density in the left lung base is also slightly increased. Heart size unchanged. No pulmonary edema. No pleural effusion. No pneumothorax. No displaced rib fractures. Impression: Increasing bibasilar densities, probably atelectasis By Dr. Aixa Candelario, 02/24/17 2:[address] 02/24/2017 done at [facility] Findings: No acute intracranial processes. Mild sphenoid sinusitis. Assessment & Plan Jeanne Roberts is a 76-year-old female with a past medical history significant for severe COPD on 3 L of oxygen at baseline, hypertension, hyperlipidemia, GERD , previous CVA who called EMS earlier today for shortness of breath 2 days in duration. Of note: Patient is extremely aware of having to return to the hospital often for treatments, palliative care consulted and comfort care measures initiated. Patient will be transferred to [facility] facility as soon as availability arises. From there she may be transferred to hospice care. Shock, present on admission. Acute. Stable - possibly Septic shock from pneumonia and vitals at [facility]; she received antibiotics prior to transfer here - Severely hypotensive on admission initially requiring central line placement and pressor therapy to maintain pressures/MAPs - Norepi drip discontinued on 02/26, pressures currently low but stable - Blood cultures negative - UA/culture negative - Continue Azithromycin, cefepime discontinued Acute community-acquired Pneumonia, present on admission. Acute. Resolving - possibility of HCAP, currently improving without anaerobic coverage making aspiration less likely - No elevations in Lactic Acid, Respiratory PCR negative, MRSA nasal swab negative, both Urine legionella urine antigen and strep pneumococcal urine antigen negative - Procalitonin and WBCs trending down consistent with clinical improvement on antibiotics - Blood cultures negative - Sputum cultures negative - Due to comfort measures, Morphine initiated for shortness of breath Chronic hypoxic and hypercarbic respiratory failure on 3 L of oxygen at baseline , present on admission, active Possibly secondary to acute COPD exacerbation vs pneumonia process - Sputum CX negative - Respiratory PCR negative - Continue oxygen; maintain sats between 88-92%, - Continue with Bipap as needed - Continue duo nebs twice a day, Q4 PRN - Continue home inhaler regimen - Azithromycin added for atypical CAP coverage as well as anti-inflammatory lung properties Hypertension, present on admission. Chronic. - Hold lisinopril 10 mg daily until pressures stabilize Hyperlipidemia, present admission. Chronic. - Atorvastatin discontinued due to comfort measures GERD, present on admission. Chronic. - Continue omeprazole 20 mg twice daily Hypothyroidism, present admission. Chronic. - Continue levothyroxine 100 mcg daily Essential tremor, present on admission. Chronic. - Continue propranolol at 20 mg 3 times daily, continue to watch pressures closely, hold if SBP less than 100 Chronic back pain, present on admission. Chronic. - Continue home oxycodone 5/325 1 to 2 tablets every 4 as needed - Morphine initiated for breakthrough pain Depression, present on admission. Chronic. - Continue duloxetine 30 mg at night Insomnia, present on admission. Chronic. - Continue Ambien 10 mg at night PRN Medications - Acetaminophen as needed for mild pain/fever/headache - Bowel regimen as needed - Antiemetic as needed CODE STATUS: DNR/DNI Disposition: Patient will likely require discharge to [facility] facility on hospice care. GI Prophylaxis: Proton Pump Inhibitor VTE Prophylaxis: Sub-Q Heparin (Unfractionated) VTE Mechanical Devices: Intermittant Pneumatic CD Resuscitation Status: DNR/DNI:Do Not Resuscitate/Intubate Attending Statement The patient was seen and examined together with Dr. Lombardo on 03/01/17 and I have added additional information to the note above. Galindo Lombardo DO Mar 01, 2017 10:01 Tiffanie Barker DO Mar 01, 2017 21:48
--- NOTE | 2017-03-01 10:10 | NUR ---
Respiratory/ AM Pain Pt stated 10/10 pain this morning and having a hard time breathing when off Bipap to eat and take am Medications. Pt asked to be woken up to take pain meds and will pass this along. Pt extremely anxious while off Bipap. Morphine given and placed back on Bipap. Respiratory called to come assess and make adjustments if needed. Pt currently resting in bed comfortable asleep.
--- NOTE | 2017-03-01 11:40 | NUR ---
Social Work: Continued Discharge Planning/Multidisciplinary Rounds D: Pt discussed in multidisciplinary rounds; the patient is scheduled for a hospice informational visit this morning at 11:00am. Per providers, the patient will need placement as family cannot manage the patient at home with hospice alone. CM order to coordinate hospice has been placed. RESEARCH LABORATORY TECHNICIAN acknowledges order. RESEARCH LABORATORY TECHNICIAN spoke with Hospice Katharine ALONZO, she states that the family did not arrive for the visit however the patient signed consents. She is amicable to looking for a placement facility as she does not want to be a burden on her family. Hospice RESEARCH LABORATORY TECHNICIAN does not know when the next intake spot is but will have museum service scheduler contact RESEARCH LABORATORY TECHNICIAN. RESEARCH LABORATORY TECHNICIAN met with the patient at bedside to discuss placement preferences. She states that she does not have a preference but wants RESEARCH LABORATORY TECHNICIAN to contact her son, Zaheer to get his preference. Pt is very concerned with being a burden on family. t/c to patient's son, Zaheer ([phone]); left message requesting return phone call to discuss discharge planning. t/c to Leighann Adkins, pt's HCS worker. She confirms that the patient does have [facility] and that she has been receiving in-home care. RESEARCH LABORATORY TECHNICIAN provided her with an update on the patient's condition and the need to seek a [facility] bed for SNF. She states that the patient has a high participate fee (approximately $700/month) for in-home care. She will inquire with [facility] finance about how much pt would be responsible for at a SNF. RESEARCH LABORATORY TECHNICIAN asked resident provider to review with palliative care team if the patient will have any [place] [facility] needs that might justify sending the patient using Medicare for a short period of time to potentially avoid the fees that could come with the patients [facility] benefit. Resident provider will inquire about this and get back to RESEARCH LABORATORY TECHNICIAN. A: Pt who has decided to transition to hospice/Comfort Care P: Evolving; RESEARCH LABORATORY TECHNICIAN to await return phone call from pt's son to determine SNF preference and communication from provider about pt's nursing needs at discharge. CLINTON Aguilar Addendum: 03/01/17 at 1744 by LYNETTE ALMONTE SS CLINTON has not yet heard back from pt's son to determine SNF preference. Due to the lack of communication, CLINTON has requested Asphalt Paving Supervisor place referrals to all local facilities. CLINTON received a t/c from Fredrick at [facility]. He states they can accept the patient with Dr. Rios to follow. He states that they can skill the patient on her comfort measures until the patient can transition to hospice. They are also receptive to taking the patient with [facility] if hospice can directly open on day of admission. CLINTON informed him that CLINTON has not yet heard from family and will be attempting to contact them again tomorrow to obtain preference and notify of acceptance at [facility]. CLINTON Aguilar
--- NOTE | 2017-03-01 13:32 | NUR ---
Palliative care note D/A: Pt family not able to make it today in order to meet with Katharine from [facility]. Katharine waited for 40 mins. Katharine also met with pt to discuss hospice benefits and pt has elected to sign on for care. Please note that pt is felt to be decisional. Pt also indicated to Katharine that she did not feel that dc home would be the best option for herself. She noted that her care was becoming to tasking for her family. Katharine has discussed above with saulo Washburn. Per medical team, family indicated that they would wish to speak about SNF placement. They have left contact numbers on pt white board. Note that pt, per EMR, has Medicare, [employer] and Medicaid. Have left message for saulo Washburn about family desire to discuss SNF possibilities. P: Palliative care to follow. Jessi DA SILVA CCM Addendum: 03/01/17 at 1430 by MINDY NATHAN PC note amendment D/A: Pt has signed POLST with Dr. Mckeon, dated for 03/01/17. Pt noted that her medical condition/goals were "comfort with treatment as needed to maintain comfort/prevent distress or suffering. She elected to be DNAR with comfort measures only.She elected to determine use of antibiotics when infection occurs and with comfort as the goal and did not wish for any medically assisted nutrition by tube. POLST is scanned and emailed to Skye Ramirez at [facility]. P: Palliative care to follow. Jessi DA SILVA [facility]
--- NOTE | 2017-03-01 14:09 | PCM.PALLBR ---
Palliative Care Recommendation 76-year-old female with end-stage COPD and multiple hospitalizations over the last year with recurrent pneumonia, aspiration, exacerbations of COPD, etc. Palliative care consulted to assist with determination of goals of care. Per patient and family with, patient transitioning to hospice care. Summary of palliative recommendations: -Symptom management (Pain/other) Shortness of Breath/other distress -Continue morphine oral concentrate, 5- 20 mg Q2 PRN -Fentanyl IV push, 25-50 mcg Q2 PRN (she has not needed this since starting the morphine oral concentrate) Pain -Continue home percocet for back pain -DPOA/Advanced Directives/POLST- completed a new POLST today indicating DO NOT RESUSCITATE/DO NOT INTUBATE/Comfort Care/no artificial nutrition/antibiotics for comfort/no return to hospital. Original and copies in her hospital chart ( should go with her at time of discharge) as well as copy on file in palliative office -Family/emotional support Excellent family support. Palliative will continue to support in coming days. Director Of Operations Home Health visit offered, but patient was not interested. Additional Medical Diagnoses with primary management by Hospitalist team include : Pneumonia COPD Hypertension Gerd Hypothroidism Back Pain Depression Problems: End of Life Preferences DNR/DNI/comfort Goals of Care Patient expresses wish that she be comfortable rather than in pain or struggling for breath; she now understands and accepts that it is unlikely she will be able to return home because her care needs have progressed past that Disposition TBD, probably SNF with hospice support Resuscitation Status Resuscitation Status: DNR/DNI:Do Not Resuscitate/Intubate POLST Updates/Changes Previous POLST?: No POLST Last Review Date: Mar 01, 2017 Antibiotics: Determine Use or Limitations Artificially Admin Nutrition: No Artifical Nutrition by Tube POLST Discussed with: Patient POLST Review Outcome: New Form Completed . Advanced Care Planning Address: POLST, Comfort care Pain: Mild Symptom management: Anxiety, Agitation, Dyspnea, Pain, Delirium Total time 55 minutes; >50% face to face with patient and family, providing counselling regarding plans and recommendations, and in care coordination with her medical teams. Of the above total time, 20 minutes counseling for advanced care planning with the patient and family, and completing new POLST reflecting her wishes and goals. copies to: Fabian Meek MD Palliative Brief Note Date of Service Mar 01, 2017 . Returned to reevaluate patient. Prior to visiting, reviewed her updated records in the EMR in detail, spoke with her nurse had with her hospitalist team. Also spoke with hospice welding equipment sales representative- she was to meet with the family but they were delayed and so she spoke directly with the patient alone, who ultimately decided to sign on to hospice. Patient also noted that she realizes now she probably cannot return home and is willing to consider SNF placement. I returned later and spoke with one of her sons at bedside. Situation reviewed with CRITICAL POWER TECHNICIAN and they will begin coordinating discharge options with the family. Patient remains intermittently dyspneic and requiring BiPAP. At times confused when she is off BiPAP. Physical exam stable and essentially unchanged from yesterday. Labs and imaging studies reviewed. Return later in the day to speak with the patient. She was wearing her BiPAP and was quite lucid and fully coherent and decisional. Reviewed hospice plans with her and assisted completion of a POLWaqas Shah MD Mar 01, 2017 13:34
[2017-03-01] MEDS: Albuterol 2.5 mg/3 mL Inhalation Solution NEB SCH ×2 (14:23→19:33)
--- NOTE | 2017-03-01 14:55 | NUR ---
ASSISTED TRANSFER : Gave access and faxed facesheet to FINESSE,Renae Daniel, ANTONETTE, Jacob. Addendum: 03/02/17 at 0900 by NOE RIBEIRO CM [facility] can accept patient when ready. Updated AFTER SCHOOL COORDINATOR
[2017-03-01] MEDS: Polyethylene Glycol (PEG) 17 Gm Powder PO PRN (20:10)
--- NOTE | 2017-03-01 21:39 | PCM.ADCARE ---
Advance Care Planning Note Plan: Date: 03/01/2017 Diagnosis: COPD Chronic respiratory failure Septic shock HTN HLD Purpose of encounter: Goals of care Parties in attendance: The patient, Dr. Barker, Dr. Lombardo Decisional capacity: Good Plan: The patient is aware of the current diagnosis and would like to be DO NOT RESUSCITATE/DO NOT INTUBATE. The patient understand that no chest compressions will be done and the patient will not be intubated. The patient understands that no form of CPR will be attempted and are in agreement with this. The patient has decided that she would like to be comfort care at this time and go on hospice. Hospice will come by today for a full intake visit and the patient at this time plans on signing with them. CODE STATUS: DO NOT RESUSCITATE/DO NOT INTUBATE Time spent with advanced care planning: Greater than 16 minutes Tiffanie Barker DO Mar 01, 2017 21:39
[2017-03-02] VITALS (12 sets, daily range): BP systolic 105–150; BP diastolic 49–82; PULSE 70–90; RESP 17–26; O2SAT 88–95
[2017-03-02] MEDS: oxyCODONE-Acetamin 5-325 mg Tablet PO PRN ×2 (00:51→05:27)
[2017-03-02] MEDS: Morphine 20 mg/mL Oral Syringe SL/PO PRN ×2 (02:34→14:52)
--- NOTE | 2017-03-02 05:53 | NUR ---
pain pt c/o pain and hard time breathing percocot and roxanol given through out this shift with some relief, pt able to sleep on and off this shift with bipap in place at 30% SpO2 87-93% pt c/o her back itching quite a bit also and lotion applied multiple times with good relief
[2017-03-02] MEDS: Albuterol 2.5 mg/3 mL Inhalation Solution NEB SCH (08:06)
[2017-03-02] MEDS: Pantoprazole 20 mg ER24 Tablet PO SCH ×2 (09:13→19:20)
[2017-03-02] MEDS: guaiFENesin 600 mg ER12 Tablet PO SCH ×2 (09:13→20:49)
[2017-03-02] MEDS: Fluticasone-Salmererol 250-50 Inhaler INHALATION SCH ×2 (09:13→20:50)
[2017-03-02] MEDS: Tiotropium 18mcg/Cap 5 Capsule Inhaler Kit INHALATION SCH (09:13)
[2017-03-02] MEDS: Butalbital-Acet-Caffeine Tablet PO PRN (09:15)
--- NOTE | 2017-03-02 10:38 | NUR ---
Social Work: Continued Discharge Planning/Multidisciplinary Rounds D: Pt discussed in multidisciplinary rounds; the patient is now on comfort care and has signed consents with hospice. The patient is medically stable for discharge pending placement and hospice. t/c to hospice of the [facility] to request information on the next intake time. At this time they cannot provide this HIGHWAY PAINTER with this information and will have to call back later. t/c from Layne at [facility] [place]. They can accept the patient with Dr. Gomez to follow. They are aware that the patient is on comfort care and can skill her using Medicare until hospice can provide an intake date and the patient can switch to her [facility] benefit. t/c to [facility]. HIGHWAY PAINTER spoke with Malissa, director of graduate admissions. She states that they can accept the patient on her Medicare and transition to DSHS as well. once hospice can open Dr. Watkins will follow. Renae Daniel has also accepted the patient. t/c to the patient's son, Zaheer. Left another message requesting return phone call to discuss options for skilled rehab. t/c to patient's son, Morris ([phone]); left message requesting return phone call to discuss discharge planning. At this time, the patient's son's have not been in contact with HIGHWAY PAINTER to provide their preferences. HIGHWAY PAINTER met with the patient at bedside to discuss this issue. She states that they do not want her to go to [facility] and that they were looking into facilities in [place]. HIGHWAY PAINTER informed her that she has been accepted at both facilities and inquired about which one she would like to go to. The patient again defers to her children and is not willing to make a decision without her son's involvement. HIGHWAY PAINTER informed her that she will likely be discharged today and that if her children do not contact HIGHWAY PAINTER to make a decision, this would delay her discharge. A: Pt who is currently on comfort care. P: Evolving; Anticipate pt to discharge to SNF today with hospice to open at next available opening. Awaiting family decision about preference for SNF. Renae Daniel, [facility] and [facility] have accepted the patient. CLINTON Aguilar Addendum: 03/02/17 at 1415 by LYNETTE ALMONTE SS CLINTON received communication from the patient's son, Morris. He states that their preference is for the patient to go to [facility]. CLINTON informed him that the patient will be going under her Medicare until hospice can open at a later date at which time the patient will be switched to her [facility] insurance. He understands this. He states that the patient does not have a bi-pap or trilogy machine at home. CLINTON contacted Layne, admission coordinator at [facility] to notify that the patient's family has chosen their facility for admission. She is inquiring how long it will take to get a BIPAP at their facility. She will contact CLINTON as soon as she finds this out. Addendum: 03/02/17 at 1622 by LYNETTE ALMONTE SS CLINTON spoke with Layne at [facility]. They can accomodate the patient with a BIPAP but will not be able to have it to the facility until tomorrow. She is working on this now. HIGHWAY PAINTER informed bedside RN who will notify the patient that discharge to [facility] will occur tomorrow.
--- NOTE | 2017-03-02 11:07 | PCM.PALLBR ---
Palliative Care Recommendation 76-year-old female with end-stage COPD and multiple hospitalizations over the last year with recurrent pneumonia, aspiration, exacerbations of COPD, etc. Palliative care consulted to assist with determination of goals of care. Per patient and family with, patient transitioning to hospice care. Summary of palliative recommendations: Symptom management: Shortness of Breath/Chronic Back Pain -Continue morphine oral concentrate, 5- 20 mg Q2 PRN -D/C the oxycodone and IV fentanyl. -Start morphine oral concentrate scheduled: 15mg at breakfast and lunchtime. 30mg at HS. Discussed with pt and counseled on change from oxycodone for chronic back pain to morphine. She is agreeable. -Use above regimen for discharge pain/SOB meds please. -DPOA/Advanced Directives/POLST- Pt signed a new POLST 03/[address] Mckeon indicating DO NOT RESUSCITATE/DO NOT INTUBATE/Comfort Care/no artificial nutrition/antibiotics for comfort/no return to hospital. Original and copies in her hospital chart (should go with her at time of discharge) as well as copy on file in palliative office Family/emotional support: Excellent family support. Palliative will continue to support in coming days. Underwear Finisher visit offered, but patient was not interested. Likely discharge in next 1-2 days to [facility] with Hospice to follow there. Problems: End of Life Preferences DNR/DNI/comfort Goals of Care Patient expresses wish that she be comfortable rather than in pain or struggling for breath; she now understands and accepts that it is unlikely she will be able to return home because her care needs have progressed past that Disposition TBD, probably SNF with hospice support Resuscitation Status Resuscitation Status: DNR/DNI:Do Not Resuscitate/Intubate POLST Updates/Changes Previous POLST?: No POLST Last Review Date: Mar 01, 2017 Antibiotics: Determine Use or Limitations Artificially Admin Nutrition: No Artifical Nutrition by Tube POLST Discussed with: Patient POLST Review Outcome: New Form Completed Total time 35 minutes; >50% face to face with patient and/or family, providing counselling regarding plans and recommendations, and in care coordination with his/her medical teams. Palliative Brief Note Date of Service Mar 02, [address] Lemos followed up today to reevaluate effectiveness of symptom management for SOB and chronic back pain. Prior to visiting, reviewed her updated records in the EMR in detail, spoke with her hospitalist team. Subjective: Pt prefers liquid morphine to pills now. Patient remains dyspneic and intermittently requiring BiPAP alternating with NC oxygen. At times confused when she is off BiPAP. Vital Signs Label Value Date Time Patient Temperature 36.8 degrees C 03/02/17909 Temperature Source Oral 03/02/17909 Pulse 76 03/02/17909 Respiratory Rate 17 bpm 03/02/17909 Blood Pressure Assessment 122/61 (81) 03/02/17909 Position Lying Bedside Pulse Oximetry 95 % 03/02/17909 Item Value Date Time Oxygen Delivery Method BiPAP 03/02/17909 Fraction of Inspired Oxygen (FiO2) 80 % 03/02/17909 Exam: General: easily awakened and interactive in meaningful way. able to engage in conversation and ask appropriate questions. Neuro: alert and oriented x 4. speech is clear. Lungs: decreased breath sounds Heart: S1,S2, rrr, Abdomen: soft, NT/ND Ext: no edema Labs and imaging studies reviewed. Malaika Lemos MD Mar 02, 2017 11:07
[2017-03-02] MEDS: Morphine 20 mg/mL Oral Syringe SL/PO SCH ×2 (11:40→21:05)
[2017-03-02] MEDS: hydrOXYzine Pamoate 25 mg Capsule PO PRN ×2 (11:51→20:50)
[2017-03-02] MEDS: Polyethylene Glycol (PEG) 17 Gm Powder PO PRN (14:52)
--- NOTE | 2017-03-02 17:26 | NUR ---
PO intake, BiPAP, Anxiety: Pt reports she has decreased appetite. Only able to tolerate bites of food for lunch before she became anxious and SOB. Requesting BiPAP to be put back on and c/o 6/10 back pain. SpO2: low 90s at the time on 4L NC and RR 26-30. Order to keep SpO2 88-92. Patient was placed on BiPAP, assisted with repositioning and administered Roxanol 15mg PO. Patient is now resting quietly with eyes closed and appears asleep. SpO2 mid 80-s. RT was called to assess BiPAP settings. Increased FiO2 from 35% to 40% SpO2 now mid 90s with RR 18. VSS. Will continue to monitor. Frequent rounding in place.
--- NOTE | 2017-03-02 18:29 | PCM.PNMED ---
Subjective Date of Service Mar 02, 2017 Subjective Subjective: Patient feeling well today, appears moderately comfortable, states that she continues to breathe well, and appears to be becoming accustomed to the BiPAP. Events Overnight: No acute events overnight. ROS: Denies fever/chills, nausea/vomiting, headache, weakness, abdominal pain, chest pain, shortness of breath, increased swelling in hands or feet. Exam Vital Signs Vital Sign - Last Date Time Temp Pulse Resp B/P Pulse Ox O2 Delivery O2 Flow Rate FiO2 03/02/17 17:28 69 18 92 40 03/02/17 16:23 36.9 105/49 BiPAP 03/02/17 08:06 5.00 Intake and Output 03/01/17 03/01/17 03/02/17 Cumulative From/Thru 15:00 23:00 07:00 02/24/17 20:51 - 03/02/17 06:02 Intake Total 1219 ml 847 ml 55595 ml Output Total 500 ml 700 ml 8350 ml Balance 719 ml 147 ml 7216 ml Intake Oral 1100 ml 720 ml 4200 ml IV Total 119 ml 127 ml 39835 ml Output Urine Total 500 ml 700 ml 8350 ml # Bowel Movements 1 Exam General: No acute distress, well-developed, well-nourished Head: Normocephalic, atraumatic. External ears without defect. Eyes: Pupils equal, round, and reactive to light and accommodation. Anicteric sclerae, moist conjunctivae. Neck: Normal range of motion, no lymphadenopathy noted Cardiovascular: Regular rate and rhythm with systolic murmurs, no rubs or gallops appreciated Pulmonary: Prominent rales in the lower lung blue improved from previous, no wheezes, or rhonchi. Normal respiratory effort with no use of accessory muscles. Abdomen: Bowel tones present. Soft, nontender, nondistended. Extremities: No clubbing, cyanosis, edema Skin: Normal temperature, turgor, and texture; no rash, ulcers, or subcutaneous nodules appreciated. Neurological: Cranial nerves grossly intact. Reflexes, coordination, and sensory function within normal limits. Normal muscle strength, tone, and bulk. Psychiatric: Normal mood and affect. Alert and oriented to person, place, and time IVs and Medications Medications Reviewed: Medications were reviewed in detail Medications High-risk medications include: Morphine Lab and Diagnostics Result Diagram: 02/28/17 0350 02/28/17 0350 Microbiology UA with culture, pending Blood cultures pending X-Rays, CTs and MRIs Chest x-ray 02/24/[address] [facility] [place]: Large hiatal hernia. Increased airspace disease in the right medial lung base causes obscuration of the hemidiaphragm. Patchy density in the left lung base is also slightly increased. Heart size unchanged. No pulmonary edema. No pleural effusion. No pneumothorax. No displaced rib fractures. Impression: Increasing bibasilar densities, probably atelectasis By Dr. Aixa Candelario, 02/24/17 2:[address] 02/24/[address] [facility] Findings: No acute intracranial processes. Mild sphenoid sinusitis. Assessment & Plan Jeanne Roberts is a 76-year-old female with a past medical history significant for severe COPD on 3 L of oxygen at baseline, hypertension, hyperlipidemia, GERD , previous CVA who called EMS earlier today for shortness of breath 2 days in duration. Of note: Hospice conference completed on 03/01 patient accepted terms of the agreement. Since that time the patient has been on comfort care management only. Chronic hypoxic and hypercarbic respiratory failure on 3 L of oxygen at baseline , present on admission, active Possibly secondary to acute COPD exacerbation vs pneumonia process - Sputum CX negative - Respiratory PCR negative - Continue oxygen; maintain sats between 88-92%, - Continue with Bipap as needed - Continue duo nebs twice a day, Q4 PRN - Continue home inhaler regimen - Azithromycin added for atypical CAP coverage as well as anti-inflammatory lung properties Shock, present on admission. Acute. Stable - possibly Septic shock from pneumonia and vitals at [facility] she received antibiotics prior to transfer here - Severely hypotensive on admission initially requiring central line placement and pressor therapy to maintain pressures/MAPs - Norepi drip discontinued on 02/26, pressures currently low but stable - Blood cultures negative - UA/culture negative - Continue Azithromycin, cefepime discontinued Acute community-acquired Pneumonia, present on admission. Acute. Resolving - possibility of HCAP, currently improving without anaerobic coverage making aspiration less likely - No elevations in Lactic Acid, Respiratory PCR negative, MRSA nasal swab negative, both Urine legionella urine antigen and strep pneumococcal urine antigen negative - Procalitonin and WBCs trending down consistent with clinical improvement on antibiotics - Blood cultures negative - Sputum cultures negative - Due to comfort measures, Morphine initiated for shortness of breath as well as pain relief Hypertension, present on admission. Chronic. - Hold lisinopril 10 mg daily until pressures stabilize Hyperlipidemia, present admission. Chronic. - Atorvastatin discontinued due to comfort measures GERD, present on admission. Chronic. - Continue pantoprazole 20 mg twice daily Hypothyroidism, present admission. Chronic. - Continue levothyroxine 100 mcg daily Essential tremor, present on admission. Chronic. - Continue propranolol at 20 mg 3 times daily, continue to watch pressures closely, hold if SBP less than 100 Chronic back pain, present on admission. Chronic. - Scheduled Morphine initiated at morning and at night - 5-20 mg morphine PRN Q2 PRN Medications - Acetaminophen as needed for mild pain/fever/headache - Bowel regimen as needed - Antiemetic as needed CODE STATUS: DNR/DNI Disposition: Patient will likely require discharge to [facility] on [facility] care within the next 1-2 days. GI Prophylaxis: Proton Pump Inhibitor VTE Prophylaxis: Sub-Q Heparin (Unfractionated) VTE Mechanical Devices: Intermittant Pneumatic CD Resuscitation Status: DNR/DNI:Do Not Resuscitate/Intubate Attending Statement The patient was seen and examined together with Dr. Lombardo on 03/02/17 and I have added additional information to the note above. Galindo Lombardo DO Mar 02, 2017 18:29 Tiffanie Barker DO Mar 03, 2017 13:50 Galindo Lombardo DO Mar 02, 2017 18:29
[2017-03-02] MEDS: Albuterol 2.5 mg/3 mL Inhalation Solution NEB PRN (19:55)
[2017-03-03] VITALS (10 sets, daily range): BP systolic 116–139; BP diastolic 58–68; PULSE 72–91; RESP 12–22; O2SAT 92–95
[2017-03-03] MEDS: Morphine 20 mg/mL Oral Syringe SL/PO PRN ×3 (05:37→23:50)
[2017-03-03] MEDS: Morphine 20 mg/mL Oral Syringe SL/PO SCH ×3 (08:25→21:15)
[2017-03-03] MEDS: Tiotropium 18mcg/Cap 5 Capsule Inhaler Kit INHALATION SCH (08:26)
[2017-03-03] MEDS: guaiFENesin 600 mg ER12 Tablet PO SCH ×2 (08:26→20:51)
[2017-03-03] MEDS: Pantoprazole 20 mg ER24 Tablet PO SCH ×2 (08:26→17:30)
[2017-03-03] MEDS: Fluticasone-Salmererol 250-50 Inhaler INHALATION SCH ×2 (08:27→20:51)
[2017-03-03] MEDS: Albuterol 2.5 mg/3 mL Inhalation Solution NEB SCH ×3 (08:30→20:44)
--- NOTE | 2017-03-03 08:41 | NUR ---
Social Work: Readiness For Discharge D: telephone call to Anh economic development coordinator at [facility]. She has faxed all the necessary information about the pt's BIPAP and is awaiting a response from the supplier to determine when this can be delivered. She knows the patient is ready for discharge and can accept her today if the BIPAP is delivered. t/c to [facility] to attempt to coordinate an intake time for the patient. At this time they have the patient tentatively on their intake schedule for March 08 with a time to be determined. TERRITORY SALES PROFESSIONAL informed them that our current plan is to send the patient to [facility] under her Medicare and then switch to her Medicaid when hospice takes over her care. She understands. A: Pt who has transitioned to comfort care. P: Anticipate pt to discharge to [facility] with Dr. Gomez to follow once BiPAP is received by facility. CLINTON Aguilar Addendum: 03/03/17 at 1710 by LYNETTE ALMONTE SS Layne with [facility] states that they have received the necessary information to order the BiPAP it will be delivered on Sunday 03/04. She will be working and will contact TERRITORY SALES PROFESSIONAL to coordinate discharge and confirm delivery of equipment. Pt likely to need BLS transport due to BiPAP need.
--- NOTE | 2017-03-03 10:37 | PCM.PALLBR ---
Palliative Brief Note Date of Service Mar 03, 2017 . Palliative Care Team will sign off today. Pt's goals are clear and her symptoms in control on current medications. She is awaiting discharge disposition. Thank you for consult. Malaika Lemos MD Mar 03, 2017 10:37
--- NOTE | 2017-03-03 13:16 | NUR ---
Comfort Continuing with bipap at 40% vs 4 L 02 to keep sats at 88-93%. Patient dictates when she wants back on bipap. A/O. On Scheduled Roxinol. Denies pain. No IV or Tele. vitals stable. Independent in bed. Adequate UOP. No BM>> miralax. Taking in fluids. Will continue with poc.
[2017-03-03] MEDS: Butalbital-Acet-Caffeine Tablet PO PRN (17:14)
--- NOTE | 2017-03-03 17:17 | PCM.PNMED ---
Subjective Date of Service Mar 03, 2017 Subjective Subjective: Patient is feeling well today and anxious about leaving the hospital. Events Overnight: No acute events overnight. ROS: Denies fever/chills, nausea/vomiting, headache, weakness, abdominal pain, chest pain, shortness of breath, increased swelling in hands or feet. Exam Vital Signs Vital Sign - Last Date Time Temp Pulse Resp B/P Pulse Ox O2 Delivery O2 Flow Rate FiO2 03/03/17 16:24 36.6 85 18 122/58 95 BiPAP 40 03/02/17 20:36 4.50 Intake and Output 03/02/17 03/02/17 03/03/17 Cumulative From/Thru 15:00 23:00 07:00 02/24/17 20:51 - 03/03/17 06:15 Intake Total 760 ml 820 ml 09802 ml Output Total 1250 ml 650 ml 65922 ml Balance -490 ml 170 ml 6896 ml Intake Oral 760 ml 820 ml 5780 ml IV Total 11001 ml Output Urine Total 1250 ml 650 ml 96463 ml # Bowel Movements 0 1 Exam General: No acute distress, well-developed, well-nourished Head: Normocephalic, atraumatic. External ears without defect. Eyes: Pupils equal, round, and reactive to light and accommodation. Anicteric sclerae, moist conjunctivae. Neck: Normal range of motion, no lymphadenopathy noted Cardiovascular: Regular rate and rhythm with minor systolic murmur, no rubs or gallops appreciated Pulmonary: Prominent rales in the lower lung blue improved from previous, no wheezes, or rhonchi. Normal respiratory effort with no use of accessory muscles. Abdomen: Bowel tones present. Soft, nontender, nondistended. Extremities: No clubbing, cyanosis, edema Skin: Normal temperature, turgor, and texture; no rash, ulcers, or subcutaneous nodules appreciated. Neurological: Cranial nerves grossly intact. Reflexes, coordination, and sensory function within normal limits. Normal muscle strength, tone, and bulk. Psychiatric: Normal mood and affect. Alert and oriented to person, place, and time IVs and Medications Medications Reviewed: Medications were reviewed in detail Medications High-risk medications include: Morphine Lab and Diagnostics Result Diagram: 02/28/17 0350 02/28/17 0350 Microbiology UA with culture, pending Blood cultures pending X-Rays, CTs and MRIs Chest x-ray 02/24/2017 done at [facility] Findings: Large hiatal hernia. Increased airspace disease in the right medial lung base causes obscuration of the hemidiaphragm. Patchy density in the left lung base is also slightly increased. Heart size unchanged. No pulmonary edema. No pleural effusion. No pneumothorax. No displaced rib fractures. Impression: Increasing bibasilar densities, probably atelectasis By Dr. Aixa Candelario, 02/24/17 2:[address] 02/24/2017 done at [facility] Findings: No acute intracranial processes. Mild sphenoid sinusitis. Assessment & Plan Jeanne Roberts is a 76-year-old female with a past medical history significant for severe COPD on 3 L of oxygen at baseline, hypertension, hyperlipidemia, GERD , previous CVA who called EMS earlier today for shortness of breath 2 days in duration. Of note: Hospice conference completed on 03/01 patient accepted terms of the agreement. Since that time the patient has been on comfort care management only. Currently coordinating discharge to [facility] intermediate facility. Chronic hypoxic and hypercarbic respiratory failure on 3 L of oxygen at baseline , present on admission, stable Possibly secondary to acute COPD exacerbation vs pneumonia process - Sputum CX negative - Respiratory PCR negative - Continue oxygen; maintain sats between 88-92%, - Continue with Bipap as needed - Continue duo nebs twice a day, Q4 PRN - Continue home inhaler regimen - Azithromycin added for atypical CAP coverage as well as anti-inflammatory lung properties Shock, present on admission. Acute. Stable - possibly Septic shock from pneumonia and vitals at [facility]; she received antibiotics prior to transfer here - Severely hypotensive on admission initially requiring central line placement and pressor therapy to maintain pressures/MAPs - Norepi drip discontinued on 02/26, pressures currently low but stable - Blood cultures negative - UA/culture negative - Continue Azithromycin, cefepime discontinued Acute community-acquired Pneumonia, present on admission. Acute. Resolving - possibility of HCAP, currently improving without anaerobic coverage making aspiration less likely - No elevations in Lactic Acid, Respiratory PCR negative, MRSA nasal swab negative, both Urine legionella urine antigen and strep pneumococcal urine antigen negative - Procalitonin and WBCs trending down consistent with clinical improvement on antibiotics - Blood cultures negative - Sputum cultures negative - Due to comfort measures, Morphine initiated for shortness of breath as well as pain relief Hypertension, present on admission. Chronic. - Hold lisinopril 10 mg daily until pressures stabilize Hyperlipidemia, present admission. Chronic. - Atorvastatin discontinued due to comfort measures GERD, present on admission. Chronic. - Continue pantoprazole 20 mg twice daily Hypothyroidism, present admission. Chronic. - Continue levothyroxine 100 mcg daily Essential tremor, present on admission. Chronic. - Continue propranolol at 20 mg 3 times daily, continue to watch pressures closely, hold if SBP less than 100 Chronic back pain, present on admission. Chronic. - Scheduled Morphine initiated at morning and at night - 5-20 mg morphine PRN Q2 PRN Medications - Acetaminophen as needed for mild pain/fever/headache - Bowel regimen as needed - Antiemetic as needed CODE STATUS: DNR/DNI Disposition: Patient will likely require discharge to intermediate facility on hospice care within the next 1-2 days. GI Prophylaxis: Proton Pump Inhibitor VTE Prophylaxis: Sub-Q Heparin (Unfractionated) VTE Mechanical Devices: Intermittant Pneumatic CD Resuscitation Status: DNR/DNI:Do Not Resuscitate/Intubate Attending Statement The patient was seen and examined together with Dr. Lombardo on 03/03/17 and I agree with the history, exam and plan as outlined in the note above. Galidno Lombardo DO Mar 03, 2017 17:17 Tiffanie Barker DO Mar 04, 2017 12:34
[2017-03-03] MEDS: hydrOXYzine Pamoate 25 mg Capsule PO PRN (21:20)
--- NOTE | 2017-03-03 22:40 | NUR ---
bath gave pt full bath, washed hair, and linen change.
[2017-03-04] MEDS ORDERED: Benzocaine-Menthol Lozenge 2/Pkg PO PRN (00:15)
[2017-03-04 00:35] VITALS: RESP 18; O2SAT 92
[2017-03-04 04:40] VITALS: RESP 46; O2SAT 97
[2017-03-04] MEDS: Morphine 20 mg/mL Oral Syringe SL/PO PRN ×4 (05:02→14:21)
--- NOTE | 2017-03-04 05:15 | NUR ---
sore throat pt c/o sore throat and cough gave tessalon pearls and called received order for lozenges gave. pt feels like her throat is drying out from bipap.
[2017-03-04 07:35] VITALS: BP 136/63; PULSE 88; RESP 16; O2SAT 92
[2017-03-04] MEDS: Morphine 20 mg/mL Oral Syringe SL/PO SCH ×2 (07:38→14:21)
[2017-03-04] MEDS: Pantoprazole 20 mg ER24 Tablet PO SCH (07:45)
[2017-03-04] MEDS: guaiFENesin 600 mg ER12 Tablet PO SCH (07:45)
[2017-03-04] MEDS: Tiotropium 18mcg/Cap 5 Capsule Inhaler Kit INHALATION SCH (07:45)
[2017-03-04] MEDS: Fluticasone-Salmererol 250-50 Inhaler INHALATION SCH (07:46)
[2017-03-04 08:04] VITALS: PULSE 90; RESP 20; O2SAT 93
[2017-03-04] MEDS: Albuterol 2.5 mg/3 mL Inhalation Solution NEB SCH (08:04)
[2017-03-04] MEDS ORDERED: ZIT250 PO (09:16)
[2017-03-04] MEDS ORDERED: MORP100S5 SL/PO (10:11)
--- NOTE | 2017-03-04 10:19 | PCM.DIMED ---
Galindo Lombardo DO 03/04/17 1019: Discharge Instructions Date of Service Mar 04, 2017 Dates of Hospitalization Feb 24, 2017 at 20:15 Discharge Diagnosis Discharge Diagnosis Chronic hypoxic and hypercarbic respiratory failure on 3 L of oxygen at baseline Shock, present on admission Acute community-acquired Pneumonia Hypertension Hyperlipidemia. GERD Hypothyroidism Essential tremor Chronic back pain Medication Instructions Additional med instructions Please take all medications as previously prescribed. Take morphine as needed for back pain. You may also take oxycodone as needed for breakthrough pain Take azithromycin 250mg daily for improvement of lung function Test Results Test Results X-rays completed here in the hospital are suggestive of heart failure in combination with pneumonia. Diet Discharge Diet: No restrictions Activity Discharge Activity: No restrictions Call your provider Call your provider for: Fever or Chills, Shortness of breath, Bleeding, Chest pain, Vomitting, Excessive diarrhea, Weakness (unilateral) Patient Instructions Patient Instructions You will be transferred from here to [facility] which is a [facility] facility. They will assist you in medication management as well as help with BiPAP support. Tiffanie Barker DO 03/04/17 1210: Discharge Instructions Attending's Statement The patient was seen and examined together with Dr. Lombardo on 03/04/17 and I agree with the history, exam and plan as outlined in the note above. Galindo Lombardo DO Mar 04, 2017 10:19 Tiffanie Barker DO Mar 04, 2017 12:10
--- NOTE | 2017-03-04 10:50 | PCM.DC.MED ---
Discharge Summary Date of Service Mar 04, 2017 Dates of Hospitalization Date of Hospital Admission Feb 24, 2017 at 20:15 Date of Discharge: Mar 04, 2017 Providers: Admitting Physician: Panda Sharpe MD Primary Care Physician: Fabian Meek MD Attending Physician: Tiffanie Barker DO Diagnosis at Time of Discharge Diagnosis at Time of Discharge Chronic hypoxic and hypercarbic respiratory failure on 3 L of oxygen at baseline Shock, present on admission Acute community-acquired Pneumonia Hypertension Hyperlipidemia. GERD Hypothyroidism Essential tremor Chronic back pain Consultations Pulmonology: Dr. Mccullough Palliative care: Dr. Lemos, Dr. Mckeon Procedures XRay, CTs & MRIs Chest x-ray 02/24/2017 done at [facility] [place] Findings: Large hiatal hernia. Increased airspace disease in the right medial lung base causes obscuration of the hemidiaphragm. Patchy density in the left lung base is also slightly increased. Heart size unchanged. No pulmonary edema. No pleural effusion. No pneumothorax. No displaced rib fractures. Impression: Increasing bibasilar densities, probably atelectasis By Dr. Aixa Candelario, 02/24/17 2:[address] 02/24/2017 done at [facility] [place] Findings: No acute intracranial processes. Mild sphenoid sinusitis. Brief History Taken from progress note completed by palliative care: Jeanne Roberts is a 76-year-old female with a past medical history significant for severe COPD on 3 L of oxygen at baseline, hypertension, hyperlipidemia, GERD , previous CVA who called EMS for shortness of breath. Upon arrival to [facility] emergency department, she was placed on 4 L with an increase in saturation to 96%. She was given 1 g of vancomycin IV and 2 g ceftrixaone and an albuterol breathing treatment but still felt short of breath. She was admitted to the hospital for hypoxia likely secondary to possible pneumonia and promptly requested transfer to [facility] for further treatment. The patient was hypotensive in the 70's upon arrival and was placed in the ICU for presumed septic shock. Of note, the patient has been admitted to this facility multiple times for pneumonia, aspiration pneumonia, and UTIs - most recently a pneumonia in December 2016. Palliative medicine was consulted by Dr. Potts to talk about goals of care. Prior to visiting patient, records from recent admissions were reviewed, and her bedside nurse and hospitalist were spoken to about her current status. When we visited, Jeanne was on bipap, which she wanted taken off so she could talk with us. She was lucid and clearly decisional. Upon speaking with her, she stated that she is tired of coming into the hospital, and is very much interested in comfort as a priority rather than prolonging treatment of her chronic medical problems. We spoke about what palliative care and hospice could offer her, and she would prefer this. She say that her son and granddaughter are on the same page with her about this, though asked that we not speak with them until she has had a chance to fill them in on this decision. On speaking to her son, Zaheer later in the day, he says that she has never discussed end of life care with him. Zaheer says that he is currently paying his personal trainer to take care of mom during the day, and the granddaughter and he help her at night. She apparently can not do much of anything for herself, and continues to smoke/vape at home. Son feels that though she has never wanted to live in a jail, returning to the house is no longer feasible, and that she will need placement along with her hospice care. Patient is currently on 4-5 L of oxygen during meals and when she wants to come off of BiPAP. However the patient does sleep with the BiPAP on and will use BiPAP as necessary for shortness of breath. Hospital Course Jeanne Roberts is a 76-year-old female with a past medical history significant for severe COPD on 3 L of oxygen at baseline, hypertension, hyperlipidemia, GERD , previous CVA who called EMS earlier today for shortness of breath 2 days in duration. Of note: Hospice conference completed on 03/01 patient accepted terms of the agreement. Since that time the patient has been on comfort care management only. Currently scheduled to discharge to [facility]. Chronic hypoxic and hypercarbic respiratory failure on 3 L of oxygen at baseline which has increased to 4-5L, present on admission, stable Possibly secondary to acute COPD exacerbation vs pneumonia process - Sputum CX negative - Respiratory PCR negative - Continue oxygen; maintain sats between 88-92%, - Continue with Bipap as needed with the following settings: iPAP 12 ePAP 5 Backup rate 12 FiO2 30% - Continue duo nebs twice a day, Q4 PRN - Continue home inhaler regimen - Azithromycin added for atypical CAP coverage as well as anti-inflammatory lung properties Shock, present on admission. Acute. Stable - possibly Septic shock from pneumonia and vitals at [facility]; she received antibiotics prior to transfer here - Severely hypotensive on admission initially requiring central line placement and pressor therapy to maintain pressures/MAPs - Norepi drip discontinued on 02/26, pressures currently low but stable - Blood cultures negative - UA/culture negative - Continue Azithromycin, cefepime discontinued Acute community-acquired Pneumonia, present on admission. Acute. Resolving - possibility of HCAP, currently improving without anaerobic coverage making aspiration less likely - No elevations in Lactic Acid, Respiratory PCR negative, MRSA nasal swab negative, both Urine legionella urine antigen and strep pneumococcal urine antigen negative - Procalitonin and WBCs trending down consistent with clinical improvement on antibiotics - Blood cultures negative - Sputum cultures negative - Due to comfort measures, Morphine initiated for shortness of breath as well as pain relief Hypertension, present on admission. Chronic. - Hold lisinopril 10 mg daily until pressures stabilize Hyperlipidemia, present admission. Chronic. - Atorvastatin discontinued due to comfort measures GERD, present on admission. Chronic. - Continue pantoprazole 20 mg twice daily Hypothyroidism, present admission. Chronic. - Continue levothyroxine 100 mcg daily Essential tremor, present on admission. Chronic. - Continue propranolol at 20 mg 3 times daily, continue to watch pressures closely, hold if SBP less than 100 Chronic back pain, present on admission. Chronic. - Scheduled Morphine initiated at morning and at night - 5-20 mg morphine PRN Q2 - Oxycodone added for breakthrough pain Exam Vital Signs (Last) Date Time Temp Pulse Resp B/P Pulse Ox O2 Delivery O2 Flow Rate FiO2 03/04/17 08:04 90 20 93 Nasal Cannula 4.00 03/04/17 07:35 36.9 136/63 03/04/17 04:40 50 Exam General: No acute distress, well-developed, well-nourished Head: Normocephalic, atraumatic. External ears without defect. Eyes: Pupils equal, round, and reactive to light and accommodation. Anicteric sclerae, moist conjunctivae. Neck: Normal range of motion, no lymphadenopathy noted Cardiovascular: Regular rate and rhythm with minor systolic murmur, no rubs or gallops appreciated Pulmonary: Clear to auscultation bilaterally with the exception of minor wheezes , no rales or rhonchi. Normal respiratory effort with no use of accessory muscles. Abdomen: Bowel tones present. Soft, nontender, nondistended. Extremities: No clubbing, cyanosis, edema Skin: Normal temperature, turgor, and texture; no rash, ulcers, or subcutaneous nodules appreciated. Neurological: Cranial nerves grossly intact. Reflexes, coordination, and sensory function within normal limits. Normal muscle strength, tone, and bulk. Psychiatric: Normal mood and affect. Alert and oriented to person, place, and time Test 02/24/17 21:07 02/24/17 23:00 02/25/17 03:33 02/25/17 09:45 Urine Color Yellow (YELLOW) Urine Appearance Clear (CLEAR,HAZY) Urine pH 5.5 (5.0-8.0) Urine Specific [place] 1.020 (1.003-1.035) Urine Protein Tracemg/dL (NEG,TRACE) Urine Glucose (UA) Negativemg/dL (NEGATIVE) Urine Ketones Negativemg/dL (NEGATIVE) Urine Occult Blood Negative (NEGATIVE) Urine Nitrite Negative (NEGATIVE) Urine Bilirubin Negative (NEGATIVE) Urine Urobilinogen Normalmg/dL (NORMAL) Urine Leukocyte Esterase Negative (NEGATIVE) Urine RBC 0-2/hpf (0-2) Urine WBC 6-10/hpf (0-5) Urine Epithelial Cells Occasional/hpf (NONE-MOD) Urine Crystals None seen (NONE SEEN) Urine Bacteria Few/hpf (NONE-FEW) Urine Hyaline Casts Occasional/lpf (NONE) Urine Granular Casts Occasional (NONE SEEN) Urine Waxy Casts None seen (NONE SEEN) Urine Red Blood Cell Casts None seen (NONE SEEN) Urine White Blood Cell Casts None seen (NONE SEEN) Urine Mucus Present (None Seen) Urine Trichomonas None seen (NONE SEEN) Urine Yeast None (NONE SEEN) Urinalysis Comment None Urine Culture Reflexed Indicated Lipase 7U/L (13-60) Prothrombin Time 10.5sec (8.1-12.5) Prothromb Time International Ratio 0.98ratio Urine Legionella pneumophilia Ag Negative (Negative) Test 02/26/17 04:00 02/27/17 04:20 02/28/17 03:50 Lactic Acid Level 1.4mmol/L (0.4-2.0) Phosphorus Level 2.6mg/dL (2.5-4.9) Magnesium Level 1.8mg/dL (1.6-2.6) Prealbumin 11mg/dL (20-40) White Blood Count 5.1th/mm3 (3.8-10.1) Red Blood Count 2.76mil/mm3 (3.90-5.20) Hemoglobin 8.7g/dL (12.0-15.6) Hematocrit 28.3% (35.0-46.0) Mean Corpuscular Volume 102.5fL (81-100) Mean Corpuscular Hemoglobin 31.5pg (27.0-35.0) Mean Corpuscular Hemoglobin Concent 30.7% (32.0-37.0) Red Cell Distribution Width 12.7% (12.3-15.4) Platelet Count 190bil/L (150-400) Neutrophils (%) (Auto) 73.9% (40-74) Lymphocytes (%) (Auto) 11.9% (14-46) Monocytes (%) (Auto) 10.9% (4-12) Eosinophils (%) (Auto) 2.1% (0-5) Basophils (%) (Auto) 0.6% (0-3) Sodium Level 141mEq/L (134-144) Potassium Level 4.1mEq/L (3.5-5.2) Chloride Level 108mEq/L (97-108) Carbon Dioxide Level 23mmol/L (18-29) Blood Urea Nitrogen 7mg/dL (8-27) Creatinine 0.55mg/dL (0.57-1.00) Estimat Glomerular Filtration Rate 154mL/min (>59) Glucose Level 108mg/dL (60-99) Calcium Level 8.7mg/dL (8.5-10.1) Total Bilirubin 0.3mg/dL (0.0-1.2) Aspartate Amino Transf (AST/SGOT) 23U/L (0-50) Alanine Aminotransferase (ALT/SGPT) 22U/L (0-32) Alkaline Phosphatase 91U/L (25-165) Total Protein 5.9g/dL (6.4-8.4) Albumin 3.0g/dL (3.4-5.0) Procalcitonin 0.30ng/mL (0.00-0.08) Microbiology Results UA with culture, pending Blood cultures pending Discharge Medications Discharge Medications Ascorbic Acid (Vitamin C) 250 Mg Tab.chew 500 MG PO QAM (Reported) Atorvastatin Calcium (Atorvastatin Calcium) 20 Mg Tablet 20 MG PO HS (Reported) Azithromycin (Zithromax) 250 Mg Tablet 250 MG PO DAILY Prescribed by: GALINDO LOZANO DO Ferrous Sulfate (Ferrous Sulfate) 325 Mg Tablet 325 MG PO QAM (Reported) Fluticasone/Salmeterol (Advair 250-50 Diskus) 60 Puff/Inh Disk 1 PUFF INHALATION BID Prescribed by: COLT CASTANEDA MD Gabapentin (Gabapentin) 300 Mg Capsule 900 MG PO BID (Reported) Levothyroxine (Levothyroxine) 100 Mcg Tablet 100 MCG PO QAM (Reported) Lisinopril (Lisinopril) 10 Mg Tablet 10 MG PO QAM (Reported) Omeprazole (Omeprazole) 20 Mg Capsule.dr 20 MG PO BIDWM (Reported) Propranolol HCl (Propranolol HCl) 40 Mg Tablet 40 MG PO TID (Reported) Sucralfate (Sucralfate) 1 Gm Tablet 1 GM PO TID (Reported) Tiotropium [place] (Spiriva) 18 Mcg Cap.w.dev 18 MCG INHALATION DAILY Prescribed by: COLT CASTANEDA MD As needed Albuterol HFA (Proair HFA) 8.5 Gm Hfa.aer.ad 1-2 PUFFS INH Q4H PRN PRN For Shortness of Breath (Reported) Albuterol Neb Soln (Albuterol Neb Soln) 2.5 Mg/3 Ml Vial.neb 3 ML NEB BID PRN PRN For Shortness of Breath (Reported) Benzonatate (Tessalon Perle) 100 Mg Capsule 100-200 MG PO TID PRN PRN For Cough Prescribed by: TOD DEAN MD Loperamide (Loperamide) 2 Mg Capsule 2 MG PO Q6H PRN PRN For Diarrhea or Loose Stool Prescribed by: COLT CASTANEDA MD Morphine Sulfate Oral Concentrate (Roxanol Oral Concentrate) 100 Mg/5 Ml (20 Mg/ Ml) Solution 5-20 MG SL/PO Q2 PRN PRN DYSPNEA OR DISTRESS Prescribed by: GALINDO LOZANO DO Polyethylene Glycol 3350 (Miralax) 17 Gm Powd.pack 17 GM PO DAILY PRN PRN For Constipation (Reported) oxyCODONE-Acetaminophen 5-325 mg (oxyCODONE-Acetaminophen 5-325 mg) 1 Each Tablet 1-2 TAB PO Q6H PRN PRN For Pain Prescribed by: GALINDO LOZANO, DO Additional med instructions Please take all medications as previously prescribed. Take morphine as needed for back pain. Take azithromycin 250mg daily for improvement of lung function Followup Plan Disposition[facility], follow-up with hospice care as needed Discharge Diet: No restrictions Discharge Activity: No restrictions Patient Instructions You will be transferred from here to [facility] which is a [facility] facility. They will assist you in medication management as well as help with BiPAP support. Time spent Greater than 35 minutes spent on documentation and coordination of discharge. Attending Statement The patient was seen and examined together with Dr. Lozano on 03/04/17 and I have added additional information to the note above. copies to: SERA,Galindo Noe DO Mar 04, 2017 10:50 Tiffanie Barker DO Mar 04, 2017 12:29
[2017-03-04] MEDS ORDERED: oxyCODONE-Acetamin 10-325 mg Tablet PO PRN (11:15)
[2017-03-04] MEDS ORDERED: OXYC1TAB24 PO (11:16)
--- NOTE | 2017-03-04 11:52 | NUR ---
Social Work Note: Brief Note Discharge orders acknowledged. Voicemail left for Fredrick with Admissions at [facility] regarding pt discharge with a request to call back. CLINTON Summers Addendum: 03/04/17 at 1156 by CARLO CASTELLANO Correction: Message was left for Layne with [facility]. Fredrick is not with admissions at [facility] CLINTON Summers
--- NOTE | 2017-03-04 16:55 | NUR ---
Discharge Patient A&Ox3. VSS. Patient on 4L NC/ BiPAP 40% and switches back and forth per her request. PRN oxycodone and morphine given with good effect. Report called to [facility]. Patient left with all personal belongings and discharge packet via BLS transport.
--- NOTE | 2017-03-04 16:56 | NUR ---
Social Work Note: Discharge Data& Assessment: Per pt is medically ready to discharge to [facility]. MD order for ambulance transportation received. GLOVE CUTTER spoke with Anh mas [facility] to confirm discharge plan, per EDMOND Tillman delivered at 4:00p.m. this afternoon. Ambulance transportation arranged for 4:30p.m. via [facility] due to BIPAP needs and inability to sit up without extreme pain. If for some reason Medicare does not agree with pt meeting criteria, the pt will be liable for the transportation cost. Pt family notified. GLOVE CUTTER notified Katie of [facility] of pt discharge. All updated and agreeable to plan. No other discharge needs or MD orders identified. Plan: Per pt is medically stable to transport to [facility] via [facility] and with Hospice to open on Monday03/08/2017. All updated and agreeable to plan. No other discharge needs or MD orders identified. CLINTON Summers
== END 2017-03-04 16:45 | DRG 871 ==
LOC: CCU 20:15 → PCC 02-27 11:22
PROVIDERS: ADMIT Hospitalist; ATTEND Hospitalist
PROC: 02HV33Z Insertion of Infusion Device into Superior Vena Cava, Percutaneous Approach (ICD-10-PCS; principal; 2017-02-24)
PROC: 4A033R1 Measurement of Arterial Saturation, Peripheral, Percutaneous Approach (ICD-10-PCS; 2017-02-28)
DX: A41.9 Sepsis, unspecified organism (principal); R65.21 Severe sepsis with septic shock; J18.9 Pneumonia, unspecified organism; J44.1 Chronic obstructive pulmonary disease with (acute) exacerbation; J96.11 Chronic respiratory failure with hypoxia; R44.3 Hallucinations, unspecified; J96.12 Chronic respiratory failure with hypercapnia; Z99.81 Dependence on supplemental oxygen; Z87.891 Personal history of nicotine dependence; I10 Essential (primary) hypertension; E78.5 Hyperlipidemia, unspecified; K21.9 Gastro-esophageal reflux disease without esophagitis; E03.9 Hypothyroidism, unspecified; G25.0 Essential tremor; G89.29 Other chronic pain; M54.9 Dorsalgia, unspecified; F32.9 Major depressive disorder, single episode, unspecified; G47.00 Insomnia, unspecified; Z51.5 Encounter for palliative care